=== PATIENT | female | born 1950 | race Caucasian/White ===

== ENCOUNTER 2016-05-29 17:37 | Inpatient (IN) | payer OTHER ==
[2016-05-29 19:02] LABS: EOSINOPHIL 0.1 % (0-4.5); MCH 24.7 pg (25.7-33.7); MCHC 31.5 g/dl (32.0-36.0); MEAN CELL VOLUME 78.6 fl (80-96); MEAN PLT VOLUME 7.2 fl (7.5-11.1); PLATELET COUNT 510 K/MM3 (134-434); RDW 16.7 % (11.6-15.6); WHITE BLOOD COUNT 14.5 K/mm3 (4.0-10.0)
[2016-05-29 19:22] LABS: INR 1.12 (0.82-1.09); PROTHROMBIN TIME (PATIENT) 12.4 SEC (9.98-11.88)
[2016-05-29 22:26] LABS: ALBUMIN 2.4 g/dl (3.4-5.0); ANION GAP 11 (8-16); CALCIUM 8.8 mg/dL (8.5-10.1); CO2 30 mmol/L (21-32); CREATININE 0.8 mg/dL (0.55-1.02); GLUCOSE,RANDOM 69 mg/dL (74-106); MAGNESIUM 2.9 mg/dL (1.8-2.4); PHOSPHOROUS 3.8 mg/dL (2.5-4.9); SGOT/AST 27 U/L (15-37); SGPT/ALT 30 U/L (12-78)
[2016-05-29 22:27] LABS: SALICYLATE 5.172 mg/dl (0.0-30.0)
[2016-05-29 22:31] LABS: ALK PHOS 102 U/L (45-117); BILIRUBIN,TOTAL 0.3 mg/dL (0.2-1.0); TOT PROT 7.4 g/dl (6.4-8.2); TROPONIN I < 0.02 ng/ml (0.00-0.05)
--- NOTE | 2016-05-29 22:43 | PDOC ---
History of Present Illness - General History Source: EMS, Old Records Exam Limitations: Clinical Condition - History of Present Illness Initial Comments: 05/29/16 23:04 The patient is a 65 year old female brought via EMS and presenting with her daughter, with a significant past medical history of Opiod dependence, HTN and breast CA, who presents to the emergency department with altered mental status for the past 3 days. The patient is currently on methadone. On presentation the patient is sleepy, responsive to name and tactile stimuli. Allergies: Codeine Past surgical history: Abdominal surgery Social history: Methadone use. Cigarette use PMD - Dr. Josue <Keny Hardy - Last Filed: 05/29/16 23:03> - General History Source: Patient Exam Limitations: No Limitations <Pierre Michaud - Last Filed: 05/30/16 00:51> - General Chief Complaint: Altered Mental Status Stated Complaint: AMS Time Seen by Provider: 05/29/16 18:42 Past History <Keny Hardy - Last Filed: 05/29/16 23:03> - Past Medical History Cancer: Yes (H/O BREAST CA) HTN: Yes - Surgical History Abdominal Surgery: Yes - Immunization History Immunization Up to Date: No (unknown) - Psycho/Social/Smoking Cessation Hx Anxiety: No Suicidal Ideation: No Smoking Status: Yes Smoking History: Never smoked Have you smoked in the past 12 months: No Number of Cigarettes Smoked Daily: 7 Information on smoking cessation initiated: No Hx Alcohol Use: No Drug/Substance Use Hx: No Substance Use Type: None <Pierre Michaud - Last Filed: 05/30/16 00:51> - Past Medical History Allergies/Adverse Reactions: Allergies Allergy/AdvReac Type Severity Reaction Status Date / Time codeine Allergy Mild Rash Verified 10/21/14 16:21 Home Medications: Ambulatory Orders Atenolol [Tenormin] 25 mg PO TID 05/14/12 Gabapentin [Neurontin] 600 mg PO TID 05/14/12 Methadone (Detox) [Dolophine -] 50 mg PO DAILY 05/14/12 Enalapril Maleate [Vasotec] 5 mg PO BID 08/23/12 Amlodipine Besylate 5 mg PO ASDIR 10/20/14 Review of Systems - Review of Systems Able to Perform ROS?: Yes Comments:: 05/29/16 23:04 Unable to obtain ROS due to patient altered mental status <Keny Hardy - Last Filed: 05/29/16 23:03> *Physical Exam - Vital Signs Last Vital Signs Temp Pulse Resp BP Pulse Ox 97.1 F L 62 16 113/76 96 05/29/16 17:57 05/29/16 17:57 05/29/16 17:57 05/29/16 17:57 05/29/16 17:57 - Physical Exam Comments: 05/29/16 23:04 GENERAL: Sleepy, response to tactile stimuli HEAD: No signs of trauma, normocephalic, atraumatic EYES: PERRLA, EOMI, sclera anicteric, conjunctiva clear ENT: Auricles normal inspection, hearing grossly normal, nares patent, oropharynx clear without exudates. Moist mucosa NECK: Normal ROM, supple, no lymphadenopathy, JVD, or masses LUNGS: No distress, speaks full sentences, clear to auscultation bilaterally HEART: Regular rate and rhythm, normal S1 and S2, no murmurs, rubs or gallops, peripheral pulses normal and equal bilaterally. ABDOMEN: Soft, nontender, normoactive bowel sounds. No guarding, no rebound. No masses EXTREMITIES: 2+ lower extremity pitting edema bilaterally. No clubbing or cyanosis. NEUROLOGICAL: Sleepy, Response to tactile stimuli. SKIN: Warm, Dry, normal turgor, no rashes or lesions noted. <AntonyKenymichelle Wolf - Last Filed: 05/29/16 23:03> - Vital Signs Last Vital Signs Temp Pulse Resp BP Pulse Ox 97.1 F L 62 16 113/76 96 05/29/16 17:57 05/29/16 17:57 05/29/16 17:57 05/29/16 17:57 05/29/16 17:57 <Pierre Michaud - Last Filed: 05/30/16 00:51> Heart Score/ECG Review #1 ECG reviewed & interpreted by me at: 19:20 05/29/16 23:31 NSR 53, low voltage QRS, QTC 403 msec. No STD?CARLOS <Pierre Michaud - Last Filed: 05/30/16 00:51> ED Treatment Course - LABORATORY CBC & Chemistry Diagram: 05/29/16 18:50 04/12/17 21:09 - ADDITIONAL ORDERS Additional order review: Laboratory Results 05/29/16 05/29/16 05/29/16 21:09 21:09 21:09 INR PTT (Actin FS) Sodium 136 Potassium 4.9 Chloride 95 L Carbon Dioxide 30 Anion Gap 11 BUN 44 H D Creatinine 0.8 D Creat Clearance w eGFR > 60 POC Glucometer Random Glucose 69 L Calcium 8.8 Phosphorus 3.8 Magnesium 2.9 H Total Bilirubin 0.3 AST 27 ALT 30 D Alkaline Phosphatase 102 Ammonia 26.80 Creatine Kinase 34 Troponin I < 0.02 B-Natriuretic Peptide 679.36 H Total Protein 7.4 Albumin 2.4 L D Salicylates 5.172 Acetaminophen < 2.000 L Alcohol, Quantitative 05/29/16 05/29/16 05/29/16 18:50 18:50 18:50 INR 1.12 PTT (Actin FS) 30.0 Sodium Cancelled Potassium Cancelled Chloride Cancelled Carbon Dioxide Cancelled Anion Gap Cancelled BUN Cancelled Creatinine Cancelled Creat Clearance w eGFR Cancelled POC Glucometer Random Glucose Cancelled Calcium Cancelled Phosphorus Cancelled Magnesium Cancelled Total Bilirubin Cancelled AST Cancelled ALT Cancelled Alkaline Phosphatase Cancelled Ammonia Creatine Kinase Cancelled Troponin I Cancelled B-Natriuretic Peptide Cancelled Total Protein Cancelled Albumin Cancelled Salicylates Cancelled Acetaminophen Cancelled Alcohol, Quantitative Cancelled 05/29/16 05/29/16 18:49 17:49 INR PTT (Actin FS) Sodium Potassium Chloride Carbon Dioxide Anion Gap BUN Creatinine Creat Clearance w eGFR POC Glucometer 111.14161 Random Glucose Calcium Phosphorus Magnesium Total Bilirubin AST ALT Alkaline Phosphatase Ammonia 19.09 Creatine Kinase Troponin I B-Natriuretic Peptide Total Protein Albumin Salicylates Acetaminophen Alcohol, Quantitative 05/29/16 05/29/16 18:50 17:49 RBC 3.83 MCV 78.6 L MCHC 31.5 L RDW 16.7 H D MPV 7.2 L Neutrophils % 89.0 H D Lymphocytes % 3.9 L D Monocytes % 6.0 Eosinophils % 0.1 D Basophils % 1.0 POC Glucometer 111.42825 - RADIOLOGY Radiograph Interpretation: 05/29/16 23:[address] Reviewed by: Dr. Ga eWlls Impression: No CT evidence of acute intracranial pathology. <Keny Hardy - Last Filed: 05/29/16 23:03> - LABORATORY CBC & Chemistry Diagram: 05/29/16 18:50 05/29/16 21:09 - ADDITIONAL ORDERS Additional order review: Laboratory Results 05/29/16 05/29/16 05/29/16 21:09 21:09 21:09 INR PTT (Actin FS) Sodium 136 Potassium 4.9 Chloride 95 L Carbon Dioxide 30 Anion Gap 11 BUN 44 H D Creatinine 0.8 D Creat Clearance w eGFR > 60 POC Glucometer Random Glucose 69 L Calcium 8.8 Phosphorus 3.8 Magnesium 2.9 H Total Bilirubin 0.3 AST 27 ALT 30 D Alkaline Phosphatase 102 Ammonia 26.80 Creatine Kinase 34 Troponin I < 0.02 B-Natriuretic Peptide 679.36 H Total Protein 7.4 Albumin 2.4 L D Salicylates 5.172 Acetaminophen < 2.000 L Alcohol, Quantitative 05/29/16 05/29/16 05/29/16 18:50 18:50 18:50 INR 1.12 PTT (Actin FS) 30.0 Sodium Cancelled Potassium Cancelled Chloride Cancelled Carbon Dioxide Cancelled Anion Gap Cancelled BUN Cancelled Creatinine Cancelled Creat Clearance w eGFR Cancelled POC Glucometer Random Glucose Cancelled Calcium Cancelled Phosphorus Cancelled Magnesium Cancelled Total Bilirubin Cancelled AST Cancelled ALT Cancelled Alkaline Phosphatase Cancelled Ammonia Creatine Kinase Cancelled Troponin I Cancelled B-Natriuretic Peptide Cancelled Total Protein Cancelled Albumin Cancelled Salicylates Cancelled Acetaminophen Cancelled Alcohol, Quantitative Cancelled 05/29/16 05/29/16 18:49 17:49 INR PTT (Actin FS) Sodium Potassium Chloride Carbon Dioxide Anion Gap BUN Creatinine Creat Clearance w eGFR POC Glucometer 111.02191 Random Glucose Calcium Phosphorus Magnesium Total Bilirubin AST ALT Alkaline Phosphatase Ammonia 19.09 Creatine Kinase Troponin I B-Natriuretic Peptide Total Protein Albumin Salicylates Acetaminophen Alcohol, Quantitative 05/29/16 05/29/16 18:50 17:49 RBC 3.83 MCV 78.6 L MCHC 31.5 L RDW 16.7 H D MPV 7.2 L Neutrophils % 89.0 H D Lymphocytes % 3.9 L D Monocytes % 6.0 Eosinophils % 0.1 D Basophils % 1.0 POC Glucometer 111.90523 - RADIOLOGY Radiology Studies Ordered: Category Date Time Status HEAD CT WITHOUT CONTRAST [CT] Stat CT Scan 05/29/16 18:47 Completed CHEST - PA [RAD] Stat Radiology 05/29/16 22:38 Ordered <Pierre Michaud - Last Filed: 05/30/16 00:51> Medical Decision Making - Medical Decision Making 05/29/16 22:39 A portion of this note was documented by scribe services under my direction. I have reviewed the details of the note, within reason, and agree with the documentation with the following case summary and management plan written by me. Patient treated in the ED. Nursing notes are reviewed and incorporated into the medical decision-making. Vital signs reviewed. Peripheral IV access obtained by the nurse, laboratory studies are drawn and sent, reviewed and interpreted by myself. Vital Signs Temp Pulse Resp BP Pulse Ox 97.1 F L 62 16 113/76 96 05/29/16 17:57 05/29/16 17:57 05/29/16 17:57 05/29/16 17:57 05/29/16 17:57 65-year-old female with past medical history of stage IV breast cancer currently in remission, hypertension presents with altered mental status. The patient is arousable by tactile stimuli and appears sleepy. Does not want answer questions. History obtained by the daughter why spoke to. She reports that the patient last month has been feeling generally "off". In last 4 days, family noticed that she was becoming increasingly more lethargic. She does take 30 mg methadone daily and that was secondary to chronic pain secondary to her cancer. She is currently not on chemotherapy at this time. They had visited Dr. Grant performed blood work and reported that her thyroid and liver enzymes are okay. However, because of the persistence of lethargy and altered mental status, patient brought to ED. The family also noted that she's been having 2 weeks of increasing lower extremity edema. According to the patient's family, there is no knowledge of cardiac disease. Differential is broad. Includes occult infection, anemia, metabolic disarray. CAT scan head was performed and showed no acute findings. Laboratory data suggests multiple findings. Patient's BUN/creatinine is 44:1 suggests dehydration. However, patient's chest x-ray demonstrates cardiomegaly with an elevated BNP of 600. With the lower extremity edema, this is also concerning for CHF. Urine studies pending. Given these findings, the patient to be admitted for further evaluation. 05/29/16 23:32 Pt has low voltages on ECG. With cardiomegaly and low voltages, (though vitals stable and no electrical alternans), should consider echo prior to diuresis. 05/30/16 00:36 Bedside ultrasound demonstrated no pericardial effusion. 05/30/16 00:49 CBC, BMP 05/29/16 18:50 05/29/16 21:09 CMP Sodium 136 mmol/L (136-145) 05/29/16 21:09 Potassium 4.9 mmol/L (3.5-5.1) 05/29/16 21:09 Chloride 95 mmol/L (98-107) L 05/29/16 21:09 Carbon Dioxide 30 mmol/L (21-32) 05/29/16 21:09 Anion Gap 11 (8-16) 05/29/16 21:09 BUN 44 mg/dL (7-18) H D 05/29/16 21:09 Creatinine 0.8 mg/dL (0.55-1.02) D 05/29/16 21:09 Creat Clearance w eGFR > 60 (>60) 05/29/16 21:09 POC Glucometer 111.50047 UNITS (()) 05/29/16 17:49 Random Glucose 69 mg/dL (74-106) L 05/29/16 21:09 Calcium 8.8 mg/dL (8.5-10.1) 05/29/16 21:09 Phosphorus 3.8 mg/dL (2.5-4.9) 05/29/16 21:09 Magnesium 2.9 mg/dL (1.8-2.4) H 05/29/16 21:09 Total Bilirubin 0.3 mg/dL (0.2-1.0) 05/29/16 21:09 AST 27 U/L (15-37) 05/29/16 21:09 ALT 30 U/L (12-78) D 05/29/16 21:09 Alkaline Phosphatase 102 U/L (45-117) 05/29/16 21:09 Ammonia 26.80 umol/L (11-32) 05/29/16 21:09 Creatine Kinase 34 IU/L (26-192) 05/29/16 21:09 Troponin I < 0.02 ng/ml (0.00-0.05) 05/29/16 21:09 B-Natriuretic Peptide 679.36 pg/ml (5-125) H 05/29/16 21:09 Total Protein 7.4 g/dl (6.4-8.2) 05/29/16 21:09 Albumin 2.4 g/dl (3.4-5.0) L D 05/29/16 21:09 Patient was given an amp of dextrose and his symptoms improved. The patient is now alert and improved. Decision was made to admit the patient to the hospital for further evaluation. Case discussed with Dr. Arechiga who accepts for telemetry admission. Case discussed in detail with admitting physician including history, physical exam and ancillary studies. Admitting physician has assumed care for the patient, will follow all pending diagnostics and will complete the evaluation and treatment. <Pierre Michaud - Last Filed: 05/30/16 00:51> *DC/Admit/Observation/Transfer <Keny Hardy - Last Filed: 05/29/16 23:03> - Discharge Dispostion Admit: Yes <Pierre Michaud - Last Filed: 05/30/16 00:51> Diagnosis at time of Disposition: Hypoglycemia Congestive heart failure Qualifiers: Congestive heart failure type: unspecified congestive heart failure type Congestive heart failure chronicity: unspecified congestive heart failure chronicity Qualified Code(s): I50.9 - Heart failure, unspecified - Discharge Dispostion Condition at time of disposition: Stable - Referrals Referrals: Colin Brar MD [Primary Care Provider] -
[2016-05-29] MEDS ORDERED: DEXTROSE 50%-WATER - 25 GM/50 ML VIAL IVPUSH ONE (23:47)
[2016-05-29] MEDS ORDERED: FUROSEMIDE 40 MG/4 ML INJECTABLE VIAL IVPUSH ONE (23:47)
[2016-05-30] MEDS ORDERED: FUROSEMIDE 40 MG/4 ML INJECTABLE VIAL ONE ×2 (00:10→11:08)
[2016-05-30] MEDS ORDERED: DEXTROSE 50%-WATER 50 ML DISP.SYRIN ONE (00:11)
--- NOTE | 2016-05-30 01:45 | HP ---
[id number] HISTORY OF PRESENT ILLNESS: 65 yo F presents with altered mental status for 3 days. Patient is a poor historian due to clinical condition. Family not at bedside. Hx taken from chart. PMHx: Opioid dependence, HTN and breast CA ER course was notable for: (1) Chest X-Ray with bilateral pleural effusions (2) Labs BMP elevated 679. Solicilate level of 5.1 (3) Head CT which had no acute intracranial pathology Recent Travel: N/A PAST MEDICAL HISTORY: Opioid dependence, HTN and breast CA PAST SURGICAL HISTORY: Mastectomy Social History: Smoking: N/A Alcohol: N/A Drugs: Opioid dependence Family History: Allergies codeine Allergy (Mild, Verified 10/21/14 16:21) Rash HOME MEDICATIONS: Home Medications Medication Instructions Recorded Atenolol [Tenormin] 25 mg PO TID 05/14/12 Gabapentin [Neurontin] 600 mg PO TID 05/14/12 Methadone (Detox) [Dolophine -] 50 mg PO DAILY 05/14/12 Enalapril Maleate [Vasotec] 5 mg PO BID 08/23/12 Amlodipine Besylate 5 mg PO ASDIR 10/20/14 REVIEW OF SYSTEMS Unable to obtain as patient is nonverbal secondary to clinical condition. PHYSICAL EXAMINATION GENERAL: Oriented to self, in mild distress. Moaning. Groaning. Nonverbal. HEAD: Normal with no signs of trauma. EYES: Pupils reactive to light, extraocular movements intact, sclera anicteric, conjunctiva clear. No lid lag. Bilateral Ptosis. EARS, NOSE, THROAT: Ears normal, nares patent, oropharynx clear without exudates. Oral mucosa dry. NECK: Normal range of motion, supple without lymphadenopathy. Positive JVD. No masses. LUNGS: Breath sounds equal, clear to auscultation bilaterally. No wheezes, and no crackles. No accessory muscle use. HEART: Regular rate and rhythm, normal S1 and S2 without murmur, rub or gallop. ABDOMEN: Soft, nontender, not distended, normoactive bowel sounds, no guarding, no rebound, no masses. No hepatomegaly or splenomegaly. Right sided mastectomy. MUSCULOSKELETAL: Normal range of motion at all joints. No bony deformities or tenderness. No CVA tenderness. UPPER EXTREMITIES: 2+ pulses, warm, well-perfused. No cyanosis. No clubbing. No peripheral edema. LOWER EXTREMITIES: 2+ pulses, warm, well-perfused. No calf tenderness. No peripheral edema. NEUROLOGICAL: patrizia score 12 PSYCHIATRIC: Cooperative. SKIN: Warm, dry, normal turgor, no rashes or lesions noted, normal capillary refill. Documentation prepared by Hattie Henley, acting as medical office clerk for Kristen Arechiga M.D. <Kristen Arechiga - Last Filed: 06/13/16 01:06> Problem List - Problem (1) Altered mental status, unspecified Assessment/Plan: Neurochecks Aspiration precautions elevate head of bed >30 degrees Dextrose stat UA and UC ABG Monitor FS ACHS Code(s): R41.82 - ALTERED MENTAL STATUS, UNSPECIFIED Qualifiers: Coma depth: Naila coma 9-12 (2) CHF (congestive heart failure) Assessment/Plan: Atenolol 12.5mg BID, as per renal dosing Enalapril 5 mg bid Lipid panel ECHO Cardiology consult Code(s): I50.9 - HEART FAILURE, UNSPECIFIED Qualifiers: Congestive heart failure type: unspecified congestive heart failure type Congestive heart failure chronicity: unspecified congestive heart failure chronicity Qualified Code(s): I50.9 - Heart failure, unspecified (3) Hypoglycemia Assessment/Plan: Monitor FS q4h Dextrose q6h prn Code(s): E16.2 - HYPOGLYCEMIA, UNSPECIFIED (4) H/O malignant neoplasm of breast Code(s): Z85.3 - PERSONAL HISTORY OF MALIGNANT NEOPLASM OF BREAST Visit type - Emergency Visit Emergency Visit: Yes ED Registration Date: 05/30/16 Care time: The patient presented to the Emergency Department on the above date and was hospitalized for further evaluation of their emergent condition. - New Patient This patient is new to me today: Yes Date on this admission: 06/13/16 - Critical Care Critical Care patient: No
[2016-05-30] MEDS ORDERED: amLODIPine BESYLATE 5 MG TABLET (FP) PO SCH (02:15)
[2016-05-30 07:39] LABS: BASOPHIL 0.3 % (0-2.0); EOSINOPHIL 0.2 % (0-4.5); MCH 25.3 pg (25.7-33.7); MCHC 32.2 g/dl (32.0-36.0); MEAN CELL VOLUME 78.8 fl (80-96); MEAN PLT VOLUME 6.8 fl (7.5-11.1); NEUTROPHILS 90.2 % (42.8-82.8); PLATELET COUNT 486 K/MM3 (134-434); RDW 16.2 % (11.6-15.6); WHITE BLOOD COUNT 18.7 K/mm3 (4.0-10.0)
[2016-05-30] MEDS: GABAPENTIN 300 MG CAPSULE (FP) PO SCH ×3 (07:55→21:27)
[2016-05-30] MEDS ORDERED: GABAPENTIN 100 MG CAPSULE (FP) ONE (07:58)
[2016-05-30 08:08] LABS: ALBUMIN 2.3 g/dl (3.4-5.0); ANION GAP 8 (8-16); BILIRUBIN,TOTAL 0.6 mg/dL (0.2-1.0); CALCIUM 8.8 mg/dL (8.5-10.1); CO2 32 mmol/L (21-32); CREATININE 0.9 mg/dL (0.55-1.02); GLUCOSE,RANDOM 82 mg/dL (74-106); SGOT/AST 25 U/L (15-37); SGPT/ALT 26 U/L (12-78)
[2016-05-30 08:09] LABS: ALK PHOS 89 U/L (45-117)
--- NOTE | 2016-05-30 08:18 | PN ---
Progress Note (short form) - Note Progress Note: Cardiology Consult Dictated Altered Mental Status Leukocytosis Possible RLL infiltrate Evidence of Volume Overload on exam vs 3rd spacing from low albumin REC: Echocardiogram today for EF assessment Blood and urine cultures ID and Pulmonary to evaluate For now, can start on PO Lasix and observe clinically.
--- NOTE | 2016-05-30 08:39 | PN ---
Teaching Attending Note Name of Resident: Filippo Hoyos ATTENDING PHYSICIAN STATEMENT I saw and evaluated the patient. I reviewed the resident's note and discussed the case with the resident. I agree with the resident's findings and plan as documented. Patient is lying in bed with no acute distress, looks lethargic, answers to questions and then falls back to sleep. Vital Signs Temperature 97.6 F 05/30/16 06:31 Pulse Rate 91 H 05/30/16 06:31 Respiratory Rate 18 05/30/16 06:31 Blood Pressure 98/61 05/30/16 06:31 O2 Sat by Pulse Oximetry (%) 98 05/30/16 06:31 CBCD WBC 18.7 K/mm3 (4.0-10.0) H 05/30/16 07:15 RBC 3.89 M/mm3 (3.60-5.2) 05/30/16 07:15 Hgb 9.8 GM/dL (10.7-15.3) L 05/30/16 07:15 Hct 30.6 % (32.4-45.2) L 05/30/16 07:15 MCV 78.8 fl (80-96) L 05/30/16 07:15 MCHC 32.2 g/dl (32.0-36.0) 05/30/16 07:15 RDW 16.2 % (11.6-15.6) H 05/30/16 07:15 Plt Count 486 K/MM3 (134-434) H 05/30/16 07:15 MPV 6.8 fl (7.5-11.1) L 05/30/16 07:15 CMP Sodium 136 mmol/L (136-145) 05/30/16 07:15 Potassium 5.3 mmol/L (3.5-5.1) H 05/30/16 07:15 Chloride 96 mmol/L (98-107) L 05/30/16 07:15 Carbon Dioxide 32 mmol/L (21-32) 05/30/16 07:15 Anion Gap 8 (8-16) 05/30/16 07:15 BUN 43 mg/dL (7-18) H 05/30/16 07:15 Creatinine 0.9 mg/dL (0.55-1.02) 05/30/16 07:15 Creat Clearance w eGFR > 60 (>60) 05/30/16 07:15 Random Glucose 82 mg/dL (74-106) 05/30/16 07:15 Calcium 8.8 mg/dL (8.5-10.1) 05/30/16 07:15 Total Bilirubin 0.6 mg/dL (0.2-1.0) D 05/30/16 07:15 AST 25 U/L (15-37) 05/30/16 07:15 ALT 26 U/L (12-78) 05/30/16 07:15 Alkaline Phosphatase 89 U/L (45-117) 05/30/16 07:15 Total Protein 7.0 g/dl (6.4-8.2) 05/30/16 07:15 Albumin 2.3 g/dl (3.4-5.0) L 05/30/16 07:15 CARDIAC ENZYMES Creatine Kinase 34 IU/L (26-192) 05/29/16 21:09 Troponin I < 0.02 ng/ml (0.00-0.05) 05/29/16 21:09 Current Medications Generic Name Dose Route Start Last Admin Trade Name Freq PRN Reason Stop Dose Admin Amlodipine Besylate 5 mg 05/30/16 10:00 Norvasc - PO DAILY [facility] Atenolol 12.5 mg 05/30/16 10:00 Tenormin - PO BID [facility] Furosemide 40 mg 05/30/16 10:00 Lasix Injection - IVPB DAILY [facility] Gabapentin 600 mg 05/30/16 06:00 05/30/16 07:55 Neurontin - PO 600 mg TID [facility] Administration Metronidazole 100 mls @ 100 mls/hr 05/30/16 10:00 Flagyl 500mg Premixed Ivpb - IVPB Q8H-IV [facility] Ceftriaxone Sodium 1 gm/ 100 mls @ 200 mls/hr 05/30/16 10:00 Dextrose IVPB DAILY [facility] Home Medications Medication Instructions Recorded Atenolol [Tenormin] 25 mg PO TID 05/14/12 Gabapentin [Neurontin] 600 mg PO TID 05/14/12 Methadone (Detox) [Dolophine -] 50 mg PO DAILY 05/14/12 Enalapril Maleate [Vasotec] 5 mg PO BID 08/23/12 Amlodipine Besylate 5 mg PO ASDIR 09/03/15 ASSESSMENT AND PLAN: Patient is a 65F with history of HTN, Breast CA in remission, and chronic pain syndrome leading to opioid dependence presents to the hospital with altered mental status found to be hypoglycemic given D50 and AMS resolved. # Acute change of mental status ; r/o sepsis ; UA,urine culture ordered, Hold Methadone for now. Blood culture x2 , # Acute Hypoglycemia , BGms q4hr, IV d50 prn # Acute leukocytosis r/o sepsis, blood culture, UA,urine culture ordered, ID consult, BL pleural effusion cannot r/o pneumonia # Acute CHF exacerbation , cardio consult . # Acute Hyperkalemia will hold Vasotec for now, will monitor Potassium level. will continue LAsix IV DVT Px: Lovenox 40mg sq
--- NOTE | 2016-05-30 08:50 | CONS ---
DATE OF CONSULTATION: 05/30/2016 A consultation is requested for evaluation of congestive heart failure by Dr. Arechiga. The patient is a 65-year-old female with past medical history of hypertension, breast cancer, and opioid dependence, brought to the emergency room by her daughter for altered mental status. The history was obtained by me in Croatian. The patient is a poor historian. She is really unable to tell me why she is in the emergency room other than she has leg swelling. She denied fevers or chills on my history, no chest pain, no shortness of breath. She denied cough. She has had swollen legs for the last 2 months. She denies prior cardiac issues. PAST MEDICAL HISTORY: Her past medical history is as alluded to above and includes hypertension, history of breast cancer, methadone dependence for unclear reasons at this time. ALLERGIES: She is allergic to CODEINE. MEDICATIONS: Her home medications include methadone 50 mg daily, Neurontin 600 t.i.d., enalapril 5 b.i.d., atenolol 25 t.i.d., amlodipine 5 mg daily. Here she has been started on those medications as well as IV Lasix 40 mg IV daily, ceftriaxone and Flagyl due to elevated white count and suspected pneumonia. FAMILY HISTORY: Noncontributory. SOCIAL HISTORY: She lives with her daughter. She is a smoker, 7 cigarettes per day. PHYSICAL EXAMINATION: Vital Signs: Afebrile, temperature 97.6. Pulse 91 and regular. Blood pressure 112/62, this morning 98/61. O2 saturation 91 on room air. HEENT: She is anicteric with no JVD and no carotid bruits. Heart: Regular without murmurs. Chest: Demonstrated right basilar rales. Abdomen: Soft, nontender. Extremities: With 2+ pitting edema bilaterally. LABORATORY: White count 18, hematocrit 30, platelets 486, INR 1.1. Sodium 136, creatinine 0.8. LFTs were normal. CK, troponin negative x1 set. BNP 679. Albumin low at 2.4. Chest x-ray showed increased peripheral congestion, mild, with a possible right lower lobe infiltrate. CT head was negative. EKG showed sinus bradycardia with borderline low voltage. IMPRESSION: 1. Altered mental status with leukocytosis. 2. Suspected right lower lobe infiltrate/pneumonia. 3. History of hypertension and breast cancer. 4. Evidence of volume overload on exam, mild, with concomitant hypoalbuminemia. PLAN: 1. Blood and urine cultures. 2. ID and pulmonary evaluation. 3. Echocardiogram today for assessment of LV function, valvular status, and to rule out pericardial disease. 4. For now, would switch to p.o. Lasix 40 mg daily and observe clinically. This can be changed to IV if she does not respond. Thanks for the consultation. MELISSA MUNOZ M.D. [id number]
[2016-05-30] MEDS ORDERED: DEXTROSE 50%-WATER - 25 GM/50 ML VIAL IVPUSH PRN (08:52)
[2016-05-30 09:07] LABS: CHOLESTEROL 145 mg/dL (50-200); LDL CHOLESTEROL (ONLY SJRH) 91 mg/dL (5-100); TROPONIN I < 0.02 ng/ml (0.00-0.05)
[2016-05-30] MEDS ORDERED: CEFTRIAXONE 100 ML IVPB SCH (10:00)
[2016-05-30] MEDS ORDERED: METRONIDAZOLE 500 MG PREMIXED 100 ML IVPB SCH (10:00)
[2016-05-30] MEDS ORDERED: FUROSEMIDE 40 MG/4 ML INJECTABLE VIAL IVPB SCH ×2 (10:00→22:00)
[2016-05-30] MEDS ORDERED: ENALAPRIL MALEATE 5 MG TABLET (FP) PO SCH ×2 (10:00→22:00)
[2016-05-30] MEDS ORDERED: ATENOLOL 25 MG TABLET (FP) PO SCH ×2 (10:00)
[2016-05-30] MEDS ORDERED: ATENOLOL 25 MG TABLET (FP) ONE (11:07)
[2016-05-30] MEDS ORDERED: METRONIDAZOLE 500 MG PREMIXED 100 ML IVPB ONE (11:08)
[2016-05-30] MEDS ORDERED: CEFTRIAXONE 50 ML ONE (11:08)
[2016-05-30] MEDS: amLODIPine BESYLATE 5 MG TABLET (FP) PO SCH (11:19)
--- NOTE | 2016-05-30 11:39 | EKG ---
Test Reason : Blood Pressure : / mmHG Vent. Rate : 053 BPM Atrial Rate : 053 BPM P-R Int : 166 ms QRS Dur : 084 ms QT Int : 430 ms P-R-T Axes : 056 025 018 degrees QTc Int : 403 ms SINUS BRADYCARDIA WITH SINUS ARRHYTHMIA POSSIBLE LEFT ATRIAL ENLARGEMENT LOW VOLTAGE QRS BORDERLINE ECG NO PREVIOUS ECGS AVAILABLE Confirmed by WILLIAM ROBERTSON, BRITTNEY ([id number]) on 05/30/2016 11:38:42 AM Referred By: Confirmed By:BRITTNEY THOMAS MD
[2016-05-30] MEDS: CEFTRIAXONE 50 ML IVPB SCH (12:01)
[2016-05-30 12:31] LABS: URINE APPEARANCE CLEAR; URINE BILIRUBIN NEGATIVE (NEGATIVE); URINE BLOOD NEGATIVE (NEGATIVE); URINE COLOR STRAW; URINE GLUCOSE (UA) NEGATIVE (NEGATIVE); URINE KETONE NEGATIVE (NEGATIVE); URINE LEUK ESTERASE NEGATIVE (NEGATIVE); URINE NITRITE NEGATIVE (NEGATIVE); URINE PROTEIN NEGATIVE (NEGATIVE); URINE UROBILINOGEN NEGATIVE E.U./dl (0.2-1.0)
[2016-05-30 13:25] LABS: URINE MARIJUANA THC NEGATIVE ng/ml (CUTOFF=50)
[2016-05-30] MEDS ORDERED: FUROSEMIDE 40 MG TABLET (FP) PO SCH (14:00)
--- NOTE | 2016-05-30 16:03 | PN ---
Physical Exam: SUBJECTIVE: Patient seen and examined at bedside in the emergency room does not answer questions in Vietnamese or in [place] OBJECTIVE: Vital Signs Period Temp Pulse Resp BP Sys/Fernando Pulse Ox Last 24 Hr 97.3 F-98.0 F 66-104 18-20 95-121/52-61 98-99 GENERAL: The patient is awake, alert. would not answer questions for orientation HEAD: Normal with no signs of trauma. EYES: PERRL, extraocular movements intact, sclera anicteric, conjunctiva clear ENT: moist mucous membranes. NECK: Trachea midline, supple. LUNGS: Breath sounds equal, clear to auscultation bilaterally, no wheezes, no crackles HEART: Regular rate and rhythm, S1, S2 +JVD ABDOMEN: Soft, nontender, nondistended, normoactive bowel sounds, no guarding, no rebound, no hepatosplenomegaly, no masses. EXTREMITIES: warm 2+ pitting edema of lower extremities bilaterally NEUROLOGICAL: Cranial nerves II through XII grossly intact. patient would not participate in order to do a full neuro exam PSYCH: withdrawn Laboratory Results - last 24 hr 05/30/16 05/30/16 05/30/16 07:15 07:15 07:15 WBC 18.7 H RBC 3.89 Hgb 9.8 L Hct 30.6 L MCV 78.8 L MCHC 32.2 RDW 16.2 H Plt Count 486 H MPV 6.8 L Neutrophils % 90.2 H Lymphocytes % 5.5 L D Monocytes % 3.8 Eosinophils % 0.2 D Basophils % 0.3 Sodium 136 Potassium 5.3 H Chloride 96 L Carbon Dioxide 32 Anion Gap 8 BUN 43 H Creatinine 0.9 Creat Clearance w eGFR > 60 Random Glucose 82 Calcium 8.8 Total Bilirubin 0.6 D AST 25 ALT 26 Alkaline Phosphatase 89 Creatine Kinase 45 Troponin I < 0.02 Total Protein 7.0 Albumin 2.3 L Triglycerides 107 Cancelled Cholesterol 145 Cancelled Total LDL Cholesterol 91 Cancelled HDL Cholesterol 40 Cancelled Urine Color Urine Appearance Urine pH Ur Specific [place] Urine Protein Urine Glucose (UA) Urine Ketones Urine Blood Urine Nitrite Urine Bilirubin Urine Urobilinogen Ur Leukocyte Esterase Opiates Screen Methadone Screen Barbiturate Screen Phencyclidine Screen Ur Amphetamines Screen MDMA (Ecstasy) Screen Benzodiazepines Screen Cocaine Screen U Marijuana (THC) Screen 05/30/16 05/30/16 12:15 12:15 WBC RBC Hgb Hct MCV MCHC RDW Plt Count MPV Neutrophils % Lymphocytes % Monocytes % Eosinophils % Basophils % Sodium Potassium Chloride Carbon Dioxide Anion Gap BUN Creatinine Creat Clearance w eGFR Random Glucose Calcium Total Bilirubin AST ALT Alkaline Phosphatase Creatine Kinase Troponin I Total Protein Albumin Triglycerides Cholesterol Total LDL Cholesterol HDL Cholesterol Urine Color Straw Urine Appearance Clear Urine pH 5.0 Ur Specific [place] 1.008 Urine Protein Negative Urine Glucose (UA) Negative Urine Ketones Negative Urine Blood Negative Urine Nitrite Negative Urine Bilirubin Negative Urine Urobilinogen Negative Ur Leukocyte Esterase Negative Opiates Screen Negative Methadone Screen Positive Barbiturate Screen Negative Phencyclidine Screen Negative Ur Amphetamines Screen Negative MDMA (Ecstasy) Screen Negative Benzodiazepines Screen Negative Cocaine Screen Negative U Marijuana (THC) Screen Negative Active Medications Generic Name Dose Route Start Last Admin Trade Name Ludivina PRN Reason Stop Dose Admin Amlodipine Besylate 5 mg 05/30/16 10:00 05/30/16 11:19 Norvasc - PO Not Given DAILY MONAE Atenolol 25 mg 05/31/16 10:00 Tenormin - PO DAILY MONAE Furosemide 40 mg 05/30/16 22:00 Lasix Injection - IVPUSH BID MONAE Gabapentin 600 mg 05/30/16 06:00 05/30/16 15:00 Neurontin - PO Not Given TID MONAE Ceftriaxone Sodium 50 mls @ 200 mls/hr 05/30/16 10:00 05/30/16 12:01 Rocephin 1gm Ivpb (Pre-Docked) IVPB 200 mls/hr DAILY MONAE Administration Active Medications Generic Name Dose Route Start Last Admin Trade Name Ludivina PRN Reason Stop Dose Admin Amlodipine Besylate 5 mg 05/30/16 10:00 05/30/16 11:19 Norvasc - PO Not Given DAILY MONAE Atenolol 25 mg 05/31/16 10:00 Tenormin - PO DAILY MONAE Furosemide 40 mg 05/30/16 22:00 Lasix Injection - IVPUSH BID MONAE Gabapentin 600 mg 05/30/16 06:00 05/30/16 15:00 Neurontin - PO Not Given TID MONAE Ceftriaxone Sodium 50 mls @ 200 mls/hr 05/30/16 10:00 05/30/16 12:01 Rocephin 1gm Ivpb (Pre-Docked) IVPB 200 mls/hr DAILY MONAE Administration ASSESSMENT/PLAN: 65F with history of HTN, Breast CA in remission, and chronic pain syndrome leading to opioid dependence presents to the hospital with altered mental status found to be hypoglycemic given D50 and AMS resolved. Altered mental status: could be from methadone overdose vs hypoglycemia. Unless patient took more methadone than she was supposed to it is unlikely her dose is too high for her as she has been on this dose chronically. could also be from infection as patient has leukocystosis and bilateral lower lob PNA on CXR altered mental status improving hold methadone for now if patient starts to go into withdrawals would restart home dose of methadone encourage PO intake trend fingersticks q6h give D50 PRN Head CT WNL Sepsis secondary to pneumonia: patient had leukocytosis and tachycardia on presentation with a source of infection found ox CXR Start Rocephin Trend CBC Stop Flagyl Hypoglycemia: improved after D50 could be due to poor oral intake trend fingersticks q6h give D50 PRN HTN: continue home dose of Atenelol hold enalapril for now as she is hyperkalemic CHF:patient does not have CHF on Echo but clinically she has leg edema and looks volume overloaded Cardiology consult appreciated ECHO results noted Lasix 40mg IV BID Breast Ca: In remission no issues outpatient follow up Opioid dependence: secondary to chronic pain hold methadone for today restart tomorrow if her mental status improves to avoid withdrawals continue gabapentin for neuropathy/chronic pain Hyperkalemia: could be from TORIE inhibitor Hold enalapril Trend BMP should improve as patient is now on lasix if worsens will treat FEN: no IVF hyperkalemia Sodium controlled diet PPx: SCDs/HSQ No GI PPx indicated at this time PT consult to avoid deconditioning Visit type - Emergency Visit Emergency Visit: Yes ED Registration Date: 05/30/16 Care time: The patient presented to the Emergency Department on the above date and was hospitalized for further evaluation of their emergent condition. - New Patient This patient is new to me today: Yes Date on this admission: 05/30/16 - Critical Care Critical Care patient: No
--- NOTE | 2016-05-30 16:28 | CONSULT ---
Consultation: REQUESTING PROVIDER: Dr. Corby Haji CONSULT REQUEST: We have been asked to medically evaluate this patient for Pneumonia. HISTORY OF PRESENT ILLNESS: Patient is a 65 year old female with a PMHx of Stage 4 breast cancer in remission, HTN, and methadone dependence who presented for lethargy/altered mental status and was found to be hypoglycemic with leukocytosis and bilateral pitting edema. Patient's daughter reports she has chronic pain secondary to her breast cancer and was placed on methadone for management. When speaking to the patient she reports her edema began one week ago and has been increasing. Chest X-ray was done and patient was found to have right pleural effusion and bilateral infiltrates. Patient otherwise denies chest pain, palpitations, fever , chills, nausea, vomiting, diarrhea. PMHx: HTN PSHx: Bilateral breast masectomy, Right knee replacement Allergies: Codeine REVIEW OF SYSTEMS: CONSTITUTIONAL: generalized weakness, malaise, loss of appetite Absent: fever, chills, diaphoresis, weight change HEENT: Absent: rhinorrhea, nasal congestion, throat pain, throat swelling, difficulty swallowing, mouth swelling, ear pain, eye pain, visual changes CARDIOVASCULAR: Absent: chest pain, syncope, palpitations, irregular heart rate, lightheadedness , peripheral edema RESPIRATORY: cough, shortness of breath Absent: dyspnea with exertion, orthopnea, wheezing, stridor, hemoptysis GASTROINTESTINAL: Absent: abdominal pain, abdominal distension, nausea, vomiting, diarrhea, constipation, melena, hematochezia GENITOURINARY: Absent: dysuria, frequency, urgency, hesitancy, hematuria, flank pain, genital pain MUSCULOSKELETAL: Absent: myalgia, arthralgia, joint swelling, back pain, neck pain SKIN: Absent: rash, itching, pallor HEMATOLOGIC/IMMUNOLOGIC: Absent: easy bleeding, easy bruising, lymphadenopathy, frequent infections ENDOCRINE: Absent: unexplained weight gain, unexplained weight loss, heat intolerance, cold intolerance NEUROLOGIC: Absent: headache, focal weakness or paresthesias, dizziness, unsteady gait, seizure, mental status changes, bladder or bowel incontinence PSYCHIATRIC: Absent: anxiety, depression, suicidal or homicidal ideation, hallucinations. PHYSICAL EXAMINATION Vital Signs - 24 hr 05/30/16 05/30/16 05/30/16 02:20 06:31 10:30 Temperature 97.9 F 97.6 F 98.0 F Pulse Rate [ 104 H 91 H 66 Apical] Respiratory 20 18 19 Rate Blood Pressure 95/52 98/61 121/60 [Left Arm] O2 Sat by Pulse 99 98 98 Oximetry (%) 05/30/16 13:56 Temperature 97.3 F L Pulse Rate [ 72 Apical] Respiratory 19 Rate Blood Pressure 109/53 [Left Arm] O2 Sat by Pulse Oximetry (%) GENERAL: Awake, lethargic, and in no acute distress THROAT:Oropharynx clear without exudates. Moist mucous membranes. LUNGS: Decreased breath sounds throughout lung bases. Bibasilar crackles throughout lung shepard HEART: Regular rate and rhythm, normal S1 and S2 without murmur, rub or gallop. ABDOMEN: Soft, nontender, not distended, normoactive bowel sounds, no guarding, no rebound, no masses. EXTREMITIES: 2+ Bilateral edema in lower extremities Laboratory Results - last 24 hr 05/30/16 05/30/16 05/30/16 07:15 07:15 07:15 WBC 18.7 H RBC 3.89 Hgb 9.8 L Hct 30.6 L MCV 78.8 L MCHC 32.2 RDW 16.2 H Plt Count 486 H MPV 6.8 L Neutrophils % 90.2 H Lymphocytes % 5.5 L D Monocytes % 3.8 Eosinophils % 0.2 D Basophils % 0.3 Sodium 136 Potassium 5.3 H Chloride 96 L Carbon Dioxide 32 Anion Gap 8 BUN 43 H Creatinine 0.9 Creat Clearance w eGFR > 60 Random Glucose 82 Calcium 8.8 Total Bilirubin 0.6 D AST 25 ALT 26 Alkaline Phosphatase 89 Creatine Kinase 45 Troponin I < 0.02 Total Protein 7.0 Albumin 2.3 L Triglycerides 107 Cancelled Cholesterol 145 Cancelled Total LDL Cholesterol 91 Cancelled HDL Cholesterol 40 Cancelled Urine Color Urine Appearance Urine pH Ur Specific [place] Urine Protein Urine Glucose (UA) Urine Ketones Urine Blood Urine Nitrite Urine Bilirubin Urine Urobilinogen Ur Leukocyte Esterase Opiates Screen Methadone Screen Barbiturate Screen Phencyclidine Screen Ur Amphetamines Screen MDMA (Ecstasy) Screen Benzodiazepines Screen Cocaine Screen U Marijuana (THC) Screen 05/30/16 05/30/16 12:15 12:15 WBC RBC Hgb Hct MCV MCHC RDW Plt Count MPV Neutrophils % Lymphocytes % Monocytes % Eosinophils % Basophils % Sodium Potassium Chloride Carbon Dioxide Anion Gap BUN Creatinine Creat Clearance w eGFR Random Glucose Calcium Total Bilirubin AST ALT Alkaline Phosphatase Creatine Kinase Troponin I Total Protein Albumin Triglycerides Cholesterol Total LDL Cholesterol HDL Cholesterol Urine Color Straw Urine Appearance Clear Urine pH 5.0 Ur Specific [place] 1.008 Urine Protein Negative Urine Glucose (UA) Negative Urine Ketones Negative Urine Blood Negative Urine Nitrite Negative Urine Bilirubin Negative Urine Urobilinogen Negative Ur Leukocyte Esterase Negative Opiates Screen Negative Methadone Screen Positive Barbiturate Screen Negative Phencyclidine Screen Negative Ur Amphetamines Screen Negative MDMA (Ecstasy) Screen Negative Benzodiazepines Screen Negative Cocaine Screen Negative U Marijuana (THC) Screen Negative Active Medications Generic Name Dose Route Start Last Admin Trade Name Phuq PRN Reason Stop Dose Admin Amlodipine Besylate 5 mg 05/30/16 10:00 05/30/16 11:19 Norvasc - PO Not Given DAILY MONAE Atenolol 25 mg 05/31/16 10:00 Tenormin - PO DAILY MONAE Furosemide 40 mg 05/30/16 16:30 Lasix Injection - IVPUSH BIDLASIX MONAE Gabapentin 600 mg 05/30/16 06:00 05/30/16 15:00 Neurontin - PO Not Given TID MONAE Heparin Sodium (Porcine) 5,000 unit 05/30/16 22:00 Heparin - SQ TID MONAE Ceftriaxone Sodium 50 mls @ 200 mls/hr 05/30/16 10:00 05/30/16 12:01 Rocephin 1gm Ivpb (Pre-Docked) IVPB 200 mls/hr DAILY MONAE Administration ASSESSMENT/PLAN: Patient is a 65 year old female with a PMHx of HTN, methadone dependence, breast cancer on remission who presented for altered mental status, hypoglycemia and leukocytosis. Patient was found to have bilateral infiltrates with right pleural effusion. Community Acquired Pneumonia with Possible CHF -Azithromycin 500mg daily ordered and will continue Ceftriaxone 1gm daily -Lasix 40mg PO for possible CHF -Blood cultures pending -Urine legionella antigen ordered -ABG ordered -Duplex of bilateral legs ordered -Patient currently taking Amlodipine and may be the reason for theb ilateral leg edema if DVT is ruled out. Dispo: We will continue to follow the patient. Thank you for this consultative opportunity. Visit type - Emergency Visit Emergency Visit: Yes ED Registration Date: 05/30/16 Care time: The patient presented to the Emergency Department on the above date and was hospitalized for further evaluation of their emergent condition. - New Patient This patient is new to me today: Yes Date on this admission: 05/30/16 - Critical Care Critical Care patient: No
--- NOTE | 2016-05-30 17:04 | PN ---
Teaching Attending Note Name of Resident: Leanna Tse ATTENDING PHYSICIAN STATEMENT I saw and evaluated the patient. I reviewed the resident's note and discussed the case with the resident. I agree with the resident's findings and plan as documented. SUBJECTIVE: History from patient history of breast cancer and HTN patient is out of bed in chair, came to ED last night she is still drowsy denies cough, denies fever mastectomy 1999 right TKR 6 months ago bilateral lower extremity edema for one week no chest pain or abdominal pain OBJECTIVE: Vital Signs Period Temp Pulse Resp BP Sys/Fernando Pulse Ox Last 24 Hr 97.1 F-98.2 F 62-104 16-20 95-121/52-76 95-99 no thrush neck supple cor rrr lungs decreased bs at bases, bibasilar crackles bilateral mastectomy abd soft,nt ext bilateral edema 2+ CBC, BMP 05/30/16 07:15 05/30/16 07:15 cxray-bilateral lower lobe infiltrates, atelectasis, right effusion ASSESSMENT AND PLAN: 65 year old admitted with lower extremity edema, bilateral infiltrates R>L, hypoglycemia, leukocytosis probable CHF/volume overload cannot r/o pneumonia- CAP she denies vomiting would get ABG legionella urinary antigens duplex both legs rocephin/zithromax blood cultures were sent already
[2016-05-30] MEDS ORDERED: AZITHROMYCIN IVPB 500 MG in DEXTROSE 5%-WATER - 250 ML IVPB SCH (17:15)
[2016-05-30] MEDS: FUROSEMIDE 40 MG/4 ML INJECTABLE VIAL IVPUSH SCH (18:11)
[2016-05-30] MEDS: AZITHROMYCIN IVPB 500 MG/250 ML D5W PRE-DOCKED IVPB SCH (18:11)
--- NOTE | 2016-05-30 18:29 | CON.PULM ---
Consult Consult Specialty:: PULM/CCM Referred by:: BIA Reason for Consultation:: SOB - History of Present Illness Chief Complaint: SOB History of Present Illness: 65 F, with listed medical history. Stage 4 breast cancer in remission, HTN, and methadone dependence. Admitted due to lethargy/altered mental status. she was found to be hypoglycemic and with a leukocytosis. Patient reports bilateral pitting edema for a few weeks duration. No travel history or sick contacts. No hemoptysis, fever, or chills. CXR : bilateral pleural effusions and CHF pattern. - History Source History Provided By: Patient, Medical Record Limitations to Obtaining History: Poor Historian - Alcohol/Substance Use Hx Alcohol Use: No - Smoking History Smoking history: Current every day smoker Have you smoked in the past 12 months: No Aproximately how many cigarettes per day: 7 Home Medications - Allergies Allergies/Adverse Reactions: Allergies Allergy/AdvReac Type Severity Reaction Status Date / Time codeine Allergy Mild Rash Verified 05/30/16 09:18 - Home Medications Home Medications: Ambulatory Orders Atenolol [Tenormin] 25 mg PO DAILY 05/14/12 Gabapentin [Neurontin] 600 mg PO TID PRN 05/14/12 Methadone (Detox) [Dolophine -] 30 mg PO DAILY 05/14/12 Enalapril Maleate [Vasotec] 5 mg PO BID 08/23/12 Amlodipine Besylate 10 mg PO DAILY 10/20/14 Review of Systems - Review of Systems Constitutional: reports: Lethargy, Malaise, Weakness. denies: Chills, Fever, Night Sweats Eyes: reports: No Symptoms HENT: reports: No Symptoms Neck: reports: No Symptoms Cardiovascular: reports: Edema, Shortness of Breath. denies: Chest Pain, Palpitations Respiratory: reports: Cough, Orthopnea, SOB, SOB on Exertion. denies: Hemoptysis, Snoring, Wheezing Gastrointestinal: reports: No Symptoms Genitourinary: reports: No Symptoms Breasts: reports: See HPI Musculoskeletal: reports: No Symptoms Integumentary: reports: No Symptoms Neurological: reports: Confusion Endocrine: reports: No Symptoms Hematology/Lymphatic: reports: No Symptoms Psychiatric: reports: No Symptoms Physical Exam Vital Sings: Vital Signs Temperature 97.3 F L 05/30/16 14:30 Pulse Rate 63 04/13/17 14:30 Respiratory Rate 19 05/30/16 14:30 Blood Pressure 97/50 05/30/16 14:30 O2 Sat by Pulse Oximetry (%) 98 05/30/16 14:30 Constitutional: Yes: No Distress, Thin Eyes: Yes: Conjunctiva Clear HENT: Yes: Atraumatic, Normocephalic Neck: Yes: Supple, Trachea Midline Cardiovascular: Yes: Regular Rate and Rhythm Respiratory: Yes: Cough, Diminished, On Nasal O2, Rales, Rhonchi, Tachypnea. No : Accessory Muscle Use, Stridor, Wheezes ...Clubbing: No Gastrointestinal: Yes: Normal Bowel Sounds, Soft Renal/: Yes: WNL Musculoskeletal: Yes: WNL Extremities: Yes: WNL Edema: Yes Peripheral Pulses WNL: Yes Integumentary: Yes: WNL Neurological: Yes: Confusion ...Motor Strength: WNL Labs: CBC, BMP 05/30/16 07:15 05/30/16 07:15 Imaging - Results Chest X-ray: Report Reviewed, Image Reviewed Problem List - Problems (1) Altered mental status, unspecified Code(s): R41.82 - ALTERED MENTAL STATUS, UNSPECIFIED Qualifiers: Coma depth: Naila coma 9-12 (2) CHF (congestive heart failure) Code(s): I50.9 - HEART FAILURE, UNSPECIFIED Qualifiers: Congestive heart failure type: unspecified congestive heart failure type Congestive heart failure chronicity: unspecified congestive heart failure chronicity Qualified Code(s): I50.9 - Heart failure, unspecified (3) H/O malignant neoplasm of breast Code(s): Z85.3 - PERSONAL HISTORY OF MALIGNANT NEOPLASM OF BREAST (4) Hypoglycemia Code(s): E16.2 - HYPOGLYCEMIA, UNSPECIFIED (5) Knee pain, chronic Code(s): M25.569 - PAIN IN UNSPECIFIED KNEE G89.29 - OTHER CHRONIC PAIN (6) Pneumonia Code(s): J18.9 - PNEUMONIA, UNSPECIFIED ORGANISM Assessment/Plan PLAN: Agree with empiric ABX per ID, although I think her SOB is related to volume overload O2 as needed Check ABG if lethargy continues/worsens Agree with diuresis May need additional chest imaging -> her current CXR is considerably worse than her film from 07/19/2015 (would trial diuresis first). Daily weight Check cultures Will follow Thank you. Dr Thompson
[2016-05-30 19:20] LABS: ARTERIAL BLD GAS O2 SATURATION 96.8 % (90-98.9); ARTERIAL BLOOD GAS BASE EXCESS 6.4 meq/l (-2-2); ARTERIAL BLOOD GAS HCO3 30.6 meq/L (22-26); ARTERIAL BLOOD GAS pH 7.45 (7.35-7.45)
[2016-05-30 19:21] LABS: ALLENS TEST POSITIVE; ART PUNCT SITE LEFT RADIAL
[2016-05-30 19:22] LABS: LPM/O2% 2 LPM; PT. ON O2? YES; TYPE OF O2 NASAL CANNULA
[2016-05-30] MEDS: HEPARIN NA (PORCINE) 5,000 UNITS/ML 1ML VIAL SQ SCH (21:28)
[2016-05-30] MEDS ORDERED: FUROSEMIDE 40 MG/4 ML INJECTABLE VIAL IVPUSH ONE (23:41)
[2016-05-31] MEDS: GABAPENTIN 300 MG CAPSULE (FP) PO SCH ×3 (05:54→22:00)
[2016-05-31] MEDS: FUROSEMIDE 40 MG/4 ML INJECTABLE VIAL IVPUSH SCH ×2 (05:54→13:37)
[2016-05-31] MEDS: HEPARIN NA (PORCINE) 5,000 UNITS/ML 1ML VIAL SQ SCH ×3 (05:54→22:00)
--- NOTE | 2016-05-31 08:38 | PN ---
Progress Note, Physician Chief Complaint: feels better appreciate ID and Pulmonary input - Current Medication List Current Medications: Active Medications Amlodipine Besylate (Norvasc -) 5 mg PO DAILY [facility] Last Admin: 05/30/16 11:19 Dose: Not Given Atenolol (Tenormin -) 25 mg PO DAILY [facility] Azithromycin (Zithromax 500mg Ivpb (Pre-Docked)) 500 mg IVPB DAILY [facility] Last Admin: 05/30/16 18:11 Dose: 500 mg Furosemide (Lasix Injection -) 40 mg IVPUSH BIDLASIX [facility] Last Admin: 05/31/16 05:54 Dose: 40 mg Gabapentin (Neurontin -) 600 mg PO TID [facility] Last Admin: 05/31/16 05:54 Dose: 600 mg Heparin Sodium (Porcine) (Heparin -) 5,000 unit SQ TID [facility] Last Admin: 05/31/16 05:54 Dose: 5,000 unit Ceftriaxone Sodium (Rocephin 1gm Ivpb (Pre-Docked)) 50 mls @ 200 mls/hr IVPB DAILY [facility] Last Admin: 05/30/16 12:01 Dose: 200 mls/hr - Objective Vital Signs: Vital Signs Temperature 98.7 F 05/31/16 05:30 Pulse Rate 64 05/31/16 05:30 Respiratory Rate 16 05/31/16 05:30 Blood Pressure 101/57 05/31/16 05:30 O2 Sat by Pulse Oximetry (%) 96 05/30/16 21:00 Constitutional: Yes: Calm Eyes: Yes: Conjunctiva Clear Cardiovascular: Yes: Regular Rate and Rhythm Respiratory: Yes: Other (rales at bases, improved from yesterday) Gastrointestinal: Yes: Soft Edema: No Neurological: Yes: Alert, Oriented Labs: CBC, BMP 05/30/16 07:15 05/30/16 07:15 INR, PTT INR 1.12 (0.82-1.09) 05/29/16 18:50 Assessment/Plan Leukocytosis Possible RLL infiltrate Acute on chronic diastolic CHF REC: Probably needs one more day of IV Lasix, can switch to PO tomorrow Abx per ID, pulmonary. Follow cultures. Consider Chest CT: ?infiltrates Outpatient stress test when acute issues resolve.
[2016-05-31] MEDS: ATENOLOL 25 MG TABLET (FP) PO SCH (09:13)
[2016-05-31] MEDS: amLODIPine BESYLATE 5 MG TABLET (FP) PO SCH (09:13)
[2016-05-31] MEDS: CEFTRIAXONE 50 ML IVPB SCH (09:13)
--- NOTE | 2016-05-31 09:16 | PN ---
Physical Exam: SUBJECTIVE: Patient seen and examined by me at bedside. Patient is much more awake and alert today. She reports she did not sleep well last night and that's why she feels tired. Otherwise, she denies fever, chills, nausea, vomiting, shortness of breath, cough, chest pain, palpitations. OBJECTIVE: Vital Signs Period Temp Pulse Resp BP Sys/Fernando Pulse Ox Last 24 Hr 97.3 F-99.2 F 63-92 16-21 95-121/50-68 96-98 GENERAL: Awake, lethargic, and in no acute distress THROAT:Oropharynx clear without exudates. Moist mucous membranes. LUNGS: Decreased breath sounds throughout lung bases. Bibasilar crackles throughout lung shepard HEART: Regular rate and rhythm, normal S1 and S2 without murmur, rub or gallop. ABDOMEN: Soft, nontender, not distended, normoactive bowel sounds, no guarding, no rebound, no masses. EXTREMITIES: 1+ Bilateral edema in lower extremities Laboratory Results - last 24 hr 05/30/16 05/30/16 05/30/16 12:15 12:15 17:13 Puncture Site ABG pH ABG pCO2 at Pt Temp ABG pO2 at Pt Temp ABG HCO3 ABG O2 Sat (Measured) ABG O2 Content ABG Base Excess Emile Test O2 Delivery Device Oxygen Flow Rate PEEP POC Glucometer 75 Urine Color Straw Urine Appearance Clear Urine pH 5.0 Ur Specific [place] 1.008 Urine Protein Negative Urine Glucose (UA) Negative Urine Ketones Negative Urine Blood Negative Urine Nitrite Negative Urine Bilirubin Negative Urine Urobilinogen Negative Ur Leukocyte Esterase Negative Opiates Screen Negative Methadone Screen Positive Barbiturate Screen Negative Phencyclidine Screen Negative Ur Amphetamines Screen Negative MDMA (Ecstasy) Screen Negative Benzodiazepines Screen Negative Cocaine Screen Negative U Marijuana (THC) Screen Negative 05/30/16 05/30/16 05/31/16 19:15 23:08 06:19 Puncture Site Left radial ABG pH 7.45 ABG pCO2 at Pt Temp 44.3 ABG pO2 at Pt Temp 84.0 ABG HCO3 30.6 H ABG O2 Sat (Measured) 96.8 ABG O2 Content 12.4 L ABG Base Excess 6.4 H Emile Test Positive O2 Delivery Device Nasal cannula Oxygen Flow Rate 2 lpm PEEP 0.0 POC Glucometer 109 81 Urine Color Urine Appearance Urine pH Ur Specific [place] Urine Protein Urine Glucose (UA) Urine Ketones Urine Blood Urine Nitrite Urine Bilirubin Urine Urobilinogen Ur Leukocyte Esterase Opiates Screen Methadone Screen Barbiturate Screen Phencyclidine Screen Ur Amphetamines Screen MDMA (Ecstasy) Screen Benzodiazepines Screen Cocaine Screen U Marijuana (THC) Screen Active Medications Generic Name Dose Route Start Last Admin Trade Name Phuq PRN Reason Stop Dose Admin Amlodipine Besylate 5 mg 05/30/16 10:00 05/31/16 09:13 Norvasc - PO 5 mg DAILY MONAE Administration Atenolol 25 mg 05/31/16 10:00 05/31/16 09:13 Tenormin - PO 25 mg DAILY MONAE Administration Azithromycin 500 mg 05/30/16 17:15 05/30/16 18:11 Zithromax 500mg Ivpb (Pre-Docked) IVPB 500 mg DAILY [facility]AE Administration Furosemide 40 mg 05/30/16 16:30 05/31/16 05:54 Lasix Injection - IVPUSH 40 mg BIDLASIX MONAE Administration Gabapentin 600 mg 05/30/16 06:00 05/31/16 05:54 Neurontin - PO 600 mg TID MONAE Administration Heparin Sodium (Porcine) 5,000 unit 05/30/16 22:00 05/31/16 05:54 Heparin - SQ 5,000 unit TID MONAE Administration Ceftriaxone Sodium 50 mls @ 200 mls/hr 05/30/16 10:00 05/31/16 09:13 Rocephin 1gm Ivpb (Pre-Docked) IVPB 200 mls/hr DAILY MONAE Administration ASSESSMENT/PLAN: Patient is a 65 year old female with a PMHx of HTN, methadone dependence, breast cancer on remission who presented for altered mental status, hypoglycemia and leukocytosis. Patient was found to have bilateral infiltrates with right pleural effusion. Community Acquired Pneumonia with Possible CHF -Increasing leukocytosis with WBC 23.9 -Continue Azithromycin 500mg day #2 and increase dose of Ceftriaxone to 2gm -Will repeat Chest X-ray and possible CT -Lasix 40mg PO for CHF, as per cardiology -Blood cultures pending -Urine legionella antigen pending -Duplex of bilateral legs negative -Patient currently taking Amlodipine and may be the reason for the bilateral leg edema. Visit type - Emergency Visit Emergency Visit: Yes ED Registration Date: 05/30/16 Care time: The patient presented to the Emergency Department on the above date and was hospitalized for further evaluation of their emergent condition. - New Patient This patient is new to me today: No - Critical Care Critical Care patient: No
[2016-05-31 09:21] LABS: MCH 24.7 pg (25.7-33.7); MCHC 31.9 g/dl (32.0-36.0); MEAN CELL VOLUME 77.4 fl (80-96); MEAN PLT VOLUME 6.7 fl (7.5-11.1); PLATELET COUNT 435 K/MM3 (134-434); RDW 16.4 % (11.6-15.6); WHITE BLOOD COUNT 23.9 K/mm3 (4.0-10.0)
--- NOTE | 2016-05-31 09:30 | EKG ---
Test Reason : Blood Pressure : / mmHG Vent. Rate : 080 BPM Atrial Rate : 073 BPM P-R Int : 154 ms QRS Dur : 082 ms QT Int : 368 ms P-R-T Axes : 043 -12 026 degrees QTc Int : 424 ms POOR DATA QUALITY, INTERPRETATION MAY BE ADVERSELY AFFECTED NORMAL SINUS RHYTHM POOR R WAVE PROGRESSION Confirmed by MELISSA MUNOZ MD ([id number]) on 05/31/2016 9:29:50 AM Referred By: Confirmed By:MELISSA MUNOZ MD
[2016-05-31 09:43] LABS: CALCIUM 8.4 mg/dL (8.5-10.1); COCKROFT - GAULT 56.015; CREATININE 0.9 mg/dL (0.55-1.02); MAGNESIUM 2.3 mg/dL (1.8-2.4); PHOSPHOROUS 3.4 mg/dL (2.5-4.9)
[2016-05-31] MEDS: AZITHROMYCIN IVPB 500 MG/250 ML D5W PRE-DOCKED IVPB SCH (09:54)
--- NOTE | 2016-05-31 10:19 | PN ---
Teaching Attending Note Name of Resident: Leanna Tse ATTENDING PHYSICIAN STATEMENT I saw and evaluated the patient. I reviewed the resident's note and discussed the case with the resident. I agree with the resident's findings and plan as documented. SUBJECTIVE: more alert no distress no diarrhea, no chest pain or abdominal pain ate well, no dysuria OBJECTIVE: Vital Signs Period Temp Pulse Resp BP Sys/Fernando Pulse Ox Last 24 Hr 97.3 F-99.2 F 63-92 16-21 95-121/50-68 96-98 cor-rrr lungs decreased bs at bases abd soft,nt ext less edema duplex no dvt CBC, BMP 05/31/16 07:45 05/31/16 07:45 ASSESSMENT AND PLAN: leukocytosis- pneumonia clinically improved day #2 rocephin/zithromax f/u cultures repeat cxray pa and lateral today - ?effusion Problem List - Problems (1) Pneumonia Code(s): J18.9 - PNEUMONIA, UNSPECIFIED ORGANISM (2) CHF (congestive heart failure) Code(s): I50.9 - HEART FAILURE, UNSPECIFIED Qualifiers: Congestive heart failure type: unspecified congestive heart failure type Congestive heart failure chronicity: unspecified congestive heart failure chronicity Qualified Code(s): I50.9 - Heart failure, unspecified
[2016-05-31 10:26] LABS: PLATELET ESTIMATE ADEQUATE (NORMAL)
[2016-05-31] MEDS ORDERED: cefTRIAXone 1 GM/50 ML BAG (PRE-DOCKED) IVPB STA (11:30)
--- NOTE | 2016-05-31 12:43 | PN ---
Progress Note (short form) - Note Progress Note: PULMONARY AWAKE/ALERT/NOT CONFUSED VSS ANICTERIC DIMINISHED BREATH SOUNDS RIGHT BASE S1S2 ABD BS+ DIMINISHED EDEMA LABS/MEDS/NOTES/IMAGING REVIEWED (1) Altered mental status, unspecified Code(s): R41.82 - ALTERED MENTAL STATUS, UNSPECIFIED Qualifiers: Coma depth: [place] coma 9-12 (2) CHF (congestive heart failure) Code(s): I50.9 - HEART FAILURE, UNSPECIFIED Qualifiers: Congestive heart failure type: unspecified congestive heart failure type Congestive heart failure chronicity: unspecified congestive heart failure chronicity Qualified Code(s): I50.9 - Heart failure, unspecified (3) H/O malignant neoplasm of breast Code(s): Z85.3 - PERSONAL HISTORY OF MALIGNANT NEOPLASM OF BREAST (4) Hypoglycemia Code(s): E16.2 - HYPOGLYCEMIA, UNSPECIFIED (5) Knee pain, chronic Code(s): M25.569 - PAIN IN UNSPECIFIED KNEE G89.29 - OTHER CHRONIC PAIN (6) Pneumonia Code(s): J18.9 - PNEUMONIA, UNSPECIFIED ORGANISM Agree with empiric ABX per ID, O2 as needed Agree with diuresis Daily weight Check cultures Consider thoracentesis given the h/o breast ca Darlene TAO MD
--- NOTE | 2016-05-31 13:01 | PN ---
Physical Exam: SUBJECTIVE: Patient seen and examined at bedside much more awake and alert no complaints OBJECTIVE: Vital Signs Period Temp Pulse Resp BP Sys/Fernando Pulse Ox Last 24 Hr 97.3 F-99.2 F 63-100 16-21 95-109/50-68 96-98 GENERAL: The patient is awake, alert HEAD: Normal with no signs of trauma. EYES: PERRL, extraocular movements intact, sclera anicteric, conjunctiva clear ENT: moist mucous membranes. NECK: Trachea midline, supple. LUNGS: bibasilar crackles R>L right side has diminshed breath sounds when compared to left HEART: Regular rate and rhythm, S1, S2 ABDOMEN: Soft, nontender, nondistended, normoactive bowel sounds, no guarding, no rebound, no hepatosplenomegaly, no masses. EXTREMITIES: warm 1+ pitting edema of lower extremities bilaterally- significantly improved NEUROLOGICAL: Cranial nerves II through XII grossly intact Laboratory Results - last 24 hr 05/30/16 05/30/16 05/30/16 12:15 17:13 19:15 WBC RBC Hgb Hct MCV MCHC RDW Plt Count MPV Neutrophils % Lymphocytes % Monocytes % Band Neutrophils Differential Comment Platelet Estimate Puncture Site Left radial ABG pH 7.45 ABG pCO2 at Pt Temp 44.3 ABG pO2 at Pt Temp 84.0 ABG HCO3 30.6 H ABG O2 Sat (Measured) 96.8 ABG O2 Content 12.4 L ABG Base Excess 6.4 H Emile Test Positive O2 Delivery Device Nasal cannula Oxygen Flow Rate 2 lpm PEEP 0.0 Sodium Potassium Chloride Carbon Dioxide Anion Gap BUN Creatinine POC Glucometer 75 Random Glucose Calcium Phosphorus Magnesium Opiates Screen Negative Methadone Screen Positive Barbiturate Screen Negative Phencyclidine Screen Negative Ur Amphetamines Screen Negative MDMA (Ecstasy) Screen Negative Benzodiazepines Screen Negative Cocaine Screen Negative U Marijuana (THC) Screen Negative 05/30/16 05/31/16 05/31/16 23:08 06:19 07:45 WBC RBC Hgb Hct MCV MCHC RDW Plt Count MPV Neutrophils % Lymphocytes % Monocytes % Band Neutrophils Differential Comment Platelet Estimate Puncture Site ABG pH ABG pCO2 at Pt Temp ABG pO2 at Pt Temp ABG HCO3 ABG O2 Sat (Measured) ABG O2 Content ABG Base Excess Emile Test O2 Delivery Device Oxygen Flow Rate PEEP Sodium 137 Potassium 3.7 D Chloride 95 L Carbon Dioxide 35 H Anion Gap 7 L BUN 39 H Creatinine 0.9 POC Glucometer 109 81 Random Glucose 118 H D Calcium 8.4 L Phosphorus 3.4 Magnesium 2.3 D Opiates Screen Methadone Screen Barbiturate Screen Phencyclidine Screen Ur Amphetamines Screen MDMA (Ecstasy) Screen Benzodiazepines Screen Cocaine Screen U Marijuana (THC) Screen 05/31/16 05/31/16 07:45 11:49 WBC 23.9 H RBC 3.77 Hgb 9.3 L Hct 29.2 L MCV 77.4 L MCHC 31.9 L RDW 16.4 H Plt Count 435 H MPV 6.7 L Neutrophils % 95.0 H Lymphocytes % Y Monocytes % 2.0 L Band Neutrophils 3.0 Differential Comment Manual diff done Platelet Estimate Adequate Puncture Site ABG pH ABG pCO2 at Pt Temp ABG pO2 at Pt Temp ABG HCO3 ABG O2 Sat (Measured) ABG O2 Content ABG Base Excess Emile Test O2 Delivery Device Oxygen Flow Rate PEEP Sodium Potassium Chloride Carbon Dioxide Anion Gap BUN Creatinine POC Glucometer 129 Random Glucose Calcium Phosphorus Magnesium Opiates Screen Methadone Screen Barbiturate Screen Phencyclidine Screen Ur Amphetamines Screen MDMA (Ecstasy) Screen Benzodiazepines Screen Cocaine Screen U Marijuana (THC) Screen Active Medications Generic Name Dose Route Start Last Admin Trade Name Ludivina PRN Reason Stop Dose Admin Amlodipine Besylate 5 mg 05/30/16 10:00 05/31/16 09:13 Norvasc - PO 5 mg DAILY MONAE Administration Atenolol 25 mg 05/31/16 10:00 05/31/16 09:13 Tenormin - PO 25 mg DAILY MONAE Administration Azithromycin 500 mg 05/30/16 17:15 05/31/16 09:54 Zithromax 500mg Ivpb (Pre-Docked) IVPB 500 mg DAILY MONAE Administration Ceftriaxone Sodium 2 gm 06/01/16 10:00 Rocephin 2gm Ivpb (Pre-Docked) IVPB DAILY MONAE Protocol Furosemide 40 mg 05/30/16 16:30 05/31/16 05:54 Lasix Injection - IVPUSH 40 mg BIDLASIX MONAE Administration Gabapentin 600 mg 05/30/16 06:00 05/31/16 05:54 Neurontin - PO 600 mg TID MONAE Administration Heparin Sodium (Porcine) 5,000 unit 05/30/16 22:00 05/31/16 05:54 Heparin - SQ 5,000 unit TID MONAE Administration ASSESSMENT/PLAN: 65F with history of HTN, Breast CA in remission, and chronic pain syndrome leading to opioid dependence presents to the hospital with altered mental status found to be hypoglycemic given D50 and AMS resolved. Altered mental status: could be from methadone overdose vs hypoglycemia. Unless patient took more methadone than she was supposed to it is unlikely her dose is too high for her as she has been on this dose chronically. could also be from infection as patient has leukocystosis and bilateral lower lob PNA on CXR altered mental status-resolved hold methadone for now Sepsis secondary to pneumonia: patient had leukocytosis and tachycardia on presentation with a source of infection found on CXR Leukocytosis worsening today increase rocephin to 2GM and continue azithromycin day 2 of ABx Trend CBC BCx no growth to date UA negative UCx pending Pleural effusion:from heart failure vs parapneumonic effusion will send for diagnostic thoracentesis today CT scan chest after thoracentesis evaluate pleural fluid studies Hypoglycemia: improved after D50 could be due to poor oral intake trend fingersticks q6h give D50 PRN HTN: continue home dose of Atenelol hold enalapril for now patient SBP in low 100's CHF:patient does not have CHF on Echo but clinically she has leg edema and looks volume overloaded Cardiology consult appreciated ECHO results noted Lasix 40mg IV BID then transition to PO tomorrow Trend weights daily lost 1Kg from yesterday to today Breast Ca: In remission no issues outpatient follow up Opioid dependence: secondary to chronic pain hold methadone for today restart methadone continue gabapentin for neuropathy/chronic pain Hyperkalemia: resolved FEN: no IVF on issues Sodium controlled diet PPx: SCDs/HSQ No GI PPx indicated at this time PT consult to avoid deconditioning Visit type - Emergency Visit Emergency Visit: Yes ED Registration Date: 05/30/16 Care time: The patient presented to the Emergency Department on the above date and was hospitalized for further evaluation of their emergent condition. - New Patient This patient is new to me today: No - Critical Care Critical Care patient: No
--- NOTE | 2016-05-31 15:38 | PN ---
Teaching Attending Note Name of Resident: Filippo Hoyos ATTENDING PHYSICIAN STATEMENT I saw and evaluated the patient. I reviewed the resident's note and discussed the case with the resident. I agree with the resident's findings and plan as documented. Patient started to withdraw off Methadone, will restart the methadone. Vital Signs Temperature 99.7 F H 05/31/16 14:00 Pulse Rate 82 05/31/16 14:00 Respiratory Rate 17 05/31/16 14:00 Blood Pressure 100/52 05/31/16 11:15 O2 Sat by Pulse Oximetry (%) 96 05/31/16 09:00 CBCD WBC 23.9 K/mm3 (4.0-10.0) H 05/31/16 07:45 RBC 3.77 M/mm3 (3.60-5.2) 05/31/16 07:45 Hgb 9.3 GM/dL (10.7-15.3) L 05/31/16 07:45 Hct 29.2 % (32.4-45.2) L 05/31/16 07:45 MCV 77.4 fl (80-96) L 05/31/16 07:45 MCHC 31.9 g/dl (32.0-36.0) L 05/31/16 07:45 RDW 16.4 % (11.6-15.6) H 05/31/16 07:45 Plt Count 435 K/MM3 (134-434) H 05/31/16 07:45 MPV 6.7 fl (7.5-11.1) L 05/31/16 07:45 CMP Sodium 137 mmol/L (136-145) 05/31/16 07:45 Potassium 3.7 mmol/L (3.5-5.1) D 05/31/16 07:45 Chloride 95 mmol/L (98-107) L 05/31/16 07:45 Carbon Dioxide 35 mmol/L (21-32) H 05/31/16 07:45 Anion Gap 7 (8-16) L 05/31/16 07:45 BUN 39 mg/dL (7-18) H 05/31/16 07:45 Creatinine 0.9 mg/dL (0.55-1.02) 05/31/16 07:45 Creat Clearance w eGFR > 60 (>60) 05/30/16 07:15 Random Glucose 118 mg/dL (74-106) H D 05/31/16 07:45 Calcium 8.4 mg/dL (8.5-10.1) L 05/31/16 07:45 Total Bilirubin 0.6 mg/dL (0.2-1.0) D 05/30/16 07:15 AST 25 U/L (15-37) 05/30/16 07:15 ALT 26 U/L (12-78) 05/30/16 07:15 Alkaline Phosphatase 89 U/L (45-117) 05/30/16 07:15 Total Protein 7.0 g/dl (6.4-8.2) 05/30/16 07:15 Albumin 2.3 g/dl (3.4-5.0) L 05/30/16 07:15 CARDIAC ENZYMES Creatine Kinase 45 IU/L (26-192) 05/30/16 07:15 Troponin I < 0.02 ng/ml (0.00-0.05) 05/30/16 07:15 Current Medications Generic Name Dose Route Start Last Admin Trade Name Freq PRN Reason Stop Dose Admin Amlodipine Besylate 5 mg 05/30/16 10:00 05/31/16 09:13 Norvasc - PO 5 mg DAILY MONAE Administration Atenolol 25 mg 05/31/16 10:00 05/31/16 09:13 Tenormin - PO 25 mg DAILY MONAE Administration Azithromycin 500 mg 05/30/16 17:15 05/31/16 09:54 Zithromax 500mg Ivpb (Pre-Docked) IVPB 500 mg DAILY [facility] Administration Ceftriaxone Sodium 2 gm 06/01/16 10:00 Rocephin 2gm Ivpb (Pre-Docked) IVPB DAILY [facility] Protocol Furosemide 40 mg 05/30/16 16:30 05/31/16 13:37 Lasix Injection - IVPUSH Not Given BIDLASIX MONAE Gabapentin 600 mg 05/30/16 06:00 05/31/16 15:30 Neurontin - PO 600 mg TID MONAE Administration Heparin Sodium (Porcine) 5,000 unit 05/30/16 22:00 05/31/16 13:36 Heparin - SQ Not Given TID [facility] Home Medications Medication Instructions Recorded Atenolol [Tenormin] 25 mg PO DAILY 05/14/12 Gabapentin [Neurontin] 600 mg PO TID PRN 05/14/12 Methadone (Detox) [Dolophine -] 30 mg PO DAILY 05/14/12 Enalapril Maleate [Vasotec] 5 mg PO BID 08/23/12 Amlodipine Besylate 10 mg PO DAILY 10/20/14 ASSESSMENT AND PLAN: Patient is a 65F with history of HTN, Breast CA in remission, and chronic pain syndrome leading to opioid dependence presents to the hospital with altered mental status found to be hypoglycemic given D50 and AMS resolved. # Acute leukocytosis continues Panculture is pending # Methadone withdrwel will place her back to Methadone for now. # Acute Hypoglycemia , BGms q4hr, IV d50 prn # sepsis ; panculture is pending , ID on the case # BL pleural effusion cannot r/o parapneumonic effusion, going for thoracocentesis by IR # Acute CHF exacerbation on lasix , cardio consult . # Acute Hyperkalemia improved will continue Vasotec for now, will monitor Potassium level. DVT Px: Lovenox 40mg sq
[2016-05-31 15:41] LABS: GLUCOSE,PLEURAL FLUID 134.745; TOTAL PROTEIN,PLEURAL FLUID 4.248
[2016-05-31 15:43] LABS: CHLORIDE PLEURAL FLUID 97
[2016-05-31 15:44] LABS: PLEURAL FLUID SOURCE PLEURAL
[2016-05-31 15:45] LABS: PLEURAL FLUID APPEARANCE HAZY; PLEURAL FLUID COLOR YELLOW
[2016-05-31 16:02] LABS: PLEURAL FLUID LYMPHOCYTES 29 %; PLEURAL FLUID MACROPHAGES 14 %; PLEURAL FLUID NEUTROPHIL 54 %
[2016-05-31] MEDS ORDERED: METHADONE HCL 10 MG TABLET PO ONE (17:30)
[2016-06-01] MEDS ORDERED: METHADONE HCL 10 MG TABLET PO SCH (06:00)
[2016-06-01] MEDS: HEPARIN NA (PORCINE) 5,000 UNITS/ML 1ML VIAL SQ SCH ×3 (06:29→21:34)
[2016-06-01] MEDS: GABAPENTIN 300 MG CAPSULE (FP) PO SCH ×2 (06:29→15:35)
[2016-06-01] MEDS: FUROSEMIDE 40 MG/4 ML INJECTABLE VIAL IVPUSH SCH (06:29)
[2016-06-01 08:17] LABS: BASOPHIL 0.3 % (0-2.0); MCHC 31.8 g/dl (32.0-36.0); MEAN CELL VOLUME 78.7 fl (80-96); NEUTROPHILS 91.1 % (42.8-82.8); PLATELET COUNT 396 K/MM3 (134-434); RDW 16.7 % (11.6-15.6)
[2016-06-01 08:39] LABS: CALCIUM 7.9 mg/dL (8.5-10.1)
[2016-06-01 08:40] LABS: COCKROFT - GAULT 69.5045; CREATININE 0.7 mg/dL (0.55-1.02)
--- NOTE | 2016-06-01 09:11 | PN ---
Physical Exam: SUBJECTIVE: Patient seen and examined Patient became lethargic today. ABG stat was ordered. was found to have elevated PCO2 of 80s. OBJECTIVE: Vital Signs Temperature 98.2 F 06/01/16 09:09 Pulse Rate 85 06/01/16 09:09 Respiratory Rate 16 06/01/16 09:09 Blood Pressure 117/60 06/01/16 09:09 O2 Sat by Pulse Oximetry (%) 96 05/31/16 21:00 GENERAL: The patient is barely arousable on pain stimulation only HEAD: Normal with no signs of trauma. EYES: PERRL, can't keep eyes open, sclera anicteric, conjunctiva clear. ENT: Ears normal, oropharynx clear without exudates, moist mucous membranes. NECK: Trachea midline, full range of motion, supple. LUNGS: Breath sounds equal, clear to auscultation bilaterally, no wheezes, no crackles, no accessory muscle use. HEART: Regular rate and rhythm, S1, S2 without murmur, rub or gallop. ABDOMEN: Soft, nontender, nondistended, normoactive bowel sounds, no guarding, no rebound, no hepatosplenomegaly, no masses. EXTREMITIES: 2+ pulses, warm, well-perfused, no edema. NEUROLOGICAL: Cranial nerves II through XII grossly intact. SKIN: Warm, dry, normal turgor, no rashes or lesions noted Current Medications Generic Name Dose Route Start Last Admin Trade Name Freq PRN Reason Stop Dose Admin Amlodipine Besylate 5 mg 05/30/16 10:00 05/31/16 09:13 Norvasc - PO 5 mg DAILY MONAE Administration Atenolol 25 mg 05/31/16 10:00 05/31/16 09:13 Tenormin - PO 25 mg DAILY [facility]AE Administration Azithromycin 500 mg 05/30/16 17:15 05/31/16 09:54 Zithromax 500mg Ivpb (Pre-Docked) IVPB 500 mg DAILY [facility]AE Administration Ceftriaxone Sodium 2 gm 06/01/16 10:00 Rocephin 2gm Ivpb (Pre-Docked) IVPB DAILY [facility]AE Protocol Furosemide 40 mg 05/30/16 16:30 06/01/16 06:29 Lasix Injection - IVPUSH 40 mg BIDLASIX MONAE Administration Gabapentin 600 mg 05/30/16 06:00 06/01/16 06:29 Neurontin - PO 600 mg TID MONAE Administration Heparin Sodium (Porcine) 5,000 unit 05/30/16 22:00 06/01/16 06:29 Heparin - SQ 5,000 unit TID MONAE Administration Methadone HCl 30 mg 06/01/16 06:00 06/01/16 06:29 Dolophine - PO 30 mg DAILY@0600 MONAE Administration Home Medications Medication Instructions Recorded Atenolol [Tenormin] 25 mg PO DAILY 05/14/12 Gabapentin [Neurontin] 600 mg PO TID PRN 05/14/12 Methadone (Detox) [Dolophine -] 30 mg PO DAILY 05/14/12 Enalapril Maleate [Vasotec] 5 mg PO BID 08/23/12 Amlodipine Besylate 10 mg PO DAILY 10/20/14 Microbiology 05/31/16 14:20 Pleural Fluid Gram Stain - Final 05/30/16 10:50 Blood - Peripheral Venous Blood Culture - Preliminary NO GROWTH OBTAINED AFTER 48 HOURS, INCUBATION TO CONTINUE FOR 3 DAYS. 05/30/16 10:50 Blood - Peripheral Venous Blood Culture - Preliminary NO GROWTH OBTAINED AFTER 48 HOURS, INCUBATION TO CONTINUE FOR 3 DAYS. 05/30/16 12:15 Urine - Urine Clean Catch Urine Culture - Final NO GROWTH OBTAINED 05/30/16 20:00 Urine For Antigen Detection Legionella Antigen - Final 05/30/16 20:00 Urine For Antigen Detection Streptococcus pneumoniae Antigen (M - Final ASSESSMENT/PLAN: Patient is a 65F with history of HTN, Breast CA in remission s/p bl mastectomy with RTx therapy, patient is a heavy smoker as well since age of 19 yo , and on methadone for pain control. as per daughter, patient has been on Methadone for apine control . Presented to Ed with altered mental status found to be hypoglycemic given D50 and AMS resolved. Also patient's chronic pain syndrome leading to opioid dependence # Acute hypercapneic state, Bipap stat , ABG in 2 hrs to be repeated, narcan 0.4mg x 2 doses given and ordered prn q2 hrs if needed, will tx the patient to ICU for close monitoring # Acute leukocytosis continues Panculture is pending # Chronic pain on Methadone will hold methadone since patient is barely arousable . # Acute Hypoglycemia , BGms q4hr, IV d50 prn # sepsis ; panculture is pending , ID on the case # BL pleural effusion cannot r/o parapneumonic effusion, going for thoracocentesis by IR, cytology is sent # Acute CHF exacerbation on lasix , cardio consult . # Acute Hyperkalemia improved will continue Vasotec for now, will monitor Potassium level. DVT Px: Lovenox 40mg sq critical care time of 40minutes Visit type - Emergency Visit Emergency Visit: Yes ED Registration Date: 05/30/16 Care time: The patient presented to the Emergency Department on the above date and was hospitalized for further evaluation of their emergent condition. - New Patient This patient is new to me today: No - Critical Care Critical Care patient: Yes Total Critical Care Time (in minutes): 40 Critical Care Statement: The care of this patient involved high complexity decision making to prevent further life threatening deterioration of the patient 's condition and/or to evalute & treat vital organ system(s) failure or risk of failure.
--- NOTE | 2016-06-01 09:51 | PN ---
Progress Note, Physician Chief Complaint: ID Lethargic ? Methadone related NAD Ceftriaxone and Azithromycin - Current Medication List Current Medications: Active Medications Amlodipine Besylate (Norvasc -) 5 mg PO DAILY [facility] Last Admin: 05/31/16 09:13 Dose: 5 mg Atenolol (Tenormin -) 25 mg PO DAILY [facility] Last Admin: 05/31/16 09:13 Dose: 25 mg Azithromycin (Zithromax 500mg Ivpb (Pre-Docked)) 500 mg IVPB DAILY [facility] Last Admin: 05/31/16 09:54 Dose: 500 mg Ceftriaxone Sodium (Rocephin 2gm Ivpb (Pre-Docked)) 2 gm IVPB DAILY [facility] PRN Reason: Protocol Furosemide (Lasix Injection -) 40 mg IVPUSH BIDLASIX [facility] Last Admin: 06/01/16 06:29 Dose: 40 mg Gabapentin (Neurontin -) 600 mg PO TID [facility] Last Admin: 06/01/16 06:29 Dose: 600 mg Heparin Sodium (Porcine) (Heparin -) 5,000 unit SQ TID [facility] Last Admin: 06/01/16 06:29 Dose: 5,000 unit Methadone HCl (Dolophine -) 30 mg PO DAILY@0600 [facility] Last Admin: 06/01/16 06:29 Dose: 30 mg - Objective Vital Signs: Vital Signs Temperature 98.2 F 06/01/16 09:09 Pulse Rate 85 06/01/16 09:09 Respiratory Rate 16 06/01/16 09:09 Blood Pressure 117/60 06/01/16 09:09 O2 Sat by Pulse Oximetry (%) 96 05/31/16 21:00 Constitutional: Yes: Well Nourished, No Distress, Other (Lethargic) Cardiovascular: Yes: Regular Rate and Rhythm, S1, S2 Respiratory: Yes: WNL, Regular, CTA Bilaterally. No: Rales, Rhonchi Gastrointestinal: Yes: WNL, Normal Bowel Sounds, Soft. No: Tenderness Edema: No Labs: CBC, BMP 06/01/16 05:38 06/01/16 05:38 INR, PTT INR 1.12 (0.82-1.09) 05/29/16 18:50 Assessment/Plan Laboratory Tests 05/29/16 05/30/16 05/30/16 18:50 07:15 07:15 WBC 14.5 H D 18.7 H Hgb Hct Plt Count BUN 43 H Creatinine 0.9 Creat Clearance w eGFR > 60 Total Bilirubin 0.6 D ALT 26 Total Protein 7.0 Albumin 2.3 L Pleural WBC Pleural RBC Pleural Neutrophils Pleural Lymphocytes Pleural Macrophages Pleural Chloride Pleural Total Protein Pleural LDH 05/31/16 05/31/16 06/01/16 07:45 14:20 05:38 WBC 23.9 H 18.0 H Hgb 8.5 L Hct 26.9 L Plt Count 396 BUN Creatinine Creat Clearance w eGFR Total Bilirubin ALT Total Protein Albumin Pleural WBC 2829 Pleural RBC 2406 Pleural Neutrophils 54 Pleural Lymphocytes 29 Pleural Macrophages 14 Pleural Chloride 97 Pleural Total Protein 4.248 Pleural LDH 159 Microbiology 05/30/16 20:00 Urine For Antigen Detection Legionella Antigen - Final 05/30/16 20:00 Urine For Antigen Detection Streptococcus pneumoniae Antigen (M - Final 05/30/16 12:15 Urine - Urine Clean Catch Urine Culture - Final NO GROWTH OBTAINED 05/30/16 10:50 Blood - Peripheral Venous Blood Culture - Preliminary NO GROWTH OBTAINED AFTER 24 HOURS, INCUBATION TO CONTINUE FOR 4 DAYS. 05/30/16 10:50 Blood - Peripheral Venous Blood Culture - Preliminary NO GROWTH OBTAINED AFTER 24 HOURS, INCUBATION TO CONTINUE FOR 4 DAYS. Assessment Left effusion/ infiltrate exudative cutures pending Could this be aspiration related On Methadone Admitted for lethargy aspiration parapneumonic effusion Plan Change to Unasyn ESR CRP QUANT gold HIV Jordan ROBERTSON
[2016-06-01] MEDS ORDERED: cefTRIAXone 2 GM/100 ML BAG (PRE-DOCKED) IVPB SCH (10:00)
[2016-06-01] MEDS: ATENOLOL 25 MG TABLET (FP) PO SCH (10:13)
[2016-06-01] MEDS: AZITHROMYCIN IVPB 500 MG/250 ML D5W PRE-DOCKED IVPB SCH (10:13)
[2016-06-01] MEDS: amLODIPine BESYLATE 5 MG TABLET (FP) PO SCH (10:13)
[2016-06-01 10:54] LABS: ARTERIAL BLD GAS O2 SATURATION 89.5 % (90-98.9); ARTERIAL BLOOD GAS BASE EXCESS 6.9 meq/l (-2-2); ARTERIAL BLOOD GAS HCO3 35.3 meq/L (22-26)
[2016-06-01 10:55] LABS: ALLENS TEST POSITIVE; ART PUNCT SITE RIGHT RADIAL; LPM/O2% 3L; PT. ON O2? YES; TYPE OF O2 NASAL CANNULA
[2016-06-01 10:56] LABS: ARTERIAL BLOOD GAS pH 7.26 (7.35-7.45)
[2016-06-01 10:57] LABS: ARTERIAL BLOOD GAS PO2 69.4 mmHg (80-100)
[2016-06-01] MEDS ORDERED: NALOXONE HCL 0.4 MG/ML VIAL IVPUSH ONE ×2 (11:53→12:23)
--- NOTE | 2016-06-01 11:59 | PN ---
Progress Note, Physician History of Present Illness: seen and examined today. sleeping comfortably, unable to be aroused. no reported overnight events or new complaints. - Current Medication List Current Medications: Active Medications Amlodipine Besylate (Norvasc -) 5 mg PO DAILY [facility] Last Admin: 06/01/16 10:13 Dose: Not Given Atenolol (Tenormin -) 25 mg PO DAILY [facility] Last Admin: 06/01/16 10:13 Dose: Not Given Azithromycin (Zithromax 500mg Ivpb (Pre-Docked)) 500 mg IVPB DAILY [facility] Last Admin: 06/01/16 10:13 Dose: 500 mg Furosemide (Lasix Injection -) 40 mg IVPUSH BIDLASIX [facility] Last Admin: 06/01/16 06:29 Dose: 40 mg Gabapentin (Neurontin -) 600 mg PO TID [facility] Last Admin: 06/01/16 06:29 Dose: 600 mg Heparin Sodium (Porcine) (Heparin -) 5,000 unit SQ TID [facility] Last Admin: 06/01/16 06:29 Dose: 5,000 unit Ampicillin Sodium/Sulbactam Sodium (Unasyn 1.5 Gm (Pre-Docked)) 100 mls @ 200 mls/hr IVPB Q6H-IV [facility] Methadone HCl (Dolophine -) 30 mg PO DAILY@0600 [facility] Last Admin: 06/01/16 06:29 Dose: 30 mg - Objective Vital Signs: Vital Signs Temperature 98.2 F 06/01/16 09:09 Pulse Rate 98 H 06/01/16 11:16 Respiratory Rate 16 06/01/16 09:09 Blood Pressure 117/60 06/01/16 09:09 O2 Sat by Pulse Oximetry (%) 92 L 06/01/16 11:16 Constitutional: Yes: Other (lethargic) Eyes: Yes: Other (eyes closed) HENT: Yes: Atraumatic, Normocephalic Cardiovascular: Yes: Regular Rate and Rhythm, S1, S2. No: Bradycardia, Tachycardia, Pulse Irregular, Bruit, JVD, Gallop, Murmur, Rub, S3, S4, Varicosities Respiratory: Yes: Regular, Diminished. No: Rales, Rhonchi, SOB, Wheezes Gastrointestinal: Yes: Normal Bowel Sounds, Soft. No: Distention, Tenderness Edema: No Peripheral Pulses WNL: Yes Peripheral Pulses: Left Doralis Pedis: 2+, Right Dorsalis Pedis: 2+ Neurological: Yes: Lethargy. No: Alert, Oriented Psychiatric: No: Alert, Oriented Labs: CBC, BMP 06/01/16 05:38 06/01/16 05:38 INR, PTT INR 1.12 (0.82-1.09) 05/29/16 18:50 - ....Imaging Chest X-ray: Report Reviewed, Image Reviewed EKG: Report Reviewed, Image Reviewed Other: Report Reviewed, Image Reviewed Assessment/Plan Leukocytosis Possible RLL infiltrate Acute on chronic diastolic CHF REC: Echo showed normal LV systolic function, no sig valvular abnormalities LE edema improved, thoracentesis done No sig pulm edema Can change Lasix to po and use IV Lasix as needed Pt lethargic this am, abg done, hypercapneic, seen by Hospitalist started on bipap, monitor for improvement Would plan for outpatient stress test once medically improves
--- NOTE | 2016-06-01 12:00 | PN ---
Progress Note (short form) - Note Progress Note: PULMONARY Lethargic on nasal cannula, hypercapneic on ABG, placed on BiPAP. Received her methadone late yesterday and received her dose today. Last Vital Signs Temp Pulse Resp BP Pulse Ox 98.2 F 98 H 16 117/60 92 L 06/01/16 09:09 06/01/16 11:16 06/01/16 09:09 06/01/16 09:09 06/01/16 11:16 Gen: lethargic on BiPAP Heart: RRR Lung: distant breath sounds Abd: soft, nontender Ext: + edema CBC, BMP 06/01/16 05:38 06/01/16 05:38 Active Medications Amlodipine Besylate (Norvasc -) 5 mg PO DAILY [facility] Last Admin: 06/01/16 10:13 Dose: Not Given Atenolol (Tenormin -) 25 mg PO DAILY [facility] Last Admin: 06/01/16 10:13 Dose: Not Given Azithromycin (Zithromax 500mg Ivpb (Pre-Docked)) 500 mg IVPB DAILY [facility] Last Admin: 06/01/16 10:13 Dose: 500 mg Furosemide (Lasix Injection -) 40 mg IVPUSH BIDLASIX [facility] Last Admin: 06/01/16 06:29 Dose: 40 mg Gabapentin (Neurontin -) 600 mg PO TID [facility] Last Admin: 06/01/16 06:29 Dose: 600 mg Heparin Sodium (Porcine) (Heparin -) 5,000 unit SQ TID [facility] Last Admin: 06/01/16 06:29 Dose: 5,000 unit Ampicillin Sodium/Sulbactam Sodium (Unasyn 1.5 Gm (Pre-Docked)) 100 mls @ 200 mls/hr IVPB Q6H-IV [facility] Methadone HCl (Dolophine -) 30 mg PO DAILY@0600 [facility] Last Admin: 06/01/16 06:29 Dose: 30 mg A/P Altered Mental Status Acute Hypercapneic Respiratory Failure Methadone Maintenance/Opiate Dependent Hypoglycemia resolved r/o Aspiration Pneumonia - agree with narcan - aspiration precautions - BiPAP - repeat ABG - if remains hypercapneic on ABG and poor mental status, may need intubation - continue antibiotics per ID - f/u cultures - DVT prophylaxis
[2016-06-01 12:49] LABS: HIV 1 & 2 AB NEGATIVE; HIV 1 AGp24 NEGATIVE
[2016-06-01] MEDS ORDERED: ACETAMINOPHEN 325 MG SUPP.RECT PR SCH (13:15)
[2016-06-01 14:07] LABS: ARTERIAL BLD GAS O2 SATURATION 97.2 % (90-98.9); ARTERIAL BLOOD GAS BASE EXCESS 10.3 meq/l (-2-2); ARTERIAL BLOOD GAS HCO3 36.1 meq/L (22-26); ARTERIAL BLOOD GAS PO2 88.1 mmHg (80-100); ARTERIAL BLOOD GAS pH 7.41 (7.35-7.45)
[2016-06-01 14:08] LABS: ALLENS TEST POSITIVE; ART PUNCT SITE RIGHT RADIAL; LPM/O2% 50%; MECH. VENT. BIPAP; PT. ON O2? YES; TYPE OF O2 BIPAP; VENT RATE 14
[2016-06-01] MEDS ORDERED: NALOXONE HCL 0.4 MG/ML VIAL IVPUSH PRN ×2 (14:12→18:46)
[2016-06-01] MEDS ORDERED: AMPICILLIN NA/SULBACTAM NA 100 ML IVPB SCH (15:00)
--- NOTE | 2016-06-01 16:11 | HOSP ---
Subjective - Review of Symptoms Events since last encounter: Patient is being transferred to the unit, On Bipap. Lethargic, repeat AbG pCO2 of 60's vs 80s(the 1st ABG) Patient is arousable on Bipap now , follows commands, "when asked to open her eyes, she opens her eyes". Patient has hx of breast cancer x2 ( 4years later) treated with mastectomy with RTx therapy. as per daughter, patient smokes 1 pack per day since age 19. as per daughter, patient has been loosing weight , on Methadone for chronic OA pain for 18yrs now. will Tx the patient to ICU for further care. will continue the Bipap on the same setting. Discussed with , accepted the patient in ICU. called the ICU requesting a bed for Tx. Physical Examination Vital Signs: Vital Signs Temperature 101.9 F H 06/01/16 13:00 Pulse Rate 123 H 06/01/16 13:00 Respiratory Rate 28 H 06/01/16 13:00 Blood Pressure 116/85 06/01/16 13:00 O2 Sat by Pulse Oximetry (%) 96 06/01/16 14:09 Labs: CBC, BMP 06/01/16 05:38 06/01/16 05:38
--- NOTE | 2016-06-01 16:24 | PN ---
Progress Note (short form) - Note Progress Note: Patient seen and examined 65 year old with history of breast ca dating back 18 years. Second contralateral breast ca several years later. Had RT and chemotherapy after each mastectomy. Daughter unclear if patient was on hormonal therapy. Heavy 1 ppd smoker x years. Patient presents now with weight loss, anorexia, and CT with extensive mediastinal and hilar lymphadenopathy. Has large left pleural effusion and smaller pleural effusion. Currently with hypercapnia on Bipap. Receiving narcan q 2 h. ( On chronic methadone since breast ca) Patient is lethargic and responsive to pain. She will be transferred to ICU for respiratory monitoring. When she is stable, completion of CT scans ( abdomen and pelvis) Has left supraclavicular lymphadenopathy on CT and sono can be performed. Based upon sono can decide if Biopsy of left SC node is feasible. If not , based upon CT can decide best option for tissue- ( I.R., pulmonary or need for chest surgeon for mediastinoscopy or VATS) If disease below diaphragm, other sites may be amenable to biopsy. May well be new lung primary . Lymphoproliferative disorder also possible as is recurrent breast ca although not typical of recurrence. Pleural fluid cytology may shed some light.
[2016-06-01 16:36] LABS: URINE APPEARANCE CLEAR; URINE BILIRUBIN NEGATIVE (NEGATIVE); URINE BLOOD NEGATIVE (NEGATIVE); URINE COLOR YELLOW; URINE GLUCOSE (UA) NEGATIVE (NEGATIVE); URINE KETONE NEGATIVE (NEGATIVE); URINE LEUK ESTERASE NEGATIVE (NEGATIVE); URINE NITRITE NEGATIVE (NEGATIVE); URINE PROTEIN NEGATIVE (NEGATIVE); URINE UROBILINOGEN NEGATIVE E.U./dl (0.2-1.0)
--- NOTE | 2016-06-01 17:20 | CONS ---
DATE OF CONSULTATION: 06/01/2016 INDICATION: This 65-year-old is being seen for evaluation of mediastinal and hilar adenopathy. HISTORY OF PRESENT ILLNESS: The patient is a 65-year-old female who 18 years ago had mastectomy treated with radiation followed by chemotherapy. Several years later, the contralateral breast apparently also had breast cancer treated with mastectomy followed by radiation and chemotherapy. The daughter provides the information, is unaware if the patient took any hormonal therapy post treatment. Additional history includes that of hypertension, on antihypertensives as well as a methadone maintenance since her breast cancer years ago. The current problem includes that of progressive anorexia, weight loss, lethargy with altered mental status. The patient is seen and noted to be hypercapnic. She has a temperature of 101.9. She is responsive to pain. She is on a BiPAP. The history is obtained from the daughter in attendance. Prior surgery includes that of bilateral mastectomy, approximately 18 years earlier as well as a right total knee replacement. PRIOR MEDICAL HISTORY: Prior medical history includes hypertension. There is no history of hypercholesterolemia, stroke, MS, thyroid disease, kidney disease, anemia or gout. MEDICINES ACCORDING TO THE CHART: Tylenol, Zithromax, UniSyn, heparin prophylaxis, gabapentin 600 three times daily, Tenormin, amlodipine, Lasix, Narcan 0.4 IV push every 2 hours. Patient apparently last received her methadone on 05/31. ALLERGIES: Allergies according to the chart suggest CODEINE, but the daughter suggests that the patient has been on morphine as well as methadone. REVIEW OF SYSTEMS: Review of systems provided by the daughter: No significant headaches, no diplopia, perhaps some dysphagia, no significant shortness of breath, no chest pain, no back pain, no GI complaints of nausea, vomiting, no complaints. No recent travel. CURRENT PHYSICAL EXAMINATION: General: The patient is lethargic, on BiPAP. HEENT: There is proptosis of both eyes, left greater than right. Vital signs: The patient is on a BiPAP. B/P 116/85, pulse 123, temperature 101.9, respiratory 28. Proptosis left eye. No cervical, supraclavicular or axillary adenopathy. Lungs: Has rhonchi at the bases bilaterally. Cardiac: Regular sinus rhythm. The chest wall is without evidence of chest wall recurrence in a patient with bilateral mastectomies. Abdomen: Soft without organomegaly or masses. There is no clubbing. There is no significant lower extremity edema. LABORATORY CURRENTLY: The white count is 18,000, hematocrit 26.9 with MCV of 78, platelets of 396,000 with 91 polys and 5 lymphs. INR 1.12. Last ABG 741. pCO2 had been 82, now 58 with a pO2 of 81 on BiPAP. Chemistries: Sodium 138, potassium 37, chloride 95, CO2 35, ammonia level 412 (is within normal limits). SGOT normal, 25, SGPT 30 and 26 (normal), alkaline phosphatase normal at 89 and 102. Creatinine 0.7. Chest x-ray from 06/01: Congestion and infiltrative changes with pleural fluid and large heart. Degenerative changes. Chest CT: Compared to that in 03/29. Pretracheal, paratracheal, subcarinal enlarged nodes. Right hilar and left supraclavicular nodes. Most prominent lymph node is 3.4 cm. Narrowing of the right lower lobe bronchus secondary to extrinsic compression. Right lower lobe 3-cm opacity, which may represent a peribronchial node. Right upper lobe peribronchial thickening. Left-sided effusions. Small right-sided effusion. Right upper lobe thickening. Subcutaneous edema along the length of the chest and on the upper abdomen. Subcutaneous edema in the upper extremities as well. No DVT. A Valladares cyst on the right. Vascular studies. Non-contrast head CT: No evidence of acute intracranial pressure. IMPRESSION: This is a 65-year-old lady with a history of distant breast cancer 18 years earlier in the left breast and right breast status post bilateral mastectomies, status post radiation and status post chemotherapy. The patient now presents with weight loss and significant lymphadenopathy in the mediastinum, hilar and peribronchial areas. There is a large left pleural effusion and a smaller right pleural effusion as well. The patient is a 1 [id number] smoker for years. Other than the methadone, there are no illicit drugs, and the patient is a non-drinker. The differential would include that of a new second primary such as a lung cancer. Alternatively, we may be dealing with an underlying lymphoproliferative disorder. Currently the patient is lethargic, on BiPAP. She is receiving Narcan. PLAN: 1. Once the patient's pulmonary status is resolved, completion of CT of the abdomen and pelvis can be performed. 2. A sonogram of the left supraclavicular region can be performed. If there is an accessible peripheral node to biopsy, this could be performed. 3. If not, based upon the lymphadenopathy, decision about lymph node biopsy, either by Interventional Radiology or by Pulmonary and/or a chest surgeon will need to be made. 4. First priority needs to be attention to patient's current lethargy as well as hypercapnia. 5. The patient will be transferred down to the ICU for monitoring as well as continuation of her Narcan. LUDIVINA MENARD M.D. ANTHONY/[id number]
[2016-06-01 18:17] LABS: URINE APPEARANCE CLEAR; URINE BILIRUBIN NEGATIVE (NEGATIVE); URINE BLOOD NEGATIVE (NEGATIVE); URINE COLOR YELLOW; URINE GLUCOSE (UA) NEGATIVE (NEGATIVE); URINE KETONE NEGATIVE (NEGATIVE); URINE LEUK ESTERASE NEGATIVE (NEGATIVE); URINE NITRITE NEGATIVE (NEGATIVE); URINE PROTEIN NEGATIVE (NEGATIVE); URINE UROBILINOGEN NEGATIVE E.U./dl (0.2-1.0)
[2016-06-01] MEDS ORDERED: HEPARIN NA (PORCINE) 5,000 UNITS/ML 1ML VIAL ONE (20:43)
[2016-06-01] MEDS: AMPICILLIN NA/SULBACTAM NA 100 ML IVPB SCH (20:49)
[2016-06-02] MEDS: ACETAMINOPHEN 325 MG SUPP.RECT PR SCH ×3 (01:43→08:54)
[2016-06-02] MEDS: AMPICILLIN NA/SULBACTAM NA 100 ML IVPB SCH ×4 (02:59→21:20)
[2016-06-02] MEDS: HEPARIN NA (PORCINE) 5,000 UNITS/ML 1ML VIAL SQ SCH ×3 (05:59→21:25)
[2016-06-02 06:25] LABS: BASOPHIL 0.1 % (0-2.0); MCH 25.2 pg (25.7-33.7); MCHC 31.9 g/dl (32.0-36.0); MEAN PLT VOLUME 6.9 fl (7.5-11.1); NEUTROPHILS 92.9 % (42.8-82.8); PLATELET COUNT 362 K/MM3 (134-434); RDW 16.7 % (11.6-15.6)
[2016-06-02 06:43] LABS: ALBUMIN 1.8 g/dl (3.4-5.0); ANION GAP 7 (8-16); BILIRUBIN,TOTAL 0.4 mg/dL (0.2-1.0); CALCIUM 7.9 mg/dL (8.5-10.1); CO2 35 mmol/L (21-32); COCKROFT - GAULT 101.4305; CREATININE 0.5 mg/dL (0.55-1.02); GLUCOSE,RANDOM 85 mg/dL (74-106); MAGNESIUM 2.5 mg/dL (1.8-2.4); PHOSPHOROUS 2.9 mg/dL (2.5-4.9); SGOT/AST 16 U/L (15-37); SGPT/ALT 20 U/L (12-78)
[2016-06-02 06:44] LABS: ALK PHOS 66 U/L (45-117); TOT PROT 5.8 g/dl (6.4-8.2)
[2016-06-02] MEDS ORDERED: PT OWN MED DRAWER 7, Y5N ONE (08:10)
--- NOTE | 2016-06-02 08:38 | PN ---
Progress Note, Physician Chief Complaint: ID Brought to ICU overnight respiratory distress Had fever 101.9 I had suspected aspiration in the setting of opiate overdose Started Unasyn empirically Arousable - Current Medication List Current Medications: Active Medications Acetaminophen (Tylenol Suppository -) 975 mg [place] Q6H [facility] Last Admin: 06/02/16 01:44 Dose: 975 mg Azithromycin (Zithromax 500mg Ivpb (Pre-Docked)) 500 mg IVPB DAILY [facility] Heparin Sodium (Porcine) (Heparin -) 5,000 unit SQ TID [facility] Last Admin: 06/02/16 05:59 Dose: 5,000 unit Ampicillin Sodium/Sulbactam Sodium (Unasyn 1.5 Gm (Pre-Docked)) 100 mls @ 200 mls/hr IVPB Q6H-IV [facility] Last Admin: 06/02/16 02:59 Dose: 200 mls/hr Naloxone HCl (Narcan -) 0.4 mg IVPUSH Q2H PRN PRN Reason: until patient is fully awake Last Admin: 06/02/16 03:35 Dose: 0.4 mg - Objective Vital Signs: Vital Signs Temperature 97.7 F 06/02/16 05:00 Pulse Rate 69 06/02/16 05:00 Respiratory Rate 14 06/02/16 05:00 Blood Pressure 97/63 06/02/16 05:00 O2 Sat by Pulse Oximetry (%) 100 06/01/16 23:44 Constitutional: Yes: Well Nourished, No Distress Neck: Yes: WNL, Supple Cardiovascular: Yes: Regular Rate and Rhythm, Tachycardia, S1, S2 Respiratory: Yes: WNL, Regular, CTA Bilaterally, Diminished. No: Rales, Rhonchi Gastrointestinal: Yes: WNL, Normal Bowel Sounds, Soft. No: Tenderness, Tenderness, Rebound Edema: No Labs: CBC, BMP 06/02/16 05:25 06/02/16 05:25 INR, PTT INR 1.12 (0.82-1.09) 05/29/16 18:50 Assessment/Plan Microbiology 05/31/16 14:20 Pleural Fluid Gram Stain - Final Laboratory Tests 05/30/16 06/01/16 06/01/16 12:15 11:25 13:57 WBC Hgb Hct Plt Count ABG pCO2 at Pt Temp 58.5 H D Oxygen Flow Rate 50% Methadone Screen Positive HIV 1&2 Antibody Screen Negative HIV P24 Antigen Negative 06/02/16 05:25 WBC 13.0 H Hgb 7.6 L D Hct 23.9 L Plt Count 362 ABG pCO2 at Pt Temp Oxygen Flow Rate Methadone Screen HIV 1&2 Antibody Screen HIV P24 Antigen Assessment Respiratory distress hypoxemia Fever suspect aspiration PNA Opiate dependency methadone History of breast CA Extensive adenopathy ? recurrent malignancy on chest CT Plan Continue Unasyn alone CT abd when stable Moniter respiratory status ICU critical care provided 38mins spent Jordan ROBERTSON
--- NOTE | 2016-06-02 09:31 | PN ---
Progress Note, Physician History of Present Illness: seen and examined today in [facility]. more alert today. responded to narcan given 2x yesterday. - Current Medication List Current Medications: Active Medications Acetaminophen (Tylenol Suppository -) 975 mg [place] Q6H [facility] Last Admin: 06/02/16 08:54 Dose: Not Given Azithromycin (Zithromax 500mg Ivpb (Pre-Docked)) 500 mg IVPB DAILY [facility] Heparin Sodium (Porcine) (Heparin -) 5,000 unit SQ TID [facility] Last Admin: 06/02/16 05:59 Dose: 5,000 unit Ampicillin Sodium/Sulbactam Sodium (Unasyn 1.5 Gm (Pre-Docked)) 100 mls @ 200 mls/hr IVPB Q6H-IV [facility] Last Admin: 06/02/16 02:59 Dose: 200 mls/hr Naloxone HCl (Narcan -) 0.4 mg IVPUSH Q2H PRN PRN Reason: until patient is fully awake Last Admin: 06/02/16 03:35 Dose: 0.4 mg - Objective Vital Signs: Vital Signs Temperature 97.7 F 06/02/16 05:00 Pulse Rate 70 06/02/16 08:00 Respiratory Rate 14 06/02/16 09:00 Blood Pressure 98/64 06/02/16 08:00 O2 Sat by Pulse Oximetry (%) 100 06/01/16 23:44 Constitutional: Yes: Well Nourished, No Distress, Calm Eyes: Yes: Conjunctiva Clear, EOM Intact, PERRL HENT: Yes: Other (eyelids and lips puffy, unchanged from yesterday, unknown if new finding) Neck: Yes: WNL, Supple, Trachea Midline Cardiovascular: Yes: Regular Rate and Rhythm, S1, S2. No: Bradycardia, Tachycardia, Pulse Irregular, Bruit, JVD, Gallop, Murmur, Rub, S3, S4, Varicosities Respiratory: Yes: Regular, Diminished, Rhonchi. No: Rales, SOB, Wheezes Gastrointestinal: Yes: Normal Bowel Sounds, Soft. No: Distention, Tenderness Edema: No Peripheral Pulses WNL: Yes Peripheral Pulses: Left Doralis Pedis: 2+, Right Dorsalis Pedis: 2+ Integumentary: Yes: WNL Neurological: Yes: Lethargy Psychiatric: No: Alert, Oriented Labs: CBC, BMP 06/02/16 05:25 06/02/16 05:25 INR, PTT INR 1.12 (0.82-1.09) 05/29/16 18:50 - ....Imaging Chest X-ray: Report Reviewed, Image Reviewed EKG: Report Reviewed, Image Reviewed Other: Report Reviewed, Image Reviewed (tele-nsr, no events recorded) Assessment/Plan Leukocytosis Possible RLL infiltrate Acute on chronic diastolic CHF AMS secondary to opiate overdose REC: Echo showed normal LV systolic function, no sig valvular abnormalities LE edema improved, thoracentesis done No sig pulm edema Holding lasix, pt not clinically volume overloaded Still not fully alert but much improved from yesterday after receiving narcan Plan for outpatient stress test once medically improves
[2016-06-02] MEDS ORDERED: FUROSEMIDE 40 MG TABLET (FP) PO SCH (10:00)
[2016-06-02] MEDS ORDERED: AZITHROMYCIN IVPB 500 MG/250 ML D5W PRE-DOCKED IVPB SCH (10:00)
--- NOTE | 2016-06-02 10:11 | PN ---
Progress Note (short form) - Note Progress Note: PULMONARY/CCM Pt seen and examined in the ICU. Mental status much improved today. Received multiple doses of narcan. Does not remember events yesterday. Denies shortness of breath or chest pain. Last Vital Signs Temp Pulse Resp BP Pulse Ox 97.7 F 70 14 98/64 98 06/02/16 05:00 06/02/16 08:00 06/02/16 09:00 06/02/16 08:00 06/02/16 09:55 Intake & Output 05/30/16 05/31/16 06/01/16 06/02/16 23:59 23:59 23:59 23:59 Intake Total 755 540 8034 100 Output Total 300 375 200 Balance 401 430 0101 -100 Weight 124 lb 122 lb 6.4 oz 118 lb 123 lb Gen: lethargic on BiPAP Heart: RRR Lung: distant breath sounds Abd: soft, nontender Ext: + edema CBC, BMP 06/02/16 05:25 06/02/16 05:25 ABG Results ABG pH 7.41 (7.35-7.45) D 06/01/16 13:57 ABG pCO2 at Pt Temp 58.5 mmHg (35-45) H D 06/01/16 13:57 ABG pO2 at Pt Temp 88.1 mmHg (80-100) D 06/01/16 13:57 ABG HCO3 36.1 meq/L (22-26) H 06/01/16 13:57 ABG O2 Sat (Measured) 97.2 % (90-98.9) 06/01/16 13:57 ABG O2 Content 12.3 % vol (15-22) L 06/01/16 13:57 ABG Base Excess 10.3 meq/l (-2-2) H 06/01/16 13:57 Active Medications Acetaminophen (Tylenol Suppository -) 975 mg [place] Q6H [facility] Last Admin: 06/02/16 08:54 Dose: Not Given Azithromycin (Zithromax 500mg Ivpb (Pre-Docked)) 500 mg IVPB DAILY [facility] Last Admin: 06/02/16 10:00 Dose: 500 mg Heparin Sodium (Porcine) (Heparin -) 5,000 unit SQ TID [facility] Last Admin: 06/02/16 05:59 Dose: 5,000 unit Ampicillin Sodium/Sulbactam Sodium (Unasyn 1.5 Gm (Pre-Docked)) 100 mls @ 200 mls/hr IVPB Q6H-IV [facility] Last Admin: 06/02/16 09:32 Dose: 200 mls/hr Naloxone HCl (Narcan -) 0.4 mg IVPUSH Q2H PRN PRN Reason: until patient is fully awake Last Admin: 06/02/16 03:35 Dose: 0.4 mg A/P Altered Mental Status improving Acute on Chronic Hypercapneic Respiratory Failure Methadone Maintenance/Opiate Dependent Hypoglycemia resolved Likely Aspiration Pneumonia Anemia - continue antibiotics - narcan as needed - aspiration precautions - BiPAP to assist in work of breathing - O2 to keep SpO2 >90% - aspiration precautions - DVT prophylaxis critical care time spent in reviewing chart, evaluating patient and formulating plan 35 min
[2016-06-02] MEDS ORDERED: ACETAMINOPHEN 325 MG TABLET (FP) PO PRN (10:17)
[2016-06-02] MEDS ORDERED: POTASSIUM CHLORIDE TABS 20 MEQ TABLET.ER (FP) PO ONE (12:58)
--- NOTE | 2016-06-02 13:10 | PN ---
Physical Exam: SUBJECTIVE: Patient seen and examined OBJECTIVE: Vital Signs Period Temp Pulse Resp BP Sys/Fernando Pulse Ox Last 24 Hr 97.5 F-99.0 F 67-98 14-30 75-115/47-80 96-100 GENERAL: The patient is awake, alert, appears tired but not quite lethargic HEAD: Normal with no signs of trauma. EYES: PERRL, extraocular movements intact, sclera anicteric, conjunctiva clear. proptosis ENT: moist mucous membranes. NECK: Trachea midline, supple. LUNGS: CTAB HEART: Regular rate and rhythm, S1, S2 ABDOMEN: Soft, nontender, nondistended, normoactive bowel sounds, no guarding, no rebound, no hepatosplenomegaly, no masses. EXTREMITIES: No edema NEUROLOGICAL: Cranial nerves II through XII grossly intact Laboratory Results - last 24 hr 06/01/16 06/01/16 06/01/16 13:57 14:00 18:10 WBC RBC Hgb Hct MCV MCHC RDW Plt Count MPV Neutrophils % Lymphocytes % Monocytes % Eosinophils % Basophils % ESR Puncture Site Right radial ABG pH 7.41 D ABG pCO2 at Pt Temp 58.5 H D ABG pO2 at Pt Temp 88.1 D ABG HCO3 36.1 H ABG O2 Sat (Measured) 97.2 ABG O2 Content 12.3 L ABG Base Excess 10.3 H Emile Test Positive O2 Delivery Device Bipap Oxygen Flow Rate 50% Vent Mode S/t Vent Rate 14 Mechanical Rate Bipap PEEP 0.0 Pressure Support Vent 12/6 Sodium Potassium Chloride Carbon Dioxide Anion Gap BUN Creatinine Creat Clearance w eGFR Random Glucose Calcium Phosphorus Magnesium Total Bilirubin AST ALT Alkaline Phosphatase Total Protein Albumin Urine Color Yellow Yellow Urine Appearance Clear Clear Urine pH 5.0 5.0 Ur Specific [place] 1.012 1.015 Urine Protein Negative Negative Urine Glucose (UA) Negative Negative Urine Ketones Negative Negative Urine Blood Negative Negative Urine Nitrite Negative Negative Urine Bilirubin Negative Negative Urine Urobilinogen Negative Negative Ur Leukocyte Esterase Negative Negative 06/02/16 06/02/16 06/02/16 05:25 05:25 05:25 WBC 13.0 H RBC 3.03 L Hgb 7.6 L D Hct 23.9 L MCV 79.0 L MCHC 31.9 L RDW 16.7 H Plt Count 362 MPV 6.9 L Neutrophils % 92.9 H Lymphocytes % 3.7 L D Monocytes % 3.3 L Eosinophils % 0.0 Basophils % 0.1 ESR 122 H Puncture Site ABG pH ABG pCO2 at Pt Temp ABG pO2 at Pt Temp ABG HCO3 ABG O2 Sat (Measured) ABG O2 Content ABG Base Excess Emile Test O2 Delivery Device Oxygen Flow Rate Vent Mode Vent Rate Mechanical Rate PEEP Pressure Support Vent Sodium 142 Potassium 3.5 Chloride 100 Carbon Dioxide 35 H Anion Gap 7 L BUN 29 H Creatinine 0.5 L D Creat Clearance w eGFR > 60 Random Glucose 85 D Calcium 7.9 L Phosphorus 2.9 Magnesium 2.5 H Total Bilirubin 0.4 D AST 16 D ALT 20 D Alkaline Phosphatase 66 D Total Protein 5.8 L Albumin 1.8 L D Urine Color Urine Appearance Urine pH Ur Specific [place] Urine Protein Urine Glucose (UA) Urine Ketones Urine Blood Urine Nitrite Urine Bilirubin Urine Urobilinogen Ur Leukocyte Esterase Active Medications Generic Name Dose Route Start Last Admin Trade Name Freq PRN Reason Stop Dose Admin Acetaminophen 650 mg 06/02/16 10:17 Tylenol - PO Q4H PRN FEVER OR PAIN Heparin Sodium (Porcine) 5,000 unit 06/01/16 22:00 06/02/16 05:59 Heparin - SQ 5,000 unit TID MONAE Administration Ampicillin Sodium/Sulbactam Sodium 100 mls @ 200 mls/hr 06/01/16 21:00 09:32 Unasyn 1.5 Gm (Pre-Docked) IVPB 200 mls/hr Q6H-IV MONAE Administration Naloxone HCl 0.4 mg 06/01/16 18:46 06/02/16 03:35 Narcan - IVPUSH 0.4 mg Q2H PRN Administration until patient is fully awake ASSESSMENT/PLAN: 65F with history of HTN, Breast CA in remission, and chronic pain syndrome leading to opioid dependence presents to the hospital with altered mental status found to be hypoglycemic given D50 and AMS resolved. Altered mental status: could be from methadone overdose vs hypoglycemia. Unless patient took more methadone than she was supposed to it is unlikely her dose is too high for her as she has been on this dose chronically. could also be from infection as patient has leukocystosis and bilateral lower lob PNA on CXR altered mental status-resolved continue to hold methadone Acute hypoxic hypercapneic respiratory failure: given methadone too soon 4pm then 6am hold methadone for now Dr. Miguel laura consulted awaiting recommendations restart at lower dose when necessary Sepsis secondary to pneumonia: patient had leukocytosis and tachycardia on presentation with a source of infection found on CXR Leukocytosis worsening today rocephin and azithromycin stopped today continue unasyn per ID for empiric coverage in case patient aspirated while lethargic BCx no growth to date UA negative UCx first one negative repeat cultures pending Pleural effusion:from heart failure vs parapneumonic effusion s/p thoracentesis CT scan noted-multiple enlarged hilar lymph nodes concernf ro metastatic cancer pleural fluid results noted Hilar lymphadenopathy-concern for metastatic disease Oncology consult appreciated-recommendations noted Breast Ca: in remission but now CT scan of chest concerning for metastatic disease vs primary lung Ca as patient was a long time smoker will do CT abdomen and pelvis to evaluate for possible disease metastasis Hypoglycemia: resolved HTN: continue home dose of Atenelol with hold parameters hold enalapril for now patient SBP in 90-100's CHF:patient does not have CHF on Echo but clinically she has leg edema and looks volume overloaded Cardiology consult appreciated ECHO results noted lasix stopped outpatient stress test Opioid dependence: secondary to chronic pain hold methadone for today restart methadone at lower dose when awake continue gabapentin for neuropathy/chronic pain Hyperkalemia: resolved FEN: no IVF replete potassium for hypokalemia Sodium controlled diet PPx: SCDs/HSQ No GI PPx indicated at this time PT consult to avoid deconditioning Visit type - Emergency Visit Emergency Visit: Yes ED Registration Date: 05/30/16 Care time: The patient presented to the Emergency Department on the above date and was hospitalized for further evaluation of their emergent condition. - New Patient This patient is new to me today: No - Critical Care Critical Care patient: Yes Total Critical Care Time (in minutes): 45 Critical Care Statement: The care of this patient involved high complexity decision making to prevent further life threatening deterioration of the patient 's condition and/or to evalute & treat vital organ system(s) failure or risk of failure.
[2016-06-02] MEDS ORDERED: NICOTINE 14 MG/24 HOURS TOPICAL PATCH TD SCH (19:00)
--- NOTE | 2016-06-02 20:13 | HOSP ---
Physical Examination Vital Signs: Vital Signs Temperature 97.7 F 06/02/16 12:00 Pulse Rate 97 H 06/02/16 16:00 Respiratory Rate 20 06/02/16 16:00 Blood Pressure 127/73 06/02/16 16:00 O2 Sat by Pulse Oximetry (%) 98 06/02/16 09:55 Labs: CBC, BMP 06/02/16 05:25 06/02/16 05:25
--- NOTE | 2016-06-02 21:05 | PN ---
Teaching Attending Note Name of Resident: Filippo Hoyos ATTENDING PHYSICIAN STATEMENT I saw and evaluated the patient. I reviewed the resident's note and discussed the case with the resident. I agree with the resident's findings and plan as documented. Patient is fully awake , in no acute distress. on NC at this time off the Bipap now, in ICU Vital Signs Period Temp Pulse Resp BP Sys/Fernando Pulse Ox Last 24 Hr 97.5 F-99.0 F 67-98 14-30 75-115/47-80 96-100 CBCD WBC 13.0 K/mm3 (4.0-10.0) H 06/02/16 05:25 RBC 3.03 M/mm3 (3.60-5.2) L 06/02/16 05:25 Hgb 7.6 GM/dL (10.7-15.3) L D 06/02/16 05:25 Hct 23.9 % (32.4-45.2) L 06/02/16 05:25 MCV 79.0 fl (80-96) L 06/02/16 05:25 MCHC 31.9 g/dl (32.0-36.0) L 06/02/16 05:25 RDW 16.7 % (11.6-15.6) H 06/02/16 05:25 Plt Count 362 K/MM3 (134-434) 06/02/16 05:25 MPV 6.9 fl (7.5-11.1) L 06/02/16 05:25 CMP Sodium 142 mmol/L (136-145) 06/02/16 05:25 Potassium 3.5 mmol/L (3.5-5.1) 06/02/16 05:25 Chloride 100 mmol/L (98-107) 06/02/16 05:25 Carbon Dioxide 35 mmol/L (21-32) H 06/02/16 05:25 Anion Gap 7 (8-16) L 06/02/16 05:25 BUN 29 mg/dL (7-18) H 06/02/16 05:25 Creatinine 0.5 mg/dL (0.55-1.02) L D 06/02/16 05:25 Creat Clearance w eGFR > 60 (>60) 06/02/16 05:25 Random Glucose 85 mg/dL (74-106) D 06/02/16 05:25 Calcium 7.9 mg/dL (8.5-10.1) L 06/02/16 05:25 Total Bilirubin 0.4 mg/dL (0.2-1.0) D 06/02/16 05:25 AST 16 U/L (15-37) D 06/02/16 05:25 ALT 20 U/L (12-78) D 06/02/16 05:25 Alkaline Phosphatase 66 U/L (45-117) D 06/02/16 05:25 Total Protein 5.8 g/dl (6.4-8.2) L 06/02/16 05:25 Albumin 1.8 g/dl (3.4-5.0) L D 06/02/16 05:25 CARDIAC ENZYMES Creatine Kinase 45 IU/L (26-192) 05/30/16 07:15 Troponin I < 0.02 ng/ml (0.00-0.05) 05/30/16 07:15 Current Medications Generic Name Dose Route Start Last Admin Trade Name Freq PRN Reason Stop Dose Admin Acetaminophen 650 mg 06/02/16 10:17 Tylenol - PO Q4H PRN FEVER OR PAIN Heparin Sodium (Porcine) 5,000 unit 06/01/16 22:00 06/02/16 14:49 Heparin - SQ 5,000 unit TID MONAE Administration Ampicillin Sodium/Sulbactam Sodium 100 mls @ 200 mls/hr 06/01/16 21:00 14:49 Unasyn 1.5 Gm (Pre-Docked) IVPB 200 mls/hr Q6H-IV MONAE Administration Naloxone HCl 0.4 mg 06/01/16 18:46 06/02/16 03:35 Narcan - IVPUSH 0.4 mg Q2H PRN Administration until patient is fully awake Nicotine 14 mg 06/02/16 19:00 06/02/16 20:44 Nicoderm Patch - TD 14 mg DAILY MONAE Administration Home Medications Medication Instructions Recorded Atenolol [Tenormin] 25 mg PO DAILY 05/14/12 Gabapentin [Neurontin] 600 mg PO TID PRN 05/14/12 Methadone (Detox) [Dolophine -] 30 mg PO DAILY 05/14/12 Enalapril Maleate [Vasotec] 5 mg PO BID 08/23/12 Amlodipine Besylate 10 mg PO DAILY 10/20/14 Microbiology 06/01/16 11:25 Blood - Peripheral Venous TB Test (QFT) (LELE) - Preliminary 06/01/16 15:00 Blood - Peripheral Venous Blood Culture - Preliminary NO GROWTH OBTAINED AFTER 24 HOURS, INCUBATION TO CONTINUE FOR 4 DAYS. 06/01/16 13:30 Blood - Peripheral Venous Blood Culture - Preliminary NO GROWTH OBTAINED AFTER 24 HOURS, INCUBATION TO CONTINUE FOR 4 DAYS. 05/31/16 14:20 Pleural Fluid Gram Stain - Final 05/31/16 14:20 Pleural Fluid Body Fluid Culture - Preliminary NO AEROBIC GROWTH, 24 HRS 05/30/16 10:50 Blood - Peripheral Venous Blood Culture - Preliminary NO GROWTH OBTAINED AFTER 72 HOURS, INCUBATION TO CONTINUE FOR 2 DAYS. 05/30/16 10:50 Blood - Peripheral Venous Blood Culture - Preliminary NO GROWTH OBTAINED AFTER 72 HOURS, INCUBATION TO CONTINUE FOR 2 DAYS. 05/30/16 12:15 Urine - Urine Clean Catch Urine Culture - Final NO GROWTH OBTAINED 05/30/16 20:00 Urine For Antigen Detection Legionella Antigen - Final 05/30/16 20:00 Urine For Antigen Detection Streptococcus pneumoniae Antigen (M - Final ASSESSMENT AND PLAN: Patient is a 65F with history of HTN, Breast CA in remission s/p bl mastectomy with RTx therapy, patient is a heavy smoker as well since age of 19 yo , and on methadone for pain control. as per daughter, patient has been on Methadone for apine control . Presented to Ed with altered mental status found to be hypoglycemic given D50 and AMS resolved. Also patient's chronic pain syndrome leading to opioid dependence # s/p respiratory failure off Bipap now , on NC, improved # Methadone dependency but will hold it today since the dose of methadone is strong for her , will lower the dose to 10mg po Methadone , waiting for Dr.Piierre Avila to adjiust the dose . # Acute Hypoglycemia , BGms q4hr, IV d50 prn # sepsis ; panculture so far no growth , ID on the case # BL pleural effusion cannot r/o parapneumonic effusion, s/p for thoracocentesis by IR # Acute CHF exacerbation on lasix , cardio consult . # Acute Hyperkalemia improved will continue Vasotec for now, will monitor Potassium level. DVT Px: Lovenox 40mg sq
[2016-06-03] MEDS: AMPICILLIN NA/SULBACTAM NA 100 ML IVPB SCH ×4 (02:44→21:01)
[2016-06-03] MEDS: METHADONE HCL 10 MG TABLET PO SCH (05:29)
[2016-06-03] MEDS: HEPARIN NA (PORCINE) 5,000 UNITS/ML 1ML VIAL SQ SCH (05:31)
[2016-06-03 07:44] LABS: BASOPHIL 0.2 % (0-2.0); MCH 24.6 pg (25.7-33.7); MCHC 31.2 g/dl (32.0-36.0); MEAN CELL VOLUME 78.8 fl (80-96); MEAN PLT VOLUME 6.8 fl (7.5-11.1); NEUTROPHILS 92.7 % (42.8-82.8); PLATELET COUNT 359 K/MM3 (134-434); RDW 16.8 % (11.6-15.6); WHITE BLOOD COUNT 14.5 K/mm3 (4.0-10.0)
[2016-06-03 08:14] LABS: ALBUMIN 1.9 g/dl (3.4-5.0); ALK PHOS 74 U/L (45-117); ANION GAP 7 (8-16); CALCIUM 8.3 mg/dL (8.5-10.1); CO2 34 mmol/L (21-32); CREATININE 0.5 mg/dL (0.55-1.02); GLUCOSE,RANDOM 90 mg/dL (74-106); MAGNESIUM 2.4 mg/dL (1.8-2.4); SGOT/AST 19 U/L (15-37); SGPT/ALT 20 U/L (12-78); TOT PROT 6.1 g/dl (6.4-8.2)
[2016-06-03 08:15] LABS: BILIRUBIN,TOTAL 0.6 mg/dL (0.2-1.0)
[2016-06-03 09:01] LABS: THYROID STIMULATING HORMONE 3.63 uIU/ml (0.358-3.74)
[2016-06-03] MEDS ORDERED: NAPH,MB-DB/K PH,MBDB POWDER PACKET PO ONE (09:15)
--- NOTE | 2016-06-03 10:26 | PN ---
Progress Note, Physician - Current Medication List Current Medications: Active Medications Acetaminophen (Tylenol -) 650 mg PO Q4H PRN PRN Reason: FEVER OR PAIN Heparin Sodium (Porcine) (Heparin -) 5,000 unit SQ TID [facility] Ampicillin Sodium/Sulbactam Sodium (Unasyn 1.5 Gm (Pre-Docked)) 100 mls @ 200 mls/hr IVPB Q6H-IV MONAE Methadone HCl (Dolophine -) 10 mg PO DAILY@0600 [facility] Last Admin: 06/03/16 05:29 Dose: 10 mg Nicotine (Nicoderm Patch -) 14 mg TD DAILY [facility] - Objective Vital Signs: Vital Signs Temperature 98.4 F 06/03/16 06:00 Pulse Rate 95 H 06/03/16 06:00 Respiratory Rate 20 06/03/16 06:00 Blood Pressure 127/76 06/03/16 06:00 O2 Sat by Pulse Oximetry (%) 97 06/02/16 21:00 Labs: CBC, BMP 06/03/16 06:25 06/03/16 06:25 INR, PTT INR 1.12 (0.82-1.09) 05/29/16 18:50 Assessment/Plan Leukocytosis Possible RLL infiltrate Acute on chronic diastolic CHF AMS secondary to opiate overdose REC: Echo showed normal LV systolic function, no sig valvular abnormalities LE edema improved, thoracentesis done No sig pulm edema Holding diuresis alert and communicative today Plan for outpatient stress test once medically improves
[2016-06-03] MEDS: NICOTINE 14 MG/24 HOURS TOPICAL PATCH TD SCH (10:29)
--- NOTE | 2016-06-03 11:47 | PN ---
Teaching Attending Note Name of Resident: Leanna Tse ATTENDING PHYSICIAN STATEMENT I saw and evaluated the patient. I reviewed the resident's note and discussed the case with the resident. I agree with the resident's findings and plan as documented. SUBJECTIVE: oob in wheelchair no sob but does not feel well alert, conversant OBJECTIVE: Vital Signs Period Temp Pulse Resp BP Sys/Fernando Pulse Ox Last 24 Hr 97.7 F-99.3 F 90-116 19-20 101-147/66-76 97 cor-rrr lungs decreased bs at bases abd soft,nt ext +edema arms and legs CBC, BMP 06/03/16 06:25 06/03/16 06:25 ASSESSMENT AND PLAN: ?pneumonia- continue unasyn probable malignancy- oncology f/u s/p thoracentesis- await cytology Problem List - Problems (1) Pneumonia Code(s): J18.9 - PNEUMONIA, UNSPECIFIED ORGANISM (2) CHF (congestive heart failure) Code(s): I50.9 - HEART FAILURE, UNSPECIFIED Qualifiers: Qualified Code(s): I50.9 - Heart failure, unspecified
--- NOTE | 2016-06-03 12:17 | PN ---
Progress Note (short form) - Note Progress Note: Mental status improved, but still with confusion. Generalized weakness and fatigue. Intake & Output 05/31/16 06/01/16 06/02/16 06/03/16 23:59 23:59 23:59 23:59 Intake Total 550 7844 726 4104 Output Total 375 800 400 Balance 550 1075 -300 700 Weight 122 lb 6.4 oz 118 lb 123 lb 126 lb 2 oz Last Vital Signs Temp Pulse Resp BP Pulse Ox 98.4 F 95 H 20 127/76 97 06/03/16 06:00 06/03/16 06:00 06/03/16 06:00 06/03/16 06:00 06/02/16 21:00 Active Medications Acetaminophen (Tylenol -) 650 mg PO Q4H PRN PRN Reason: FEVER OR PAIN Heparin Sodium (Porcine) (Heparin -) 5,000 unit SQ TID [facility] Ampicillin Sodium/Sulbactam Sodium (Unasyn 1.5 Gm (Pre-Docked)) 100 mls @ 200 mls/hr IVPB Q6H-IV [facility] Last Admin: 06/03/16 10:29 Dose: 200 mls/hr Methadone HCl (Dolophine -) 10 mg PO DAILY@0600 [facility] Last Admin: 06/03/16 05:29 Dose: 10 mg Nicotine (Nicoderm Patch -) 14 mg TD DAILY [facility] Last Admin: 06/03/16 10:29 Dose: 14 mg Gen: NAD Heart: RRR Lung:distant breath sounds at the bases, rhonchi Abd: soft, nontender Ext: + edema Laboratory Results - last 24 hr 06/03/16 06/03/16 06/03/16 06:24 06:25 06:25 WBC 14.5 H RBC 3.37 L Hgb 8.3 L Hct 26.5 L MCV 78.8 L MCHC 31.2 L RDW 16.8 H Plt Count 359 MPV 6.8 L Neutrophils % 92.7 H Lymphocytes % 4.4 L Monocytes % 2.7 L Eosinophils % 0.0 Basophils % 0.2 Sodium 138 Potassium 4.1 Chloride 97 L Carbon Dioxide 34 H Anion Gap 7 L BUN 22 H D Creatinine 0.5 L Creat Clearance w eGFR > 60 POC Glucometer 122 Random Glucose 90 Calcium 8.3 L Phosphorus 2.0 L D Magnesium 2.4 Total Bilirubin 0.6 D AST 19 ALT 20 Alkaline Phosphatase 74 Total Protein 6.1 L Albumin 1.9 L TSH 3.63 Free T4 06/03/16 06:25 WBC RBC Hgb Hct MCV MCHC RDW Plt Count MPV Neutrophils % Lymphocytes % Monocytes % Eosinophils % Basophils % Sodium Potassium Chloride Carbon Dioxide Anion Gap BUN Creatinine Creat Clearance w eGFR POC Glucometer Random Glucose Calcium Phosphorus Magnesium Total Bilirubin AST ALT Alkaline Phosphatase Total Protein Albumin TSH Free T4 0.96 A/P Altered Mental Status improving Acute on Chronic Hypercapneic Respiratory Failure Methadone Maintenance/Opiate Dependent Hypoglycemia resolved Likely Aspiration Pneumonia Hilar adenopathy -> Will need to rule out malignancy Anemia (?) SVC occlusion - ABX per ID - Aspiration precautions - BiPAP to assist in work of breathing - O2 to keep SpO2 >90% - aspiration precautions - DVT prophylaxis - Will need follow up chest imaging as an outpatient -> concern for malignancy - Trial of daily PO Lasix Dr Thompson Problem List - Problems (1) Altered mental status, unspecified Code(s): R41.82 - ALTERED MENTAL STATUS, UNSPECIFIED Qualifiers: Coma depth: Naila coma 9-12 (2) CHF (congestive heart failure) Code(s): I50.9 - HEART FAILURE, UNSPECIFIED Qualifiers: Congestive heart failure type: unspecified congestive heart failure type Congestive heart failure chronicity: unspecified congestive heart failure chronicity Qualified Code(s): I50.9 - Heart failure, unspecified (3) H/O malignant neoplasm of breast Code(s): Z85.3 - PERSONAL HISTORY OF MALIGNANT NEOPLASM OF BREAST (4) Hypoglycemia Code(s): E16.2 - HYPOGLYCEMIA, UNSPECIFIED (5) Knee pain, chronic Code(s): M25.569 - PAIN IN UNSPECIFIED KNEE G89.29 - OTHER CHRONIC PAIN (6) Pneumonia Code(s): J18.9 - PNEUMONIA, UNSPECIFIED ORGANISM
[2016-06-03] MEDS ORDERED: HEPARIN NA (PORCINE) 5,000 UNITS/ML 1ML VIAL IVPUSH PRN (12:40)
[2016-06-03] MEDS: FUROSEMIDE 40 MG TABLET (FP) PO SCH (12:53)
--- NOTE | 2016-06-03 12:54 | PN ---
Physical Exam: SUBJECTIVE: Patient seen and examined by me at bedside. Patient examined while doing physical therapy and she is currently walking on a walker. She is in no acute distress and smiling while responding. Weekend events noted. Otherwise, patient denies fever, chills, nausea, vomiting, chest pain, palpitations, shortness of breath. Afebrile the last 48 hours. OBJECTIVE: Vital Signs Period Temp Pulse Resp BP Sys/Fernando Pulse Ox Last 24 Hr 98.4 F-99.3 F 95-116 20-20 101-147/66-76 97 GENERAL: The patient is awake, alert, and fully oriented, in no acute distress. LUNGS: Decreased breath sounds throughout lung bases bilaterally HEART: Regular rate and rhythm, S1, S2 without murmur, rub or gallop. ABDOMEN: Soft, nontender, nondistended, normoactive bowel sounds, no guarding, no rebound, no hepatosplenomegaly, no masses. EXTREMITIES: Bilateral upper extremity lymphedema. Trace pedal edema in bilateral lower extremities. Laboratory Results - last 24 hr 06/03/16 06/03/16 06/03/16 06:24 06:25 06:25 WBC 14.5 H RBC 3.37 L Hgb 8.3 L Hct 26.5 L MCV 78.8 L MCHC 31.2 L RDW 16.8 H Plt Count 359 MPV 6.8 L Neutrophils % 92.7 H Lymphocytes % 4.4 L Monocytes % 2.7 L Eosinophils % 0.0 Basophils % 0.2 Sodium 138 Potassium 4.1 Chloride 97 L Carbon Dioxide 34 H Anion Gap 7 L BUN 22 H D Creatinine 0.5 L Creat Clearance w eGFR > 60 POC Glucometer 122 Random Glucose 90 Calcium 8.3 L Phosphorus 2.0 L D Magnesium 2.4 Total Bilirubin 0.6 D AST 19 ALT 20 Alkaline Phosphatase 74 Total Protein 6.1 L Albumin 1.9 L TSH 3.63 Free T4 06/03/16 06:25 WBC RBC Hgb Hct MCV MCHC RDW Plt Count MPV Neutrophils % Lymphocytes % Monocytes % Eosinophils % Basophils % Sodium Potassium Chloride Carbon Dioxide Anion Gap BUN Creatinine Creat Clearance w eGFR POC Glucometer Random Glucose Calcium Phosphorus Magnesium Total Bilirubin AST ALT Alkaline Phosphatase Total Protein Albumin TSH Free T4 0.96 Active Medications Generic Name Dose Route Start Last Admin Trade Name Freq PRN Reason Stop Dose Admin Acetaminophen 650 mg 06/03/16 07:19 Tylenol - PO Q4H PRN FEVER OR PAIN Furosemide 40 mg 06/03/16 12:30 06/03/16 12:53 Lasix - PO 40 mg DAILY MONAE Administration Heparin Sodium (Porcine) 1,000 unit 06/03/16 12:40 Heparin - IVPUSH PRN PRN Heparin Heparin Sodium (Porcine) 5,000 unit 06/03/16 12:40 Heparin - IVPUSH PRN PRN Heparin Ampicillin Sodium/Sulbactam Sodium 100 mls @ 200 mls/hr 06/03/16 09:00 10:29 Unasyn 1.5 Gm (Pre-Docked) IVPB 200 mls/hr Q6H-IV MONAE Administration Heparin Sodium (Porcine) 25, 500 mls @ 16 mls/hr 06/03/16 13:00 000 unit/ Sodium Chloride IV TITR MONAE Protocol 800 UNIT/HR Methadone HCl 10 mg 06/03/16 06:00 06/03/16 05:29 Dolophine - PO 10 mg DAILY@0600 [facility] Administration Nicotine 14 mg 06/03/16 10:00 06/03/16 10:29 Nicoderm Patch - TD 14 mg DAILY [facility] Administration ASSESSMENT/PLAN: Acute respiratory distress -Possibly Aspiration pneumonia vs. SVC syndrome due to malignancy. Currently on Heparin drip for SVC syndrome -Weekend events noted. Patient desaturated to the 60's with temperature of 101.9 -Antibiotics swtiched to Unasyn 1.5gm Q6H -CT Abdo/pelvic revealed revealed bilateral pleural effusions and mediastinal and right hilar adenopathy. R/o Malignancy -Awaiting cytology for thoracocentesis Visit type - Emergency Visit Emergency Visit: Yes ED Registration Date: 05/30/16 Care time: The patient presented to the Emergency Department on the above date and was hospitalized for further evaluation of their emergent condition. - New Patient This patient is new to me today: No - Critical Care Critical Care patient: No
[2016-06-03] MEDS ORDERED: HEPARIN NA (PORCINE) 5,000 UNITS/ML 1ML VIAL SQ SCH (14:00)
[2016-06-03] MEDS: HEPARIN - 25,000 UNIT in SODIUM CHLORIDE 495 ML IV SCH (14:23)
--- NOTE | 2016-06-03 16:23 | PN ---
Physical Exam: SUBJECTIVE: Patient seen and examined sitting in hallway eating food at nursing station OBJECTIVE: Vital Signs Period Temp Pulse Resp BP Sys/Fernando Pulse Ox Last 24 Hr 97.6 F-99.3 F 95-116 20-22 121-147/71-76 97 GENERAL: The patient is awake, alert HEAD: Normal with no signs of trauma. EYES: PERRL, extraocular movements intact, sclera anicteric, conjunctiva clear. proptosis ENT: moist mucous membranes. NECK: Trachea midline, supple. LUNGS: CTAB HEART: Regular rate and rhythm, S1, S2 ABDOMEN: Soft, nontender, nondistended, normoactive bowel sounds, no guarding, no rebound, no hepatosplenomegaly, no masses. EXTREMITIES: + upper extremity pitting edema + lower extremity edema NEUROLOGICAL: Cranial nerves II through XII grossly intact Laboratory Results - last 24 hr 06/03/16 06/03/16 06/03/16 06:24 06:25 06:25 WBC 14.5 H RBC 3.37 L Hgb 8.3 L Hct 26.5 L MCV 78.8 L MCHC 31.2 L RDW 16.8 H Plt Count 359 MPV 6.8 L Neutrophils % 92.7 H Lymphocytes % 4.4 L Monocytes % 2.7 L Eosinophils % 0.0 Basophils % 0.2 Sodium 138 Potassium 4.1 Chloride 97 L Carbon Dioxide 34 H Anion Gap 7 L BUN 22 H D Creatinine 0.5 L Creat Clearance w eGFR > 60 POC Glucometer 122 Random Glucose 90 Calcium 8.3 L Phosphorus 2.0 L D Magnesium 2.4 Total Bilirubin 0.6 D AST 19 ALT 20 Alkaline Phosphatase 74 Total Protein 6.1 L Albumin 1.9 L TSH 3.63 Free T4 06/03/16 06:25 WBC RBC Hgb Hct MCV MCHC RDW Plt Count MPV Neutrophils % Lymphocytes % Monocytes % Eosinophils % Basophils % Sodium Potassium Chloride Carbon Dioxide Anion Gap BUN Creatinine Creat Clearance w eGFR POC Glucometer Random Glucose Calcium Phosphorus Magnesium Total Bilirubin AST ALT Alkaline Phosphatase Total Protein Albumin TSH Free T4 0.96 Active Medications Generic Name Dose Route Start Last Admin Trade Name Freq PRN Reason Stop Dose Admin Acetaminophen 650 mg 06/03/16 07:19 Tylenol - PO Q4H PRN FEVER OR PAIN Furosemide 40 mg 06/03/16 12:30 06/03/16 12:53 Lasix - PO 40 mg DAILY MONAE Administration Heparin Sodium (Porcine) 1,000 unit 06/03/16 12:40 Heparin - IVPUSH PRN PRN Heparin Heparin Sodium (Porcine) 5,000 unit 06/03/16 12:40 Heparin - IVPUSH PRN PRN Heparin Ampicillin Sodium/Sulbactam Sodium 100 mls @ 200 mls/hr 06/03/16 09:00 15:47 Unasyn 1.5 Gm (Pre-Docked) IVPB 200 mls/hr Q6H-IV MONAE Administration Heparin Sodium (Porcine) 25, 500 mls @ 16 mls/hr 06/03/16 13:00 06/03/16 14:23 000 unit/ Sodium Chloride IV 16 mls/hr TITR MONAE Administration Protocol 800 UNIT/HR Methadone HCl 10 mg 06/03/16 06:00 06/03/16 05:29 Dolophine - PO 10 mg DAILY@0600 MONAE Administration Nicotine 14 mg 06/03/16 10:00 06/03/16 10:29 Nicoderm Patch - TD 14 mg DAILY MONAE Administration Microbiology 05/31/16 14:20 Pleural Fluid TRINI Preparation - Preliminary 05/31/16 14:20 Pleural Fluid Fungal Culture - Preliminary 06/01/16 15:00 Blood - Peripheral Venous Blood Culture - Preliminary NO GROWTH OBTAINED AFTER 48 HOURS, INCUBATION TO CONTINUE FOR 3 DAYS. 06/01/16 13:30 Blood - Peripheral Venous Blood Culture - Preliminary NO GROWTH OBTAINED AFTER 48 HOURS, INCUBATION TO CONTINUE FOR 3 DAYS. 05/31/16 14:20 Pleural Fluid Gram Stain - Final 05/31/16 14:20 Pleural Fluid Body Fluid Culture - Final NO GROWTH OF AEROBIC ORGANISMS AFTER 48 HOURS INCUBATION 05/31/16 14:20 Pleural Fluid Anaerobic Culture - Final NO ANAEROBES WERE ISOLATED 06/01/16 14:00 Urine - Urine Gilman Urine Culture - Final NO GROWTH OBTAINED 05/30/16 10:50 Blood - Peripheral Venous Blood Culture - Preliminary NO GROWTH OBTAINED AFTER 96 HOURS, INCUBATION TO CONTINUE FOR 1 DAYS. 05/30/16 10:50 Blood - Peripheral Venous Blood Culture - Preliminary NO GROWTH OBTAINED AFTER 96 HOURS, INCUBATION TO CONTINUE FOR 1 DAYS. 06/01/16 11:25 Blood - Peripheral Venous TB Test (QFT) (LEEL) - Preliminary 05/30/16 12:15 Urine - Urine Clean Catch Urine Culture - Final NO GROWTH OBTAINED 05/30/16 20:00 Urine For Antigen Detection Legionella Antigen - Final 05/30/16 20:00 Urine For Antigen Detection Streptococcus pneumoniae Antigen (M - Final ASSESSMENT/PLAN: 65F with history of HTN, Breast CA in remission, and chronic pain syndrome leading to opioid dependence presents to the hospital with altered mental status found to be hypoglycemic given D50 and AMS resolved. Altered mental status: could be from methadone overdose vs hypoglycemia. Unless patient took more methadone than she was supposed to it is unlikely her dose is too high for her as she has been on this dose chronically. could also be from infection as patient has leukocystosis and bilateral lower lob PNA on CXR altered mental status-resolved Acute hypoxic hypercapneic respiratory failure: resolved Dr. Miguel laura consulted Sepsis secondary to pneumonia: patient had leukocytosis and tachycardia on presentation with a source of infection found on CXR Leukocytosis worsening today 14.5 continue unasyn per ID for empiric coverage in case patient aspirated while lethargic BCx no growth to date UA negative UCx first one negative all micro negative so far Pleural effusion:from heart failure vs parapneumonic effusion vs malignant effusion s/p thoracentesis CT scan noted-multiple enlarged hilar lymph nodes concern for metastatic cancer pleural fluid results noted cytology pending Hilar lymphadenopathy-concern for metastatic disease Oncology consult appreciated-recommendations noted Breast Ca: in remission but now CT scan of chest concerning for metastatic disease vs primary lung Ca as patient was a long time smoker. CT chest concerning for stenotic SVC vs SVC thrombus vs compression from a mass as patient has enlarged mediastinal lymph nodes CT abdomen shows possible small liver mass-non specific SVC occlusion: start heparin gtt will likely need lovenox as outpatient Hypoglycemia: resolved HTN: continue home dose of Atenelol restart enalapril 5mg po BID Acute on chronic diastolic CHF: patient does not have CHF on Echo but clinically she has extremity edema and looks volume overloaded Cardiology consult appreciated ECHO results noted restart Lasix PO daily outpatient stress test Opioid dependence: secondary to chronic pain methadone restarted at 10mg po daily continue gabapentin for neuropathy/chronic pain Proptosis: TSH upper limit of normal Free T4 WNL Hyperkalemia: resolved FEN: no IVF replete phosphorus for hypophosphatemia Sodium controlled diet PPx: SCDs on hep gtt No GI PPx indicated at this time PT consult to avoid deconditioning Visit type - Emergency Visit Emergency Visit: Yes ED Registration Date: 05/30/16 Care time: The patient presented to the Emergency Department on the above date and was hospitalized for further evaluation of their emergent condition. - New Patient This patient is new to me today: No - Critical Care Critical Care patient: No - Discharge Referral Referred to [facility] Yes Physician Referral: Colin Davis MD ([facility])
--- NOTE | 2016-06-03 17:23 | PN ---
Teaching Attending Note Name of Resident: Filippo Hoyso ATTENDING PHYSICIAN STATEMENT I saw and evaluated the patient. I reviewed the resident's note and discussed the case with the resident. I agree with the resident's findings and plan as documented. Patient is comfortable today on NC, with no acute distress Vital Signs Temperature 97.6 F 06/03/16 15:42 Pulse Rate 106 H 06/03/16 15:42 Respiratory Rate 22 06/03/16 15:42 Blood Pressure 142/76 06/03/16 15:42 O2 Sat by Pulse Oximetry (%) 97 06/02/16 21:00 CBCD WBC 14.5 K/mm3 (4.0-10.0) H 06/03/16 06:25 RBC 3.37 M/mm3 (3.60-5.2) L 06/03/16 06:25 Hgb 8.3 GM/dL (10.7-15.3) L 06/03/16 06:25 Hct 26.5 % (32.4-45.2) L 06/03/16 06:25 MCV 78.8 fl (80-96) L 06/03/16 06:25 MCHC 31.2 g/dl (32.0-36.0) L 06/03/16 06:25 RDW 16.8 % (11.6-15.6) H 06/03/16 06:25 Plt Count 359 K/MM3 (134-434) 06/03/16 06:25 MPV 6.8 fl (7.5-11.1) L 06/03/16 06:25 CMP Sodium 138 mmol/L (136-145) 06/03/16 06:25 Potassium 4.1 mmol/L (3.5-5.1) 06/03/16 06:25 Chloride 97 mmol/L (98-107) L 06/03/16 06:25 Carbon Dioxide 34 mmol/L (21-32) H 06/03/16 06:25 Anion Gap 7 (8-16) L 06/03/16 06:25 BUN 22 mg/dL (7-18) H D 06/03/16 06:25 Creatinine 0.5 mg/dL (0.55-1.02) L 06/03/16 06:25 Creat Clearance w eGFR > 60 (>60) 06/03/16 06:25 Random Glucose 90 mg/dL (74-106) 06/03/16 06:25 Calcium 8.3 mg/dL (8.5-10.1) L 06/03/16 06:25 Total Bilirubin 0.6 mg/dL (0.2-1.0) D 06/03/16 06:25 AST 19 U/L (15-37) 06/03/16 06:25 ALT 20 U/L (12-78) 06/03/16 06:25 Alkaline Phosphatase 74 U/L (45-117) 06/03/16 06:25 Total Protein 6.1 g/dl (6.4-8.2) L 06/03/16 06:25 Albumin 1.9 g/dl (3.4-5.0) L 06/03/16 06:25 CARDIAC ENZYMES Creatine Kinase 45 IU/L (26-192) 05/30/16 07:15 Troponin I < 0.02 ng/ml (0.00-0.05) 05/30/16 07:15 Current Medications Generic Name Dose Route Start Last Admin Trade Name Freq PRN Reason Stop Dose Admin Acetaminophen 650 mg 06/03/16 07:19 Tylenol - PO Q4H PRN FEVER OR PAIN Enalapril Maleate 5 mg 06/03/16 22:00 Vasotec - PO BID MONAE Furosemide 40 mg 06/03/16 12:30 06/03/16 12:53 Lasix - PO 40 mg DAILY MONAE Administration Heparin Sodium (Porcine) 1,000 unit 06/03/16 12:40 Heparin - IVPUSH PRN PRN Heparin Heparin Sodium (Porcine) 5,000 unit 06/03/16 12:40 Heparin - IVPUSH PRN PRN Heparin Ampicillin Sodium/Sulbactam Sodium 100 mls @ 200 mls/hr 06/03/16 09:00 15:47 Unasyn 1.5 Gm (Pre-Docked) IVPB 200 mls/hr Q6H-IV MONAE Administration Heparin Sodium (Porcine) 25, 500 mls @ 16 mls/hr 06/03/16 13:00 06/03/16 14:23 000 unit/ Sodium Chloride IV 16 mls/hr TITR MONAE Administration Protocol 800 UNIT/HR Methadone HCl 10 mg 06/03/16 06:00 06/03/16 05:29 Dolophine - PO 10 mg DAILY@0600 MONAE Administration Nicotine 14 mg 06/03/16 10:00 06/03/16 10:29 Nicoderm Patch - TD 14 mg DAILY MONAE Administration Home Medications Medication Instructions Recorded Atenolol [Tenormin] 25 mg PO DAILY 05/14/12 Gabapentin [Neurontin] 600 mg PO TID PRN 05/14/12 Methadone (Detox) [Dolophine -] 30 mg PO DAILY 05/14/12 Enalapril Maleate [Vasotec] 5 mg PO BID 08/23/12 Amlodipine Besylate 10 mg PO DAILY 10/20/14 Microbiology 05/31/16 14:20 Pleural Fluid TRINI Preparation - Preliminary 05/31/16 14:20 Pleural Fluid Fungal Culture - Preliminary 06/01/16 15:00 Blood - Peripheral Venous Blood Culture - Preliminary NO GROWTH OBTAINED AFTER 48 HOURS, INCUBATION TO CONTINUE FOR 3 DAYS. 06/01/16 13:30 Blood - Peripheral Venous Blood Culture - Preliminary NO GROWTH OBTAINED AFTER 48 HOURS, INCUBATION TO CONTINUE FOR 3 DAYS. 05/31/16 14:20 Pleural Fluid Gram Stain - Final 05/31/16 14:20 Pleural Fluid Body Fluid Culture - Final NO GROWTH OF AEROBIC ORGANISMS AFTER 48 HOURS INCUBATION 05/31/16 14:20 Pleural Fluid Anaerobic Culture - Final NO ANAEROBES WERE ISOLATED 06/01/16 14:00 Urine - Urine Gilman Urine Culture - Final NO GROWTH OBTAINED 05/30/16 10:50 Blood - Peripheral Venous Blood Culture - Preliminary NO GROWTH OBTAINED AFTER 96 HOURS, INCUBATION TO CONTINUE FOR 1 DAYS. 05/30/16 10:50 Blood - Peripheral Venous Blood Culture - Preliminary NO GROWTH OBTAINED AFTER 96 HOURS, INCUBATION TO CONTINUE FOR 1 DAYS. 06/01/16 11:25 Blood - Peripheral Venous TB Test (QFT) (LELE) - Preliminary 05/30/16 12:15 Urine - Urine Clean Catch Urine Culture - Final NO GROWTH OBTAINED 05/30/16 20:00 Urine For Antigen Detection Legionella Antigen - Final 05/30/16 20:00 Urine For Antigen Detection Streptococcus pneumoniae Antigen (M - Final CT of abdomen and pelvis :Impression: Bilateral pleural effusions and mediastinal and right hilar adenopathy. Small hypodensity right lobe of the liver which can be evaluated with sonography. Rule out SVC occlusion. CT CHEST: In comparison to a previous CT exam of 08/04/2009 interval development of mediastinal, right hilar and left supraclavicular lymphadenopathy is identified. There is possible left hilar lymphadenopathy. Development of a small to moderate left pleural effusion is noted with associated basilar compressive atelectasis. A right pleural effusion has developed which is currently small in size The patient is status post recent right-sided thoracentesis. A 3 cm right lower lobe opacity is noted adjacent to the inferior hilum may represent a nodule, peribronchial lymph node or possibly focal atelectasis. Development of mild irregular pleural thickening is seen along the right pulmonary apex with associated mild subpleural nodularity. Head CT Impression: No CT evidence of acute intracranial pathology. ASSESSMENT AND PLAN: Patient is a 65F with history of HTN, Breast CA in remission s/p bl mastectomy with RTx therapy, patient is a heavy smoker as well since age of 19 yo , and on methadone for pain control. as per daughter, patient has been on Methadone for pain control . Presented to Ed with altered mental status found to be hypoglycemic given D50 and AMS resolved. 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 # Methadone dependency ( taking it for chronic pain) will reduce the dose of methadone since is strong for her , will lower the dose to 10mg po Methadone , consulted for Dr.Piierre Avila . # Acute Hypoglycemia , BGms q4hr, IV d50 prn # sepsis ; panculture so far no growth , ID on the case # Acute CHF exacerbation on lasix , cardio consult . # Acute Hyperkalemia improved will continue Vasotec for now, will monitor Potassium level. DVT Px: Lovenox 40mg sq
--- NOTE | 2016-06-03 17:30 | PN ---
S Progress Note (SOAP) Subjective: Pt. became very drowsy when given her maintenance dose of methadone,it has been reduced to 10mg and she appears well. Objective: 06/03/16 17:29 Vital Signs - 8 hr 06/03/16 15:42 Temperature 97.6 F Pulse Rate 106 H Respiratory 22 Rate Blood Pressure 142/76 Laboratory Results - last 24 hr 06/03/16 06/03/16 06/03/16 06:24 06:25 06:25 WBC 14.5 H RBC 3.37 L Hgb 8.3 L Hct 26.5 L MCV 78.8 L MCHC 31.2 L RDW 16.8 H Plt Count 359 MPV 6.8 L Neutrophils % 92.7 H Lymphocytes % 4.4 L Monocytes % 2.7 L Eosinophils % 0.0 Basophils % 0.2 Sodium 138 Potassium 4.1 Chloride 97 L Carbon Dioxide 34 H Anion Gap 7 L BUN 22 H D Creatinine 0.5 L Creat Clearance w eGFR > 60 POC Glucometer 122 Random Glucose 90 Calcium 8.3 L Phosphorus 2.0 L D Magnesium 2.4 Total Bilirubin 0.6 D AST 19 ALT 20 Alkaline Phosphatase 74 Total Protein 6.1 L Albumin 1.9 L TSH 3.63 Free T4 06/03/16 06:25 WBC RBC Hgb Hct MCV MCHC RDW Plt Count MPV Neutrophils % Lymphocytes % Monocytes % Eosinophils % Basophils % Sodium Potassium Chloride Carbon Dioxide Anion Gap BUN Creatinine Creat Clearance w eGFR POC Glucometer Random Glucose Calcium Phosphorus Magnesium Total Bilirubin AST ALT Alkaline Phosphatase Total Protein Albumin TSH Free T4 0.96 labs noted Assessment: 06/03/16 17:30 Opioid dependence on agonist therapy Plan: Continue methadone 10mg daily
--- NOTE | 2016-06-03 22:09 | PN ---
Progress Note (short form) - Note Progress Note: Patinet seen and examined denies any c/o Last Vital Signs Temp Pulse Resp BP Pulse Ox 97.6 F 106 H 22 142/76 100 06/03/16 15:42 06/03/16 15:42 06/03/16 15:42 06/03/16 15:42 06/03/16 09:00 Cor: RSR, No murmurs, No gallops Lungs: Clear to P&A Abd: Soft, Normal bowel sounds, No organomegaly Ext:No significant edema Abnormal Lab Results 06/03/16 06/03/16 06/03/16 06:25 06:25 20:30 WBC 14.5 H RBC 3.37 L Hgb 8.3 L Hct 26.5 L MCV 78.8 L MCHC 31.2 L RDW 16.8 H MPV 6.8 L Neutrophils % 92.7 H Lymphocytes % 4.4 L Monocytes % 2.7 L PTT (Actin FS) 35.5 H Chloride 97 L Carbon Dioxide 34 H Anion Gap 7 L BUN 22 H D Creatinine 0.5 L Calcium 8.3 L Phosphorus 2.0 L D Total Protein 6.1 L Albumin 1.9 L Active Medications Generic Name Dose Route Start Last Admin Trade Name Freq PRN Reason Stop Dose Admin Acetaminophen 650 mg 06/03/16 07:19 Tylenol - PO Q4H PRN FEVER OR PAIN Enalapril Maleate 5 mg 06/03/16 22:00 Vasotec - PO BID MONAE Furosemide 40 mg 06/03/16 12:30 06/03/16 12:53 Lasix - PO 40 mg DAILY MONAE Administration Heparin Sodium (Porcine) 1,000 unit 06/03/16 12:40 Heparin - IVPUSH PRN PRN Heparin Heparin Sodium (Porcine) 5,000 unit 06/03/16 12:40 06/03/16 21:59 Heparin - IVPUSH 5,000 unit PRN PRN Administration Heparin Ampicillin Sodium/Sulbactam Sodium 100 mls @ 200 mls/hr 06/03/16 09:00 21:01 Unasyn 1.5 Gm (Pre-Docked) IVPB 200 mls/hr Q6H-IV MONAE Administration Heparin Sodium (Porcine) 25, 500 mls @ 16 mls/hr 06/03/16 13:00 06/03/16 21:58 000 unit/ Sodium Chloride IV 950 unit/hr TITR MONAE Titration Protocol 800 UNIT/HR Methadone HCl 10 mg 06/03/16 06:00 06/03/16 05:29 Dolophine - PO 10 mg DAILY@0600 MONAE Administration Nicotine 14 mg 06/03/16 10:00 06/03/16 10:29 Nicoderm Patch - TD 14 mg DAILY MONAE Administration a/p 65 year old with history of breast ca dating back 18 years. Second contralateral breast ca several years later. Had RT and chemotherapy after each mastectomy. Heavy 1 ppd smoker x years. Patient presents now with weight loss, anorexia, and CT with extensive mediastinal and hilar lymphadenopathy. Has large left pleural effusion and smaller pleural effusion. cytology pending CT a/p --hypodensity in liver, ??SVC occlusion --collaterls++ will check u/s neck--?? lt. supraclavicular amenable to bx await pleural fluid cytology asymptomatic now. will consider repeat CT ches with contrast infuture to better evaluate SVC.holdingcurrently as patient just had ct a/p with contrast
[2016-06-03] MEDS: ENALAPRIL MALEATE 5 MG TABLET (FP) PO SCH (22:33)
[2016-06-04] MEDS: AMPICILLIN NA/SULBACTAM NA 100 ML IVPB SCH ×4 (02:10→21:22)
[2016-06-04] MEDS: METHADONE HCL 10 MG TABLET PO SCH ×2 (03:15→06:05)
[2016-06-04] MEDS: HEPARIN NA (PORCINE) 5,000 UNITS/ML 1ML VIAL IVPUSH PRN ×3 (05:18→21:21)
[2016-06-04 08:08] LABS: MCH 24.9 pg (25.7-33.7); MCHC 31.9 g/dl (32.0-36.0); MEAN CELL VOLUME 78.1 fl (80-96); MEAN PLT VOLUME 7.1 fl (7.5-11.1); PLATELET COUNT 389 K/MM3 (134-434); RDW 16.8 % (11.6-15.6); WHITE BLOOD COUNT 15.9 K/mm3 (4.0-10.0)
[2016-06-04 08:15] LABS: CALCIUM 8.4 mg/dL (8.5-10.1); COCKROFT - GAULT 104.006; CREATININE 0.5 mg/dL (0.55-1.02); PHOSPHOROUS 2.6 mg/dL (2.5-4.9)
--- NOTE | 2016-06-04 09:09 | PN ---
Progress Note (short form) - Note Progress Note: Awake and alert. NAD on NC O2. Reports that she used BiPAP -> however RN reports that she did not use BiPAP. Intake & Output 06/01/16 06/02/16 06/03/16 06/04/16 23:59 23:59 23:59 23:59 Intake Total 4741 530 9258 1804 Output Total 280 798 6704 400 Balance 1075 -484 168 8897 Weight 118 lb 123 lb 126 lb 2 oz Last Vital Signs Temp Pulse Resp BP Pulse Ox 98.5 F 111 H 20 139/88 100 06/04/16 07:17 06/04/16 07:17 06/04/16 07:17 06/04/16 07:17 06/03/16 09:00 Active Medications Acetaminophen (Tylenol -) 650 mg PO Q4H PRN PRN Reason: FEVER OR PAIN Enalapril Maleate (Vasotec -) 5 mg PO BID [facility] Last Admin: 06/03/16 22:33 Dose: 5 mg Furosemide (Lasix -) 40 mg PO DAILY MONAE Last Admin: 06/03/16 12:53 Dose: 40 mg Heparin Sodium (Porcine) (Heparin -) 1,000 unit IVPUSH PRN PRN PRN Reason: Heparin Last Admin: 06/04/16 05:18 Dose: 1,000 unit Heparin Sodium (Porcine) (Heparin -) 5,000 unit IVPUSH PRN PRN PRN Reason: Heparin Last Admin: 06/03/16 21:59 Dose: 5,000 unit Ampicillin Sodium/Sulbactam Sodium (Unasyn 1.5 Gm (Pre-Docked)) 100 mls @ 200 mls/hr IVPB Q6H-IV MONAE Last Admin: 06/04/16 08:40 Dose: 200 mls/hr Heparin Sodium (Porcine) 25, (000 unit/ Sodium Chloride) 500 mls @ 16 mls/hr IV TITR MONAE; 800 UNIT/HR PRN Reason: Protocol Last Titration: 06/04/16 05:18 Dose: 1,050 unit/hr Methadone HCl (Dolophine -) 10 mg PO DAILY@0600 MONAE Last Admin: 06/04/16 06:05 Dose: Not Given Nicotine (Nicoderm Patch -) 14 mg TD DAILY MONAE Last Admin: 06/03/16 10:29 Dose: 14 mg Gen: NAD Heart: RRR Lung:distant breath sounds at the bases, rhonchi Abd: soft, nontender Ext: + edema Laboratory Results - last 24 hr 06/03/16 06/03/16 06/04/16 16:58 20:30 03:49 WBC RBC Hgb Hct MCV MCHC RDW Plt Count MPV PTT (Actin FS) 35.5 H 48.8 H D Sodium Potassium Chloride Carbon Dioxide Anion Gap BUN Creatinine POC Glucometer 100 Random Glucose Calcium Phosphorus 06/04/16 06/04/16 06:30 06:30 WBC 15.9 H RBC 3.59 L Hgb 8.9 L Hct 28.1 L MCV 78.1 L MCHC 31.9 L RDW 16.8 H Plt Count 389 MPV 7.1 L PTT (Actin FS) Sodium 139 Potassium 3.6 Chloride 96 L Carbon Dioxide 35 H Anion Gap 8 BUN 17 D Creatinine 0.5 L POC Glucometer Random Glucose 106 Calcium 8.4 L Phosphorus 2.6 D A/P Altered Mental Status improving Acute on Chronic Hypercapneic Respiratory Failure Methadone Maintenance/Opiate Dependent Hypoglycemia resolved Likely Aspiration Pneumonia Hilar adenopathy -> Will need to rule out malignancy Anemia (?) SVC occlusion - IV Heparin - ABX per ID - Aspiration precautions - D/C BiPAP - O2 to keep SpO2 >90% - aspiration precautions - DVT prophylaxis - PO Lasix - US to assess for possibility of supraclavicular LN biopsy - Would defer any procedures under anesthesia at this time Dr Thompson Problem List - Problems (1) Altered mental status, unspecified Code(s): R41.82 - ALTERED MENTAL STATUS, UNSPECIFIED Qualifiers: Coma depth: [place] coma 9-12 (2) CHF (congestive heart failure) Code(s): I50.9 - HEART FAILURE, UNSPECIFIED Qualifiers: Congestive heart failure type: unspecified congestive heart failure type Congestive heart failure chronicity: unspecified congestive heart failure chronicity Qualified Code(s): I50.9 - Heart failure, unspecified (3) H/O malignant neoplasm of breast Code(s): Z85.3 - PERSONAL HISTORY OF MALIGNANT NEOPLASM OF BREAST (4) Hypoglycemia Code(s): E16.2 - HYPOGLYCEMIA, UNSPECIFIED (5) Knee pain, chronic Code(s): M25.569 - PAIN IN UNSPECIFIED KNEE G89.29 - OTHER CHRONIC PAIN (6) Pneumonia Code(s): J18.9 - PNEUMONIA, UNSPECIFIED ORGANISM
--- NOTE | 2016-06-04 09:57 | PN ---
Progress Note, Physician Chief Complaint: no acute distress - Current Medication List Current Medications: Active Medications Acetaminophen (Tylenol -) 650 mg PO Q4H PRN PRN Reason: FEVER OR PAIN Enalapril Maleate (Vasotec -) 5 mg PO BID [facility] Last Admin: 06/03/16 22:33 Dose: 5 mg Furosemide (Lasix -) 40 mg PO DAILY [facility] Last Admin: 06/03/16 12:53 Dose: 40 mg Heparin Sodium (Porcine) (Heparin -) 1,000 unit IVPUSH PRN PRN PRN Reason: Heparin Last Admin: 06/04/16 05:18 Dose: 1,000 unit Heparin Sodium (Porcine) (Heparin -) 5,000 unit IVPUSH PRN PRN PRN Reason: Heparin Last Admin: 06/03/16 21:59 Dose: 5,000 unit Ampicillin Sodium/Sulbactam Sodium (Unasyn 1.5 Gm (Pre-Docked)) 100 mls @ 200 mls/hr IVPB Q6H-IV [facility] Last Admin: 06/04/16 08:40 Dose: 200 mls/hr Heparin Sodium (Porcine) 25, (000 unit/ Sodium Chloride) 500 mls @ 16 mls/hr IV TITR MONAE; 800 UNIT/HR PRN Reason: Protocol Last Titration: 06/04/16 05:18 Dose: 1,050 unit/hr Methadone HCl (Dolophine -) 10 mg PO DAILY@0600 [facility] Last Admin: 06/04/16 06:05 Dose: Not Given Nicotine (Nicoderm Patch -) 14 mg TD DAILY [facility] Last Admin: 06/03/16 10:29 Dose: 14 mg - Objective Vital Signs: Vital Signs Temperature 98.5 F 06/04/16 07:17 Pulse Rate 111 H 06/04/16 07:17 Respiratory Rate 20 06/04/16 07:17 Blood Pressure 139/88 06/04/16 07:17 O2 Sat by Pulse Oximetry (%) 100 06/03/16 09:00 Constitutional: Yes: No Distress Cardiovascular: Yes: Regular Rate and Rhythm Respiratory: Yes: CTA Bilaterally Gastrointestinal: Yes: Soft Edema: No Neurological: Yes: Alert Labs: CBC, BMP 06/04/16 06:30 06/04/16 06:30 INR, PTT INR 1.12 (0.82-1.09) 05/29/16 18:50 Assessment/Plan Leukocytosis Possible RLL infiltrate Acute on chronic diastolic CHF AMS secondary to opiate overdose REC: Echo showed normal LV systolic function, no sig valvular abnormalities. LE edema improved, thoracentesis done. US neck to evaluate for ?SVC occlusion ordered. Plan for outpatient stress test once medically improves
[2016-06-04] MEDS ORDERED: PT OWN MED DRAWER 7, Y5N ONE ×2 (10:10→15:12)
[2016-06-04] MEDS: NICOTINE 14 MG/24 HOURS TOPICAL PATCH TD SCH (10:15)
[2016-06-04] MEDS: ENALAPRIL MALEATE 5 MG TABLET (FP) PO SCH ×2 (10:15→21:31)
[2016-06-04] MEDS: FUROSEMIDE 40 MG TABLET (FP) PO SCH (10:15)
--- NOTE | 2016-06-04 12:37 | PN ---
Progress Note (short form) - Note Progress Note: doing well, alert, no complaints, ambulated in the morgan with PT Vital Signs Period Temp Pulse Resp BP Sys/Fernando Pulse Ox Last 24 Hr 97.4 F-98.5 F 98-111 20-24 130-145/73-88 98-99 cor-rrr lungs decreased bs at bases abd soft,nt ext less edema of the hands, less lower extremity edema CBC, BMP 06/04/16 06:30 06/04/16 06:30 Current Medications Acetaminophen (Tylenol -) 650 mg PO Q4H PRN PRN Reason: FEVER OR PAIN Enalapril Maleate (Vasotec -) 5 mg PO BID [facility] Last Admin: 06/04/16 10:15 Dose: 5 mg Furosemide (Lasix -) 40 mg PO DAILY [facility] Last Admin: 06/04/16 10:15 Dose: 40 mg Heparin Sodium (Porcine) (Heparin -) 1,000 unit IVPUSH PRN PRN PRN Reason: Heparin Last Admin: 06/04/16 05:18 Dose: 1,000 unit Heparin Sodium (Porcine) (Heparin -) 5,000 unit IVPUSH PRN PRN PRN Reason: Heparin Last Admin: 06/03/16 21:59 Dose: 5,000 unit Ampicillin Sodium/Sulbactam Sodium (Unasyn 1.5 Gm (Pre-Docked)) 100 mls @ 200 mls/hr IVPB Q6H-IV [facility] Last Admin: 06/04/16 08:40 Dose: 200 mls/hr Heparin Sodium (Porcine) 25, (000 unit/ Sodium Chloride) 500 mls @ 16 mls/hr IV TITR [facility]; 800 UNIT/HR PRN Reason: Protocol Last Titration: 06/04/16 05:18 Dose: 1,050 unit/hr Methadone HCl (Dolophine -) 10 mg PO DAILY@0600 [facility] Last Admin: 06/04/16 06:05 Dose: Not Given Nicotine (Nicoderm Patch -) 14 mg TD DAILY [facility] Last Admin: 06/04/16 10:15 Dose: 14 mg a/p possible aspiration- continue unasyn f/u cytology of thoracentesis probable malignancy with possible SVC syndrome-on iv heparin Problem List - Problems (1) Pneumonia Code(s): J18.9 - PNEUMONIA, UNSPECIFIED ORGANISM (2) CHF (congestive heart failure) Code(s): I50.9 - HEART FAILURE, UNSPECIFIED Qualifiers: Congestive heart failure type: unspecified congestive heart failure type Congestive heart failure chronicity: unspecified congestive heart failure chronicity Qualified Code(s): I50.9 - Heart failure, unspecified
--- NOTE | 2016-06-04 13:05 | PN ---
Teaching Attending Note Name of Resident: Filippo Hoyos ATTENDING PHYSICIAN STATEMENT I saw and evaluated the patient. I reviewed the resident's note and discussed the case with the resident. I agree with the resident's findings and plan as documented. SUBJECTIVE: Patient has no complaints. OBJECTIVE: Vital Signs Period Temp Pulse Resp BP Sys/Fernando Pulse Ox Last 24 Hr 97.4 F-98.5 F 98-111 20-24 130-145/73-88 98-99 HEART: S1 S2, RRR LUNGS: Clear ABDOMEN: Soft, non-tender, non-distended, normal BS EXTREMITIES: trace edema ASSESSMENT AND PLAN: Patient is a 65F with history of HTN, Breast CA in remission s/p bl mastectomy with RTx therapy, patient is a heavy smoker as well since age of 19 yo , and on methadone for pain control. as per daughter, patient has been on Methadone for pain control . Presented to Ed with altered mental status found to be hypoglycemic given D50 and AMS resolved. 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 # Methadone dependency ( taking it for chronic pain) will reduce the dose of methadone since is strong for her , will lower the dose to 10mg po Methadone , consulted for Dr.Piierre Avila . # Acute Hypoglycemia , BGms q4hr, IV d50 prn # sepsis ; panculture so far no growth , ID on the case # Acute CHF exacerbation on lasix , cardio consult . # Acute Hyperkalemia improved will continue Vasotec for now, will monitor Potassium level. DVT Px: Lovenox 40mg sq
[2016-06-04] MEDS: HEPARIN - 25,000 UNIT in SODIUM CHLORIDE 495 ML IV SCH ×2 (14:03→18:11)
--- NOTE | 2016-06-04 16:47 | PN ---
Physical Exam: SUBJECTIVE: Patient seen and examined at bedside much more awake and alert today states she feels well OBJECTIVE: Vital Signs Period Temp Pulse Resp BP Sys/Fernando Pulse Ox Last 24 Hr 97.2 F-98.5 F 98-111 16-24 120-139/72-88 97-99 GENERAL: The patient is awake, alert HEAD: Normal with no signs of trauma. EYES: PERRL, extraocular movements intact, sclera anicteric, conjunctiva clear. proptosis ENT: moist mucous membranes. NECK: Trachea midline, supple. LUNGS: CTAB HEART: Regular rate and rhythm, S1, S2 ABDOMEN: Soft, nontender, nondistended, normoactive bowel sounds, no guarding, no rebound, no hepatosplenomegaly, no masses. EXTREMITIES: + upper extremity pitting edema + lower extremity edema NEUROLOGICAL: Cranial nerves II through XII grossly intact Laboratory Results - last 24 hr 06/03/16 06/03/16 06/04/16 16:58 20:30 03:49 WBC RBC Hgb Hct MCV MCHC RDW Plt Count MPV PTT (Actin FS) 35.5 H 48.8 H D Sodium Potassium Chloride Carbon Dioxide Anion Gap BUN Creatinine POC Glucometer 100 Random Glucose Calcium Phosphorus 06/04/16 06/04/16 06/04/16 06:30 06:30 11:30 WBC 15.9 H RBC 3.59 L Hgb 8.9 L Hct 28.1 L MCV 78.1 L MCHC 31.9 L RDW 16.8 H Plt Count 389 MPV 7.1 L PTT (Actin FS) 47.2 H Sodium 139 Potassium 3.6 Chloride 96 L Carbon Dioxide 35 H Anion Gap 8 BUN 17 D Creatinine 0.5 L POC Glucometer Random Glucose 106 Calcium 8.4 L Phosphorus 2.6 D Active Medications Generic Name Dose Route Start Last Admin Trade Name Freq PRN Reason Stop Dose Admin Acetaminophen 650 mg 06/03/16 07:19 Tylenol - PO Q4H PRN FEVER OR PAIN Enalapril Maleate 5 mg 06/03/16 22:00 06/04/16 10:15 Vasotec - PO 5 mg BID [facility] Administration Furosemide 40 mg 06/03/16 12:30 06/04/16 10:15 Lasix - PO 40 mg DAILY [facility] Administration Heparin Sodium (Porcine) 1,000 unit 06/03/16 12:40 06/04/16 14:02 Heparin - IVPUSH 1,000 unit PRN PRN Administration Heparin Heparin Sodium (Porcine) 5,000 unit 06/03/16 12:40 06/03/16 21:59 Heparin - IVPUSH 5,000 unit PRN PRN Administration Heparin Ampicillin Sodium/Sulbactam Sodium 100 mls @ 200 mls/hr 06/03/16 09:00 15:16 Unasyn 1.5 Gm (Pre-Docked) IVPB 200 mls/hr Q6H-IV [facility] Administration Heparin Sodium (Porcine) 25, 500 mls @ 16 mls/hr 06/03/16 13:00 06/04/16 14:03 000 unit/ Sodium Chloride IV 23 mls/hr TITR [facility] Administration Protocol 800 UNIT/HR Methadone HCl 10 mg 06/03/16 06:00 06/04/16 06:05 Dolophine - PO Not Given DAILY@0600 [facility] Nicotine 14 mg 06/03/16 10:00 06/04/16 10:15 Nicoderm Patch - TD 14 mg DAILY [facility] Administration ASSESSMENT/PLAN: 65F with history of HTN, Breast CA in remission, and chronic pain syndrome leading to opioid dependence presents to the hospital with altered mental status found to be hypoglycemic given D50 and AMS resolved. Altered mental status: could be from methadone overdose vs hypoglycemia. Unless patient took more methadone than she was supposed to it is unlikely her dose is too high for her as she has been on this dose chronically. could also be from infection as patient has leukocystosis and bilateral lower lob PNA on CXR altered mental status-resolved with decreased dose of methadone Acute hypoxic hypercapneic respiratory failure: resolved Sepsis secondary to pneumonia: patient had leukocytosis and tachycardia on presentation with a source of infection found on CXR Leukocytosis worsening today 15.9 continue unasyn per ID for empiric coverage in case patient aspirated while lethargic BCx no growth to date UA negative UCx negative all micro negative so far Pleural effusion:from heart failure vs parapneumonic effusion vs malignant effusion s/p thoracentesis CT scan noted-multiple enlarged hilar lymph nodes concern for metastatic cancer pleural fluid results noted cytology pending Hilar lymphadenopathy-concern for metastatic disease Oncology consult appreciated-recommendations noted US soft tissue of head and neck results noted multiple bilateral enlarged lymph nodes will ask IR to biopsy it tomorrow CT surgery as outpatient Breast Ca: in remission but now CT scan of chest concerning for metastatic disease vs primary lung Ca as patient was a long time smoker. CT chest concerning for stenotic SVC vs SVC thrombus vs compression from a mass as patient has enlarged mediastinal lymph nodes CT abdomen shows possible small liver mass-non specific US of liver showed mild fatty infiltration vs hepatocellular disease SVC occlusion: continue heparin gtt will likely need lovenox as outpatient Hypoglycemia: resolved HTN: continue home dose of Atenelol continue enalapril 5mg po BID Acute on chronic diastolic CHF: patient does not have CHF on Echo but clinically she has extremity edema and looks volume overloaded Cardiology consult appreciated ECHO results noted continue Lasix PO daily outpatient stress test Opioid dependence: secondary to chronic pain methadone restarted at 10mg po daily continue gabapentin for neuropathy/chronic pain Proptosis: TSH upper limit of normal Free T4 WNL Hyperkalemia: resolved FEN: no IVF replete phosphorus for hypophosphatemia Sodium controlled diet PPx: SCDs on hep gtt No GI PPx indicated at this time PT consult to avoid deconditioning Poor prognosis Palliative care consult placed yesterday i spoke to the daughter over the phone for about 45 minutes. updates were given and all questions answered. plan of care given to daughter she is aware of her mother's condition. Gave the daughter the opportunity to ask questions. Visit type - Emergency Visit Emergency Visit: Yes ED Registration Date: 05/30/16 Care time: The patient presented to the Emergency Department on the above date and was hospitalized for further evaluation of their emergent condition. - New Patient This patient is new to me today: No - Critical Care Critical Care patient: No - Discharge Referral Referred to [facility] Yes Physician Referral: Colin Davis MD ([facility])
--- NOTE | 2016-06-04 18:46 | PN ---
Progress Note (short form) - Note Progress Note: Patient seen and examined Awake and alert Last Vital Signs Temp Pulse Resp BP Pulse Ox 97.9 F 109 H 20 126/74 97 06/04/16 17:10 06/04/16 17:10 06/04/16 17:10 06/04/16 17:10 06/04/16 14:07 Nodes: multiple palpable left supraclavicular nodes Breasts: s/p bilateral mastectomy with no chest wall recurrence Cor: RSR, No murmurs, No gallops Lungs: diminished breath sounds bilaterally Abd: Soft, Normal bowel sounds, No organomegaly Ext:Proximal edema RUE Skin: No rashes, Integument intact CBC, BMP 06/04/16 06:30 06/04/16 06:30 Current Medications Generic Name Dose Route Start Last Admin Trade Name Freq PRN Reason Stop Dose Admin Acetaminophen 650 mg 06/03/16 07:19 Tylenol - PO Q4H PRN FEVER OR PAIN Enalapril Maleate 5 mg 06/03/16 22:00 06/04/16 10:15 Vasotec - PO 5 mg BID [facility] Administration Furosemide 40 mg 06/03/16 12:30 06/04/16 10:15 Lasix - PO 40 mg DAILY [facility] Administration Heparin Sodium (Porcine) 1,000 unit 06/03/16 12:40 06/04/16 14:02 Heparin - IVPUSH 1,000 unit PRN PRN Administration Heparin Heparin Sodium (Porcine) 5,000 unit 06/03/16 12:40 06/03/16 21:59 Heparin - IVPUSH 5,000 unit PRN PRN Administration Heparin Ampicillin Sodium/Sulbactam Sodium 100 mls @ 200 mls/hr 06/03/16 09:00 15:16 Unasyn 1.5 Gm (Pre-Docked) IVPB 200 mls/hr Q6H-IV [facility] Administration Heparin Sodium (Porcine) 25, 500 mls @ 16 mls/hr 06/03/16 13:00 06/04/16 18:11 000 unit/ Sodium Chloride IV 23 mls/hr TITR [facility] Administration Protocol 800 UNIT/HR Methadone HCl 10 mg 06/03/16 06:00 06/04/16 06:05 Dolophine - PO Not Given DAILY@0600 [facility] Nicotine 14 mg 06/03/16 10:00 06/04/16 10:15 Nicoderm Patch - TD 14 mg DAILY [facility] Administration Impression: S/P bilateral breast ca Altered mental status from methadone Mediastinal and hilar adenopathy Supraclavicular adenopathy Pneumonia Proximal RUE swelling S/P thoracentesis Cytology on pleural fluid pending Can do Fine needle aspiration of Left SC adenopathy for diagnosis- would need to coordinate with path. Core biopsy would be riskier. Can discuss with I.R whether any additional areas are amenable to biopsy.If FNA not feasible Will need to order duplex of RUE in view of swelling.
[2016-06-05] MEDS: AMPICILLIN NA/SULBACTAM NA 100 ML IVPB SCH ×3 (03:07→15:16)
[2016-06-05] MEDS: METHADONE HCL 10 MG TABLET PO SCH (06:06)
[2016-06-05 08:11] LABS: BASOPHIL 0.2 % (0-2.0); MCH 25.3 pg (25.7-33.7); MCHC 32.3 g/dl (32.0-36.0); MEAN CELL VOLUME 78.5 fl (80-96); MEAN PLT VOLUME 7.1 fl (7.5-11.1); PLATELET COUNT 387 K/MM3 (134-434); RDW 16.9 % (11.6-15.6); WHITE BLOOD COUNT 19.6 K/mm3 (4.0-10.0)
[2016-06-05 08:42] LABS: ALBUMIN 2.2 g/dl (3.4-5.0); ANION GAP 5 (8-16); CALCIUM 8.5 mg/dL (8.5-10.1); CO2 38 mmol/L (21-32); GLUCOSE,RANDOM 94 mg/dL (74-106); MAGNESIUM 2.2 mg/dL (1.8-2.4)
[2016-06-05 08:47] LABS: ALK PHOS 86 U/L (45-117); BILIRUBIN,TOTAL 0.4 mg/dL (0.2-1.0); COCKROFT - GAULT 88.6465; CREATININE 0.6 mg/dL (0.55-1.02); SGOT/AST 30 U/L (15-37); SGPT/ALT 27 U/L (12-78); TOT PROT 6.7 g/dl (6.4-8.2)
--- NOTE | 2016-06-05 09:10 | PN ---
Progress Note, Physician Chief Complaint: US noted- lymphadenopathy History of Present Illness: On heparin gtts for possible Upper extremity venous thrombus - Current Medication List Current Medications: Active Medications Acetaminophen (Tylenol -) 650 mg PO Q4H PRN PRN Reason: FEVER OR PAIN Enalapril Maleate (Vasotec -) 5 mg PO BID [facility] Last Admin: 06/04/16 21:31 Dose: 5 mg Furosemide (Lasix -) 40 mg PO DAILY [facility] Last Admin: 06/04/16 10:15 Dose: 40 mg Heparin Sodium (Porcine) (Heparin -) 1,000 unit IVPUSH PRN PRN PRN Reason: Heparin Last Admin: 06/04/16 21:21 Dose: 1,000 unit Heparin Sodium (Porcine) (Heparin -) 5,000 unit IVPUSH PRN PRN PRN Reason: Heparin Last Admin: 06/03/16 21:59 Dose: 5,000 unit Ampicillin Sodium/Sulbactam Sodium (Unasyn 1.5 Gm (Pre-Docked)) 100 mls @ 200 mls/hr IVPB Q6H-IV [facility] Last Admin: 06/05/16 08:35 Dose: 200 mls/hr Heparin Sodium (Porcine) 25, (000 unit/ Sodium Chloride) 500 mls @ 16 mls/hr IV TITR [facility]; 800 UNIT/HR PRN Reason: Protocol Last Titration: 06/04/16 21:21 Dose: 1,250 unit/hr Methadone HCl (Dolophine -) 10 mg PO DAILY@0600 [facility] Last Admin: 06/05/16 06:06 Dose: 10 mg Nicotine (Nicoderm Patch -) 14 mg TD DAILY [facility] Last Admin: 06/04/16 10:15 Dose: 14 mg - Objective Vital Signs: Vital Signs Temperature 97.9 F 06/05/16 06:04 Pulse Rate 116 H 06/05/16 06:04 Respiratory Rate 22 06/05/16 06:04 Blood Pressure 141/77 06/05/16 06:04 O2 Sat by Pulse Oximetry (%) 97 06/04/16 14:07 Constitutional: Yes: No Distress Eyes: Yes: Conjunctiva Clear Cardiovascular: Yes: Regular Rate and Rhythm Respiratory: Yes: Other (decreased breath sounds at bases) Gastrointestinal: Yes: Soft Edema: No Neurological: Yes: Alert Labs: CBC, BMP 06/05/16 06:20 INR, PTT INR 1.12 (0.82-1.09) 05/29/16 18:50 Laboratory Tests 06/04/16 06/04/16 06/05/16 06:30 06:30 06:20 WBC 15.9 H Hgb 8.9 L Hct 28.1 L Plt Count 389 Sodium 141 Potassium 3.6 3.9 Creatinine 0.5 L 0.6 06/05/16 06:30 WBC 19.6 H Hgb Hct 28.4 L Plt Count 387 Sodium Potassium Creatinine Assessment/Plan Assessment/Plan Leukocytosis RLL infiltrate Chronic diastolic CHF Lymphadenopathy Possible upper extremity venous thrombus REC: Abx as per primary medical team LE edema improved, thoracentesis done await final path. US neck to evaluate for ?SVC occlusion ordered; on IV heparin gtts. Continue PO Lasix.
[2016-06-05] MEDS: FUROSEMIDE 40 MG TABLET (FP) PO SCH (10:01)
[2016-06-05] MEDS: NICOTINE 14 MG/24 HOURS TOPICAL PATCH TD SCH (10:01)
[2016-06-05] MEDS: ENALAPRIL MALEATE 5 MG TABLET (FP) PO SCH ×2 (10:01→21:42)
--- NOTE | 2016-06-05 11:53 | PN ---
Physical Exam: SUBJECTIVE: Patient seen and examined by me. Patient' son at bedside. Patient reports she barely slept and has loss of appetite. However, she denies any pain. Otherwise, patient denies fever, chills, nausea, vomiting, diarrhea, headache. OBJECTIVE: Vital Signs Period Temp Pulse Resp BP Sys/Fernando Pulse Ox Last 24 Hr 97.2 F-97.9 F 103-116 16-22 120-141/72-77 97 GENERAL: The patient is awake, alert, and fully oriented, in no acute distress. LUNGS: Decreased breath sounds throughout lung bases bilaterally HEART: Regular rate and rhythm, S1, S2 without murmur, rub or gallop. ABDOMEN: Soft, nontender, nondistended, normoactive bowel sounds, no guarding, no rebound, no hepatosplenomegaly, no masses. EXTREMITIES: Bilateral upper extremity lymphedema. Trace pedal edema in bilateral lower extremities. Laboratory Results - last 24 hr 06/04/16 06/04/16 06/05/16 11:30 20:00 03:00 WBC Corrected WBC (auto) RBC Hgb Hct MCV MCHC RDW Plt Count MPV Neutrophils % Lymphocytes % Monocytes % Eosinophils % Basophils % Differential Comment Platelet Estimate Platelet Comment RBC Morphology PTT (Actin FS) 47.2 H 45.1 H Cancelled Sodium Potassium Chloride Carbon Dioxide Anion Gap BUN Creatinine Creat Clearance w eGFR Random Glucose Calcium Phosphorus Magnesium Total Bilirubin AST ALT Alkaline Phosphatase Total Protein Albumin 06/05/16 06/05/16 06/05/16 03:30 06:20 06:30 WBC Cancelled Corrected WBC (auto) Cancelled RBC Cancelled Hgb Cancelled Hct Cancelled MCV Cancelled MCHC Cancelled RDW Cancelled Plt Count Cancelled MPV Cancelled Neutrophils % Lymphocytes % Monocytes % Eosinophils % Basophils % Differential Comment Cancelled Platelet Estimate Cancelled Platelet Comment Cancelled RBC Morphology Cancelled PTT (Actin FS) 52.7 H Sodium 141 Potassium 3.9 Chloride 98 Carbon Dioxide 38 H Anion Gap 5 L BUN 15 Creatinine 0.6 Creat Clearance w eGFR > 60 Random Glucose 94 Calcium 8.5 Phosphorus 3.0 Magnesium 2.2 Total Bilirubin 0.4 D AST 30 D ALT 27 D Alkaline Phosphatase 86 Total Protein 6.7 Albumin 2.2 L 06/05/16 06/05/16 06:30 06:30 WBC 19.6 H Corrected WBC (auto) RBC 3.62 Hgb 9.2 L Hct 28.4 L MCV 78.5 L MCHC 32.3 RDW 16.9 H Plt Count 387 MPV 7.1 L Neutrophils % 95.0 H Lymphocytes % 3.4 L D Monocytes % 1.4 L Eosinophils % 0.0 Basophils % 0.2 Differential Comment Platelet Estimate Platelet Comment RBC Morphology PTT (Actin FS) 51.7 H Sodium Potassium Chloride Carbon Dioxide Anion Gap BUN Creatinine Creat Clearance w eGFR Random Glucose Calcium Phosphorus Magnesium Total Bilirubin AST ALT Alkaline Phosphatase Total Protein Albumin Active Medications Generic Name Dose Route Start Last Admin Trade Name Freq PRN Reason Stop Dose Admin Acetaminophen 650 mg 06/03/16 07:19 Tylenol - PO Q4H PRN FEVER OR PAIN Enalapril Maleate 5 mg 06/03/16 22:00 06/05/16 10:01 Vasotec - PO 5 mg BID [facility] Administration Furosemide 40 mg 06/03/16 12:30 06/05/16 10:01 Lasix - PO 40 mg DAILY [facility] Administration Heparin Sodium (Porcine) 1,000 unit 06/03/16 12:40 06/04/16 21:21 Heparin - IVPUSH 1,000 unit PRN PRN Administration Heparin Heparin Sodium (Porcine) 5,000 unit 06/03/16 12:40 06/03/16 21:59 Heparin - IVPUSH 5,000 unit PRN PRN Administration Heparin Ampicillin Sodium/Sulbactam Sodium 100 mls @ 200 mls/hr 06/03/16 09:00 08:35 Unasyn 1.5 Gm (Pre-Docked) IVPB 200 mls/hr Q6H-IV [facility] Administration Heparin Sodium (Porcine) 25, 500 mls @ 16 mls/hr 06/03/16 13:00 06/04/16 21:21 000 unit/ Sodium Chloride IV 1,250 unit/hr TITR [facility] Titration Protocol 800 UNIT/HR Methadone HCl 10 mg 06/03/16 06:00 06/05/16 06:06 Dolophine - PO 10 mg DAILY@0600 [facility] Administration Nicotine 14 mg 06/03/16 10:00 06/05/16 10:01 Nicoderm Patch - TD 14 mg DAILY [facility] Administration ASSESSMENT/PLAN: Acute respiratory distress (improved) -Possibly Aspiration pneumonia vs. SVC syndrome due to malignancy. -Continue Unasyn 1.5gm Q6H day #3 -Increasing leukocytosis, will repeat CXR Upper extremity venous thrombosis -Possibly due to malignancy -Currently on Heparin drip -CT Abdo/pelvic revealed revealed bilateral pleural effusions and mediastinal and right hilar adenopathy. R/o Malignancy -Awaiting cytology for thoracocentesis Visit type - Emergency Visit Emergency Visit: Yes ED Registration Date: 05/30/16 Care time: The patient presented to the Emergency Department on the above date and was hospitalized for further evaluation of their emergent condition. - New Patient This patient is new to me today: No - Critical Care Critical Care patient: No
--- NOTE | 2016-06-05 13:25 | PN ---
Teaching Attending Note Name of Resident: Leanna Tse ATTENDING PHYSICIAN STATEMENT I saw and evaluated the patient. I reviewed the resident's note and discussed the case with the resident. I agree with the resident's findings and plan as documented. SUBJECTIVE: son at bedside, mom has had weight loss, has a very poor appetitie denies diarrhea denies fever denies dysuria OBJECTIVE: alert Vital Signs Period Temp Pulse Resp BP Sys/Fernando Pulse Ox Last 24 Hr 97.2 F-98.0 F 103-116 16-22 120-141/72-77 97 cor-rrr lungs decreased bs at bases abd soft,nt ext less edema CBC, BMP 06/05/16 06:30 06/05/16 06:20 Microbiology 06/01/16 11:25 Blood - Peripheral Venous TB Test (QFT) (LELE) - Preliminary 05/31/16 14:20 Pleural Fluid AFB Smear Concentration - Final 05/31/16 14:20 Pleural Fluid Mycobacterial Culture - Preliminary 06/01/16 15:00 Blood - Peripheral Venous Blood Culture - Preliminary NO GROWTH OBTAINED AFTER 72 HOURS, INCUBATION TO CONTINUE FOR 2 DAYS. 06/01/16 13:30 Blood - Peripheral Venous Blood Culture - Preliminary NO GROWTH OBTAINED AFTER 72 HOURS, INCUBATION TO CONTINUE FOR 2 DAYS. 05/30/16 10:50 Blood - Peripheral Venous Blood Culture - Final NO GROWTH AFTER 5 DAYS INCUBATION 05/30/16 10:50 Blood - Peripheral Venous Blood Culture - Final NO GROWTH AFTER 5 DAYS INCUBATION 05/31/16 14:20 Pleural Fluid TRINI Preparation - Preliminary 05/31/16 14:20 Pleural Fluid Fungal Culture - Preliminary 05/31/16 14:20 Pleural Fluid Gram Stain - Final 05/31/16 14:20 Pleural Fluid Body Fluid Culture - Final NO GROWTH OF AEROBIC ORGANISMS AFTER 48 HOURS INCUBATION 05/31/16 14:20 Pleural Fluid Anaerobic Culture - Final NO ANAEROBES WERE ISOLATED 06/01/16 14:00 Urine - Urine Gilman Urine Culture - Final NO GROWTH OBTAINED 05/30/16 12:15 Urine - Urine Clean Catch Urine Culture - Final NO GROWTH OBTAINED 05/30/16 20:00 Urine For Antigen Detection Legionella Antigen - Final 05/30/16 20:00 Urine For Antigen Detection Streptococcus pneumoniae Antigen (M - Final Current Medications Acetaminophen (Tylenol -) 650 mg PO Q4H PRN PRN Reason: FEVER OR PAIN Enalapril Maleate (Vasotec -) 5 mg PO BID [facility] Last Admin: 06/05/16 10:01 Dose: 5 mg Furosemide (Lasix -) 40 mg PO DAILY [facility] Last Admin: 06/05/16 10:01 Dose: 40 mg Heparin Sodium (Porcine) (Heparin -) 1,000 unit IVPUSH PRN PRN PRN Reason: Heparin Last Admin: 06/04/16 21:21 Dose: 1,000 unit Heparin Sodium (Porcine) (Heparin -) 5,000 unit IVPUSH PRN PRN PRN Reason: Heparin Last Admin: 06/03/16 21:59 Dose: 5,000 unit Ampicillin Sodium/Sulbactam Sodium (Unasyn 1.5 Gm (Pre-Docked)) 100 mls @ 200 mls/hr IVPB Q6H-IV [facility] Last Admin: 06/05/16 08:35 Dose: 200 mls/hr Heparin Sodium (Porcine) 25, (000 unit/ Sodium Chloride) 500 mls @ 16 mls/hr IV TITR [facility]; 800 UNIT/HR PRN Reason: Protocol Last Titration: 06/04/16 21:21 Dose: 1,250 unit/hr Methadone HCl (Dolophine -) 10 mg PO DAILY@0600 [facility] Last Admin: 06/05/16 06:06 Dose: 10 mg Nicotine (Nicoderm Patch -) 14 mg TD DAILY [facility] Last Admin: 06/05/16 10:01 Dose: 14 mg ASSESSMENT AND PLAN: leukocytosis- day #3 unasyn, increasing repeat cxray, consider d/c antibiotics and observe after reviiew of cxray probable malignancy- awaiting biopsy ?cytology from thoracentesis- will call pathology Problem List - Problems (1) Pneumonia Code(s): J18.9 - PNEUMONIA, UNSPECIFIED ORGANISM (2) CHF (congestive heart failure) Code(s): I50.9 - HEART FAILURE, UNSPECIFIED Qualifiers: Congestive heart failure type: unspecified congestive heart failure type Congestive heart failure chronicity: unspecified congestive heart failure chronicity Qualified Code(s): I50.9 - Heart failure, unspecified
--- NOTE | 2016-06-05 13:55 | PATH ---
Cytology Non-Gynecological Report Patient Name: DOM BETTENCOURT Med. Rec. #: [id number] /Age/Gender: 1950 (Age: 65) / F Account: [id number] Location: [facility] MED/SURG Taken: 05/31/2016 Received: 06/03/2016 Reported: 06/05/2016 Physicians: Mary Grace Cormier M.D. Kesha Crichlow, M.D. Garine Kalaydjian, M.D. Radhika Hariharan, M.D. Specimen(s) Received A: RIGHT PLEURAL FLUID IN 50% ALCOHOL B: RIGHT PLEURAL FLUID FRESH Clinical History Pleural effusion Final Diagnosis A,B. PLEURAL FLUID, RIGHT THORACENTESIS: SATISFACTORY FOR EVALUATION. RARE ATYPICAL CELLS PRESENT (SEE COMMENT). REACTIVE MESOTHELIAL CELLS, HISTIOCYTES AND MIXED INFLAMMATORY CELLS INCLUDING NEUTROPHILS. Comment: Very rare atypical cells are identified. Immunohistochemical stains performed and interpreted at [facility] on cell block B show the following: atypical cell are positive for CK7 immunostain, show weak reactivity with BerEp4/HALINA immunostain and are negative for TTF1 and ER immunostain. Additional immunohistochemical stains performed at [place], [place] ([id number]) on cell block B and interpreted at [facility] show the following: atypical cells are weakly reactive with MOC31 immunostain and are negative for MARSHA-3 and mammaglobin immunostains; calretinin and WT1 highlight mesothelial cells. Due to paucity of the atypical cells no further workup can be performed on this specimen. Clinical and imaging correlations are suggested. If the fluid re-accumulates, additional sampling may be beneficial. Electronically Signed De Zarate M.D. Gross Description A. Received is a 50 cc of yellow fluid in 50% alcohol. One cytofunnel slide and one cell block are made. B. Received is 1000 cc of yellow fluid fresh. One cytofunnel slide and one cell block are made.
[2016-06-05] MEDS ORDERED: PT OWN MED DRAWER 7, Y5N ONE (14:49)
[2016-06-05] MEDS: HEPARIN - 25,000 UNIT in SODIUM CHLORIDE 495 ML IV SCH (14:54)
--- NOTE | 2016-06-05 15:18 | PN ---
Progress Note (short form) - Note Progress Note: PULMONARY AWAKE/ALERT/FAMILY PRESENT VSS ANICTERIC DIMINISHED BREATH SOUNDS BIBASILAR S1S2 ABD BS+ DIMINISHED EDEMA LABS/MEDS/NOTES/IMAGING REVIEWED PLEURAL FLUID CYTOLOGY IS NEGATIVE NO DVT IN RIGHT UPPER EXT SUPERFICIAL THROMBOSIS RIGHT UPPER EXT (1) Altered mental status, unspecified Code(s): R41.82 - ALTERED MENTAL STATUS, UNSPECIFIED Qualifiers: Coma depth: [place] coma 9-12 (2) CHF (congestive heart failure) Code(s): I50.9 - HEART FAILURE, UNSPECIFIED Qualifiers: Congestive heart failure type: unspecified congestive heart failure type Congestive heart failure chronicity: unspecified congestive heart failure chronicity Qualified Code(s): I50.9 - Heart failure, unspecified (3) H/O malignant neoplasm of breast Code(s): Z85.3 - PERSONAL HISTORY OF MALIGNANT NEOPLASM OF BREAST (4) Hypoglycemia Code(s): E16.2 - HYPOGLYCEMIA, UNSPECIFIED (5) Knee pain, chronic Code(s): M25.569 - PAIN IN UNSPECIFIED KNEE G89.29 - OTHER CHRONIC PAIN (6) Pneumonia Code(s): J18.9 - PNEUMONIA, UNSPECIFIED ORGANISM Antibiotics as per ID, O2 as needed/pap as needed Agree with diuresis Daily weight Next diagnostic study should be left supra-clavicular lymph node sampling Darlene TAO MD
--- NOTE | 2016-06-05 16:24 | PN ---
Teaching Attending Note Name of Resident: Filippo Hoyos ATTENDING PHYSICIAN STATEMENT I saw and evaluated the patient. I reviewed the resident's note and discussed the case with the resident. I agree with the resident's findings and plan as documented. SUBJECTIVE: no apin, no fever or chills, denies SOB. feels better. per son , mom is at baseline mental status OBJECTIVE: NAd Cv : RRR, b/l JVD up to mandible even in sitting position. Lungs : minimal R basilar crackles , decreased breath sounds at bases Ext ; RUE pitting edema. LE with no edema LAP in L supraclavicular area . ASSESSMENT AND PLAN: 65 y/o lay withh/o breast cancer s/p R mastectomy, HTN and chronic pain who presented with AMS and was found ot have pleural effusions . 1- AMS , likely due to methadone. now back to base line after decreasing dose 2- B/l Pleural effusion. exudative per protein. path with no malignant cells . possibly due to PNA - cont Abx for now , monitor BC. follow fluid cx - appreciate Id recs. - although has b/l JVd ( due to VC occlusion) , she does not look fluid overloaded. received diuresis. will monitor off lasix and if needed will give PRN doses . echo reviewed. 3- possible SVC thrombus. superficial thrombosis in RUe cont heparin gtt - after performing lymph node bx , can switch to lovenox. will need A for life - heme on board 4- LAP in supraclavicular area and R mediastimum vs R Lung nodule . DDX include lung cncer , vs mets from breast vs GI origin - d/w Ir aspiration of L supraclavicular aspiration 5- microcytic anemia: check iron studies . 6- VT px on heparin d/w son
--- NOTE | 2016-06-05 17:15 | PN ---
Physical Exam: SUBJECTIVE: Patient seen and examined OBJECTIVE: Vital Signs Period Temp Pulse Resp BP Sys/Fernando Pulse Ox Last 24 Hr 97.9 F-98.2 F 103-116 18-22 131-142/62-77 99 GENERAL: The patient is awake, alert HEAD: Normal with no signs of trauma. palpable left supraclavicular lymph nodes EYES: PERRL, extraocular movements intact, sclera anicteric, conjunctiva clear. proptosis ENT: moist mucous membranes. NECK: Trachea midline, supple. LUNGS: CTAB HEART: Regular rate and rhythm, S1, S2 +JVD ABDOMEN: Soft, nontender, nondistended, normoactive bowel sounds, no guarding, no rebound, no hepatosplenomegaly, no masses. EXTREMITIES: + upper extremity pitting edema no lower extremity edema NEUROLOGICAL: Cranial nerves II through XII grossly intact Laboratory Results - last 24 hr 06/04/16 06/05/16 06/05/16 20:00 03:00 03:30 WBC Corrected WBC (auto) RBC Hgb Hct MCV MCHC RDW Plt Count MPV Neutrophils % Lymphocytes % Monocytes % Eosinophils % Basophils % Differential Comment Platelet Estimate Platelet Comment RBC Morphology PTT (Actin FS) 45.1 H Cancelled 52.7 H Sodium Potassium Chloride Carbon Dioxide Anion Gap BUN Creatinine Creat Clearance w eGFR Random Glucose Calcium Phosphorus Magnesium Total Bilirubin AST ALT Alkaline Phosphatase Total Protein Albumin 06/05/16 06/05/16 06/05/16 06:20 06:30 06:30 WBC Cancelled Corrected WBC (auto) Cancelled RBC Cancelled Hgb Cancelled Hct Cancelled MCV Cancelled MCHC Cancelled RDW Cancelled Plt Count Cancelled MPV Cancelled Neutrophils % Lymphocytes % Monocytes % Eosinophils % Basophils % Differential Comment Cancelled Platelet Estimate Cancelled Platelet Comment Cancelled RBC Morphology Cancelled PTT (Actin FS) 51.7 H Sodium 141 Potassium 3.9 Chloride 98 Carbon Dioxide 38 H Anion Gap 5 L BUN 15 Creatinine 0.6 Creat Clearance w eGFR > 60 Random Glucose 94 Calcium 8.5 Phosphorus 3.0 Magnesium 2.2 Total Bilirubin 0.4 D AST 30 D ALT 27 D Alkaline Phosphatase 86 Total Protein 6.7 Albumin 2.2 L 06/05/16 06:30 WBC 19.6 H Corrected WBC (auto) RBC 3.62 Hgb 9.2 L Hct 28.4 L MCV 78.5 L MCHC 32.3 RDW 16.9 H Plt Count 387 MPV 7.1 L Neutrophils % 95.0 H Lymphocytes % 3.4 L D Monocytes % 1.4 L Eosinophils % 0.0 Basophils % 0.2 Differential Comment Platelet Estimate Platelet Comment RBC Morphology PTT (Actin FS) Sodium Potassium Chloride Carbon Dioxide Anion Gap BUN Creatinine Creat Clearance w eGFR Random Glucose Calcium Phosphorus Magnesium Total Bilirubin AST ALT Alkaline Phosphatase Total Protein Albumin Active Medications Generic Name Dose Route Start Last Admin Trade Name Freq PRN Reason Stop Dose Admin Acetaminophen 650 mg 06/03/16 07:19 Tylenol - PO Q4H PRN FEVER OR PAIN Enalapril Maleate 5 mg 06/03/16 22:00 06/05/16 10:01 Vasotec - PO 5 mg BID MONAE Administration Heparin Sodium (Porcine) 1,000 unit 06/03/16 12:40 06/04/16 21:21 Heparin - IVPUSH 1,000 unit PRN PRN Administration Heparin Heparin Sodium (Porcine) 5,000 unit 06/03/16 12:40 06/03/16 21:59 Heparin - IVPUSH 5,000 unit PRN PRN Administration Heparin Ampicillin Sodium/Sulbactam Sodium 100 mls @ 200 mls/hr 06/03/16 09:00 15:16 Unasyn 1.5 Gm (Pre-Docked) IVPB 200 mls/hr Q6H-IV MONAE Administration Heparin Sodium (Porcine) 25, 500 mls @ 16 mls/hr 06/03/16 13:00 06/05/16 14:54 000 unit/ Sodium Chloride IV 25 mls/hr TITR MONAE Administration Protocol 800 UNIT/HR Methadone HCl 10 mg 06/03/16 06:00 06/05/16 06:06 Dolophine - PO 10 mg DAILY@0600 MONAE Administration Nicotine 14 mg 06/03/16 10:00 06/05/16 10:01 Nicoderm Patch - TD 14 mg DAILY MONAE Administration ASSESSMENT/PLAN: 65F with history of HTN, Breast CA in remission, and chronic pain syndrome leading to opioid dependence presents to the hospital with altered mental status found to be hypoglycemic given D50 and AMS resolved. Altered mental status: was likely from too high of a dose from methadone methadone decreased AMS resolved Acute hypoxic hypercapneic respiratory failure: resolved Sepsis secondary to pneumonia: patient had leukocytosis and tachycardia on presentation with a source of infection found on CXR Leukocytosis worsening today 19 continue unasyn per ID for empiric coverage in case patient aspirated while lethargic BCx no growth to date UA negative UCx negative all micro negative so far Pleural effusion:from heart failure vs parapneumonic effusion vs malignant effusion s/p thoracentesis cytology negative for malignancy Exudative transfusion-possible parapneumonic effusion CT scan noted-multiple enlarged hilar lymph nodes concern for metastatic cancer cytology pending Hilar lymphadenopathy-concern for metastatic disease Oncology consult appreciated-recommendations noted US soft tissue of head and neck results noted multiple bilateral enlarged lymph nodes will ask IR to do FNA of left supraclavicular LN CT surgery as outpatient Breast Ca: in remission but now CT scan of chest concerning for metastatic disease vs primary lung Ca as patient was a long time smoker. CT chest concerning for stenotic SVC vs SVC thrombus vs compression from a mass as patient has enlarged mediastinal lymph nodes CT abdomen shows possible small liver mass-non specific US of liver showed mild fatty infiltration vs hepatocellular disease SVC occlusion: continue heparin gtt will need lovenox as outpatient upper extremity USA showed superficial thrombosis no DVT Hypoglycemia: resolved HTN: continue home dose of Atenelol continue enalapril 5mg po BID Acute on chronic diastolic CHF: patient does not have CHF on Echo but clinically she had extremity edema and looked volume overloaded. this has now resolved Cardiology consult appreciated ECHO results noted hols lasix and give PRN diuresis outpatient stress test Opioid dependence: secondary to chronic pain methadone restarted at 10mg po daily-no withdrawals noted will continue with this dose continue gabapentin for neuropathy/chronic pain Proptosis: TSH upper limit of normal Free T4 WNL Microcytic anemia: check iron studies Hyperkalemia: resolved FEN: no IVF no electrolyte issues Sodium controlled diet PPx: SCDs on hep gtt No GI PPx indicated at this time PT consult to avoid deconditioning Prognosis guarded Visit type - Emergency Visit Emergency Visit: Yes ED Registration Date: 05/30/16 Care time: The patient presented to the Emergency Department on the above date and was hospitalized for further evaluation of their emergent condition. - New Patient This patient is new to me today: No - Critical Care Critical Care patient: No - Discharge Referral Referred to [facility] Yes Physician Referral: Colin Davis MD ([facility])
--- NOTE | 2016-06-05 21:37 | PN ---
Progress Note (short form) - Note Progress Note: Patinet seen and examined denies any c/o Last Vital Signs Temp Pulse Resp BP Pulse Ox 98.2 F 89 18 142/62 98 06/05/16 14:03 06/05/16 19:04 06/05/16 14:03 06/05/16 14:03 06/05/16 19:04 Cor: RSR, No murmurs, No gallops Lungs: decreased at bases Abd: Soft, Normal bowel sounds, No organomegaly Ext:No significant edema Abnormal Lab Results 06/05/16 06/05/16 06/05/16 03:30 06:20 06:30 WBC Hgb Hct MCV RDW MPV Neutrophils % Lymphocytes % Monocytes % PTT (Actin FS) 52.7 H 51.7 H Carbon Dioxide 38 H Anion Gap 5 L Albumin 2.2 L 06/05/16 06:30 WBC 19.6 H Hgb 9.2 L Hct 28.4 L MCV 78.5 L RDW 16.9 H MPV 7.1 L Neutrophils % 95.0 H Lymphocytes % 3.4 L D Monocytes % 1.4 L PTT (Actin FS) Carbon Dioxide Anion Gap Albumin Active Medications Generic Name Dose Route Start Last Admin Trade Name Freq PRN Reason Stop Dose Admin Acetaminophen 650 mg 06/03/16 07:19 Tylenol - PO Q4H PRN FEVER OR PAIN Enalapril Maleate 5 mg 06/03/16 22:00 06/05/16 21:42 Vasotec - PO 5 mg BID MONAE Administration Heparin Sodium (Porcine) 1,000 unit 06/03/16 12:40 06/04/16 21:21 Heparin - IVPUSH 1,000 unit PRN PRN Administration Heparin Heparin Sodium (Porcine) 5,000 unit 06/03/16 12:40 06/03/16 21:59 Heparin - IVPUSH 5,000 unit PRN PRN Administration Heparin Heparin Sodium (Porcine) 25, 500 mls @ 16 mls/hr 06/03/16 13:00 06/05/16 14:54 000 unit/ Sodium Chloride IV 25 mls/hr TITR MONAE Administration Protocol 800 UNIT/HR Methadone HCl 10 mg 06/03/16 06:00 06/05/16 06:06 Dolophine - PO 10 mg DAILY@0600 MONAE Administration Nicotine 14 mg 06/03/16 10:00 06/05/16 10:01 Nicoderm Patch - TD 14 mg DAILY MONAE Administration a/p 65 year old with history of breast ca dating back 18 years. Second contralateral breast ca several years later. Had RT and chemotherapy after each mastectomy. Heavy 1 ppd smoker x years. Patient presents now with weight loss, anorexia, and CT with extensive mediastinal and hilar lymphadenopathy. Has large left pleural effusion and smaller pleural effusion. cytology shows reactive mesothelial cells CT a/p --hypodensity in liver, ??SVC occlusion --collaterls++ will check u/s neck--?? lt. supraclavicular amenable to bx pleural fluid cytology is reactive upper ext. superficial venous thrombosis ?svc thrombosis vs occlusion --on heparin. to check CT chest with contrstA Will discuss with Dr. Dennis regarding supraclavicular node biopsy
[2016-06-06] MEDS: METHADONE HCL 10 MG TABLET PO SCH (05:58)
[2016-06-06 08:37] LABS: BASOPHIL 0.1 % (0-2.0); MCH 24.9 pg (25.7-33.7); MCHC 31.7 g/dl (32.0-36.0); MEAN CELL VOLUME 78.6 fl (80-96); MEAN PLT VOLUME 7.2 fl (7.5-11.1); NEUTROPHILS 95.3 % (42.8-82.8); PLATELET COUNT 368 K/MM3 (134-434); RDW 17.2 % (11.6-15.6); WHITE BLOOD COUNT 20.2 K/mm3 (4.0-10.0)
[2016-06-06 08:42] LABS: FERRITIN 402.735 ng/ml (6.9-282.5)
--- NOTE | 2016-06-06 08:51 | PN ---
Progress Note (short form) - Note Progress Note: Awake and alert. OOB to wheelchair in the hallway. Mildly confused. No CP or SOB. Intake & Output 06/03/16 06/04/16 06/05/16 06/06/16 23:59 23:59 23:59 23:59 Intake Total 1465 3228 2575 200 Output Total 1100 1000 1100 Balance 365 2228 1475 200 Weight 126 lb 2 oz 129 lb Last Vital Signs Temp Pulse Resp BP Pulse Ox 97.8 F 111 H 20 150/68 98 06/06/16 07:29 06/06/16 07:29 06/06/16 07:29 06/06/16 07:29 06/05/16 21:00 Active Medications Acetaminophen (Tylenol -) 650 mg PO Q4H PRN PRN Reason: FEVER OR PAIN Enalapril Maleate (Vasotec -) 5 mg PO BID [facility] Last Admin: 06/05/16 21:42 Dose: 5 mg Heparin Sodium (Porcine) (Heparin -) 1,000 unit IVPUSH PRN PRN PRN Reason: Heparin Last Admin: 06/04/16 21:21 Dose: 1,000 unit Heparin Sodium (Porcine) (Heparin -) 5,000 unit IVPUSH PRN PRN PRN Reason: Heparin Last Admin: 06/03/16 21:59 Dose: 5,000 unit Heparin Sodium (Porcine) 25, (000 unit/ Sodium Chloride) 500 mls @ 16 mls/hr IV TITR MONAE; 800 UNIT/HR PRN Reason: Protocol Last Admin: 06/05/16 14:54 Dose: 25 mls/hr Methadone HCl (Dolophine -) 10 mg PO DAILY@0600 [facility] Last Admin: 06/06/16 05:58 Dose: 10 mg Nicotine (Nicoderm Patch -) 14 mg TD DAILY [facility] Last Admin: 06/05/16 10:01 Dose: 14 mg Gen: NAD Heart: RRR Lung:distant breath sounds at the bases, rhonchi Abd: soft, nontender Ext: + edema Laboratory Results - last 24 hr 06/05/16 06/05/16 06/05/16 06:20 06:30 06:30 WBC Cancelled Corrected WBC (auto) Cancelled RBC Cancelled Hgb Cancelled Hct Cancelled MCV Cancelled MCHC Cancelled RDW Cancelled Plt Count Cancelled MPV Cancelled Differential Comment Cancelled Platelet Estimate Cancelled Platelet Comment Cancelled RBC Morphology Cancelled PTT (Actin FS) 51.7 H Sodium 141 Potassium 3.9 Chloride 98 Carbon Dioxide 38 H Anion Gap 5 L BUN 15 Creatinine 0.6 Creat Clearance w eGFR > 60 Random Glucose 94 Calcium 8.5 Phosphorus 3.0 Magnesium 2.2 Ferritin Total Bilirubin 0.4 D AST 30 D ALT 27 D Alkaline Phosphatase 86 Total Protein 6.7 Albumin 2.2 L 06/06/16 07:00 WBC Corrected WBC (auto) RBC Hgb Hct MCV MCHC RDW Plt Count MPV Differential Comment Platelet Estimate Platelet Comment RBC Morphology PTT (Actin FS) Sodium Potassium Chloride Carbon Dioxide Anion Gap BUN Creatinine Creat Clearance w eGFR Random Glucose Calcium Phosphorus Magnesium Ferritin 402.735 H Total Bilirubin AST ALT Alkaline Phosphatase Total Protein Albumin A/P Altered Mental Status improving Acute on Chronic Hypercapneic Respiratory Failure Methadone Maintenance/Opiate Dependent Hypoglycemia resolved Likely Aspiration Pneumonia Hilar adenopathy -> Will need to rule out malignancy Anemia (?) SVC occlusion - IR for LN biopsy - IV Heparin - ABX per ID - Aspiration precautions - O2 to keep SpO2 >90% - aspiration precautions - DVT prophylaxis - PO Lasix - Would defer any procedures under general anesthesia at this time Dr Thompson Problem List - Problems (1) Altered mental status, unspecified Code(s): R41.82 - ALTERED MENTAL STATUS, UNSPECIFIED Qualifiers: Coma depth: [place] coma 9-12 (2) CHF (congestive heart failure) Code(s): I50.9 - HEART FAILURE, UNSPECIFIED Qualifiers: Congestive heart failure type: unspecified congestive heart failure type Congestive heart failure chronicity: unspecified congestive heart failure chronicity Qualified Code(s): I50.9 - Heart failure, unspecified (3) H/O malignant neoplasm of breast Code(s): Z85.3 - PERSONAL HISTORY OF MALIGNANT NEOPLASM OF BREAST (4) Hypoglycemia Code(s): E16.2 - HYPOGLYCEMIA, UNSPECIFIED (5) Knee pain, chronic Code(s): M25.569 - PAIN IN UNSPECIFIED KNEE G89.29 - OTHER CHRONIC PAIN (6) Pneumonia Code(s): J18.9 - PNEUMONIA, UNSPECIFIED ORGANISM
[2016-06-06] MEDS: NICOTINE 14 MG/24 HOURS TOPICAL PATCH TD SCH (09:57)
[2016-06-06] MEDS: ENALAPRIL MALEATE 5 MG TABLET (FP) PO SCH ×2 (09:57→21:24)
--- NOTE | 2016-06-06 10:03 | PN ---
Physical Exam: SUBJECTIVE: Patient seen and examined by me at bedside. Patient is in a wheelchair in the hallway where she is closely observed because she keeps getting out of bed. Patient complains that she wants to get up and walk around. When asked if she is experiencing any pain she denies. Otherwise, no overnight events noted. She denies fever, chills, nausea, vomiting, diarrhea, chest pain, palpitations, shortness of breath OBJECTIVE: Vital Signs Period Temp Pulse Resp BP Sys/Fernando Pulse Ox Last 24 Hr 97.7 F-98.2 F 80-111 18-20 114-150/62-82 98-98 GENERAL: The patient is awake, alert, and fully oriented, in no acute distress. LUNGS: Decreased breath sounds throughout lung bases bilaterally HEART: Regular rate and rhythm, S1, S2 without murmur, rub or gallop. ABDOMEN: Soft, nontender, nondistended, normoactive bowel sounds, no guarding, no rebound EXTREMITIES: Bilateral upper extremity lymphedema. Trace pedal edema in bilateral lower extremities. Laboratory Results - last 24 hr 06/06/16 06/06/16 06/06/16 07:00 07:00 07:00 WBC 20.2 H RBC 3.65 Hgb 9.1 L Hct 28.7 L MCV 78.6 L MCHC 31.7 L RDW 17.2 H Plt Count 368 MPV 7.2 L Neutrophils % 95.3 H Lymphocytes % 2.9 L Monocytes % 1.7 L Eosinophils % 0.0 Basophils % 0.1 PTT (Actin FS) 52.7 H Ferritin 402.735 H Vitamin B12 564 Serum Folate 10 Active Medications Generic Name Dose Route Start Last Admin Trade Name Freq PRN Reason Stop Dose Admin Acetaminophen 650 mg 06/03/16 07:19 Tylenol - PO Q4H PRN FEVER OR PAIN Enalapril Maleate 5 mg 06/03/16 22:00 06/06/16 09:57 Vasotec - PO 5 mg BID MONAE Administration Heparin Sodium (Porcine) 1,000 unit 06/03/16 12:40 06/04/16 21:21 Heparin - IVPUSH 1,000 unit PRN PRN Administration Heparin Heparin Sodium (Porcine) 5,000 unit 06/03/16 12:40 06/03/16 21:59 Heparin - IVPUSH 5,000 unit PRN PRN Administration Heparin Heparin Sodium (Porcine) 25, 500 mls @ 16 mls/hr 06/03/16 13:00 06/06/16 09:48 000 unit/ Sodium Chloride IV 1,250 unit/hr TITR MONAE Titration Protocol 800 UNIT/HR Methadone HCl 10 mg 06/03/16 06:00 06/06/16 05:58 Dolophine - PO 10 mg DAILY@0600 MONAE Administration Nicotine 14 mg 06/03/16 10:00 06/06/16 09:57 Nicoderm Patch - TD 14 mg DAILY MONAE Administration ASSESSMENT/PLAN: Acute respiratory distress (improved) -Possibly Aspiration pneumonia vs. SVC syndrome due to malignancy. -Continue Unasyn 1.5gm Q6H day #5. Will discontinue tomorrow -Increasing leukocytosis possibly due to leukomoid reaction secondary to malignancy -Repeat chest x-ray shows no changes from previous Upper extremity venous thrombosis -Currently on Heparin drip -Duplex of upper extremity revealed thrombosis in superficial venous system of right upper extremity -Awaiting cytology for thoracocentesis Visit type - Emergency Visit Emergency Visit: Yes ED Registration Date: 05/30/16 Care time: The patient presented to the Emergency Department on the above date and was hospitalized for further evaluation of their emergent condition. - New Patient This patient is new to me today: No - Critical Care Critical Care patient: No
--- NOTE | 2016-06-06 13:09 | PN ---
Teaching Attending Note Name of Resident: Leanna Tse ATTENDING PHYSICIAN STATEMENT I saw and evaluated the patient. I reviewed the resident's note and discussed the case with the resident. I agree with the resident's findings and plan as documented. 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
--- NOTE | 2016-06-06 16:10 | PN ---
Teaching Attending Note Name of Resident: Filippo Hoyos ATTENDING PHYSICIAN STATEMENT I saw and evaluated the patient. I reviewed the resident's note and discussed the case with the resident. I agree with the resident's findings and plan as documented. SUBJECTIVE: no fever or chills. no CP or Abd pain . she feels well. OBJECTIVE: NAd CV: RRR, b/l JVD up to mandible even in sitting position. Lungs: minimal R basilar crackles , decreased breath sounds at bases Ext; RUE pitting edema. LE with no edema LAP in L supraclavicular area . ASSESSMENT AND PLAN: 65 y/o lay with h/o breast cancer s/p R mastectomy, HTN and chronic pain who presented with AMS and was found ot have pleural effusions . 1- AMS, likely due to methadone. now back to base line after decreasing dose. 2- B/L Pleural effusion. exudative per protein. path with no malignant cells , but that does not r/o malignant effusion . - case was d/w Dr. Gramajo yesterday. Abx stopped 06/05 - appreciate Id recs. - No signs of volume overload now, hold off diuresis and watch 3- possible SVC thrombus vs occlusion . -CAse was d/w Dr. Cueva , will obtain CTA of chest with SVC occlusion protocol---> might be able to differentiate between occlusion from LAP or radiation VS thrombus . ALso might benefit from stenting is applicable - cont heparin gtt for now 4- LAP in supraclavicular area and R mediastimum vs R Lung nodule . DDX include lung cncer , vs mets from breast vs GI origin - Spoke to Dr. Cueva, fro Bx 8 am tomorrow 5-R superficial thrombosis . on Heparin gtt 6- Microcytic anemia: iron studeis pending 7- VT px on heparin HLOC
--- NOTE | 2016-06-06 16:12 | PN ---
Physical Exam: SUBJECTIVE: Patient seen and examined at bedside in good spirits son at beside update given to him OBJECTIVE: Vital Signs Period Temp Pulse Resp BP Sys/Fernando Pulse Ox Last 24 Hr 97.7 F-98.2 F 79-111 16-20 114-150/64-85 91-98 GENERAL: The patient is awake, alert HEAD: Normal with no signs of trauma. palpable left supraclavicular lymph nodes EYES: PERRL, extraocular movements intact, sclera anicteric, conjunctiva clear. proptosis ENT: moist mucous membranes. NECK: Trachea midline, supple. LUNGS: CTAB HEART: Regular rate and rhythm, S1, S2 +JVD ABDOMEN: Soft, nontender, nondistended, normoactive bowel sounds, no guarding, no rebound, no hepatosplenomegaly, no masses. EXTREMITIES: + upper extremity non pitting edema no lower extremity edema NEUROLOGICAL: Cranial nerves II through XII grossly intact Laboratory Results - last 24 hr 06/06/16 06/06/16 06/06/16 07:00 07:00 07:00 WBC Cancelled Corrected WBC (auto) Cancelled RBC Cancelled Hgb Cancelled Hct Cancelled MCV Cancelled MCHC Cancelled RDW Cancelled Plt Count Cancelled MPV Cancelled Neutrophils % Lymphocytes % Monocytes % Eosinophils % Basophils % Differential Comment Cancelled Platelet Estimate Cancelled Platelet Comment Cancelled RBC Morphology Cancelled PTT (Actin FS) 52.7 H Ferritin 402.735 H Vitamin B12 564 Serum Folate 10 06/06/16 07:00 WBC 20.2 H Corrected WBC (auto) RBC 3.65 Hgb 9.1 L Hct 28.7 L MCV 78.6 L MCHC 31.7 L RDW 17.2 H Plt Count 368 MPV 7.2 L Neutrophils % 95.3 H Lymphocytes % 2.9 L Monocytes % 1.7 L Eosinophils % 0.0 Basophils % 0.1 Differential Comment Platelet Estimate Platelet Comment RBC Morphology PTT (Actin FS) Ferritin Vitamin B12 Serum Folate Active Medications Generic Name Dose Route Start Last Admin Trade Name Freq PRN Reason Stop Dose Admin Acetaminophen 650 mg 06/03/16 07:19 Tylenol - PO Q4H PRN FEVER OR PAIN Enalapril Maleate 5 mg 06/03/16 22:00 06/06/16 09:57 Vasotec - PO 5 mg BID MONAE Administration Heparin Sodium (Porcine) 1,000 unit 06/03/16 12:40 06/04/16 21:21 Heparin - IVPUSH 06/07/16 06:00 1,000 unit PRN PRN Administration Heparin Heparin Sodium (Porcine) 5,000 unit 06/03/16 12:40 06/03/16 21:59 Heparin - IVPUSH 06/07/16 06:00 5,000 unit PRN PRN Administration Heparin Heparin Sodium (Porcine) 25, 500 mls @ 16 mls/hr 06/03/16 13:00 06/06/16 09:48 000 unit/ Sodium Chloride IV 06/07/16 06:00 1,250 unit/hr TITR MONAE Titration Protocol 800 UNIT/HR Methadone HCl 10 mg 06/03/16 06:00 06/06/16 05:58 Dolophine - PO 10 mg DAILY@0600 MONAE Administration Nicotine 14 mg 06/03/16 10:00 06/06/16 09:57 Nicoderm Patch - TD 14 mg DAILY MONAE Administration ASSESSMENT/PLAN: 65F with history of HTN, Breast CA in remission, and chronic pain syndrome leading to opioid dependence presents to the hospital with altered mental status found to be hypoglycemic given D50 and AMS resolved. Altered mental status: was likely from too high of a dose from methadone methadone decreased AMS resolved Acute hypoxic hypercapneic respiratory failure: resolved Sepsis secondary to pneumonia: patient had leukocytosis and tachycardia on presentation with a source of infection found on CXR Leukocytosis worsening today 20.2 unasyn course completed per ID BCx no growth to date UA negative UCx negative all micro negative so far Pleural effusion:from heart failure vs parapneumonic effusion vs malignant effusion s/p thoracentesis cytology negative for malignancy Exudative transfusion-possible parapneumonic effusion CT scan noted-multiple enlarged hilar lymph nodes concern for metastatic cancer cytology pending Hilar lymphadenopathy-concern for metastatic disease Oncology consult appreciated-recommendations noted US soft tissue of head and neck results noted multiple bilateral enlarged lymph nodes will ask IR to do FNA of left supraclavicular LN-tomorrow hold hep gtt at 6am CT surgery as outpatient Breast Ca: in remission but now CT scan of chest concerning for metastatic disease vs primary lung Ca as patient was a long time smoker. CT chest concerning for stenotic SVC vs SVC thrombus vs compression from a mass as patient has enlarged mediastinal lymph nodes- will repeat CT chest with SVC protocol may need stenting per IR CT abdomen shows possible small liver mass-non specific US of liver showed mild fatty infiltration vs hepatocellular disease SVC occlusion: repeat CT scan chest with SVC protocol-may need stenting per IR continue heparin gtt will need lovenox as outpatient upper extremity USA showed superficial thrombosis no DVT Hypoglycemia: resolved HTN: continue home dose of Atenelol continue enalapril 5mg po BID Acute on chronic diastolic CHF: patient does not have CHF on Echo but clinically she had extremity edema and looked volume overloaded. this has now resolved Cardiology consult appreciated ECHO results noted hols lasix and give PRN diuresis outpatient stress test Opioid dependence: secondary to chronic pain methadone restarted at 10mg po daily-no withdrawals noted will continue with this dose continue gabapentin for neuropathy/chronic pain Proptosis: TSH upper limit of normal Free T4 WNL Microcytic anemia: check iron studies-pending Hyperkalemia: resolved FEN: no IVF no electrolyte issues Sodium controlled diet PPx: SCDs on hep gtt No GI PPx indicated at this time PT consult to avoid deconditioning Prognosis guarded Visit type - Emergency Visit Emergency Visit: Yes ED Registration Date: 05/30/16 Care time: The patient presented to the Emergency Department on the above date and was hospitalized for further evaluation of their emergent condition. - New Patient This patient is new to me today: No - Critical Care Critical Care patient: No - Discharge Referral Referred to [facility] Med P.C.: Yes Physician Referral: Colin Davis MD ([facility])
[2016-06-07] MEDS: METHADONE HCL 10 MG TABLET PO SCH (05:17)
[2016-06-07] MEDS: ACETAMINOPHEN 325 MG TABLET (FP) PO PRN (05:18)
[2016-06-07 07:35] LABS: MEAN CELL VOLUME 78.1 fl (80-96); MEAN PLT VOLUME 7.2 fl (7.5-11.1); PLATELET COUNT 406 K/MM3 (134-434); RDW 17.1 % (11.6-15.6); WHITE BLOOD COUNT 23.2 K/mm3 (4.0-10.0)
[2016-06-07 08:07] LABS: SERUM IRON 47 ug/dL (27-139); TOTAL IRON BINDING CAPACITY 190 ug/dL (250-450); UIBC 143 ug/dL (118-369)
[2016-06-07 08:55] LABS: PLATELET ESTIMATE ADEQUATE (NORMAL)
--- NOTE | 2016-06-07 09:18 | PN ---
Progress Note, Physician Chief Complaint: no distress - Current Medication List Current Medications: Active Medications Acetaminophen (Tylenol -) 650 mg PO Q4H PRN PRN Reason: FEVER OR PAIN Last Admin: 06/07/16 05:18 Dose: 650 mg Atenolol (Tenormin -) 25 mg PO DAILY [facility] Enalapril Maleate (Vasotec -) 5 mg PO BID [facility] Last Admin: 06/06/16 21:24 Dose: 5 mg Methadone HCl (Dolophine -) 10 mg PO DAILY@0600 [facility] Last Admin: 06/07/16 05:17 Dose: 10 mg Nicotine (Nicoderm Patch -) 14 mg TD DAILY [facility] Last Admin: 06/06/16 09:57 Dose: 14 mg - Objective Vital Signs: Vital Signs Temperature 97.8 F 06/07/16 06:13 Pulse Rate 96 H 06/07/16 06:13 Respiratory Rate 20 06/07/16 06:13 Blood Pressure 132/89 06/07/16 06:13 O2 Sat by Pulse Oximetry (%) 96 06/06/16 22:00 Constitutional: Yes: No Distress Cardiovascular: Yes: Regular Rate and Rhythm Respiratory: Yes: CTA Bilaterally Gastrointestinal: Yes: Soft Edema: No Neurological: Yes: Alert Labs: CBC, BMP 06/07/16 06:15 06/05/16 06:20 INR, PTT INR 1.12 (0.82-1.09) 05/29/16 18:50 Assessment/Plan RLL infiltrate, treated Chronic diastolic CHF, improved. Lymphadenopathy Superficial upper extremity venous thrombus REC: LE edema improved, thoracentesis done and showed reactive mesothelial cells, see path report US neck showed superficial thrombus, would treat with ASA therapy. Plan as outlined by Heme/Onc and primary medical team,
[2016-06-07] MEDS: ATENOLOL 25 MG TABLET (FP) PO SCH (09:26)
[2016-06-07] MEDS: NICOTINE 14 MG/24 HOURS TOPICAL PATCH TD SCH (09:26)
[2016-06-07] MEDS: ENALAPRIL MALEATE 5 MG TABLET (FP) PO SCH ×2 (09:26→21:42)
--- NOTE | 2016-06-07 13:41 | PN ---
Physical Exam: SUBJECTIVE: Patient seen and examined OBJECTIVE: Vital Signs Period Temp Pulse Resp BP Sys/Fernando Pulse Ox Last 24 Hr 97.8 F-99.2 F 79-97 16-22 123-141/62-89 91-96 GENERAL: The patient is awake, alert HEAD: Normal with no signs of trauma. palpable left supraclavicular lymph nodes EYES: PERRL, extraocular movements intact, sclera anicteric, conjunctiva clear. proptosis ENT: moist mucous membranes. NECK: Trachea midline, supple. LUNGS: CTAB HEART: Regular rate and rhythm, S1, S2 +JVD ABDOMEN: Soft, nontender, nondistended, normoactive bowel sounds, no guarding, no rebound, no hepatosplenomegaly, no masses. EXTREMITIES: + right upper extremity non pitting edema. trace to 1+ pitting edema of bilateral lower extremities NEUROLOGICAL: Cranial nerves II through XII grossly intact Laboratory Results - last 24 hr 06/06/16 06/07/16 06/07/16 07:00 06:15 06:15 WBC 23.2 H RBC 3.79 Hgb 9.5 L Hct 29.6 L MCV 78.1 L MCHC 32.0 RDW 17.1 H Plt Count 406 MPV 7.2 L Neutrophils % 94.0 H Lymphocytes % 3.0 L Band Neutrophils 3.0 Differential Comment Manual diff done Platelet Estimate Adequate PTT (Actin FS) 35.9 H D Iron 47 TIBC 190 L Iron Saturation 25 Active Medications Generic Name Dose Route Start Last Admin Trade Name Freq PRN Reason Stop Dose Admin Acetaminophen 650 mg 06/03/16 07:19 06/07/16 05:18 Tylenol - PO 650 mg Q4H PRN Administration FEVER OR PAIN Atenolol 25 mg 06/07/16 10:00 06/07/16 09:26 Tenormin - PO 25 mg DAILY MONAE Administration Enalapril Maleate 5 mg 06/03/16 22:00 06/07/16 09:26 Vasotec - PO 5 mg BID MONAE Administration Methadone HCl 10 mg 06/03/16 06:00 06/07/16 05:17 Dolophine - PO 10 mg DAILY@0600 MONAE Administration Nicotine 14 mg 06/03/16 10:00 06/07/16 09:26 Nicoderm Patch - TD 14 mg DAILY MONAE Administration ASSESSMENT/PLAN: 65F with history of HTN, Breast CA in remission, and chronic pain syndrome leading to opioid dependence presents to the hospital with altered mental status found to be hypoglycemic given D50 and AMS resolved. Altered mental status: was likely from too high of a dose from methadone methadone decreased AMS resolved Acute hypoxic hypercapneic respiratory failure: resolved Sepsis secondary to pneumonia: patient had leukocytosis and tachycardia on presentation with a source of infection found on CXR however i suspect that PNA has resolved and now her leukocytosis is reactive to likely malignancy although we are waiting for a tissue diagnosis Leukocytosis worsening today 23.2 unasyn course completed per ID BCx no growth to date UA negative UCx negative all micro negative so far Pleural effusion:from heart failure vs parapneumonic effusion vs malignant effusion s/p thoracentesis cytology negative for malignancy Exudative transfusion-possible parapneumonic effusion CT scan noted-multiple enlarged hilar lymph nodes concern for metastatic cancer Hilar lymphadenopathy-concern for metastatic disease Oncology consult appreciated-recommendations noted US soft tissue of head and neck results noted multiple bilateral enlarged lymph nodes for FNA of left supraclavicular LN today- hep gtt held at 6am CT surgery as outpatient Breast Ca: in remission but now CT scan of chest concerning for metastatic disease vs primary lung Ca as patient was a long time smoker. CT chest concerning for stenotic SVC vs SVC thrombus vs compression from a lung mass or compression from lymphadenopathy as patient has enlarged mediastinal lymph nodes- will repeat CT chest with SVC protocol may need stenting per IR CT abdomen shows possible small liver mass-non specific US of liver showed mild fatty infiltration vs hepatocellular disease SVC occlusion: repeat CT scan chest with SVC protocol-may need stenting per IR will need lovenox for life upper extremity US showed superficial thrombosis no DVT-will need anticoagulation with lovenox once LN biopsy done Hypoglycemia: resolved HTN: restart home dose of Atenelol 25mg po daily continue enalapril 5mg po BID Acute on chronic diastolic CHF: patient does not have CHF on Echo but clinically she had extremity edema and looked volume overloaded. this has now resolved Cardiology consult appreciated ECHO results noted hols lasix and give PRN diuresis outpatient stress test Opioid dependence: secondary to chronic pain methadone restarted at 10mg po daily-no withdrawals noted will continue with this dose continue gabapentin for neuropathy/chronic pain Proptosis: TSH upper limit of normal Free T4 WNL Microcytic anemia:from anemia of chronic disease Iron studies did not show Iron deficiency anemia but was more cocnsistent with anemia of chronic disease Hyperkalemia: resolved FEN: no IVF no electrolyte issues Sodium controlled diet PPx: SCDs - hep gtt held for procedure will start on lovneox after lymph node biopsy No GI PPx indicated at this time PT consult to avoid deconditioning Prognosis guarded Visit type - Emergency Visit Emergency Visit: Yes ED Registration Date: 05/30/16 Care time: The patient presented to the Emergency Department on the above date and was hospitalized for further evaluation of their emergent condition. - New Patient This patient is new to me today: No - Critical Care Critical Care patient: No - Discharge Referral Referred to [facility] Med P.C.: Yes Physician Referral: Colin Davis MD ([facility])
[2016-06-07] MEDS ORDERED: ENOXAPARIN NA (PORCINE) 80 MG/0.8 ML DISP.SYRIN SQ SCH (17:15)
--- NOTE | 2016-06-07 18:26 | PN ---
Teaching Attending Note Name of Resident: Filippo Hoyos ATTENDING PHYSICIAN STATEMENT I saw and evaluated the patient. I reviewed the resident's note and discussed the case with the resident. I agree with the resident's findings and plan as documented. SUBJECTIVE: no fever or chills , no abd pain , no SOB OBJECTIVE: NAd CV: RRR, b/l JVD up to mandible even in sitting position. Lungs: CTAB , decreased breath sounds at bases Ext; RUE pitting edema. LE with no edema LAP in L supraclavicular area . ASSESSMENT AND PLAN: 65 y/o lay with h/o breast cancer s/p R mastectomy, HTN and chronic pain who presented with AMS and was found ot have pleural effusions . 1- AMS, likely due to methadone. now back to base line after decreasing dose. 2- B/L Pleural effusion. exudative per protein. path with no malignant cells , but that does not r/o malignant effusion . - off abx since 06/05 . doing well - No signs of volume overload now, hold off diuresis and watch 3- Possible SVC thrombus vs occlusion . - CTA today with compression of SVC from external lymph nodes. but there is thrombus in L IJ. - start lovenox 1.5 mg /daily - will need AC for life 4- LAP in supraclavicular : although has h/o breast cancer, this LAP might be from another primary ( lymphoma , VS lung vS GI ) - Aspiration of L supraclavicular Lymph node today . - await pathology 5-R superficial thrombosis . lovenox 6- Microcytic anemia: iron studies indicated no iron def , probably ACD . monitor 7- VT px on lovenox HLOC
[2016-06-07] MEDS: ENOXAPARIN NA (PORCINE) 80 MG/0.8 ML DISP.SYRIN SQ SCH (18:45)
--- NOTE | 2016-06-07 23:41 | PN ---
Progress Note (short form) - Note Progress Note: Patinet seen and examined denies any c/o afvss Cor: RSR, No murmurs, No gallops Lungs: decreased at bases Abd: Soft, Normal bowel sounds, No organomegaly Ext:No significant edema Abnormal Lab Results 06/06/16 06/07/16 06/07/16 07:00 06:15 06:15 WBC Hgb Hct MCV RDW MPV Neutrophils % 94.0 H Lymphocytes % 3.0 L PTT (Actin FS) 35.9 H D TIBC 190 L 06/08/16 06:00 WBC 21.4 H Hgb 9.4 L Hct 29.2 L MCV 77.6 L RDW 16.7 H MPV 7.2 L Neutrophils % Lymphocytes % PTT (Actin FS) TIBC Active Medications Generic Name Dose Route Start Last Admin Trade Name Freq PRN Reason Stop Dose Admin Acetaminophen 650 mg 06/03/16 07:19 06/07/16 05:18 Tylenol - PO 650 mg Q4H PRN Administration FEVER OR PAIN Atenolol 25 mg 06/07/16 10:00 06/07/16 09:26 Tenormin - PO 25 mg DAILY MONAE Administration Enalapril Maleate 5 mg 06/03/16 22:00 06/07/16 21:42 Vasotec - PO 5 mg BID MONAE Administration Enoxaparin Sodium 80 mg 06/07/16 18:30 06/07/16 18:45 Lovenox - SQ 80 mg DAILY MONAE Administration Methadone HCl 10 mg 06/03/16 06:00 06/08/16 05:27 Dolophine - PO 10 mg DAILY@0600 MONAE Administration Nicotine 14 mg 06/03/16 10:00 06/07/16 09:26 Nicoderm Patch - TD 14 mg DAILY MONAE Administration a/p 65 year old with history of breast ca dating back 18 years. Second contralateral breast ca several years later. Had RT and chemotherapy after each mastectomy. Heavy 1 ppd smoker x years. Patient presents now with weight loss, anorexia, and CT with extensive mediastinal and hilar lymphadenopathy. Has large left pleural effusion and smaller pleural effusion. cytology shows reactive mesothelial cells CT a/p --hypodensity in liver, ??SVC occlusion --collaterls++ checkinf ct chest per svc protocol today s/p biopsy of supraclavicular node pleural fluid cytology is reactive upper ext. superficial venous thrombosis ?svc thrombosis vs occlusion --on heparin. to check CT chest with contrstA discussed with son and primary team
[2016-06-08] MEDS: METHADONE HCL 10 MG TABLET PO SCH (05:27)
[2016-06-08 07:20] LABS: MCHC 32.2 g/dl (32.0-36.0); MEAN CELL VOLUME 77.6 fl (80-96); MEAN PLT VOLUME 7.2 fl (7.5-11.1); PLATELET COUNT 433 K/MM3 (134-434); RDW 16.7 % (11.6-15.6); WHITE BLOOD COUNT 21.4 K/mm3 (4.0-10.0)
[2016-06-08] MEDS ORDERED: PT OWN MED DRAWER 7, Y5N ONE (09:04)
[2016-06-08] MEDS: NICOTINE 14 MG/24 HOURS TOPICAL PATCH TD SCH (09:05)
[2016-06-08] MEDS: ENOXAPARIN NA (PORCINE) 80 MG/0.8 ML DISP.SYRIN SQ SCH (09:05)
[2016-06-08] MEDS: ENALAPRIL MALEATE 5 MG TABLET (FP) PO SCH ×2 (09:05→22:01)
[2016-06-08] MEDS: ATENOLOL 25 MG TABLET (FP) PO SCH (09:05)
--- NOTE | 2016-06-08 12:45 | PN ---
Progress Note, Physician History of Present Illness: pulmonary alert,oob-chair,-sob,-cp.pt s/p supraclavicular node bx - Current Medication List Current Medications: Active Medications Acetaminophen (Tylenol -) 650 mg PO Q4H PRN PRN Reason: FEVER OR PAIN Last Admin: 06/07/16 05:18 Dose: 650 mg Atenolol (Tenormin -) 25 mg PO DAILY [facility] Last Admin: 06/08/16 09:05 Dose: 25 mg Enalapril Maleate (Vasotec -) 5 mg PO BID [facility] Last Admin: 06/08/16 09:05 Dose: 5 mg Enoxaparin Sodium (Lovenox -) 80 mg SQ DAILY [facility] Last Admin: 06/08/16 09:05 Dose: 80 mg Methadone HCl (Dolophine -) 10 mg PO DAILY@0600 [facility] Last Admin: 06/08/16 05:27 Dose: 10 mg Nicotine (Nicoderm Patch -) 14 mg TD DAILY [facility] Last Admin: 06/08/16 09:05 Dose: 14 mg - Objective Vital Signs: Vital Signs Temperature 97.2 F L 06/08/16 08:05 Pulse Rate 83 06/08/16 09:34 Respiratory Rate 24 06/08/16 08:05 Blood Pressure 139/76 06/08/16 08:05 O2 Sat by Pulse Oximetry (%) 91 L 06/08/16 09:34 Constitutional: Yes: Well Nourished, Calm Eyes: Yes: WNL HENT: Yes: WNL Neck: Yes: WNL Cardiovascular: Yes: Regular Rate and Rhythm, S1, S2 Respiratory: Yes: Diminished Gastrointestinal: Yes: WNL Extremities: Yes: WNL Edema: Yes Labs: CBC, BMP 06/08/16 06:00 06/05/16 06:20 Assessment/Plan A/P Altered Mental Status improving Acute on Chronic Hypercapneic Respiratory Failure improved Methadone Maintenance/Opiate Dependent Hypoglycemia resolved Likely Aspiration Pneumonia Hilar adenopathy -> Will need to rule out malignancy Anemia (?) SVC occlusion Pleural effusion exudate - Check path - IV Heparin - ABX per ID - Aspiration precautions - O2 to keep SpO2 >90% - aspiration precautions - DVT prophylaxis - PO Andie PAULINO Problem List - Problems (1) Altered mental status, unspecified Code(s): R41.82 - ALTERED MENTAL STATUS, UNSPECIFIED Qualifiers: Coma depth: Naila coma 9-12 (2) CHF (congestive heart failure) Code(s): I50.9 - HEART FAILURE, UNSPECIFIED Qualifiers: Congestive heart failure type: unspecified congestive heart failure type Congestive heart failure chronicity: unspecified congestive heart failure chronicity Qualified Code(s): I50.9 - Heart failure, unspecified (3) H/O malignant neoplasm of breast Code(s): Z85.3 - PERSONAL HISTORY OF MALIGNANT NEOPLASM OF BREAST (4) Hypoglycemia Code(s): E16.2 - HYPOGLYCEMIA, UNSPECIFIED (5) Knee pain, chronic Code(s): M25.569 - PAIN IN UNSPECIFIED KNEE G89.29 - OTHER CHRONIC PAIN (6) Pneumonia Code(s): J18.9 - PNEUMONIA, UNSPECIFIED ORGANISM
--- NOTE | 2016-06-08 15:03 | PN ---
Progress Note (short form) - Note Progress Note: Subjective: no fever or chills, no abd pain. Objective: Vital Signs: Last Vital Signs Temp Pulse Resp BP Pulse Ox 97.2 F L 83 24 139/76 91 L 06/08/16 08:05 06/08/16 09:34 06/08/16 08:05 06/08/16 08:05 06/08/16 09:34 Laboratory Results - last 24 hr 06/08/16 06/08/16 06:00 06:00 WBC 21.4 H RBC 3.77 Hgb 9.4 L Hct 29.2 L MCV 77.6 L MCHC 32.2 RDW 16.7 H Plt Count 433 MPV 7.2 L PTT (Actin FS) 31.7 Physical Exam: NAd CV: RRR, b/l JVD up to mandible even in sitting position. Lungs: CTAB , decreased breath sounds at bases Ext; RUE pitting edema. LE with no edema LAP in L supraclavicular area . ASSESSMENT AND PLAN: 65 y/o lay with h/o breast cancer s/p R mastectomy, HTN and chronic pain who presented with AMS and was found ot have pleural effusions . 1- AMS, likely due to methadone. now back to base line after decreasing dose. 2- Exudative B/L Pleural effusion. - off abx since 06/05 . doing well - No signs of volume overload now, cont to hold diuresis and watch 3- SVC external compression. -will need stenting if cancer treatment is not expected to decrease compression . -on initial d/w Rad , IJ thrombus was detected, but final report does not indicate this . any way on AC 4- LAP in supraclavicular : although has h/o breast cancer, this LAP might be from another primary ( lymphoma , VS lung vS GI ) - s/p Aspiration of L supraclavicular Lymph node - await pathology results 5-R superficial thrombosis . lovenox 6- Microcytic anemia: iron studies indicated no iron def , probably ACD . monitor 7- VT px on lovenox Visit type - Emergency Visit Emergency Visit: Yes ED Registration Date: 05/30/16 Care time: The patient presented to the Emergency Department on the above date and was hospitalized for further evaluation of their emergent condition. - New Patient This patient is new to me today: No - Critical Care Critical Care patient: No
[2016-06-08] MEDS: ACETAMINOPHEN 325 MG TABLET (FP) PO PRN (22:01)
[2016-06-09] MEDS: METHADONE HCL 10 MG TABLET PO SCH (06:48)
[2016-06-09 08:38] LABS: MCH 25.2 pg (25.7-33.7); MCHC 32.2 g/dl (32.0-36.0); MEAN CELL VOLUME 78.3 fl (80-96); MEAN PLT VOLUME 7.3 fl (7.5-11.1); PLATELET COUNT 410 K/MM3 (134-434); RDW 17.1 % (11.6-15.6); WHITE BLOOD COUNT 18.9 K/mm3 (4.0-10.0)
[2016-06-09] MEDS: ENOXAPARIN NA (PORCINE) 80 MG/0.8 ML DISP.SYRIN SQ SCH (09:53)
[2016-06-09] MEDS: ATENOLOL 25 MG TABLET (FP) PO SCH (09:54)
[2016-06-09] MEDS: NICOTINE 14 MG/24 HOURS TOPICAL PATCH TD SCH (09:54)
[2016-06-09] MEDS: ENALAPRIL MALEATE 5 MG TABLET (FP) PO SCH ×2 (09:54→21:44)
--- NOTE | 2016-06-09 14:37 | PN ---
Progress Note, Physician History of Present Illness: pulmonary alert,nad,-sob,-cp, - Current Medication List Current Medications: Active Medications Acetaminophen (Tylenol -) 650 mg PO Q4H PRN PRN Reason: FEVER OR PAIN Last Admin: 06/08/16 22:01 Dose: 650 mg Atenolol (Tenormin -) 25 mg PO DAILY [facility] Last Admin: 06/09/16 09:54 Dose: 25 mg Enalapril Maleate (Vasotec -) 5 mg PO BID [facility] Last Admin: 06/09/16 09:54 Dose: 5 mg Enoxaparin Sodium (Lovenox -) 80 mg SQ DAILY [facility] Last Admin: 06/09/16 09:53 Dose: 80 mg Methadone HCl (Dolophine -) 10 mg PO DAILY@0600 [facility] Last Admin: 06/09/16 06:48 Dose: Not Given Nicotine (Nicoderm Patch -) 14 mg TD DAILY [facility] Last Admin: 06/09/16 09:54 Dose: 14 mg - Objective Vital Signs: Vital Signs Temperature 98.4 F 06/09/16 09:00 Pulse Rate 59 L 06/09/16 11:10 Respiratory Rate 16 06/09/16 09:00 Blood Pressure 133/82 06/09/16 09:00 O2 Sat by Pulse Oximetry (%) 90 L 06/09/16 11:10 Constitutional: Yes: Well Nourished, Calm Eyes: Yes: WNL HENT: Yes: WNL Neck: Yes: WNL Cardiovascular: Yes: Regular Rate and Rhythm, S1, S2 Respiratory: Yes: CTA Bilaterally Gastrointestinal: Yes: Normal Bowel Sounds, Soft Extremities: Yes: WNL Edema: Yes Labs: CBC, BMP 06/09/16 06:30 06/05/16 06:20 INR, PTT INR 1.12 (0.82-1.09) 05/29/16 18:50 Assessment/Plan A/P Altered Mental Status improving Acute on Chronic Hypercapneic Respiratory Failure improved Methadone Maintenance/Opiate Dependent Hypoglycemia resolved Likely Aspiration Pneumonia Hilar adenopathy -> Will need to rule out malignancy Anemia (?) SVC occlusion Pleural effusion exudate - path pending - Lovenox - Aspiration precautions - O2 to keep SpO2 >90% - aspiration precautions - DVT prophylaxis DR PAULINO Problem List - Problems (1) Altered mental status, unspecified Code(s): R41.82 - ALTERED MENTAL STATUS, UNSPECIFIED Qualifiers: Coma depth: Naila coma 9-12 (2) CHF (congestive heart failure) Code(s): I50.9 - HEART FAILURE, UNSPECIFIED Qualifiers: Congestive heart failure type: unspecified congestive heart failure type Congestive heart failure chronicity: unspecified congestive heart failure chronicity Qualified Code(s): I50.9 - Heart failure, unspecified (3) H/O malignant neoplasm of breast Code(s): Z85.3 - PERSONAL HISTORY OF MALIGNANT NEOPLASM OF BREAST (4) Hypoglycemia Code(s): E16.2 - HYPOGLYCEMIA, UNSPECIFIED (5) Knee pain, chronic Code(s): M25.569 - PAIN IN UNSPECIFIED KNEE G89.29 - OTHER CHRONIC PAIN (6) Pneumonia Code(s): J18.9 - PNEUMONIA, UNSPECIFIED ORGANISM
--- NOTE | 2016-06-09 16:42 | PN ---
Progress Note (short form) - Note Progress Note: Subjective: no fever or chills, no abd pain. Objective: Vital Signs: Last Vital Signs Temp Pulse Resp BP Pulse Ox 98.6 F 68 18 156/82 90 L 06/09/16 15:14 06/09/16 15:14 06/09/16 15:14 06/09/16 15:14 06/09/16 11:10 Laboratory Results - last 24 hr 06/09/16 06/09/16 06:30 06:30 WBC 18.9 H RBC 3.70 Hgb 9.3 L Hct 29.0 L MCV 78.3 L MCHC 32.2 RDW 17.1 H Plt Count 410 MPV 7.3 L PTT (Actin FS) 29.2 Physical Exam: NAD CV: RRR, b/l JVD up to mandible Lungs: CTAB , decreased breath sounds at bases Ext; RUE pitting edema. LE with no edema LAP in L supraclavicular area . ASSESSMENT AND PLAN: 65 y/o lay with h/o breast cancer s/p R mastectomy, HTN and chronic pain who presented with AMS and was found ot have pleural effusions . 1-AMS, likely due to methadone. now back to base line after decreasing dose. 2- Exudative B/L Pleural effusion. - off abx since 06/05 . doing well - No signs of volume overload now, cont to hold diuresis and watch 3- SVC external compression. -will need stenting if cancer treatment is not expected to decrease compression . -on initial d/w Rad , IJ thrombus was detected, but final report does not indicate this . any way on AC 4- LAP in supraclavicular : although has h/o breast cancer, this LAP might be from another primary ( lymphoma , VS lung vS GI ) - s/p Aspiration of L supraclavicular Lymph node - await pathology results 5-R superficial thrombosis . lovenox 6- Microcytic anemia: iron studies indicated no iron def , probably ACD. monitor 7- VTE px on lovenox Visit type - Emergency Visit Emergency Visit: Yes ED Registration Date: 05/30/16 Care time: The patient presented to the Emergency Department on the above date and was hospitalized for further evaluation of their emergent condition. - New Patient This patient is new to me today: No - Critical Care Critical Care patient: No
[2016-06-10] MEDS: METHADONE HCL 10 MG TABLET PO SCH (06:13)
[2016-06-10 08:29] LABS: MCH 25.1 pg (25.7-33.7); MCHC 32.1 g/dl (32.0-36.0); MEAN CELL VOLUME 78.2 fl (80-96); MEAN PLT VOLUME 7.3 fl (7.5-11.1); PLATELET COUNT 458 K/MM3 (134-434); RDW 17.3 % (11.6-15.6); WHITE BLOOD COUNT 20.6 K/mm3 (4.0-10.0)
[2016-06-10] MEDS: ATENOLOL 25 MG TABLET (FP) PO SCH (09:09)
[2016-06-10] MEDS: NICOTINE 14 MG/24 HOURS TOPICAL PATCH TD SCH (09:09)
[2016-06-10] MEDS: ENOXAPARIN NA (PORCINE) 80 MG/0.8 ML DISP.SYRIN SQ SCH (09:09)
[2016-06-10] MEDS: ENALAPRIL MALEATE 5 MG TABLET (FP) PO SCH ×2 (09:09→21:25)
--- NOTE | 2016-06-10 10:24 | PN ---
Progress Note (short form) - Note Progress Note: PULMONARY Denies shortness of breath or chest pain. No cough or wheezing. Last Vital Signs Temp Pulse Resp BP Pulse Ox 97.6 F 81 18 144/78 90 L 06/10/16 09:00 06/10/16 09:00 06/10/16 09:00 06/10/16 09:00 06/09/16 21:00 Gen: NAD in chair Heart: RRR Lung: distant breath sounds Abd: soft, nontender Ext: + edema CBC, BMP 06/10/16 06:15 06/05/16 06:20 Active Medications Acetaminophen (Tylenol -) 650 mg PO Q4H PRN PRN Reason: FEVER OR PAIN Last Admin: 06/08/16 22:01 Dose: 650 mg Atenolol (Tenormin -) 25 mg PO DAILY [facility] Last Admin: 06/10/16 09:09 Dose: 25 mg Enalapril Maleate (Vasotec -) 5 mg PO BID [facility] Last Admin: 06/10/16 09:09 Dose: 5 mg Enoxaparin Sodium (Lovenox -) 80 mg SQ DAILY [facility] Last Admin: 06/10/16 09:09 Dose: 80 mg Methadone HCl (Dolophine -) 10 mg PO DAILY@0600 [facility] Last Admin: 06/10/16 06:13 Dose: 10 mg Nicotine (Nicoderm Patch -) 14 mg TD DAILY [facility] Last Admin: 06/10/16 09:09 Dose: 14 mg A/P Chronic Hypercapneic Respiratory Methadone Maintenance/Opiate Dependent Likely Aspiration Pneumonia Pleural Effusions Lymphadenopathy likely malignant Anemia - awaiting LN biopsy pathology - s/p antibiotics - aspiration precautions - BiPAP as needed - O2 to keep SpO2 >90% - aspiration precautions - DVT prophylaxis
[2016-06-10 12:30] LABS: PLATELET ESTIMATE INCREASED (NORMAL)
--- NOTE | 2016-06-10 14:16 | PN ---
Physical Exam: SUBJECTIVE: Patient seen and examined at bedside no complaints denies pain OBJECTIVE: Vital Signs Period Temp Pulse Resp BP Sys/Fernando Pulse Ox Last 24 Hr 95.9 F-98.6 F 68-145 18-18 139-156/78-89 90-96 GENERAL: The patient is awake, alert HEAD: Normal with no signs of trauma. palpable left supraclavicular lymph node EYES: PERRL, extraocular movements intact, sclera anicteric, conjunctiva clear. proptosis ENT: moist mucous membranes. NECK: Trachea midline, supple. LUNGS: CTAB HEART: Regular rate and rhythm, S1, S2 +JVD ABDOMEN: Soft, nontender, nondistended, normoactive bowel sounds, no guarding, no rebound, no hepatosplenomegaly, no masses. EXTREMITIES: + right upper extremity 1+ pitting edema. trace non pitting edema of bilateral lower extremities NEUROLOGICAL: Cranial nerves II through XII grossly intact Laboratory Results - last 24 hr 06/10/16 06:15 WBC 20.6 H RBC 3.94 Hgb 9.9 L Hct 30.8 L MCV 78.2 L MCHC 32.1 RDW 17.3 H Plt Count 458 H MPV 7.3 L Neutrophils % 88.0 H Lymphocytes % 9.0 D Monocytes % 3.0 L Differential Comment Manual diff done Platelet Estimate Increased Active Medications Generic Name Dose Route Start Last Admin Trade Name Freq PRN Reason Stop Dose Admin Acetaminophen 650 mg 06/03/16 07:19 06/08/16 22:01 Tylenol - PO 650 mg Q4H PRN Administration FEVER OR PAIN Atenolol 25 mg 06/07/16 10:00 06/10/16 09:09 Tenormin - PO 25 mg DAILY MONAE Administration Enalapril Maleate 5 mg 06/03/16 22:00 06/10/16 09:09 Vasotec - PO 5 mg BID MONAE Administration Enoxaparin Sodium 80 mg 06/07/16 18:30 06/10/16 09:09 Lovenox - SQ 80 mg DAILY MONAE Administration Methadone HCl 10 mg 06/03/16 06:00 06/10/16 06:13 Dolophine - PO 10 mg DAILY@0600 MONAE Administration Nicotine 14 mg 06/03/16 10:00 06/10/16 09:09 Nicoderm Patch - TD 14 mg DAILY MONAE Administration ASSESSMENT/PLAN: 65F with history of HTN, Breast CA in remission, and chronic pain syndrome leading to opioid dependence presents to the hospital with altered mental status found to be hypoglycemic given D50 and AMS resolved. Altered mental status: was likely from too high of a dose from methadone methadone decreased AMS resolved Acute hypoxic hypercapneic respiratory failure: resolved Sepsis secondary to pneumonia: patient had leukocytosis and tachycardia on presentation with a source of infection found on CXR however i suspect that PNA has resolved and now her leukocytosis is reactive to likely malignancy although we are waiting for a tissue diagnosis Leukocytosis-20.6 likely reactive from possible malignancy unasyn course completed per ID BCx no growth to date UA negative UCx negative all micro negative so far Pleural effusion:from heart failure vs parapneumonic effusion vs malignant effusion s/p thoracentesis cytology negative for malignancy Exudative transfusion-possible parapneumonic effusion CT scan noted-multiple enlarged hilar lymph nodes concern for metastatic cancer Hilar lymphadenopathy-concern for metastatic disease Oncology consult appreciated-recommendations noted US soft tissue of head and neck results noted multiple bilateral enlarged lymph nodes s/p FNA of left supraclavicular LN today- awaiting pathology report CT surgery as outpatient Breast Ca: in remission but now CT scan of chest concerning for metastatic disease vs primary lung Ca as patient was a long time smoker. CT chest concerning for stenotic SVC vs SVC thrombus vs compression from a lung mass or compression from lymphadenopathy as patient has enlarged mediastinal lymph nodes- will repeat CT chest with SVC protocol may need stenting per IR CT abdomen shows possible small liver mass-non specific US of liver showed mild fatty infiltration vs hepatocellular disease SVC occlusion: repeat CT scan chest with SVC protocol results noted may need stenting per IR if there isnt going to be any plan for treatment with chemotherapy or radiation to decrease the obstruction continue lovenox 80mg daily will need lovenox for life upper extremity US showed superficial thrombosis no DVT-will need anticoagulation with lovenox once LN biopsy done patient also has IJ thrombus not reported but when speaking to Dr. De Santiago he noted IJ clot-is on lovenox Hypoglycemia: resolved HTN: restart home dose of Atenelol 25mg po daily continue enalapril 5mg po BID Acute on chronic diastolic CHF: patient does not have CHF on Echo but clinically she had extremity edema and looked volume overloaded. this has now resolved Cardiology consult appreciated ECHO results noted hols lasix and give PRN diuresis outpatient stress test Opioid dependence: secondary to chronic pain methadone restarted at 10mg po daily-no withdrawals noted will continue with this dose continue gabapentin for neuropathy/chronic pain Proptosis: TSH upper limit of normal Free T4 WNL Microcytic anemia:from anemia of chronic disease Iron studies did not show Iron deficiency anemia but was more cocnsistent with anemia of chronic disease Hyperkalemia: resolved FEN: no IVF no electrolyte issues Sodium controlled diet PPx: SCDs/lovenox No GI PPx indicated at this time PT consult to avoid deconditioning Prognosis guarded Visit type - Emergency Visit Emergency Visit: Yes ED Registration Date: 05/30/16 Care time: The patient presented to the Emergency Department on the above date and was hospitalized for further evaluation of their emergent condition. - New Patient This patient is new to me today: No - Critical Care Critical Care patient: No - Discharge Referral Referred to [facility] Yes Physician Referral: Colin Davis MD ([facility])
--- NOTE | 2016-06-10 15:58 | PN ---
Teaching Attending Note Name of Resident: Filippo Hoyos ATTENDING PHYSICIAN STATEMENT I saw and evaluated the patient. I reviewed the resident's note and discussed the case with the resident. I agree with the resident's findings and plan as documented. SUBJECTIVE: no fever or chills, no CP or SOB OBJECTIVE: NAD CV: RRR, b/l JVD up to mandible Lungs: CTAB , decreased breath sounds at bases Ext; RUE pitting edema. LE with no edema LAP in L supraclavicular area . ASSESSMENT AND PLAN: 65 y/o lay with h/o breast cancer s/p R mastectomy, HTN and chronic pain who presented with AMS and was found ot have pleural effusions . 1-AMS, likely due to methadone. now back to base line after decreasing dose. 2- Exudative B/L Pleural effusion. - off abx . still has leukocytosis , but no signs of infection - No signs of volume overload 3- SVC external compression. -will need stenting if cancer treatment is not expected to decrease compression . -on initial d/w Rad , IJ thrombus was detected. She is on life long AC . 4- LAP in supraclavicular : although has h/o breast cancer, this LAP might be from another primary ( lymphoma , VS lung vS GI ) - S/p Aspiration of L supraclavicular Lymph node - Await pathology results 5-R superficial thrombosis . lovenox 6- Microcytic anemia: iron studies indicated no iron def , probably ACD. monitor 7- VTE px :on lovenox
--- NOTE | 2016-06-10 16:43 | PN ---
Progress Note (short form) - Note Progress Note: Patinet seen and examined denies any c/o Last Vital Signs Temp Pulse Resp BP Pulse Ox 97.3 F L 64 18 140/70 96 06/10/16 15:59 06/10/16 15:59 06/10/16 15:59 06/10/16 15:59 06/10/16 09:00 Cor: RSR, No murmurs, No gallops Lungs: decreased at bases Abd: Soft, Normal bowel sounds, No organomegaly Ext:No significant edema Abnormal Lab Results 06/10/16 06:15 WBC 20.6 H Hgb 9.9 L Hct 30.8 L MCV 78.2 L RDW 17.3 H Plt Count 458 H MPV 7.3 L Neutrophils % 88.0 H Monocytes % 3.0 L Active Medications Generic Name Dose Route Start Last Admin Trade Name Freq PRN Reason Stop Dose Admin Acetaminophen 650 mg 06/03/16 07:19 06/08/16 22:01 Tylenol - PO 650 mg Q4H PRN Administration FEVER OR PAIN Atenolol 25 mg 06/07/16 10:00 06/10/16 09:09 Tenormin - PO 25 mg DAILY MONAE Administration Enalapril Maleate 5 mg 06/03/16 22:00 06/10/16 09:09 Vasotec - PO 5 mg BID MONAE Administration Enoxaparin Sodium 80 mg 06/07/16 18:30 06/10/16 09:09 Lovenox - SQ 80 mg DAILY MONAE Administration Methadone HCl 10 mg 06/03/16 06:00 06/10/16 06:13 Dolophine - PO 10 mg DAILY@0600 MONAE Administration Nicotine 14 mg 06/03/16 10:00 06/10/16 09:09 Nicoderm Patch - TD 14 mg DAILY MONAE Administration a/p 65 year old with history of breast ca dating back 18 years. Second contralateral breast ca several years later. Had RT and chemotherapy after each mastectomy. Heavy 1 ppd smoker x years. Patient presents now with weight loss, anorexia, and CT with extensive mediastinal and hilar lymphadenopathy. Has large left pleural effusion and smaller pleural effusion. cytology shows reactive mesothelial cells CT a/p --hypodensity in liver, ??SVC occlusion --collaterls++ CT chest --early signs of SVC, mediastinal adenopathy Preliminary bx s/o carcinoma, stains are pending consult rad-onc upper ext. superficial venous thrombosis ?svc thrombosis vs occlusion --on heparin. to check CT chest with contrstA
[2016-06-11] MEDS: METHADONE HCL 10 MG TABLET PO SCH (05:08)
--- NOTE | 2016-06-11 09:29 | PN ---
Progress Note (short form) - Note Progress Note: PULMONARY Denies shortness of breath or chest pain. No cough or wheezing. Awaiting LN pathology. Last Vital Signs Temp Pulse Resp BP Pulse Ox 97.9 F 69 20 155/86 98 06/11/16 06:00 06/11/16 06:00 06/11/16 06:00 06/11/16 06:00 06/10/16 21:00 Gen: NAD in chair Heart: RRR Lung: distant breath sounds Abd: soft, nontender Ext: + edema CBC, BMP 06/10/16 06:15 06/05/16 06:20 Active Medications Acetaminophen (Tylenol -) 650 mg PO Q4H PRN PRN Reason: FEVER OR PAIN Last Admin: 06/08/16 22:01 Dose: 650 mg Atenolol (Tenormin -) 25 mg PO DAILY [facility] Last Admin: 06/10/16 09:09 Dose: 25 mg Enalapril Maleate (Vasotec -) 5 mg PO BID [facility] Last Admin: 06/10/16 21:25 Dose: 5 mg Enoxaparin Sodium (Lovenox -) 80 mg SQ DAILY [facility] Last Admin: 06/10/16 09:09 Dose: 80 mg Methadone HCl (Dolophine -) 10 mg PO DAILY@0600 [facility] Last Admin: 06/11/16 05:08 Dose: 10 mg Nicotine (Nicoderm Patch -) 14 mg TD DAILY [facility] Last Admin: 06/10/16 09:09 Dose: 14 mg A/P Chronic Hypercapneic Respiratory Methadone Maintenance/Opiate Dependent Likely Aspiration Pneumonia Pleural Effusions Lymphadenopathy likely malignant Anemia - awaiting LN biopsy pathology - s/p antibiotics - aspiration precautions - BiPAP as needed - O2 to keep SpO2 >90% - aspiration precautions - DVT prophylaxis
[2016-06-11] MEDS: NICOTINE 14 MG/24 HOURS TOPICAL PATCH TD SCH (10:59)
[2016-06-11] MEDS: ENALAPRIL MALEATE 5 MG TABLET (FP) PO SCH ×2 (11:00→23:42)
[2016-06-11] MEDS: ENOXAPARIN NA (PORCINE) 80 MG/0.8 ML DISP.SYRIN SQ SCH (11:00)
[2016-06-11] MEDS: ATENOLOL 25 MG TABLET (FP) PO SCH (11:01)
--- NOTE | 2016-06-11 12:27 | PN ---
Physical Exam: SUBJECTIVE: Patient seen and examined at bedside OBJECTIVE: Vital Signs Period Temp Pulse Resp BP Sys/Fernando Pulse Ox Last 24 Hr 97.3 F-98 F 62-69 18-22 130-155/65-86 98 GENERAL: The patient is awake, alert HEAD: Normal with no signs of trauma. palpable left supraclavicular lymph node EYES: PERRL, extraocular movements intact, sclera anicteric, conjunctiva clear. proptosis ENT: moist mucous membranes. NECK: Trachea midline, supple. LUNGS: CTAB HEART: Regular rate and rhythm, S1, S2 +JVD ABDOMEN: Soft, nontender, nondistended, normoactive bowel sounds, no guarding, no rebound, no hepatosplenomegaly, no masses. EXTREMITIES: Trace RUE edema-significantly improved trace pitting edema of bilateral lower extremities NEUROLOGICAL: Cranial nerves II through XII grossly intact Laboratory Results - last 24 hr 06/10/16 06:15 Neutrophils % 88.0 H Lymphocytes % 9.0 D Monocytes % 3.0 L Differential Comment Manual diff done Platelet Estimate Increased Active Medications Generic Name Dose Route Start Last Admin Trade Name Freq PRN Reason Stop Dose Admin Acetaminophen 650 mg 06/03/16 07:19 06/08/16 22:01 Tylenol - PO 650 mg Q4H PRN Administration FEVER OR PAIN Atenolol 25 mg 06/07/16 10:00 06/11/16 11:01 Tenormin - PO 25 mg DAILY MONAE Administration Enalapril Maleate 5 mg 06/03/16 22:00 06/11/16 11:00 Vasotec - PO 5 mg BID MONAE Administration Enoxaparin Sodium 80 mg 06/07/16 18:30 06/11/16 11:00 Lovenox - SQ 80 mg DAILY MONAE Administration Methadone HCl 10 mg 06/03/16 06:00 06/11/16 05:08 Dolophine - PO 10 mg DAILY@0600 MONAE Administration Nicotine 14 mg 06/03/16 10:00 06/11/16 10:59 Nicoderm Patch - TD 14 mg DAILY MONAE Administration ASSESSMENT/PLAN: 65F with history of HTN, Breast CA in remission, and chronic pain syndrome leading to opioid dependence presents to the hospital with altered mental status found to be hypoglycemic given D50 and AMS resolved. Altered mental status: was likely from too high of a dose from methadone methadone decreased AMS resolved Acute hypoxic hypercapneic respiratory failure: resolved Sepsis secondary to pneumonia: patient had leukocytosis and tachycardia on presentation with a source of infection found on CXR however i suspect that PNA has resolved and now her leukocytosis is reactive to likely malignancy although we are waiting for a tissue diagnosis Leukocytosis- likely reactive from possible malignancy unasyn course completed per ID BCx no growth to date UA negative UCx negative all micro negative so far Pleural effusion:from heart failure vs parapneumonic effusion vs malignant effusion s/p thoracentesis cytology negative for malignancy Exudative transfusion-possible parapneumonic effusion CT scan noted-multiple enlarged hilar lymph nodes concern for metastatic cancer Hilar lymphadenopathy-concern for metastatic disease Oncology consult appreciated-recommendations noted US soft tissue of head and neck results noted multiple bilateral enlarged lymph nodes s/p FNA of left supraclavicular LN today- awaiting final pathology report but it is carcinoma-whether it is lung or breast has yet to be determined -LN Bx sent out to other lab for special stains to determine primary- spoke to pathology dept. possible preliminary report tomorrow CT surgery f/u as outpatient Hematology consulted radiation oncology will follow up recommendations Breast Ca: in remission but now CT scan of chest concerning for metastatic disease vs primary lung Ca as patient was a long time smoker. CT chest concerning for stenotic SVC vs SVC thrombus vs compression from a lung mass or compression from lymphadenopathy as patient has enlarged mediastinal lymph nodes- will repeat CT chest with SVC protocol may need stenting per IR CT abdomen shows possible small liver mass-non specific US of liver showed mild fatty infiltration vs hepatocellular disease SVC occlusion: repeat CT scan chest with SVC protocol results noted may need stenting per IR if there isnt going to be any plan for treatment with chemotherapy or radiation to decrease the obstruction continue lovenox 80mg daily will need lovenox for life upper extremity US showed superficial thrombosis no DVT-will need anticoagulation with lovenox once LN biopsy done patient also has IJ thrombus not reported but when speaking to Dr. De Santiago he noted IJ clot-is on lovenox Hypoglycemia: resolved HTN: restart home dose of Atenelol 25mg po daily continue enalapril 5mg po BID Acute on chronic diastolic CHF: patient does not have CHF on Echo but clinically she had extremity edema and looked volume overloaded. this has now resolved Cardiology consult appreciated ECHO results noted hols lasix and give PRN diuresis outpatient stress test Opioid dependence: secondary to chronic pain methadone restarted at 10mg po daily-no withdrawals noted will continue with this dose continue gabapentin for neuropathy/chronic pain Proptosis: TSH upper limit of normal Free T4 WNL Microcytic anemia:from anemia of chronic disease Iron studies did not show Iron deficiency anemia but was more consistent with anemia of chronic disease Hyperkalemia: resolved FEN: no IVF no electrolyte issues Sodium controlled diet PPx: SCDs/lovenox No GI PPx indicated at this time PT consult to avoid deconditioning had long phone discussion with daughter angus today. Updates given. She told em that her mother stated in the past that if she ever had cancer again she did not want to be treated. Family wants to withhold cancer diagnosis from the patient. Explained to them ethically patient has a right to know. She told me they want to decide as a family how they should tell her. Will get psych eval to see if patient is competent enough to maker her own decisions for care. Visit type - Emergency Visit Emergency Visit: Yes ED Registration Date: 05/30/16 Care time: The patient presented to the Emergency Department on the above date and was hospitalized for further evaluation of their emergent condition. - New Patient This patient is new to me today: No - Critical Care Critical Care patient: No - Discharge Referral Referred to [facility] Yes Physician Referral: Colin Davis MD ([facility])
--- NOTE | 2016-06-11 13:49 | PATH ---
Surgical Pathology Report Patient Name: DOM BETTENCOURT Med. Rec. #: [id number] /Age/Gender: 1950 (Age: 65) / F Account: [id number] Location: [facility] MED/SURG Taken: 06/07/2016 Received: 06/07/2016 Reported: 06/11/2016 Physicians: Beny Cueva M.D. Arun Betancourt M.D., PhD Mary Aviles M.D. Specimen(s) Received BX LEFT LYMPH NODE Clinical History 65 year old female with history of breast cancer now with extensive supraclavicular adenopathy. 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 Comment: Sections reveal a neoplasm composed of large cells with large irregular hyperchromatic nuclei and variably densely eosinophilic cytoplasm. Immunohistochemical stains performed and interpreted at [facility] show the following results: The tumor cells are positive with CK7 and p63, and negative with CK20 and TTF-1. Immunohistochemical stains performed at [place], [place] ([id number]) and interpreted at [facility] show the following results: The tumor cells are positive with MARSHA-3, and focally positive with mammaglobin and GCDFP. The tumor cells do not stain with PAX-8 or Napsin A. The histologic and immunophenotypic findings are consistent with poorly differentiated carcinoma with squamoid features, and are compatible with breast origin. This case was discussed with Dr. Betancourt on 06/11/2016. Results of Estrogen Receptor (ER) and Progesterone Receptor (CO) studies performed at [facility] are as follows: ER (clone [id number] mouse monoclonal antibody by [employer]): 0% nuclear staining (Negative). CO (clone16 mouse monoclonal antibody by [employer]) : 0% nuclear staining (Negative). Results of Her2 (IHC) studies performed at [place], [place] ([id number]) are as follows: Her2 IHC (EP3 from [employer], formerly known as [id number], using [employer] Polymer Refine detection kit): 2+ Equivocal Results of Her2 FISH studies will be reported separately in an addendum. Positive and negative controls (internal if applicable) show appropriate results. Formalin fixation time and cold ischemia times were not recorded, and may not be in compliance with current ASCO/CAP recommendations for ER, CO & Her2 testing. Negative results must be interpreted with caution as false negatives may occur. Electronically Signed Juan Carlos Obrien M.D. Addendum Reported: 06/17/2016 Addendum Diagnosis Results of Her2 FISH studies performed at [place], [place] ([id number]) are as follows: Her2: 4.4 CEP17: 3.4 Ratio: 1.3 Interpretation: EQUIVOCAL Comment: Although the Her2/CEP17 ratio is less than 2.0, the average Her2 copy number is between 4 and 6. Per current ASCO/CAP guidelines this is regarded as an equivocal result. Juan Carlos Obrien M.D. Gross Description Received in formalin, labeled "left lymph node," are 4 rojo, cylindrical portions of soft tissue ranging from 0.5-1.2 cm in length and averaging 0.1 cm in diameter. The specimens are submitted in toto in one cassette. 06/07/201606/07/2016
--- NOTE | 2016-06-11 16:31 | PN ---
Teaching Attending Note Name of Resident: Filippo Hoyos ATTENDING PHYSICIAN STATEMENT I saw and evaluated the patient. I reviewed the resident's note and discussed the case with the resident. I agree with the resident's findings and plan as documented. SUBJECTIVE: no complaints OBJECTIVE: NAD CV: RRR, b/l JVD up to mandible Lungs: CTAB , decreased breath sounds at bases Ext; RUE pitting edema. LE with no edema LAP in L supraclavicular area. ASSESSMENT AND PLAN: 65 y/o lay with h/o breast cancer s/p R mastectomy, HTN and chronic pain who presented with AMS and was found ot have pleural effusions . 1-AMS, likely due to methadone. now back to base line after decreasing dose. 2- Exudative B/L Pleural effusion. - off abx . still has leukocytosis , but no signs of infection - No signs of volume overload 3- SVC external compression. - Rad onc consult to evaluate if Radaition can help - if not, will d/w IR and ONC the need for stenting -on initial d/w Rad , IJ thrombus was detected. She will be on life long AC . 4- LAP in supraclavicular : prelim path is carcinoma , further staining is pending - treatment plan depends on final path. - family expressed ,mom had mentioned in past she did not want to be treated if her cancer ever recurs. - psych eval to evaluate competency 5-R superficial thrombosis. IJ thrombus . lovenox 6- Microcytic anemia: iron studies indicated no iron def , probably ACD. monitor 7- VTE px :on lovenox Dipo : pending psych eval, and decision on treatment. if Not to treat cancer , then can discuss hospice at home or facility. palliative care consult
--- NOTE | 2016-06-11 16:46 | PN ---
Progress Note (short form) - Note Progress Note: Radiation Oncology (full consult to follow) Pt seen/examined, chart/films reviewed. 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 Thoracentesis +atypical cells. 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 I spoke to IR and in light of the histology ( not exquisitely radiosensitive) and impending SVC syndrome Dr Cueva would consider endovascular stenting. We would need to clarify her prior chest RT history before final RT recs but in setting of metastatic recurrence, would likely be a candidate for palliative RT (after stenting if this is pursued). Will need pt/family input on goals of care and how aggressive they want to be. Discussed with Dr. Aviles.
--- NOTE | 2016-06-11 19:03 | PN ---
Progress Note (short form) - Note Progress Note: Patient seen with Dr. Garcia Currently quite confused and unable to render an opinion about her medical care or treatment. Initial pathology suggests possible squamous pathology- this would be unusual for breast ca. Need to await final path and immuno-stains. In view of carcinoma, confusion, ,needs imaging of [employer].
--- NOTE | 2016-06-11 19:07 | CON.PSY ---
Psychiatry Consult Chief Complaint: Patient is confused, thinks she is 32 yrs old. unable to engage in any meaningful conversation at this time. Symptoms: reports: Memory Impairment - Previous Psychiatric Treatment Outpatient: None Inpatient: None - Previous Substance Abuse Treatment Outpatient: None Inpatient: None - Reason for Previous Treatment Reason for Previous Treatment: Prescription Drug - Current Medications Current Medications: Active Medications Acetaminophen (Tylenol -) 650 mg PO Q4H PRN PRN Reason: FEVER OR PAIN Last Admin: 06/08/16 22:01 Dose: 650 mg Atenolol (Tenormin -) 25 mg PO DAILY [facility] Last Admin: 06/11/16 11:01 Dose: 25 mg Enalapril Maleate (Vasotec -) 5 mg PO BID [facility] Last Admin: 06/11/16 11:00 Dose: 5 mg Enoxaparin Sodium (Lovenox -) 80 mg SQ DAILY [facility] Last Admin: 06/11/16 11:00 Dose: 80 mg Methadone HCl (Dolophine -) 10 mg PO DAILY@0600 [facility] Last Admin: 06/11/16 05:08 Dose: 10 mg Nicotine (Nicoderm Patch -) 14 mg TD DAILY [facility] Last Admin: 06/11/16 10:59 Dose: 14 mg - Allergies Allergies: Allergies Allergy/AdvReac Type Severity Reaction Status Date / Time codeine Allergy Mild Rash Verified 05/30/16 09:18 - Current Living Status Usual Living Arrangement: Alone - Current Mental Status Evaluation Appearance: Disheveled Attitude: Guarded - Affect Affect: Constrictive Appropriateness: Not Appropriate - Mood Mood: Irritable - Speech/Language Expressive: Delayed - Psychomotor Activity Psychomotor Activity: Slowed - Thought Process Thought Process: Transgential - Thought Content Hallucinations: Absent Delusions: Absent - Self Perception Self Perception: Depersonalization - Cognition Attention: Diminished Memory, Short Term: 1/3 Memory, Remote with Promptin/3 - Concentration Serial Sevens Intact: No Simple Calculations Intact: No - Abstraction Proverb Interpretation: Impaired Judgement: Minimally Impaired - Insight Insight: Impaired - Impulse Control Impulse Control: Minimally Impaired - Suicidal Ideation Suicidal Ideation: No - Homicidal Ideation Homicidal Ideation: No Assessment/Plan 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 Etiology ??/ Plan : patient lacks functional capacity to make any decisions at this time.
[2016-06-12] MEDS: METHADONE HCL 10 MG TABLET PO SCH (06:00)
[2016-06-12 07:56] LABS: BASOPHIL 0.1 % (0-2.0); MCH 24.5 pg (25.7-33.7); MCHC 30.9 g/dl (32.0-36.0); MEAN CELL VOLUME 79.3 fl (80-96); MEAN PLT VOLUME 7.5 fl (7.5-11.1); NEUTROPHILS 94.9 % (42.8-82.8); PLATELET COUNT 437 K/MM3 (134-434); RDW 18.9 % (11.6-15.6); WHITE BLOOD COUNT 23.9 K/mm3 (4.0-10.0)
[2016-06-12 08:36] LABS: ALBUMIN 2.4 g/dl (3.4-5.0); ALK PHOS 94 U/L (45-117); ANION GAP 11 (8-16); BILIRUBIN,TOTAL 0.4 mg/dL (0.2-1.0); CALCIUM 8.9 mg/dL (8.5-10.1); CO2 33 mmol/L (21-32); COCKROFT - GAULT 82.1185; CREATININE 0.6 mg/dL (0.55-1.02); GLUCOSE,RANDOM 93 mg/dL (74-106); SGOT/AST 26 U/L (15-37); SGPT/ALT 27 U/L (12-78)
[2016-06-12] MEDS: ENOXAPARIN NA (PORCINE) 80 MG/0.8 ML DISP.SYRIN SQ SCH (09:53)
[2016-06-12] MEDS: NICOTINE 14 MG/24 HOURS TOPICAL PATCH TD SCH (09:54)
[2016-06-12] MEDS: ENALAPRIL MALEATE 5 MG TABLET (FP) PO SCH ×2 (09:54→21:29)
[2016-06-12] MEDS: ATENOLOL 25 MG TABLET (FP) PO SCH (09:54)
--- NOTE | 2016-06-12 11:18 | CONS ---
DATE OF CONSULTATION: 06/11/2016 REFERRING PHYSICIAN: Mary Aviles MD REASON FOR CONSULTATION: Superior vena cava obstruction from extensive lymphadenopathy. HISTORY OF PRESENT ILLNESS: The patient is a 65-year-old Cuban-speaking woman who was originally admitted for lethargy and altered mental status. CT of the head without contrast showed no acute abnormalities. Chest radiograph revealed right pleural effusion. Thoracentesis yielded rare atypical cells. CT of the chest demonstrated extensive lymphadenopathy involving the mediastinum, hipolito, and supraclavicular neck, right lower lobe opacity and bilateral pleural effusions. CT of the abdomen and pelvis showed a liver density and question of superior vena cava occlusion with resulting collaterals. Duplex ultrasound showed right upper extremity superficial venous thrombosis. The ultrasound of the neck demonstrated bilateral lower neck/supraclavicular lymph nodes measuring up to 2 cm. Biopsy of the left supraclavicular node as discussed with the Pathology Department demonstrates metastatic carcinoma with squamoid features most likely compatible with breast origin, ER/ME-negative, HER2 equivocal FISH pending. CT angiography of the chest again showed mediastinal, hilar and supraclavicular neck lymphadenopathy with narrowing of the right lower lobe and right upper lobe bronchi, large bilateral effusions, as well as compression and narrowing of the pulmonary arteries and superior vena cava resulting in diffuse subcutaneous edema and secondary enlargement of superficial veins of the anterior chest suggestive of early SVC syndrome. Patient is unable to provide history, even in her cachil dehe tongue. History is obtained from the chart. She had breast cancer about 18 years ago followed by mastectomy, radiation therapy, and chemotherapy. She had a contralateral breast cancer a few years later, also managed with mastectomy, radiation therapy, and chemotherapy. She is a 5-myax-ozf-day smoker. She had weight loss and anorexia on presentation. She is opioid dependent and was on methadone, which was felt to be partly responsible for her change in mental status. PAST MEDICAL HISTORY: Opioid dependence, hypertension, bilateral breast cancer status post mastectomy, radiation therapy, and chemotherapy as noted, right knee replacement. PAST SURGICAL HISTORY: As noted. ALLERGIES: CODEINE. CURRENT MEDICATIONS: Vasotec, Lovenox, NicoDerm patch, Tenormin, methadone. SOCIAL HISTORY: She has been a 6-jplg-kri-day smoker for many years REVIEW OF SYSTEMS: She denies chest pain, cough, shortness of breath, hemoptysis, facial swelling, headache, dizziness, or nausea. She does have right upper extremity swelling. She denies pain or paresthesia. PHYSICAL EXAMINATION General: This is a Cuban-speaking female, appearing older than her chronological age, sitting in the wheelchair in [facility]. Vital signs: Temperature 98.6, blood pressure 118/67, pulse 79, respiratory rate 18, FAO2 96% on 2 L nasal cannula. HEENT: Normocephalic, atraumatic. Moist mucous membranes. Anicteric sclerae. Clear oral cavity. Neck: Supraclavicular adenopathy, jugular venous distention. Chest: Bibasilar rales, decreased breath sounds bilaterally right greater than left. No wheezes or stridor. Status post bilateral mastectomy. No chest wall mass. No axillary adenopathy. Abdomen: Benign. Extremities: 2+ edema in the right upper extremity. Musculoskeletal: Range of motion within normal limits. Neurologic: Alert, oriented x1. No gross motor deficits. RADIOLOGIC DATA: As noted. PATHOLOGIC DATA: As noted. LABORATORY DATA: WBC 20.6, hemoglobin 9.9, platelets 458,000. Electrolytes with CO2 38, BUN 15, creatinine 0.6, potassium 3.9, sodium 141, calcium 8.5, phosphorus 3.0, magnesium 2.2, bilirubin 0.4. Liver function tests within normal limits. Albumin 2.2. IMPRESSION: A 65-year-old smoker with history of bilateral breast cancer status post mastectomy, radiation therapy, and chemotherapy with extensive bilateral supraclavicular mediastinal and hilar lymphadenopathy, pleural effusions, airway and vascular compression by lymphadenopathy, and early superior vena cava syndrome secondary to extrinsic compression by adenopathy. I spoke with the pathologists, and the supraclavicular node biopsy demonstrates a squamoid type carcinoma likely of breast origin, ER/ME-negative. HER2 FISH is pending. The patient is unable to provide additional history about prior therapy including radiation therapy to the chest following her mastectomies. She seems stable from a cardiovascular standpoint in terms of the SVC compression. I had a chance to speak to Dr. Cueva regarding endovascular stenting in light of a histology that is not extremely radiosensitive and impending SVC syndrome. Stenting could be considered sooner rather than later. We would need to clarify her radiotherapy history before final recommendations, but in the setting of a metastatic recurrence, we would be considering radiation therapy primarily for palliation, and therefore she would probably be a candidate for some RT (following stenting if this is pursued). We will need the patient/family input on goals of care and how aggressive they want to be. Thank you for asking me to see her. SORAYA WILEY M.D. [id number] MTDD
--- NOTE | 2016-06-12 15:17 | PN ---
Teaching Attending Note Name of Resident: Filippo Hoyos ATTENDING PHYSICIAN STATEMENT I saw and evaluated the patient. I reviewed the resident's note and discussed the case with the resident. I agree with the resident's findings and plan as documented. SUBJECTIVE:no complaints. denies CP, SOB,fever, chills, N/V/C/D OBJECTIVE: Last Vital Signs Temp Pulse Resp BP Pulse Ox 98.1 F 83 16 131/93 90 L 06/12/16 10:00 06/12/16 10:57 06/12/16 10:00 06/12/16 10:00 06/12/16 10:57 pt refused physical exam ASSESSMENT AND PLAN: 65yo F with PMH breast ca s/p R masectomy, HTN and chronic pain presented to the ER and was admitted for further evaluation of their emergent condition 1. AMS- likely due to methadone. pt lost significant amount of weight. since methadone reduced mental status has continued to improve 2. SVC compression- will need to discuss with family goals of care. spoke with oncology who will d/w family in detail about overall prognosis. can have stenting and palliative radiation if family agreeable 3. 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 family does not want pt knowing that malignancy has recurred. psych evaluated pt and pt is not competent to make her own decisions 4. R IJ thrombus- full dose lovenox. will need lifelong anticoagulation 5. Anemia of chronic disease 6. chronic pain- methadone 10mg. controlled 7. Plan for oncology to speak to family about goals of care. palliative care consult
--- NOTE | 2016-06-12 15:56 | PN ---
Physical Exam: SUBJECTIVE: Patient seen and examined no events overnight OBJECTIVE: Vital Signs Period Temp Pulse Resp BP Sys/Fernando Pulse Ox Last 24 Hr 97 F-98.1 F 82-95 16-20 131-160/78-93 90-96 GENERAL: The patient is awake, alert HEAD: Normal with no signs of trauma. palpable left supraclavicular lymph node EYES: PERRL, extraocular movements intact, sclera anicteric, conjunctiva clear. proptosis ENT: moist mucous membranes. NECK: Trachea midline, supple. LUNGS: CTAB HEART: Regular rate and rhythm, S1, S2 +JVD ABDOMEN: Soft, nontender, nondistended, normoactive bowel sounds, no guarding, no rebound, no hepatosplenomegaly, no masses. EXTREMITIES: Trace RUE edema-significantly improved trace pitting edema of bilateral lower extremities NEUROLOGICAL: Cranial nerves II through XII grossly intact Laboratory Results - last 24 hr 06/12/16 06/12/16 06/12/16 06:15 06:15 06:15 WBC 23.9 H RBC 4.03 Hgb 9.9 L Hct 32.0 L MCV 79.3 L MCHC 30.9 L RDW 18.9 H Plt Count 437 H MPV 7.5 Neutrophils % 94.9 H Lymphocytes % 2.8 L D Monocytes % 2.2 L Eosinophils % 0.0 Basophils % 0.1 Sodium 141 Potassium 3.1 L D Chloride 97 L Carbon Dioxide 33 H Anion Gap 11 BUN 26 H D Creatinine 0.6 Creat Clearance w eGFR > 60 Random Glucose 93 Calcium 8.9 Total Bilirubin 0.4 AST 26 ALT 27 Alkaline Phosphatase 94 Total Protein 7.0 Albumin 2.4 L RPR Titer Nonreactive Active Medications Generic Name Dose Route Start Last Admin Trade Name Freq PRN Reason Stop Dose Admin Acetaminophen 650 mg 06/03/16 07:19 06/08/16 22:01 Tylenol - PO 650 mg Q4H PRN Administration FEVER OR PAIN Atenolol 25 mg 06/07/16 10:00 06/12/16 09:54 Tenormin - PO 25 mg DAILY [facility] Administration Enalapril Maleate 5 mg 06/03/16 22:00 06/12/16 09:54 Vasotec - PO 5 mg BID [facility] Administration Enoxaparin Sodium 80 mg 06/07/16 18:30 06/12/16 09:53 Lovenox - SQ 80 mg DAILY [facility] Administration Methadone HCl 10 mg 06/03/16 06:00 06/12/16 06:00 Dolophine - PO 10 mg DAILY@0600 [facility] Administration Nicotine 14 mg 06/03/16 10:00 06/12/16 09:54 Nicoderm Patch - TD 14 mg DAILY [facility] Administration ASSESSMENT/PLAN: 65F with history of HTN, Breast CA in remission, and chronic pain syndrome leading to opioid dependence presents to the hospital with altered mental status found to be hypoglycemic given D50 and AMS resolved. Altered mental status: was likely from too high of a dose from methadone methadone decreased AMS resolved Acute hypoxic hypercapneic respiratory failure: resolved Sepsis secondary to pneumonia: patient had leukocytosis and tachycardia on presentation with a source of infection found on CXR however i suspect that PNA has resolved and now her leukocytosis is reactive to likely malignancy although we are waiting for a tissue diagnosis Leukocytosis- likely reactive from possible malignancy Resolved ABx course completed Pleural effusion:from heart failure vs parapneumonic effusion vs malignant effusion s/p thoracentesis cytology negative for malignancy Exudative transfusion-possible parapneumonic effusion CT scan noted-multiple enlarged hilar lymph nodes concern for metastatic cancer Hilar lymphadenopathy-concern for metastatic disease Oncology consult appreciated-recommendations noted US soft tissue of head and neck results noted multiple bilateral enlarged lymph nodes s/p FNA of left supraclavicular LN pathology results consistent with squamous carcinoma likely of breast origin CT surgery f/u as outpatient Hematology consulted radiation oncology - may be a candidate for palliative chemotherapy based on final staining of pathology and will need SVC stent Breast Ca: in remission but now CT scan of chest concerning for metastatic disease vs primary lung Ca as patient was a long time smoker. CT chest concerning for stenotic SVC vs SVC thrombus vs compression from a lung mass or compression from lymphadenopathy as patient has enlarged mediastinal lymph nodes- may need stenting per radiation oncology CT abdomen shows possible small liver mass-non specific US of liver showed mild fatty infiltration vs hepatocellular disease Now recurrent with mets to lymph node f/u final pathology likely breast origin Will do Bone scan and brain MRI to evaluate for mets and based on results will see if patient will need stenting and palliative radiation SVC occlusion: repeat CT scan chest with SVC protocol results noted may need stenting per IR if there isnt going to be any plan for treatment with chemotherapy or radiation to decrease the obstruction continue lovenox 80mg daily will need lovenox for life upper extremity US showed superficial thrombosis no DVT-will need anticoagulation with lovenox once LN biopsy done patient also has IJ thrombus not reported but when speaking to Dr. De Santiago he noted IJ clot-is on lovenox Hypoglycemia: resolved HTN: restart home dose of Atenelol 25mg po daily continue enalapril 5mg po BID Acute on chronic diastolic CHF: patient does not have CHF on Echo but clinically she had extremity edema and looked volume overloaded. this has now resolved Cardiology consult appreciated ECHO results noted hols lasix and give PRN diuresis outpatient stress test Opioid dependence: secondary to chronic pain methadone restarted at 10mg po daily-no withdrawals noted will continue with this dose continue gabapentin for neuropathy/chronic pain Proptosis: TSH upper limit of normal Free T4 WNL Microcytic anemia:from anemia of chronic disease Iron studies did not show Iron deficiency anemia but was more consistent with anemia of chronic disease Hyperkalemia: resolved FEN: no IVF hypokalemia replete Sodium controlled diet PPx: SCDs/lovenox No GI PPx indicated at this time PT consult to avoid deconditioning spoke to daughter angus [phone] again today to update her on results and on evaluation of psychiatrist who stated she is not able to make her own decisions regarding her care Also spoke to son ne [phone] Hernandez to speak to family Visit type - Emergency Visit Emergency Visit: Yes ED Registration Date: 05/30/16 Care time: The patient presented to the Emergency Department on the above date and was hospitalized for further evaluation of their emergent condition. - New Patient This patient is new to me today: No - Critical Care Critical Care patient: No - Discharge Referral Referred to [facility] Yes Physician Referral: Colin Davis MD ([facility])
[2016-06-12] MEDS: POTASSIUM CHLORIDE TABS 20 MEQ TABLET.ER (FP) PO SCH ×2 (17:33→21:28)
--- NOTE | 2016-06-12 17:38 | PN ---
Progress Note, Physician History of Present Illness: pulmonary alert,oob-chair,-sob. bx + metastatic poorly differentiated ca likely breast. - Current Medication List Current Medications: Active Medications Acetaminophen (Tylenol -) 650 mg PO Q4H PRN PRN Reason: FEVER OR PAIN Last Admin: 06/08/16 22:01 Dose: 650 mg Atenolol (Tenormin -) 25 mg PO DAILY [facility] Last Admin: 06/12/16 09:54 Dose: 25 mg Enalapril Maleate (Vasotec -) 5 mg PO BID [facility] Last Admin: 06/12/16 09:54 Dose: 5 mg Enoxaparin Sodium (Lovenox -) 80 mg SQ DAILY [facility] Last Admin: 06/12/16 09:53 Dose: 80 mg Methadone HCl (Dolophine -) 10 mg PO DAILY@0600 [facility] Last Admin: 06/12/16 06:00 Dose: 10 mg Nicotine (Nicoderm Patch -) 14 mg TD DAILY [facility] Last Admin: 06/12/16 09:54 Dose: 14 mg Potassium Chloride (K-Dur -) 40 meq PO BID [facility] Stop: 06/12/16 22:01 Last Admin: 06/12/16 17:33 Dose: 40 meq - Objective Vital Signs: Vital Signs Temperature 98.8 F 06/12/16 17:17 Pulse Rate 85 06/12/16 17:17 Respiratory Rate 20 06/12/16 17:17 Blood Pressure 121/76 06/12/16 17:17 O2 Sat by Pulse Oximetry (%) 90 L 06/12/16 10:57 Constitutional: Yes: Well Nourished, Calm Eyes: Yes: WNL HENT: Yes: WNL Neck: Yes: WNL Cardiovascular: Yes: Regular Rate and Rhythm, S1, S2 Respiratory: Yes: Diminished Gastrointestinal: Yes: WNL Extremities: Yes: WNL Edema: Yes Labs: CBC, BMP 06/12/16 06:15 06/12/16 06:15 INR, PTT INR 1.12 (0.82-1.09) 05/29/16 18:50 Assessment/Plan A/P Altered Mental Status improving Acute on Chronic Hypercapneic Respiratory Failure improved Methadone Maintenance/Opiate Dependent Hypoglycemia resolved Likely Aspiration Pneumonia Anemia SVC occlusion Pleural effusion exudate Poorly differentiated ca - Lovenox - Aspiration precautions - O2 to keep SpO2 >90% - aspiration precautions - DVT prophylaxis - RT - Endovascular stenting by TAB PAULINO Problem List - Problems (1) Altered mental status, unspecified Code(s): R41.82 - ALTERED MENTAL STATUS, UNSPECIFIED Qualifiers: Coma depth: [place]gman coma 9-12 (2) CHF (congestive heart failure) Code(s): I50.9 - HEART FAILURE, UNSPECIFIED Qualifiers: Congestive heart failure type: unspecified congestive heart failure type Congestive heart failure chronicity: unspecified congestive heart failure chronicity Qualified Code(s): I50.9 - Heart failure, unspecified (3) H/O malignant neoplasm of breast Code(s): Z85.3 - PERSONAL HISTORY OF MALIGNANT NEOPLASM OF BREAST (4) Hypoglycemia Code(s): E16.2 - HYPOGLYCEMIA, UNSPECIFIED (5) Knee pain, chronic Code(s): M25.569 - PAIN IN UNSPECIFIED KNEE G89.29 - OTHER CHRONIC PAIN (6) Pneumonia Code(s): J18.9 - PNEUMONIA, UNSPECIFIED ORGANISM
[2016-06-12] MEDS: ACETAMINOPHEN 325 MG TABLET (FP) PO PRN (21:28)
--- NOTE | 2016-06-12 22:38 | PN ---
Progress Note (short form) - Note Progress Note: Patinet seen and examined denies any c/o confused Last Vital Signs Temp Pulse Resp BP Pulse Ox 98.8 F 85 20 121/76 90 L 06/12/16 17:17 06/12/16 17:17 06/12/16 17:17 06/12/16 17:17 06/12/16 10:57 Cor: RSR, No murmurs, No gallops Lungs: decreased at bases Abd: Soft, Normal bowel sounds, No organomegaly Ext:No significant edema Abnormal Lab Results 06/12/16 06/12/16 06:15 06:15 WBC 23.9 H Hgb 9.9 L Hct 32.0 L MCV 79.3 L MCHC 30.9 L RDW 18.9 H Plt Count 437 H Neutrophils % 94.9 H Lymphocytes % 2.8 L D Monocytes % 2.2 L Potassium 3.1 L D Chloride 97 L Carbon Dioxide 33 H BUN 26 H D Albumin 2.4 L Active Medications Generic Name Dose Route Start Last Admin Trade Name Freq PRN Reason Stop Dose Admin Acetaminophen 650 mg 06/03/16 07:19 06/12/16 21:28 Tylenol - PO 650 mg Q4H PRN Administration FEVER OR PAIN Atenolol 25 mg 06/07/16 10:00 06/12/16 09:54 Tenormin - PO 25 mg DAILY MONAE Administration Enalapril Maleate 5 mg 06/03/16 22:00 06/12/16 21:29 Vasotec - PO 5 mg BID MONAE Administration Enoxaparin Sodium 80 mg 06/07/16 18:30 06/12/16 09:53 Lovenox - SQ 80 mg DAILY MONAE Administration Methadone HCl 10 mg 06/03/16 06:00 06/12/16 06:00 Dolophine - PO 10 mg DAILY@0600 MONAE Administration Nicotine 14 mg 06/03/16 10:00 06/12/16 09:54 Nicoderm Patch - TD 14 mg DAILY MONAE Administration a/p 65 year old with history of breast ca dating back 18 years. Second contralateral breast ca several years later. Had RT and chemotherapy after each mastectomy. Heavy 1 ppd smoker x years. Patient presents now with weight loss, anorexia, and CT with extensive mediastinal and hilar lymphadenopathy. Has large left pleural effusion and smaller pleural effusion. cytology shows reactive mesothelial cells CT a/p --hypodensity in liver, ??SVC occlusion --collaterls++ CT chest --early signs of SVC, mediastinal adenopathy bx of supraclavicular nodes c/w poorly diff. carcinoma, with squamous features. er-/pr-/her2 pending upper ext. superficial venous thrombosis--on lovenox impending svc obstruction---discussed with radiology ---svc patent discussed with daughter--patint with wt. loss and altered mental status for few months---unsure about ?? baseline dementia will check mri brain with and without contrast will check bone scan neurology/palliative care consults will decide on palliative chemotherapy vs best supportive care based on above w/ u
[2016-06-13] MEDS: METHADONE HCL 10 MG TABLET PO SCH (05:55)
[2016-06-13 07:51] LABS: MCH 24.6 pg (25.7-33.7); MCHC 30.7 g/dl (32.0-36.0); MEAN CELL VOLUME 80.3 fl (80-96); MEAN PLT VOLUME 7.2 fl (7.5-11.1); PLATELET COUNT 415 K/MM3 (134-434); RDW 19.3 % (11.6-15.6); WHITE BLOOD COUNT 20.5 K/mm3 (4.0-10.0)
[2016-06-13 08:32] LABS: COCKROFT - GAULT 82.739; CREATININE 0.6 mg/dL (0.55-1.02)
--- NOTE | 2016-06-13 09:45 | PN ---
Progress Note (short form) - Note Progress Note: PULMONARY Denies shortness of breath or chest pain. 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 Last Vital Signs Temp Pulse Resp BP Pulse Ox 97.4 F L 92 H 20 139/87 90 L 06/13/16 06:00 06/13/16 06:00 06/13/16 06:00 06/13/16 06:00 06/12/16 21:00 Gen: NAD in chair Heart: RRR Lung: distant breath sounds Abd: soft, nontender Ext: + edema CBC, BMP 06/13/16 06:30 06/13/16 06:30 Active Medications Acetaminophen (Tylenol -) 650 mg PO Q4H PRN PRN Reason: FEVER OR PAIN Last Admin: 06/12/16 21:28 Dose: 650 mg Atenolol (Tenormin -) 25 mg PO DAILY [facility] Last Admin: 06/12/16 09:54 Dose: 25 mg Enalapril Maleate (Vasotec -) 5 mg PO BID [facility] Last Admin: 06/12/16 21:29 Dose: 5 mg Enoxaparin Sodium (Lovenox -) 80 mg SQ DAILY [facility] Last Admin: 06/12/16 09:53 Dose: 80 mg Methadone HCl (Dolophine -) 10 mg PO DAILY@0600 [facility] Last Admin: 06/13/16 05:55 Dose: 10 mg Nicotine (Nicoderm Patch -) 14 mg TD DAILY [facility] Last Admin: 06/12/16 09:54 Dose: 14 mg A/P Chronic Hypercapneic Respiratory Methadone Maintenance/Opiate Dependent Likely Aspiration Pneumonia Pleural Effusions Metastatic Breast Ca Anemia - for MRI brain - s/p antibiotics - aspiration precautions - BiPAP as needed - O2 to keep SpO2 >90% - aspiration precautions - DVT prophylaxis
[2016-06-13] MEDS: ENOXAPARIN NA (PORCINE) 80 MG/0.8 ML DISP.SYRIN SQ SCH (10:05)
[2016-06-13] MEDS: NICOTINE 14 MG/24 HOURS TOPICAL PATCH TD SCH (13:25)
[2016-06-13] MEDS: ATENOLOL 25 MG TABLET (FP) PO SCH (13:28)
[2016-06-13] MEDS: ENALAPRIL MALEATE 5 MG TABLET (FP) PO SCH ×2 (13:29→21:43)
[2016-06-13 13:55] LABS: ALLENS TEST POSITIVE; ART PUNCT SITE LEFT RADIAL; ARTERIAL BLD GAS O2 SATURATION 92.6 % (90-98.9); ARTERIAL BLOOD GAS HCO3 32.8 meq/L (22-26); ARTERIAL BLOOD GAS PO2 69.5 mmHg (80-100); ARTERIAL BLOOD GAS pH 7.38 (7.35-7.45)
[2016-06-13 13:56] LABS: LPM/O2% 1L; PT. ON O2? YES; TYPE OF O2 NASAL CANNULA
[2016-06-13] MEDS ORDERED: FUROSEMIDE 40 MG/4 ML INJECTABLE VIAL IVPUSH ONE (15:19)
--- NOTE | 2016-06-13 16:04 | PN ---
Physical Exam: SUBJECTIVE: Patient seen and examined at [facility] is more altered today tired appearing. per nurse did not sleep all night OBJECTIVE: Vital Signs Period Temp Pulse Resp BP Sys/Fernando Pulse Ox Last 24 Hr 96.4 F-98.8 F 84-98 18-20 121-143/72-87 90 GENERAL: The patient is lethargic/tired appearing today HEAD: Normal with no signs of trauma. palpable left supraclavicular lymph node EYES: PERRL, extraocular movements intact, sclera anicteric, conjunctiva clear. proptosis ENT: moist mucous membranes. NECK: Trachea midline, supple. LUNGS: CTAB HEART: Regular rate and rhythm, S1, S2 +JVD ABDOMEN: Soft, nontender, nondistended, normoactive bowel sounds, no guarding, no rebound, no hepatosplenomegaly, no masses. EXTREMITIES: Trace RUE edema-significantly improved trace pitting edema of bilateral lower extremities NEUROLOGICAL: Cranial nerves II through XII grossly intact Laboratory Results - last 24 hr 06/13/16 06/13/16 06/13/16 06:30 06:30 13:50 WBC 20.5 H RBC 3.72 Hgb 9.2 L Hct 29.8 L MCV 80.3 MCHC 30.7 L RDW 19.3 H Plt Count 415 MPV 7.2 L Puncture Site Left radial ABG pH 7.38 ABG pCO2 at Pt Temp 56.9 H ABG pO2 at Pt Temp 69.5 L D ABG HCO3 32.8 H ABG O2 Sat (Measured) 92.6 ABG O2 Content 12.0 L ABG Base Excess 7.0 H Emile Test Positive O2 Delivery Device Nasal cannula Oxygen Flow Rate 1l Sodium 143 Potassium 4.1 D Chloride 101 Carbon Dioxide 32 Anion Gap 10 BUN 28 H Creatinine 0.6 Random Glucose 94 Calcium 9.0 Active Medications Generic Name Dose Route Start Last Admin Trade Name Freq PRN Reason Stop Dose Admin Acetaminophen 650 mg 06/03/16 07:19 06/12/16 21:28 Tylenol - PO 650 mg Q4H PRN Administration FEVER OR PAIN Atenolol 25 mg 06/07/16 10:00 06/13/16 13:28 Tenormin - PO 25 mg DAILY MONAE Administration Enalapril Maleate 5 mg 06/03/16 22:00 06/13/16 13:29 Vasotec - PO 5 mg BID MONAE Administration Enoxaparin Sodium 40 mg 06/13/16 22:00 Lovenox - SQ 06/13/16 22:01 ONCE ONE Enoxaparin Sodium 60 mg 06/14/16 10:00 Lovenox - SQ BID MONAE Methadone HCl 10 mg 06/03/16 06:00 06/13/16 05:55 Dolophine - PO 10 mg DAILY@0600 MONAE Administration Nicotine 14 mg 06/03/16 10:00 06/13/16 13:25 Nicoderm Patch - TD 14 mg DAILY MONAE Administration ASSESSMENT/PLAN: 65F with history of HTN, Breast CA in remission, and chronic pain syndrome leading to opioid dependence presents to the hospital with altered mental status. Altered mental status: was likely from too high of a dose from methadone methadone decreased AMS resolved Acute hypoxic hypercapneic respiratory failure: patient hypercapneic today on ABG-lethargic and refusing BiPAP Hypercapnea actually improved overall it is possible CO2 of around 55 is her baseline Saturating well BiPAP PRN Give one dose of lasix 40mg IV as her XCR shows bilateral pleural effusions Sepsis secondary to pneumonia: patient had leukocytosis and tachycardia on presentation with a source of infection found on CXR however i suspect that PNA has resolved and now her leukocytosis is reactive to malignancy ABx course completed Pleural effusion:from heart failure vs parapneumonic effusion vs malignant effusion s/p thoracentesis cytology negative for malignancy Exudative transfusion-possible parapneumonic effusion CT scan noted-multiple enlarged hilar lymph nodes Give one dose of lasix 40mg IV Hilar lymphadenopathy-from metastatic breast CA Oncology consult appreciated-recommendations noted US soft tissue of head and neck results noted multiple bilateral enlarged lymph nodes s/p FNA of left supraclavicular LN pathology results consistent with squamous carcinoma likely of breast origin ER/MO negative NEU2 is 2+ and equivocal CT surgery f/u as outpatient Hematology consulted radiation oncology - may be a candidate for palliative chemotherapy based on final staining of pathology and will possibly need SVC stent Breast Ca: was in remission but now CT scan of chest concerning for metastatic disease. 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 Will do Bone scan and brain MRI to evaluate for mets and based on results will see if patient will need stenting and palliative radiation Bone scan ordered Patient could not get MRI and bone scan done as she is altered, anxious, and could not stay still SVC occlusion: repeat CT scan chest with SVC protocol results noted may need stenting per IR if there isnt going to be any plan for treatment with chemotherapy or radiation to decrease the obstruction change to lovenox 60mg BID will need lovenox for life 80mg daily as outpatient upper extremity US showed superficial thrombosis no DVT-patient is being anticoagulated anyway patient also has IJ thrombus not reported but when speaking to Dr. De Santiago he noted IJ clot-is on lovenox Hypoglycemia: resolved HTN: continue home dose of Atenelol 25mg po daily continue enalapril 5mg po BID Acute on chronic diastolic CHF: patient does not have CHF on Echo but clinically she had extremity edema and looked volume overloaded. this has now resolved Cardiology consult appreciated ECHO results noted give one dose of 40mg IV lasix today outpatient stress test Opioid dependence: secondary to chronic pain methadone restarted at 10mg po daily-no withdrawals noted will continue with this dose continue gabapentin for neuropathy/chronic pain Proptosis: TSH upper limit of normal Free T4 WNL Microcytic anemia:from anemia of chronic disease Iron studies did not show Iron deficiency anemia but was more consistent with anemia of chronic disease Hyperkalemia: resolved FEN: no IVF hypokalemia replete Sodium controlled diet PPx: SCDs/lovenox No GI PPx indicated at this time PT consult to avoid deconditioning Dr. Hernandez spoke to daughter angus last night and all questions answered. I also spoke to the daughter late last night jim vu over the phone all questions answered opportunity given to ask questions. Moral and emotional support offered daughter angus [phone] son ne [phone]. Visit type - Emergency Visit Emergency Visit: Yes ED Registration Date: 05/30/16 Care time: The patient presented to the Emergency Department on the above date and was hospitalized for further evaluation of their emergent condition. - New Patient This patient is new to me today: No - Critical Care Critical Care patient: No - Discharge Referral Referred to [facility] Yes Physician Referral: Colin Davis MD ([facility])
--- NOTE | 2016-06-13 17:47 | CON.NEURO ---
Consult Consult Specialty:: Neurology - History of Present Illness History of Present Illness: 65 y/o lay with h/o , hypercapnic resp failure, breast cancer with mediatsinal nodes mets , s/p R mastectomy, SVC SX, HTN, methadone maintenance ( ? who is administering) and chronic pain who presented with AMS and was found to have pleural effusions --called for change in MS. As per team /family she has been confused for couple months,-she denies THOMAS, neck stiffness, focal motor sensory, diplopia-though she is a poor HX/unreliable . Methadone dose was readjusted and as per team, her MS has improved. On AC. was unable to tolerate MRI BRAIN . CT HD - 05/29/16 no acute pathology. - History Source History Provided By: Family Member, Medical Record - Past Medical History Pulmonary: Yes: Other (pleural effusions ) Heme/Onc: Yes: Other (Breast CA with mets ) - Alcohol/Substance Use Hx Alcohol Use: No - Smoking History Smoking history: Current every day smoker Have you smoked in the past 12 months: No Aproximately how many cigarettes per day: 7 - Social History Usual Living Arrangement: Alone Home Medications - Allergies Allergies/Adverse Reactions: Allergies Allergy/AdvReac Type Severity Reaction Status Date / Time codeine Allergy Mild Rash Verified 05/30/16 09:18 - Home Medications Home Medications: Ambulatory Orders Atenolol [Tenormin] 25 mg PO DAILY 05/14/12 Gabapentin [Neurontin] 600 mg PO TID PRN 05/14/12 Methadone (Detox) [Dolophine -] 30 mg PO DAILY 05/14/12 Enalapril Maleate [Vasotec] 5 mg PO BID 08/23/12 Amlodipine Besylate 10 mg PO DAILY 10/20/14 Physical Exam-Neuro Vital Signs: Vital Signs Temperature 96.4 F L 06/13/16 13:54 Pulse Rate 98 H 06/13/16 13:54 Respiratory Rate 20 06/13/16 13:54 Blood Pressure 132/72 06/13/16 13:54 O2 Sat by Pulse Oximetry (%) 90 L 06/12/16 21:00 Constitutional: Yes: Other (awake but disoriented to place, persons in room, preseverates, dysconjugate gaze, BL exophoria, proptosis L eye, ? field cut left , motor: no drift, no clear weakness, though deconditioned, severe edema RUE, reflexes trace, in wheelchair ) Labs: CBC, BMP 06/13/16 06:30 06/13/16 06:30 INR, PTT INR 1.12 (0.82-1.09) 05/29/16 18:50 NIH Stroke Scale - Total Score NIH Stroke Scale Score: 0 Imaging - Results Cat Scan: Report Reviewed Problem List - Problems (1) Altered mental status, unspecified Code(s): R41.82 - ALTERED MENTAL STATUS, UNSPECIFIED Qualifiers: Coma depth: [place] coma 9-12 (2) CHF (congestive heart failure) Code(s): I50.9 - HEART FAILURE, UNSPECIFIED Qualifiers: Congestive heart failure type: unspecified congestive heart failure type Congestive heart failure chronicity: unspecified congestive heart failure chronicity Qualified Code(s): I50.9 - Heart failure, unspecified (3) H/O malignant neoplasm of breast Code(s): Z85.3 - PERSONAL HISTORY OF MALIGNANT NEOPLASM OF BREAST (4) Pneumonia Code(s): J18.9 - PNEUMONIA, UNSPECIFIED ORGANISM Assessment/Plan 65 y/o lay with h/o , hypercapnic resp failure, breast cancer with mediatsinal nodes mets , s/p R mastectomy, SVC SX, HTN, methadone maintenance ( ? who is administering) and chronic pain who presented with AMS and was found to have pleural effusions --called for change in MS. As per team /family she has been confused for couple months,-she denies THOMAS, neck stiffness, focal motor sensory, diplopia-though she is a poor HX/unreliable . Methadone dose was readjusted and as per team, her MS has improved. On AC. was unable to tolerate MRI BRAIN . CT HD - 05/29/16 no acute pathology. Pt continues to be encephalopathic, ? Rx induced vs metabolic /infectious vs intracranial/leptomingeal mets vs sinus thrombosis-- ideally needs MRI BRAIN KELLY. if unable get HD CT with contrast. LP may be needed , will have to decipher if leptomeningeal disease would change her current management. agree with lower dose of methadone in meantime. Dr Campbell [phone]
--- NOTE | 2016-06-13 19:03 | PN ---
Teaching Attending Note Name of Resident: Filippo Hooys ATTENDING PHYSICIAN STATEMENT I saw and evaluated the patient. I reviewed the resident's note and discussed the case with the resident. I agree with the resident's findings and plan as documented. Patient is looking confused , disoriented x3, friends at bed side. No fever or chills, no shortness of breath. Vital Signs Temperature 98.5 F 06/13/16 16:55 Pulse Rate 94 H 06/13/16 16:55 Respiratory Rate 20 06/13/16 16:55 Blood Pressure 126/76 06/13/16 16:55 O2 Sat by Pulse Oximetry (%) 96 06/13/16 09:00 CBCD WBC 20.5 K/mm3 (4.0-10.0) H 06/13/16 06:30 RBC 3.72 M/mm3 (3.60-5.2) 06/13/16 06:30 Hgb 9.2 GM/dL (10.7-15.3) L 06/13/16 06:30 Hct 29.8 % (32.4-45.2) L 06/13/16 06:30 MCV 80.3 fl (80-96) 06/13/16 06:30 MCHC 30.7 g/dl (32.0-36.0) L 06/13/16 06:30 RDW 19.3 % (11.6-15.6) H 06/13/16 06:30 Plt Count 415 K/MM3 (134-434) 06/13/16 06:30 MPV 7.2 fl (7.5-11.1) L 06/13/16 06:30 CMP Sodium 143 mmol/L (136-145) 06/13/16 06:30 Potassium 4.1 mmol/L (3.5-5.1) D 06/13/16 06:30 Chloride 101 mmol/L (98-107) 06/13/16 06:30 Carbon Dioxide 32 mmol/L (21-32) 06/13/16 06:30 Anion Gap 10 (8-16) 06/13/16 06:30 BUN 28 mg/dL (7-18) H 06/13/16 06:30 Creatinine 0.6 mg/dL (0.55-1.02) 06/13/16 06:30 Creat Clearance w eGFR > 60 (>60) 06/12/16 06:15 Random Glucose 94 mg/dL (74-106) 06/13/16 06:30 Calcium 9.0 mg/dL (8.5-10.1) 06/13/16 06:30 Total Bilirubin 0.4 mg/dL (0.2-1.0) 06/12/16 06:15 AST 26 U/L (15-37) 06/12/16 06:15 ALT 27 U/L (12-78) 06/12/16 06:15 Alkaline Phosphatase 94 U/L (45-117) 06/12/16 06:15 Total Protein 7.0 g/dl (6.4-8.2) 06/12/16 06:15 Albumin 2.4 g/dl (3.4-5.0) L 06/12/16 06:15 CARDIAC ENZYMES Creatine Kinase 45 IU/L (26-192) 05/30/16 07:15 Troponin I < 0.02 ng/ml (0.00-0.05) 05/30/16 07:15 Current Medications Generic Name Dose Route Start Last Admin Trade Name Freq PRN Reason Stop Dose Admin Acetaminophen 650 mg 06/03/16 07:19 06/12/16 21:28 Tylenol - PO 650 mg Q4H PRN Administration FEVER OR PAIN Atenolol 25 mg 06/07/16 10:00 06/13/16 13:28 Tenormin - PO 25 mg DAILY MONAE Administration Enalapril Maleate 5 mg 06/03/16 22:00 06/13/16 13:29 Vasotec - PO 5 mg BID MONAE Administration Enoxaparin Sodium 40 mg 06/13/16 22:00 Lovenox - SQ 06/13/16 22:01 ONCE ONE Enoxaparin Sodium 60 mg 06/14/16 10:00 Lovenox - SQ BID MONAE Methadone HCl 10 mg 06/03/16 06:00 06/13/16 05:55 Dolophine - PO 10 mg DAILY@0600 [facility] Administration Nicotine 14 mg 06/03/16 10:00 06/13/16 13:25 Nicoderm Patch - TD 14 mg DAILY MONAE Administration Home Medications Medication Instructions Recorded Atenolol [Tenormin] 25 mg PO DAILY 05/14/12 Gabapentin [Neurontin] 600 mg PO TID PRN 05/14/12 Methadone (Detox) [Dolophine -] 30 mg PO DAILY 05/14/12 Enalapril Maleate [Vasotec] 5 mg PO BID 08/23/12 Amlodipine Besylate 10 mg PO DAILY 10/20/14 ASSESSMENT AND PLAN: 65yo F with PMH breast ca s/p R masectomy, HTN and chronic pain presented to the ER and was admitted for further evaluation of their emergent condition # AMS due to methadone ,the dose was lowered to 10mg from 30mg originally , was found to be in hypercapneic state , s/p Bipap. 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 last resort will be stenting and palliative care ,will discuss with the family further # BL Breast Ca most likely 2 primaries vs metastatic. 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 family does not want pt knowing that malignancy has recurred. 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 will need lifelong anticoagulation # Anemia of chronic disease WILL Monitor # chronic pain- methadone 10mg. controlled # Hx of smoking on Nicotine patch Palliative care consult and further discussion with Hem/onc for further plan. DvT Px: Lovenox
[2016-06-13] MEDS ORDERED: SODIUM CHLORIDE 1,000 ML IV SCH (19:15)
[2016-06-13] MEDS ORDERED: ENOXAPARIN NA (PORCINE) 40 MG/0.4 ML DISP.SYRIN SQ ONE (22:00)
--- NOTE | 2016-06-13 23:01 | PN ---
Progress Note (short form) - Note Progress Note: Patinet seen and examined denies any c/o confused Last Vital Signs Temp Pulse Resp BP Pulse Ox 98.5 F 83 18 128/89 96 06/13/16 16:55 06/13/16 22:00 06/13/16 22:00 06/13/16 22:00 06/13/16 21:00 Cor: RSR, No murmurs, No gallops Lungs: decreased at bases Abd: Soft, Normal bowel sounds, No organomegaly Ext:No significant edema Labs reviewed a/p 65 year old with history of breast ca dating back 18 years. Second contralateral breast ca several years later. Had RT and chemotherapy after each mastectomy. Heavy 1 ppd smoker x years. Patient presents now with weight loss, anorexia, and CT with extensive mediastinal and hilar lymphadenopathy. Has large left pleural effusion and smaller pleural effusion. cytology shows reactive mesothelial cells CT a/p --hypodensity in liver, ??SVC occlusion --collaterls++ CT chest --early signs of SVC, mediastinal adenopathy bx of supraclavicular nodes c/w poorly diff. carcinoma, with squamous features. er-/pr-/her2 pending upper ext. superficial venous thrombosis--on lovenox impending svc obstruction---discussed with radiology ---svc patent discussed with neurology---will check CT head with contrast gentle hydration discussed with son and daughter on separate occasions. Son is interested in looking into medical marijuana. they understand the gravity of their mothers condition await head CT
[2016-06-14] MEDS: METHADONE HCL 10 MG TABLET PO SCH (06:45)
[2016-06-14 07:59] LABS: MCH 25.1 pg (25.7-33.7); MCHC 31.3 g/dl (32.0-36.0); MEAN CELL VOLUME 80.2 fl (80-96); MEAN PLT VOLUME 7.7 fl (7.5-11.1); PLATELET COUNT 439 K/MM3 (134-434); RDW 19.2 % (11.6-15.6); WHITE BLOOD COUNT 23.3 K/mm3 (4.0-10.0)
--- NOTE | 2016-06-14 08:20 | PN ---
Progress Note (short form) - Note Progress Note: HPI 06/13/16 65 y/o lay with h/o , hypercapnic resp failure, breast cancer with mediatsinal nodes mets , s/p R mastectomy, SVC SX, HTN, methadone maintenance ( ? who is administering) and chronic pain who presented with AMS and was found to have pleural effusions --called for change in MS. As per team /family she has been confused for couple months,-she denies THOMAS, neck stiffness, focal motor sensory, diplopia-though she is a poor HX/unreliable . Methadone dose was readjusted and as per team, her MS has improved. On AC. was unable to tolerate MRI BRAIN . CT HD - 05/29/16 no acute pathology. FU : awake, sitting in hallway follows basic requests, though preseverates , no focal weakness denies THOMAS , neck or low back pain CT HD with contrast reviewed-- no evidence of sinus thrombosis or obvious mets ( she did not tolerate MRI brain in past) Home Medications - Allergies Allergies/Adverse Reactions: Allergies Allergy/AdvReac Type Severity Reaction Status Date / Time codeine Allergy Mild Rash Verified 05/30/16 09:18 - Home Medications Home Medications: Ambulatory Orders Atenolol [Tenormin] 25 mg PO DAILY 05/14/12 Gabapentin [Neurontin] 600 mg PO TID PRN 05/14/12 Methadone (Detox) [Dolophine -] 30 mg PO DAILY 05/14/12 Enalapril Maleate [Vasotec] 5 mg PO BID 08/23/12 Amlodipine Besylate 10 mg PO DAILY 10/20/14 Physical Exam-Neuro Vital Signs: Vital Signs - 24 hr 06/13/16 06/13/16 06/13/16 09:00 10:00 13:54 Temperature 96.4 F L Pulse Rate 84 98 H Respiratory 18 20 Rate Blood Pressure 143/76 132/72 O2 Sat by Pulse 96 Oximetry (%) 06/13/16 06/13/16 06/13/16 16:55 21:00 22:00 Temperature 98.5 F Pulse Rate 94 H 83 Respiratory 20 18 18 Rate Blood Pressure 126/76 128/89 O2 Sat by Pulse 96 Oximetry (%) 06/14/16 07:49 Temperature 97.9 F Pulse Rate 66 Respiratory 20 Rate Blood Pressure 131/73 O2 Sat by Pulse Oximetry (%) Vital Signs Constitutional: Yes: Other (awake but disoriented to place, persons in room, preseverates, dysconjugate gaze, BL exophoria, proptosis L eye, ? field cut left , motor: no drift, no clear weakness, though deconditioned, severe edema RUE, reflexes trace, in wheelchair ) Labs: CBC, BMP 06/13/16 06:30 06/13/16 06:30 INR, PTT INR 1.12 (0.82-1.09) 05/29/16 18:50 NIH Stroke Scale - Total Score NIH Stroke Scale Score: 0 Imaging - Results Cat Scan: Report Reviewed Problem List - Problems (1) Altered mental status, unspecified Code(s): R41.82 - ALTERED MENTAL STATUS, UNSPECIFIED Qualifiers: Coma depth: Naila coma 9-12 (2) CHF (congestive heart failure) Code(s): I50.9 - HEART FAILURE, UNSPECIFIED Qualifiers: Congestive heart failure type: unspecified congestive heart failure type Congestive heart failure chronicity: unspecified congestive heart failure chronicity Qualified Code(s): I50.9 - Heart failure, unspecified (3) H/O malignant neoplasm of breast Code(s): Z85.3 - PERSONAL HISTORY OF MALIGNANT NEOPLASM OF BREAST (4) Pneumonia Code(s): J18.9 - PNEUMONIA, UNSPECIFIED ORGANISM Assessment/Plan 65 y/o lay with h/o , hypercapnic resp failure, breast cancer with mediatsinal nodes mets , s/p R mastectomy, SVC SX, HTN, methadone maintenance ( ? who is administering) and chronic pain who presented with AMS and was found to have pleural effusions --called for change in MS. As per team /family she has been confused for couple months,-she denies THOMAS, neck stiffness, focal motor sensory, diplopia-though she is a poor HX/unreliable . Methadone dose was readjusted and as per team, her MS has improved. On AC. was unable to tolerate MRI BRAIN . CT HD - 05/29/16 no acute pathology. Pt continues to be encephalopathic, ? Rx induced vs metabolic /infectious -- though improved after methadone adjusted. HD CT with contrast 06/13/16 -no sinus thrombosis, or obvious intracranial mets ( MRI would likely be needed to definitively rule this out- would still pursue if possible) LP may be needed, will have to decipher if leptomeningeal disease would change her current management. WBC climbing --?etiology , not on steroids , ID FU . FU pallatiave care to better understands prognosis and goals of care. please call any questions Dr Campbell [phone] Problem List - Problems (1) Altered mental status, unspecified Code(s): R41.82 - ALTERED MENTAL STATUS, UNSPECIFIED Qualifiers: Coma depth: Naila coma 9-12 (2) CHF (congestive heart failure) Code(s): I50.9 - HEART FAILURE, UNSPECIFIED Qualifiers: Congestive heart failure type: unspecified congestive heart failure type Congestive heart failure chronicity: unspecified congestive heart failure chronicity Qualified Code(s): I50.9 - Heart failure, unspecified (3) H/O malignant neoplasm of breast Code(s): Z85.3 - PERSONAL HISTORY OF MALIGNANT NEOPLASM OF BREAST (4) Pneumonia Code(s): J18.9 - PNEUMONIA, UNSPECIFIED ORGANISM
[2016-06-14 08:29] LABS: ALBUMIN 2.5 g/dl (3.4-5.0); ANION GAP 10 (8-16); CALCIUM 9.2 mg/dL (8.5-10.1); CO2 34 mmol/L (21-32); GLUCOSE,RANDOM 78 mg/dL (74-106)
[2016-06-14 08:36] LABS: ALK PHOS 98 U/L (45-117); BILIRUBIN,TOTAL 0.7 mg/dL (0.2-1.0); CREATININE 0.6 mg/dL (0.55-1.02); SGOT/AST 26 U/L (15-37); SGPT/ALT 27 U/L (12-78); TOT PROT 7.1 g/dl (6.4-8.2)
[2016-06-14] MEDS ORDERED: PT OWN MED DRAWER 7, Y5N ONE (09:08)
[2016-06-14] MEDS: ENALAPRIL MALEATE 5 MG TABLET (FP) PO SCH ×2 (09:14→21:27)
[2016-06-14] MEDS: ATENOLOL 25 MG TABLET (FP) PO SCH (09:14)
[2016-06-14] MEDS: ENOXAPARIN NA (PORCINE) 60 MG/0.6 ML DISP.SYRIN SQ SCH ×2 (09:14→21:27)
[2016-06-14] MEDS: NICOTINE 14 MG/24 HOURS TOPICAL PATCH TD SCH (09:14)
--- NOTE | 2016-06-14 11:16 | PN ---
Physical Exam: SUBJECTIVE: Patient seen and examined at bedside little more alert and awake today OBJECTIVE: Vital Signs Period Temp Pulse Resp BP Sys/Fernando Pulse Ox Last 24 Hr 96.4 F-98.5 F 66-98 16-20 126-132/68-89 96-97 GENERAL: The patient is more alert and awake today still altered HEAD: Normal with no signs of trauma. palpable left supraclavicular lymph node EYES: PERRL, extraocular movements intact, sclera anicteric, conjunctiva clear. proptosis ENT: moist mucous membranes. NECK: Trachea midline, supple. LUNGS: bibasilar crackles HEART: Regular rate and rhythm, S1, S2 +JVD ABDOMEN: Soft, nontender, nondistended, normoactive bowel sounds, no guarding, no rebound, no hepatosplenomegaly, no masses. EXTREMITIES: RUE edema-unchanged from yesterday 1+ pitting edema of bilateral lower extremities NEUROLOGICAL: Cranial nerves II through XII grossly intact Laboratory Results - last 24 hr 06/13/16 06/14/16 06/14/16 13:50 06:15 06:15 WBC 23.3 H RBC 3.79 Hgb 9.5 L Hct 30.4 L MCV 80.2 MCHC 31.3 L RDW 19.2 H Plt Count 439 H MPV 7.7 Puncture Site Left radial ABG pH 7.38 ABG pCO2 at Pt Temp 56.9 H ABG pO2 at Pt Temp 69.5 L D ABG HCO3 32.8 H ABG O2 Sat (Measured) 92.6 ABG O2 Content 12.0 L ABG Base Excess 7.0 H Emile Test Positive O2 Delivery Device Nasal cannula Oxygen Flow Rate 1l Sodium 142 Potassium 3.8 Chloride 98 Carbon Dioxide 34 H Anion Gap 10 BUN 25 H Creatinine 0.6 Creat Clearance w eGFR > 60 Random Glucose 78 Calcium 9.2 Total Bilirubin 0.7 D AST 26 ALT 27 Alkaline Phosphatase 98 Total Protein 7.1 Albumin 2.5 L Active Medications Generic Name Dose Route Start Last Admin Trade Name Freq PRN Reason Stop Dose Admin Acetaminophen 650 mg 06/03/16 07:19 06/12/16 21:28 Tylenol - PO 650 mg Q4H PRN Administration FEVER OR PAIN Atenolol 25 mg 06/07/16 10:00 06/14/16 09:14 Tenormin - PO 25 mg DAILY MONAE Administration Enalapril Maleate 5 mg 06/03/16 22:00 06/14/16 09:14 Vasotec - PO 5 mg BID MONAE Administration Enoxaparin Sodium 60 mg 06/14/16 10:00 06/14/16 09:14 Lovenox - SQ 60 mg BID MONAE Administration Methadone HCl 10 mg 06/03/16 06:00 06/14/16 06:45 Dolophine - PO 10 mg DAILY@0600 MONAE Administration Nicotine 14 mg 06/03/16 10:00 06/14/16 09:14 Nicoderm Patch - TD 14 mg DAILY MONAE Administration ASSESSMENT/PLAN: 65F with history of HTN, Breast CA in remission, and chronic pain syndrome leading to opioid dependence presents to the hospital with altered mental status. Altered mental status: was likely from too high of a dose from methadone methadone decreased mental status imporved today but still altered CT head no thrombosis no mets Acute hypoxic hypercapneic respiratory failure: Resolved Saturating well on 2L NC BiPAP PRN Sepsis secondary to pneumonia: patient had leukocytosis and tachycardia on presentation with a source of infection found on CXR however i suspect that PNA has resolved and now her leukocytosis is reactive to malignancy ABx course completed Pleural effusion:from heart failure vs parapneumonic effusion vs malignant effusion s/p thoracentesis cytology negative for malignancy Exudative transfusion-possible parapneumonic effusion CT scan noted-multiple enlarged hilar lymph nodes repeat CXR tomorrow AM Hilar lymphadenopathy-from metastatic breast CA Oncology consult appreciated-recommendations noted US soft tissue of head and neck results noted multiple bilateral enlarged lymph nodes s/p FNA of left supraclavicular LN pathology results consistent 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 Will do Bone scan and brain MRI to evaluate for mets and based on results will see if patient will need stenting and palliative radiation Bone scan ordered will hopefully get done today SVC occlusion: repeat CT scan chest with SVC protocol results noted may need stenting per IR if there isnt going to be any plan for treatment with chemotherapy or radiation to decrease the obstruction continue lovenox 60mg BID will need lovenox for life 80mg daily as outpatient upper extremity US showed superficial thrombosis no DVT-patient is being anticoagulated anyway patient also has IJ thrombus not reported but when speaking to Dr. De Santiago he noted IJ clot-is on lovenox Hypoglycemia: resolved HTN: continue home dose of Atenelol 25mg po daily continue enalapril 5mg po BID Acute on chronic diastolic CHF: patient does not have CHF on Echo but clinically she had extremity edema and looked volume overloaded. this has now resolved Cardiology consult appreciated ECHO results noted outpatient stress test Opioid dependence: secondary to chronic pain methadone 10mg po daily-no withdrawals noted will continue with this dose continue gabapentin for neuropathy/chronic pain Proptosis: TSH upper limit of normal Free T4 WNL Microcytic anemia:from anemia of chronic disease Iron studies did not show Iron deficiency anemia but was more consistent with anemia of chronic disease Hyperkalemia: resolved FEN: no IVF hypokalemia replete Sodium controlled diet PPx: SCDs/lovenox No GI PPx indicated at this time PT consult to avoid deconditioning will need to speak to family to see how aggressive they want to be with treatment daughter angus [phone] son ne [phone]. Visit type - Emergency Visit Emergency Visit: Yes ED Registration Date: 05/30/16 Care time: The patient presented to the Emergency Department on the above date and was hospitalized for further evaluation of their emergent condition. - New Patient This patient is new to me today: No - Critical Care Critical Care patient: No - Discharge Referral Referred to [facility] Yes Physician Referral: Colin Davis MD ([facility])
--- NOTE | 2016-06-14 11:27 | PN ---
Progress Note (short form) - Note Progress Note: Patient seen and examined More alert. Family at bedside. Communicative in Maldivian --appropriately. Case discussed at Tumor board Last Vital Signs Temp Pulse Resp BP Pulse Ox 98.1 F 74 16 126/68 97 06/14/16 09:11 06/14/16 10:05 06/14/16 09:11 06/14/16 09:11 06/14/16 10:05 HEENT: RUTH, EOM Intact Oropharynx: No thrush, No mucositis,edentulous Neck: Supple Nodes: left supraclavicular adenopathy Breasts: no chest wall masses Cor: RSR, systolic murmur Lungs: Clear to P&A Abd: Soft, Normal bowel sounds, No organomegaly Ext:No significant edema Skin: No rashes, Integument intact CBC, BMP 06/14/16 06:15 06/14/16 06:15 Current Medications Generic Name Dose Route Start Last Admin Trade Name Freq PRN Reason Stop Dose Admin Acetaminophen 650 mg 06/03/16 07:19 06/12/16 21:28 Tylenol - PO 650 mg Q4H PRN Administration FEVER OR PAIN Atenolol 25 mg 06/07/16 10:00 06/14/16 09:14 Tenormin - PO 25 mg DAILY MONAE Administration Enalapril Maleate 5 mg 06/03/16 22:00 06/14/16 09:14 Vasotec - PO 5 mg BID MONAE Administration Enoxaparin Sodium 60 mg 06/14/16 10:00 06/14/16 09:14 Lovenox - SQ 60 mg BID MONAE Administration Methadone HCl 10 mg 06/03/16 06:00 06/14/16 06:45 Dolophine - PO 10 mg DAILY@0600 MONAE Administration Nicotine 14 mg 06/03/16 10:00 06/14/16 09:14 Nicoderm Patch - TD 14 mg DAILY MONAE Administration Impression: SC node biopsy compatible with recurrent breast ca --->Her-2-anjel --2+, FISH pending and ER-, Bilateral pleural effusions L>R 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 If FISH is positive for Her-2 -anjel would be a candidate for Herceptin therapy. Will have to discuss further with family. Pleural and lung disease will need to be addressed moving forward.SVC syndrome will need be monitored for possible stent placement if systemic or local treatment cannot be administered.
--- NOTE | 2016-06-14 12:18 | PN ---
Progress Note (short form) - Note Progress Note: PULMONARY MORE LETHARGIC TODAY/FAMILY PRESENT VSS ANICTERIC DIMINISHED BREATH SOUNDS BIBASILAR S1S2 ABD BS+ DIMINISHED EDEMA LABS/MEDS/NOTES/IMAGING REVIEWED CT BRAIN W/WO CONTRAST NO METS ADVISED MRI (1) Altered mental status, unspecified Code(s): R41.82 - ALTERED MENTAL STATUS, UNSPECIFIED Qualifiers: Coma depth: Antlers coma 9-12 (2) CHF (congestive heart failure) Code(s): I50.9 - HEART FAILURE, UNSPECIFIED Qualifiers: Congestive heart failure type: unspecified congestive heart failure type Congestive heart failure chronicity: unspecified congestive heart failure chronicity Qualified Code(s): I50.9 - Heart failure, unspecified (3) H/O malignant neoplasm of breast Code(s): Z85.3 - PERSONAL HISTORY OF MALIGNANT NEOPLASM OF BREAST (4) Hypoglycemia Code(s): E16.2 - HYPOGLYCEMIA, UNSPECIFIED (5) Knee pain, chronic Code(s): M25.569 - PAIN IN UNSPECIFIED KNEE G89.29 - OTHER CHRONIC PAIN (6) Pneumonia Code(s): J18.9 - PNEUMONIA, UNSPECIFIED ORGANISM A/P Chronic Hypercapneic Respiratory Methadone Maintenance/Opiate Dependent Likely Aspiration Pneumonia Pleural Effusions Metastatic Breast Ca Anemia - for MRI brain - s/p antibiotics - aspiration precautions - BiPAP as needed/ - O2 to keep SpO2 >90% - aspiration precautions - DVT prophylaxis Darlene TAO MD
--- NOTE | 2016-06-14 14:04 | PN ---
Teaching Attending Note Name of Resident: Filippo Hoyos ATTENDING PHYSICIAN STATEMENT I saw and evaluated the patient. I reviewed the resident's note and discussed the case with the resident. I agree with the resident's findings and plan as documented. Patient is more awake and with it today.Looks happy. No signs of infection, no fever or chills. Vital Signs Temperature 98.1 F 06/14/16 09:11 Pulse Rate 74 06/14/16 10:05 Respiratory Rate 16 06/14/16 09:11 Blood Pressure 126/68 06/14/16 09:11 O2 Sat by Pulse Oximetry (%) 97 06/14/16 10:05 CBCD WBC 23.3 K/mm3 (4.0-10.0) H 06/14/16 06:15 RBC 3.79 M/mm3 (3.60-5.2) 06/14/16 06:15 Hgb 9.5 GM/dL (10.7-15.3) L 06/14/16 06:15 Hct 30.4 % (32.4-45.2) L 06/14/16 06:15 MCV 80.2 fl (80-96) 06/14/16 06:15 MCHC 31.3 g/dl (32.0-36.0) L 06/14/16 06:15 RDW 19.2 % (11.6-15.6) H 06/14/16 06:15 Plt Count 439 K/MM3 (134-434) H 06/14/16 06:15 MPV 7.7 fl (7.5-11.1) 06/14/16 06:15 CMP Sodium 142 mmol/L (136-145) 06/14/16 06:15 Potassium 3.8 mmol/L (3.5-5.1) 06/14/16 06:15 Chloride 98 mmol/L (98-107) 06/14/16 06:15 Carbon Dioxide 34 mmol/L (21-32) H 06/14/16 06:15 Anion Gap 10 (8-16) 06/14/16 06:15 BUN 25 mg/dL (7-18) H 06/14/16 06:15 Creatinine 0.6 mg/dL (0.55-1.02) 06/14/16 06:15 Creat Clearance w eGFR > 60 (>60) 06/14/16 06:15 Random Glucose 78 mg/dL (74-106) 06/14/16 06:15 Calcium 9.2 mg/dL (8.5-10.1) 06/14/16 06:15 Total Bilirubin 0.7 mg/dL (0.2-1.0) D 06/14/16 06:15 AST 26 U/L (15-37) 06/14/16 06:15 ALT 27 U/L (12-78) 06/14/16 06:15 Alkaline Phosphatase 98 U/L (45-117) 06/14/16 06:15 Total Protein 7.1 g/dl (6.4-8.2) 06/14/16 06:15 Albumin 2.5 g/dl (3.4-5.0) L 06/14/16 06:15 CARDIAC ENZYMES Creatine Kinase 45 IU/L (26-192) 05/30/16 07:15 Troponin I < 0.02 ng/ml (0.00-0.05) 05/30/16 07:15 Current Medications Generic Name Dose Route Start Last Admin Trade Name Freq PRN Reason Stop Dose Admin Acetaminophen 650 mg 06/03/16 07:19 06/12/16 21:28 Tylenol - PO 650 mg Q4H PRN Administration FEVER OR PAIN Atenolol 25 mg 06/07/16 10:00 06/14/16 09:14 Tenormin - PO 25 mg DAILY MONAE Administration Enalapril Maleate 5 mg 06/03/16 22:00 06/14/16 09:14 Vasotec - PO 5 mg BID MONAE Administration Enoxaparin Sodium 60 mg 06/14/16 10:00 06/14/16 09:14 Lovenox - SQ 60 mg BID MONAE Administration Methadone HCl 10 mg 06/03/16 06:00 06/14/16 06:45 Dolophine - PO 10 mg DAILY@0600 [facility] Administration Nicotine 14 mg 06/03/16 10:00 06/14/16 09:14 Nicoderm Patch - TD 14 mg DAILY MONAE Administration Home Medications Medication Instructions Recorded Atenolol [Tenormin] 25 mg PO DAILY 05/14/12 Gabapentin [Neurontin] 600 mg PO TID PRN 05/14/12 Methadone (Detox) [Dolophine -] 30 mg PO DAILY 05/14/12 Enalapril Maleate [Vasotec] 5 mg PO BID 08/23/12 Amlodipine Besylate 10 mg PO DAILY 10/20/14 ASSESSMENT AND PLAN: 65yo F with PMH breast ca s/p R masectomy, HTN and chronic pain presented to the ER and was admitted for further evaluation of their emergent condition # AMS due to methadone ,the dose was lowered to 10mg from 30mg originally , was found to be in hypercapneic state , s/p Bipap. # SVC Syndrome on Lovenox 60mg sq Bid will continue. # Acute Leukocytosis : no signs of infection, no fever or chills, no tachycardia ; UA so far negative. #s/p Sepsis secondary to pneumonia: suspect that PNA has resolved and now her leukocytosis is reactive to malignancy; ABx course completed #Pleural effusion:from heart failure vs parapneumonic effusion vs malignant effusion ;s/p thoracentesis cytology negative for malignancy ;Exudative transfusion- possible parapneumonic effusion # BL Breast Ca most likely 2 primaries vs metastatic. 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 family does not want pt knowing that malignancy has recurred. psych evaluated pt and pt is not competent to make her own decisions # S/p Acute hypoxic hypercapneic respiratory failure: BiPAP prn # R IJ thrombus- on full dose lovenox. will need lifelong anticoagulation # Anemia of chronic disease WILL Monitor # chronic pain- methadone 10mg. controlled # Hx of smoking on Nicotine patch Palliative care consult and further discussion with Hem/onc for further plan. DvT Px: Lovenox
--- NOTE | 2016-06-14 21:21 | PN ---
Progress Note (short form) - Note Progress Note: Radiation Oncology Pt remains lethargic. Refused MRI brain. CT head neg. Family ([id number]) at bedside and are considering hospice care. Discussed palliative role of RT to try to minimize progression of SVC compression/syndrome. Had PMRT to 18 years ago at [facility] but could receive 20-30 Gy given interval and likely dose received. If MS improves and able to cooperate, may become a candidate for RT. Family will consider options.
[2016-06-15] MEDS: ACETAMINOPHEN 325 MG TABLET (FP) PO PRN (03:34)
[2016-06-15] MEDS: METHADONE HCL 10 MG TABLET PO SCH (06:12)
[2016-06-15 07:35] LABS: MCH 24.7 pg (25.7-33.7); MCHC 30.5 g/dl (32.0-36.0); MEAN CELL VOLUME 81.1 fl (80-96); MEAN PLT VOLUME 7.4 fl (7.5-11.1); PLATELET COUNT 419 K/MM3 (134-434); RDW 19.3 % (11.6-15.6); WHITE BLOOD COUNT 23.4 K/mm3 (4.0-10.0)
[2016-06-15 08:05] LABS: ALBUMIN 2.4 g/dl (3.4-5.0); ANION GAP 10 (8-16); CALCIUM 9.2 mg/dL (8.5-10.1); CO2 35 mmol/L (21-32); GLUCOSE,RANDOM 95 mg/dL (74-106)
[2016-06-15 08:10] LABS: ALK PHOS 104 U/L (45-117); BILIRUBIN,TOTAL 0.5 mg/dL (0.2-1.0); COCKROFT - GAULT 97.9625; CREATININE 0.5 mg/dL (0.55-1.02); SGOT/AST 21 U/L (15-37); SGPT/ALT 26 U/L (12-78); TOT PROT 7.2 g/dl (6.4-8.2)
--- NOTE | 2016-06-15 08:43 | PN ---
Physical Exam: SUBJECTIVE: Patient seen and examined Patient is slightly drowsy but opens her eyes. OBJECTIVE: Vital Signs Temperature 98.1 F 06/15/16 06:00 Pulse Rate 54 L 06/15/16 06:00 Respiratory Rate 18 06/15/16 06:00 Blood Pressure 153/81 06/15/16 06:00 O2 Sat by Pulse Oximetry (%) 97 06/14/16 21:00 GENERAL: The patient is awake, alert, and fully oriented, in no acute distress. HEAD: Normal with no signs of trauma. EYES: PERRL, extraocular movements intact, sclera anicteric, conjunctiva clear. No ptosis. ENT: Ears normal, nares patent, oropharynx clear without exudates, moist mucous membranes. NECK: Trachea midline, full range of motion, supple. LUNGS: decreased BS BL, no wheezes, no crackles, no accessory muscle use. HEART: Regular rate and rhythm, S1, S2 positive , SEM2/6, no rub or gallop. ABDOMEN: Soft, nontender, nondistended, normoactive bowel sounds, no guarding, no rebound, no hepatosplenomegaly, no masses. EXTREMITIES: 2+ pulses, warm, well-perfused, no edema. NEUROLOGICAL: Cranial nerves II through XII grossly intact. Normal speech, gait not observed. PSYCH: Normal mood, normal affect. SKIN: Warm, dry, normal turgor, no rashes or lesions noted Laboratory Results - last 24 hr 06/14/16 06/15/16 06/15/16 06:15 07:20 07:20 WBC 23.4 H RBC 3.99 Hgb 9.9 L Hct 32.4 MCV 81.1 MCHC 30.5 L RDW 19.3 H Plt Count 419 MPV 7.4 L Neutrophils % Y Lymphocytes % Y Sodium 142 143 Potassium 3.8 4.0 Chloride 98 98 Carbon Dioxide 34 H 35 H Anion Gap 10 10 BUN 25 H 24 H Creatinine 0.6 0.5 L Creat Clearance w eGFR > 60 > 60 Random Glucose 78 95 D Calcium 9.2 9.2 Total Bilirubin 0.7 D 0.5 D AST 26 21 ALT 27 26 Alkaline Phosphatase 98 104 Total Protein 7.1 7.2 Albumin 2.5 L 2.4 L Active Medications Generic Name Dose Route Start Last Admin Trade Name Freq PRN Reason Stop Dose Admin Acetaminophen 650 mg 06/03/16 07:19 06/15/16 03:34 Tylenol - PO 650 mg Q4H PRN Administration FEVER OR PAIN Atenolol 25 mg 06/07/16 10:00 06/14/16 09:14 Tenormin - PO 25 mg DAILY MONAE Administration Enalapril Maleate 5 mg 06/03/16 22:00 06/14/16 21:27 Vasotec - PO 5 mg BID MONAE Administration Enoxaparin Sodium 60 mg 06/14/16 10:00 06/14/16 21:27 Lovenox - SQ 60 mg BID MONAE Administration Methadone HCl 10 mg 06/03/16 06:00 06/15/16 06:12 Dolophine - PO 10 mg DAILY@0600 MONAE Administration Nicotine 14 mg 06/03/16 10:00 06/14/16 09:14 Nicoderm Patch - TD 14 mg DAILY [facility]AE Administration ASSESSMENT/PLAN: 65yo F with PMH breast ca s/p R masectomy, HTN and chronic pain presented to the ER and was admitted for further evaluation of their emergent condition # AMS due to methadone ,the dose was lowered to 10mg from 30mg originally , was found to be in hypercapneic state , s/p Bipap. Patient was made DNR/DNI as per her family, reduced her metahdone dose as well, since going into hypercapneic state. # Acute hypoxic hypercapneic respiratory failure on and off, will reducse the dose of methadone further to 5mg daily from 10mg ;on BiPAP now, given a dose of Narcan 0.4mg x1 # SVC Syndrome on Lovenox 60mg sq Bid will continue. #s/p Sepsis secondary to pneumonia: suspect that PNA has resolved and now her leukocytosis is reactive to malignancy; ABx course completed #Pleural effusion:from heart failure vs parapneumonic effusion vs malignant effusion ;s/p thoracentesis cytology negative for malignancy ;Exudative transfusion- possible parapneumonic effusion # BL Breast Ca most likely 2 primaries vs metastatic. 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 family does not want pt knowing that malignancy has recurred. psych evaluated pt and pt is not competent to make her own decisions # Acute Leukocytosis continues no signs of infection, no fever or chills, no tachycardia; UA so far negative. 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 will need lifelong anticoagulation # Anemia of chronic disease WILL Monitor # chronic pain- methadone 10mg. controlled # Hx of smoking on Nicotine patch Palliative care consult and further discussion with Hem/onc for further plan. DvT Px: Lovenox Visit type - Emergency Visit Emergency Visit: Yes ED Registration Date: 05/30/16 Care time: The patient presented to the Emergency Department on the above date and was hospitalized for further evaluation of their emergent condition. - New Patient This patient is new to me today: No - Critical Care Critical Care patient: No
[2016-06-15 09:17] LABS: PLATELET ESTIMATE ADEQUATE (NORMAL)
[2016-06-15 09:18] LABS: ANISOCYTOSIS 1+; HYPOCHROMIA 1+; MICROCYTOSIS 1+
--- NOTE | 2016-06-15 09:25 | PN ---
Progress Note (short form) - Note Progress Note: Patient seen and examined Patient in wheelchair being fed by nurses. Lethargic but arousable. Confused . Responds to some questions when asked in [place]. Last night took off oxygen with fall in O-2 sat. On 3 liters- 97%. Last Vital Signs Temp Pulse Resp BP Pulse Ox 98.1 F 54 L 18 153/81 97 06/15/16 06:00 06/15/16 06:00 06/15/16 06:00 06/15/16 06:00 06/14/16 21:00 RUTH Nodes: adenopathy left supraclavicular area Cor: RSR, No murmurs, No gallops Lungs:diminished breath sounds Abd: Soft, Normal bowel sounds, No organomegaly Ext:No significant edema Skin: No rashes, Integument intact CBC, BMP 06/15/16 07:20 06/15/16 07:20 Current Medications Generic Name Dose Route Start Last Admin Trade Name Freq PRN Reason Stop Dose Admin Acetaminophen 650 mg 06/03/16 07:19 06/15/16 03:34 Tylenol - PO 650 mg Q4H PRN Administration FEVER OR PAIN Atenolol 25 mg 06/07/16 10:00 06/14/16 09:14 Tenormin - PO 25 mg DAILY MONAE Administration Enalapril Maleate 5 mg 06/03/16 22:00 06/14/16 21:27 Vasotec - PO 5 mg BID MONAE Administration Enoxaparin Sodium 60 mg 06/14/16 10:00 06/14/16 21:27 Lovenox - SQ 60 mg BID MONAE Administration Methadone HCl 10 mg 06/03/16 06:00 06/15/16 06:12 Dolophine - PO 10 mg DAILY@0600 MONAE Administration Nicotine 14 mg 06/03/16 10:00 06/14/16 09:14 Nicoderm Patch - TD 14 mg DAILY MONAE Administration Impression: Patient does not seem to be a suitable candidate for chemotherapy. Similarly, she does not appear to be able to be a radiation candidate as she would need to remain still for an extended period of time. In addition it would require treatment for 5 days for weeks. Would therefore consider 1) ??attempt to wean off Methadone 2) if rapid reaccumulation of pleural fluid could consider pleurex 30 Consider [facility]
--- NOTE | 2016-06-15 09:41 | PN ---
Progress Note, Physician - Current Medication List Current Medications: Active Medications Acetaminophen (Tylenol -) 650 mg PO Q4H PRN PRN Reason: FEVER OR PAIN Last Admin: 06/15/16 03:34 Dose: 650 mg Atenolol (Tenormin -) 25 mg PO DAILY [facility] Last Admin: 06/14/16 09:14 Dose: 25 mg Enalapril Maleate (Vasotec -) 5 mg PO BID [facility] Last Admin: 06/14/16 21:27 Dose: 5 mg Enoxaparin Sodium (Lovenox -) 60 mg SQ BID [facility] Last Admin: 06/14/16 21:27 Dose: 60 mg Methadone HCl (Dolophine -) 10 mg PO DAILY@0600 [facility] Last Admin: 06/15/16 06:12 Dose: 10 mg Nicotine (Nicoderm Patch -) 14 mg TD DAILY [facility] Last Admin: 06/14/16 09:14 Dose: 14 mg - Objective Vital Signs: Vital Signs Temperature 98.1 F 06/15/16 06:00 Pulse Rate 54 L 06/15/16 06:00 Respiratory Rate 18 06/15/16 06:00 Blood Pressure 153/81 06/15/16 06:00 O2 Sat by Pulse Oximetry (%) 97 06/14/16 21:00 Eyes: Yes: WNL, Conjunctiva Clear, EOM Intact HENT: Yes: WNL, Atraumatic, Normocephalic Neck: Yes: WNL, Supple, Trachea Midline Cardiovascular: Yes: WNL, Regular Rate and Rhythm Respiratory: Yes: WNL, Regular, CTA Bilaterally Gastrointestinal: Yes: WNL, Normal Bowel Sounds Genitourinary: Yes: WNL Musculoskeletal: Yes: WNL Extremities: Yes: WNL Edema: No Edema: RUE: 3+, LLE: 1+, RLE: 1+ Integumentary: Yes: WNL Neurological: Yes: WNL, Alert, Oriented ...Motor Strength: WNL Psychiatric: Yes: WNL Labs: CBC, BMP 06/15/16 07:20 06/15/16 07:20 INR, PTT INR 1.12 (0.82-1.09) 05/29/16 18:50 Assessment/Plan breast ca svc sx chf methadon rx htn cardiac solomon stable cont supportive rx
--- NOTE | 2016-06-15 09:53 | PN ---
Progress Note (short form) - Note Progress Note: OOB to wheelchair in the hallway. Lethargic. Confused. CXR : No gross change in bilateral effusion / congestion Intake & Output 06/12/16 06/13/16 06/14/16 06/15/16 23:59 23:59 23:59 23:59 Intake Total 670 700 764 0 Balance 670 700 764 0 Weight 119 lb 8 oz 120 lb 6.4 oz 118 lb 12.8 oz Last Vital Signs Temp Pulse Resp BP Pulse Ox 98.1 F 54 L 18 153/81 97 06/15/16 06:00 06/15/16 06:00 06/15/16 06:00 06/15/16 06:00 06/14/16 21:00 Active Medications Acetaminophen (Tylenol -) 650 mg PO Q4H PRN PRN Reason: FEVER OR PAIN Last Admin: 06/15/16 03:34 Dose: 650 mg Atenolol (Tenormin -) 25 mg PO DAILY [facility] Last Admin: 06/14/16 09:14 Dose: 25 mg Enalapril Maleate (Vasotec -) 5 mg PO BID [facility] Last Admin: 06/14/16 21:27 Dose: 5 mg Enoxaparin Sodium (Lovenox -) 60 mg SQ BID [facility] Last Admin: 06/14/16 21:27 Dose: 60 mg Methadone HCl (Dolophine -) 10 mg PO DAILY@0600 [facility] Last Admin: 06/15/16 06:12 Dose: 10 mg Nicotine (Nicoderm Patch -) 14 mg TD DAILY [facility] Last Admin: 06/14/16 09:14 Dose: 14 mg Gen: NAD Heart: RRR Lung:distant breath sounds at the bases, rhonchi Abd: soft, nontender Ext: + edema Laboratory Results - last 24 hr 06/15/16 06/15/16 07:20 07:20 WBC 23.4 H RBC 3.99 Hgb 9.9 L Hct 32.4 MCV 81.1 MCHC 30.5 L RDW 19.3 H Plt Count 419 MPV 7.4 L Neutrophils % 91.0 H Lymphocytes % 4.0 L D Monocytes % 1.0 L Band Neutrophils 4.0 D Platelet Estimate Adequate Platelet Comment No clumping noted Hypochromic-Microcytic 1+ Anisocytosis 1+ Microcytosis 1+ Sodium 143 Potassium 4.0 Chloride 98 Carbon Dioxide 35 H Anion Gap 10 BUN 24 H Creatinine 0.5 L Creat Clearance w eGFR > 60 Random Glucose 95 D Calcium 9.2 Total Bilirubin 0.5 D AST 21 ALT 26 Alkaline Phosphatase 104 Total Protein 7.2 Albumin 2.4 L A/P Altered Mental Status improving Acute on Chronic Hypercapneic Respiratory Failure Methadone Maintenance/Opiate Dependent Hypoglycemia resolved Likely Aspiration Pneumonia Hilar adenopathy -> Will need to rule out malignancy Anemia SVC occlusion - Agree with oncology that [place] / hospice care would be appropriate in this situation - AC - Aspiration precautions - O2 to keep SpO2 >90% - Further discussions for C Dr [facility] Problem List - Problems (1) Altered mental status, unspecified Code(s): R41.82 - ALTERED MENTAL STATUS, UNSPECIFIED Qualifiers: Coma depth: Naila coma 9-12 (2) CHF (congestive heart failure) Code(s): I50.9 - HEART FAILURE, UNSPECIFIED Qualifiers: Congestive heart failure type: unspecified congestive heart failure type Congestive heart failure chronicity: unspecified congestive heart failure chronicity Qualified Code(s): I50.9 - Heart failure, unspecified (3) H/O malignant neoplasm of breast Code(s): Z85.3 - PERSONAL HISTORY OF MALIGNANT NEOPLASM OF BREAST (4) Hypoglycemia Code(s): E16.2 - HYPOGLYCEMIA, UNSPECIFIED (5) Knee pain, chronic Code(s): M25.569 - PAIN IN UNSPECIFIED KNEE G89.29 - OTHER CHRONIC PAIN (6) Pneumonia Code(s): J18.9 - PNEUMONIA, UNSPECIFIED ORGANISM
[2016-06-15] MEDS: ENOXAPARIN NA (PORCINE) 60 MG/0.6 ML DISP.SYRIN SQ SCH ×2 (10:23→22:36)
[2016-06-15] MEDS: NICOTINE 14 MG/24 HOURS TOPICAL PATCH TD SCH (10:24)
[2016-06-15] MEDS: ENALAPRIL MALEATE 5 MG TABLET (FP) PO SCH ×2 (10:29→22:35)
[2016-06-15] MEDS: ATENOLOL 25 MG TABLET (FP) PO SCH (10:29)
[2016-06-15 13:22] LABS: ALLENS TEST POSITIVE; ART PUNCT SITE LEFT RADIAL; ARTERIAL BLD GAS O2 SATURATION 96.3 % (90-98.9); ARTERIAL BLOOD GAS BASE EXCESS 6.1 meq/l (-2-2); ARTERIAL BLOOD GAS HCO3 34.8 meq/L (22-26); ARTERIAL BLOOD GAS PO2 92.2 mmHg (80-100); LPM/O2% 50%; MECH. VENT. BIPAP; PT. ON O2? YES; TYPE OF O2 BIPAP
[2016-06-15 13:23] LABS: ARTERIAL BLOOD GAS pH 7.25 (7.35-7.45); VENT RATE 14
[2016-06-15] MEDS ORDERED: NALOXONE HCL 0.4 MG/ML VIAL IVPUSH ONE (13:30)
--- NOTE | 2016-06-15 15:54 | PN ---
Progress Note (short form) - Note Progress Note: 65 y/o lay with h/o , hypercapnic resp failure, breast cancer with mediatsinal nodes mets , s/p R mastectomy, SVC SX, HTN, methadone maintenance ( ? who is administering) and chronic pain who presented with AMS and was found to have pleural effusions --called for change in MS. As per team /family she has been confused for couple months,-she denies THOMAS, neck stiffness, focal motor sensory, diplopia-though she is a poor HX/unreliable . Methadone dose was readjusted and as per team, her MS has improved. On AC. was unable to tolerate MRI BRAIN . CT HD - 05/29/16 no acute pathology. She denies back pain. FU : awake, sitting in bed with breathing mask, appears uncomfortable follows basic requests, no perseveration noted today, speech is fluent, no focal weakness denies HTOMAS , neck or low back pain CT HD with contrast reviewed-- no evidence of sinus thrombosis or obvious mets ( she did not tolerate MRI brain in past) Pt continues to be encephalopathic but appears improved most likely metabolic / infectious --though improved after methadone adjusted. HD CT with contrast 06/13/16 -no sinus thrombosis, or obvious intracranial mets ( MRI would likely be needed to definitively rule this out- would still pursue if possible) LP may be needed, will have to decide if leptomeningeal disease would change her current management-i doubt leptomeningeal disease. WBC climbing --?etiology , not on steroids , ID FU . FU pallatiave care to better understands prognosis and goals of care. please call for any questions Madina Ramirez MD [phone]
[2016-06-16] MEDS ORDERED: METHADONE HCL 5 MG TABLET PO PRN (06:00)
[2016-06-16] MEDS: ENOXAPARIN NA (PORCINE) 60 MG/0.6 ML DISP.SYRIN SQ SCH ×2 (09:33→21:43)
[2016-06-16] MEDS: NICOTINE 14 MG/24 HOURS TOPICAL PATCH TD SCH (09:34)
[2016-06-16] MEDS: ENALAPRIL MALEATE 5 MG TABLET (FP) PO SCH ×2 (09:36→21:43)
[2016-06-16] MEDS: ATENOLOL 25 MG TABLET (FP) PO SCH (09:36)
--- NOTE | 2016-06-16 10:26 | PN ---
Progress Note (short form) - Note Progress Note: More awake and responsive today. No acute events noted overnight. ABG noted yesterday. Acute on chronic hypercapnia. Intake & Output 06/13/16 06/14/16 06/15/16 06/16/16 23:59 23:59 23:59 23:59 Intake Total 700 764 320 Output Total 3 Balance 700 764 317 Weight 120 lb 6.4 oz 118 lb 12.8 oz 119 lb 11.2 oz Last Vital Signs Temp Pulse Resp BP Pulse Ox 98.2 F 97 H 18 136/86 94 L 06/16/16 06:00 06/16/16 06:00 06/16/16 06:00 06/16/16 06:00 06/15/16 21:00 Active Medications Acetaminophen (Tylenol -) 650 mg PO Q4H PRN PRN Reason: FEVER OR PAIN Last Admin: 06/15/16 03:34 Dose: 650 mg Atenolol (Tenormin -) 25 mg PO DAILY [facility] Last Admin: 06/16/16 09:36 Dose: 25 mg Enalapril Maleate (Vasotec -) 5 mg PO BID [facility] Last Admin: 06/16/16 09:36 Dose: 5 mg Enoxaparin Sodium (Lovenox -) 60 mg SQ BID [facility] Last Admin: 06/16/16 09:33 Dose: 60 mg Methadone HCl (Dolophine -) 5 mg PO DAILY@0600 PRN Nicotine (Nicoderm Patch -) 14 mg TD DAILY [facility] Last Admin: 06/16/16 09:34 Dose: 14 mg Gen: NAD Heart: RRR Lung:distant breath sounds at the bases, rhonchi Abd: soft, nontender Ext: + edema Laboratory Results - last 24 hr 06/15/16 13:11 Puncture Site Left radial ABG pH 7.25 L ABG pCO2 at Pt Temp 82.6 H* D ABG pO2 at Pt Temp 92.2 D ABG HCO3 34.8 H ABG O2 Sat (Measured) 96.3 ABG O2 Content 12.8 L ABG Base Excess 6.1 H Emile Test Positive O2 Delivery Device Bipap Oxygen Flow Rate 50% Vent Mode S/t Vent Rate 14 Mechanical Rate Bipap PEEP 0.0 Pressure Support Vent 12/6 A/P Altered Mental Status improving Acute on Chronic Hypercapneic Respiratory Failure Methadone Maintenance/Opiate Dependent Hypoglycemia resolved Likely Aspiration Pneumonia Hilar adenopathy -> Will need to rule out malignancy Anemia SVC occlusion - Agree with oncology that [place] / hospice care would be appropriate in this situation - AC - Aspiration precautions - O2 to keep SpO2 >90% - Ongoing discussions for C Dr [facility] Problem List - Problems (1) Altered mental status, unspecified Code(s): R41.82 - ALTERED MENTAL STATUS, UNSPECIFIED Qualifiers: Coma depth: Naila coma 9-12 (2) CHF (congestive heart failure) Code(s): I50.9 - HEART FAILURE, UNSPECIFIED Qualifiers: Congestive heart failure type: unspecified congestive heart failure type Congestive heart failure chronicity: unspecified congestive heart failure chronicity Qualified Code(s): I50.9 - Heart failure, unspecified (3) H/O malignant neoplasm of breast Code(s): Z85.3 - PERSONAL HISTORY OF MALIGNANT NEOPLASM OF BREAST (4) Hypoglycemia Code(s): E16.2 - HYPOGLYCEMIA, UNSPECIFIED (5) Knee pain, chronic Code(s): M25.569 - PAIN IN UNSPECIFIED KNEE G89.29 - OTHER CHRONIC PAIN (6) Pneumonia Code(s): J18.9 - PNEUMONIA, UNSPECIFIED ORGANISM
--- NOTE | 2016-06-16 10:35 | PN ---
Progress Note, Physician - Current Medication List Current Medications: Active Medications Acetaminophen (Tylenol -) 650 mg PO Q4H PRN PRN Reason: FEVER OR PAIN Last Admin: 06/15/16 03:34 Dose: 650 mg Atenolol (Tenormin -) 25 mg PO DAILY [facility] Last Admin: 06/16/16 09:36 Dose: 25 mg Enalapril Maleate (Vasotec -) 5 mg PO BID [facility] Last Admin: 06/16/16 09:36 Dose: 5 mg Enoxaparin Sodium (Lovenox -) 60 mg SQ BID [facility] Last Admin: 06/16/16 09:33 Dose: 60 mg Methadone HCl (Dolophine -) 5 mg PO DAILY@0600 PRN Nicotine (Nicoderm Patch -) 14 mg TD DAILY [facility] Last Admin: 06/16/16 09:34 Dose: 14 mg - Objective Vital Signs: Vital Signs Temperature 98.2 F 06/16/16 06:00 Pulse Rate 97 H 06/16/16 06:00 Respiratory Rate 18 06/16/16 06:00 Blood Pressure 136/86 06/16/16 06:00 O2 Sat by Pulse Oximetry (%) 94 L 06/15/16 21:00 Eyes: Yes: WNL, Conjunctiva Clear, EOM Intact HENT: Yes: WNL, Atraumatic, Normocephalic Neck: Yes: WNL, Supple, Trachea Midline Cardiovascular: Yes: WNL, Regular Rate and Rhythm Respiratory: Yes: WNL, Regular, CTA Bilaterally Gastrointestinal: Yes: WNL, Normal Bowel Sounds Genitourinary: Yes: WNL Musculoskeletal: Yes: WNL Extremities: Yes: WNL Edema: No Edema: RUE: 3+, LLE: 1+, RLE: 1+ Integumentary: Yes: WNL Neurological: Yes: WNL, Alert, Oriented ...Motor Strength: WNL Psychiatric: Yes: WNL Labs: CBC, BMP 06/15/16 07:20 06/15/16 07:20 INR, PTT INR 1.12 (0.82-1.09) 05/29/16 18:50 Assessment/Plan breast ca svc sx chf methadon rx htn cardiac solomon stable cont supportive rx
--- NOTE | 2016-06-16 11:28 | PN ---
Progress Note (short form) - Note Progress Note: Patient is looking better today , dependent on 1Liter oxygen. No shortness of breath, no fever or chills, ate her breakfast without any issues. Vital Signs Temperature 98.2 F 06/16/16 06:00 Pulse Rate 97 H 06/16/16 06:00 Respiratory Rate 18 06/16/16 06:00 Blood Pressure 136/86 06/16/16 06:00 O2 Sat by Pulse Oximetry (%) 94 L 06/15/16 21:00 GENERAL: The patient is awake, alert, and fully oriented, in no acute distress today. HEAD: Normal with no signs of trauma. EYES: PERRL, extraocular movements intact, sclera anicteric, conjunctiva clear. ENT: Ears normal, oropharynx clear without exudates, moist mucous membranes. NECK: Trachea midline, full range of motion, supple. LUNGS: decreased BS BL, no wheezes, no crackles, no accessory muscle use. HEART: Regular rate and rhythm, S1, S2 positive , SEM2/6, no rub or gallop. ABDOMEN: Soft, nontender, nondistended, normoactive bowel sounds, no guarding, no rebound, no hepatosplenomegaly, no masses. EXTREMITIES: 2+ pulses, warm, well-perfused, no edema. NEUROLOGICAL: Cranial nerves II through XII grossly intact. Normal speech, gait not observed. PSYCH: Normal mood, normal affect. SKIN: Warm, dry, normal turgor, no rashes or lesions noted CBCD WBC 23.4 K/mm3 (4.0-10.0) H 06/15/16 07:20 RBC 3.99 M/mm3 (3.60-5.2) 06/15/16 07:20 Hgb 9.9 GM/dL (10.7-15.3) L 06/15/16 07:20 Hct 32.4 % (32.4-45.2) 06/15/16 07:20 MCV 81.1 fl (80-96) 06/15/16 07:20 MCHC 30.5 g/dl (32.0-36.0) L 06/15/16 07:20 RDW 19.3 % (11.6-15.6) H 06/15/16 07:20 Plt Count 419 K/MM3 (134-434) 06/15/16 07:20 MPV 7.4 fl (7.5-11.1) L 06/15/16 07:20 CMP Sodium 143 mmol/L (136-145) 06/15/16 07:20 Potassium 4.0 mmol/L (3.5-5.1) 06/15/16 07:20 Chloride 98 mmol/L (98-107) 06/15/16 07:20 Carbon Dioxide 35 mmol/L (21-32) H 06/15/16 07:20 Anion Gap 10 (8-16) 06/15/16 07:20 BUN 24 mg/dL (7-18) H 06/15/16 07:20 Creatinine 0.5 mg/dL (0.55-1.02) L 06/15/16 07:20 Creat Clearance w eGFR > 60 (>60) 06/15/16 07:20 Random Glucose 95 mg/dL (74-106) D 06/15/16 07:20 Calcium 9.2 mg/dL (8.5-10.1) 06/15/16 07:20 Total Bilirubin 0.5 mg/dL (0.2-1.0) D 06/15/16 07:20 AST 21 U/L (15-37) 06/15/16 07:20 ALT 26 U/L (12-78) 06/15/16 07:20 Alkaline Phosphatase 104 U/L (45-117) 06/15/16 07:20 Total Protein 7.2 g/dl (6.4-8.2) 06/15/16 07:20 Albumin 2.4 g/dl (3.4-5.0) L 06/15/16 07:20 CARDIAC ENZYMES Creatine Kinase 45 IU/L (26-192) 05/30/16 07:15 Troponin I < 0.02 ng/ml (0.00-0.05) 05/30/16 07:15 A/P: 65yo F with PMH breast ca s/p R masectomy, HTN and chronic pain presented to the ER and was admitted for further evaluation of their emergent condition # AMS due to methadone ,the dose was lowered to 10mg from 30mg originally , was found to be in hypercapneic state , s/p Bipap. 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 will need lifelong anticoagulation #s/p Sepsis secondary to pneumonia: PNA has resolved and now her leukocytosis is reactive to malignancy; ABx course completed #Pleural effusion:from heart failure vs parapneumonic effusion vs malignant effusion ;s/p thoracentesis cytology negative for malignancy # BL Breast Ca most likely 2 primaries vs metastatic. on the case # Lymphadenopathy- bx result : metastatic poorly differentiated carcinoma likely breast origin. family does not want pt knowing that malignancy has recurred. psych evaluated pt and pt is not competent to make her own decisions # Acute Leukocytosis continues no signs of infection, no fever or chills, no tachycardia; UA so far negative. # Anemia of chronic disease WILL Monitor # chronic pain- methadone 5mg now controlled # Hx of smoking on Nicotine patch Palliative care consult will see the patient , As per Hem/onc , patient is not a candidate for any chemo. due to his confusion state on and off , will recheck with dr. Ordaz again once the patient's mentation improves and becomes more stable. Patient was made DNR/DNI as per her family, reduced her metahdone dose to 5mg , since patient is going into hypercapneic state. Keep the oxygen to 1Liter ,and keep the o2 sat.b/t 89-91% since the patient is a PCO2 retainer. DvT Px: Lovenox Visit type - Emergency Visit Emergency Visit: Yes ED Registration Date: 05/30/16 Care time: The patient presented to the Emergency Department on the above date and was hospitalized for further evaluation of their emergent condition. - New Patient This patient is new to me today: No - Critical Care Critical Care patient: No
--- NOTE | 2016-06-16 14:01 | PN ---
Progress Note (short form) - Note Progress Note: Patient seen and examined Methadone being tapered More alert and responsive Last Vital Signs Temp Pulse Resp BP Pulse Ox 98.2 F 97 H 18 136/86 93 L 06/16/16 06:00 06/16/16 06:00 06/16/16 06:00 06/16/16 06:00 06/16/16 11:48 HEENT: RUTH, EOM Intact Oropharynx: thrush, No mucositis,coated tongue Left sc adenopathy Cor: RSR, No murmurs, No gallops Lungs: decreased breath sounds bilateral bases Abd: Soft, Normal bowel sounds, No organomegaly Ext:No significant edema Skin: No rashes, Integument intact CBC, BMP 06/15/16 07:20 06/15/16 07:20 Current Medications Generic Name Dose Route Start Last Admin Trade Name Freq PRN Reason Stop Dose Admin Acetaminophen 650 mg 06/03/16 07:19 06/15/16 03:34 Tylenol - PO 650 mg Q4H PRN Administration FEVER OR PAIN Atenolol 25 mg 06/07/16 10:00 06/16/16 09:36 Tenormin - PO 25 mg DAILY [facility] Administration Enalapril Maleate 5 mg 06/03/16 22:00 06/16/16 09:36 Vasotec - PO 5 mg BID [facility] Administration Enoxaparin Sodium 60 mg 06/14/16 10:00 06/16/16 09:33 Lovenox - SQ 60 mg BID [facility] Administration Methadone HCl 5 mg 06/16/16 06:00 Dolophine - PO DAILY@0600 PRN Nicotine 14 mg 06/03/16 10:00 06/16/16 09:34 Nicoderm Patch - TD 14 mg DAILY [facility] Administration Impression: metastatic Breast ca Altered mental status drug dependence Patient more alert today as methadone is being tapered. If she becomes functional with diminution of analgesics, she may in fact be a candidate for therapy.
[2016-06-17 10:09] LABS: BASOPHIL 0.3 % (0-2.0); MCH 25.4 pg (25.7-33.7); MCHC 30.7 g/dl (32.0-36.0); MEAN CELL VOLUME 82.6 fl (80-96); PLATELET COUNT 407 K/MM3 (134-434); RDW 18.7 % (11.6-15.6); WHITE BLOOD COUNT 17.7 K/mm3 (4.0-10.0)
[2016-06-17 10:38] LABS: ALBUMIN 2.6 g/dl (3.4-5.0); ALK PHOS 103 U/L (45-117); ANION GAP 5 (8-16); BILIRUBIN,TOTAL 0.1 mg/dL (0.2-1.0); CALCIUM 9.2 mg/dL (8.5-10.1); CO2 40 mmol/L (21-32); COCKROFT - GAULT 86.6575; CREATININE 0.6 mg/dL (0.55-1.02); GLUCOSE,RANDOM 135 mg/dL (74-106); MAGNESIUM 2.9 mg/dL (1.8-2.4); PHOSPHOROUS 2.9 mg/dL (2.5-4.9); SGOT/AST 19 U/L (15-37); SGPT/ALT 26 U/L (12-78); TOT PROT 7.4 g/dl (6.4-8.2)
[2016-06-17] MEDS: ENALAPRIL MALEATE 5 MG TABLET (FP) PO SCH ×3 (10:53→21:04)
[2016-06-17] MEDS: NICOTINE 14 MG/24 HOURS TOPICAL PATCH TD SCH (10:53)
[2016-06-17] MEDS: ATENOLOL 25 MG TABLET (FP) PO SCH ×2 (10:53→10:56)
[2016-06-17] MEDS: ENOXAPARIN NA (PORCINE) 60 MG/0.6 ML DISP.SYRIN SQ SCH ×2 (10:53→23:37)
--- NOTE | 2016-06-17 11:51 | PN ---
Progress Note (short form) - Note Progress Note: No acute events noted overnight. No significant overall change in condition. Intake & Output 06/14/16 06/15/16 06/16/16 06/17/16 23:59 23:59 23:59 23:59 Intake Total 764 320 Output Total 3 600 Balance 764 317 -600 Weight 118 lb 12.8 oz 119 lb 11.2 oz 126 lb 1.6 oz Last Vital Signs Temp Pulse Resp BP Pulse Ox 97.8 F 101 H 22 136/92 92 L 06/17/16 06:00 06/17/16 06:00 06/17/16 06:00 06/17/16 06:00 06/16/16 21:00 Active Medications Acetaminophen (Tylenol -) 650 mg PO Q4H PRN PRN Reason: FEVER OR PAIN Last Admin: 06/15/16 03:34 Dose: 650 mg Atenolol (Tenormin -) 25 mg PO DAILY [facility] Last Admin: 06/17/16 10:56 Dose: Not Given Enalapril Maleate (Vasotec -) 5 mg PO BID [facility] Last Admin: 06/17/16 10:57 Dose: Not Given Enoxaparin Sodium (Lovenox -) 60 mg SQ BID [facility] Last Admin: 06/17/16 10:53 Dose: 60 mg Methadone HCl (Dolophine -) 5 mg PO DAILY@0600 PRN Last Admin: 06/17/16 01:05 Dose: 5 mg Nicotine (Nicoderm Patch -) 14 mg TD DAILY [facility] Last Admin: 06/17/16 10:53 Dose: 14 mg Gen: NAD Heart: RRR Lung:distant breath sounds at the bases, rhonchi Abd: soft, nontender Ext: + edema Laboratory Results - last 24 hr 06/17/16 06/17/16 09:50 09:50 WBC 17.7 H RBC 4.04 Hgb 10.2 L Hct 33.3 MCV 82.6 MCHC 30.7 L RDW 18.7 H Plt Count 407 MPV 7.0 L Neutrophils % 97.0 H Lymphocytes % 1.8 L D Monocytes % 0.9 L Eosinophils % 0.0 Basophils % 0.3 Sodium 142 Potassium 4.6 Chloride 97 L Carbon Dioxide 40 H Anion Gap 5 L BUN 35 H D Creatinine 0.6 Creat Clearance w eGFR > 60 Random Glucose 135 H D Calcium 9.2 Phosphorus 2.9 Magnesium 2.9 H D Total Bilirubin 0.1 L D AST 19 ALT 26 Alkaline Phosphatase 103 Total Protein 7.4 Albumin 2.6 L A/P Altered Mental Status improving Acute on Chronic Hypercapneic Respiratory Failure Methadone Maintenance/Opiate Dependent Hypoglycemia resolved Likely Aspiration Pneumonia Hilar adenopathy -> Will need to rule out malignancy Anemia SVC occlusion - Agree with oncology that [place] / hospice care would be appropriate in this situation - AC - Aspiration precautions - O2 to keep SpO2 >90% - Ongoing discussions for GOC Dr Thompson Problem List - Problems (1) Altered mental status, unspecified Code(s): R41.82 - ALTERED MENTAL STATUS, UNSPECIFIED Qualifiers: Coma depth: Naila coma 9-12 (2) CHF (congestive heart failure) Code(s): I50.9 - HEART FAILURE, UNSPECIFIED Qualifiers: Congestive heart failure type: unspecified congestive heart failure type Congestive heart failure chronicity: unspecified congestive heart failure chronicity Qualified Code(s): I50.9 - Heart failure, unspecified (3) H/O malignant neoplasm of breast Code(s): Z85.3 - PERSONAL HISTORY OF MALIGNANT NEOPLASM OF BREAST (4) Hypoglycemia Code(s): E16.2 - HYPOGLYCEMIA, UNSPECIFIED (5) Knee pain, chronic Code(s): M25.569 - PAIN IN UNSPECIFIED KNEE G89.29 - OTHER CHRONIC PAIN (6) Pneumonia Code(s): J18.9 - PNEUMONIA, UNSPECIFIED ORGANISM
--- NOTE | 2016-06-17 13:32 | PN ---
Teaching Attending Note Name of Resident: Atul Carpenter ATTENDING PHYSICIAN STATEMENT I saw and evaluated the patient. I reviewed the resident's note and discussed the case with the resident. I agree with the resident's findings and plan as documented. SUBJECTIVE: The patient is anxious and slightly agitated. I had an extensive discussion with her family, with her son being the primary communicator. With Dr. Carpenter, I explained the suspicion that the SVC syndrome had worsened and that metastatic breast cancer was the primary cause. I explained this using lay terminology. I answered all of their questions. They understood. The family clearly articulated that they wanted the primary goal of care to be comfort. We explained DNR/DNI comfort measures only status to them. They agree. They would like us to discontinue all labs, studies and treatments that are not geared to comfort. They agree to CT scans of brain, neck and chest to confirm our suspicion of worsening SVC syndrome. They would support the use of palliative radiation therapy if deemed appropriate by oncology. They have requested a morphone drip and palliative care evaluation for hospice placement. OBJECTIVE: Vitals noted Facial plethora noted ASSESSMENT AND PLAN: Comfort measures only as above Will begin morphine drip Palliative care consult STAT CT of head, neck and chest Pending the results, palliative treatment of SVC syndrome could be considered Dr. Carpenter to discuss potential palliative treatment of SCVC syndrome with Dr. Ordaz See resident note for full details
[2016-06-17] MEDS ORDERED: MORPHINE 100 MG in SODIUM CHLORIDE 98 ML IVPB SCH ×2 (13:45→18:00)
[2016-06-17] MEDS ORDERED: morphine CARPU-JECT 4 MG/1 ML DISP.SYRIN IVPUSH ONE (14:01)
--- NOTE | 2016-06-17 15:08 | PN ---
Physical Exam: SUBJECTIVE: Patient seen and examined at bedside. Overnight agitation treated with methadone. She is slightly agitated this morning. Confused and disoriented. OBJECTIVE: Vital Signs Period Temp Pulse Resp BP Sys/Fernando Pulse Ox Last 24 Hr 97.8 F-98.4 F 79-102 18-24 128-157/75-93 90-94 GENERAL: lethargic and agitated. HEAD: significant facial and neck edema. EYES: significant orbital edema ENT: moist mucous membranes. NECK: supple. LUNGS:decreased breath sounds bilat. , scattered rhonchi HEART: Regular rate and rhythm, S1, S2 without murmur, rub or gallop. ABDOMEN: Soft, nontender, nondistended, EXTREMITIES: 2+ edema of right arm NEUROLOGICAL: lethargic and disoriented. PSYCH: agitated. Laboratory Results - last 24 hr 06/17/16 06/17/16 09:50 09:50 WBC 17.7 H RBC 4.04 Hgb 10.2 L Hct 33.3 MCV 82.6 MCHC 30.7 L RDW 18.7 H Plt Count 407 MPV 7.0 L Neutrophils % 97.0 H Lymphocytes % 1.8 L D Monocytes % 0.9 L Eosinophils % 0.0 Basophils % 0.3 Sodium 142 Potassium 4.6 Chloride 97 L Carbon Dioxide 40 H Anion Gap 5 L BUN 35 H D Creatinine 0.6 Creat Clearance w eGFR > 60 Random Glucose 135 H D Calcium 9.2 Phosphorus 2.9 Magnesium 2.9 H D Total Bilirubin 0.1 L D AST 19 ALT 26 Alkaline Phosphatase 103 Total Protein 7.4 Albumin 2.6 L Active Medications Generic Name Dose Route Start Last Admin Trade Name Freq PRN Reason Stop Dose Admin Acetaminophen 650 mg 06/03/16 07:19 06/15/16 03:34 Tylenol - PO 650 mg Q4H PRN Administration FEVER OR PAIN Atenolol 25 mg 06/07/16 10:00 06/17/16 10:56 Tenormin - PO Not Given DAILY [facility] Enalapril Maleate 5 mg 06/03/16 22:00 06/17/16 10:57 Vasotec - PO Not Given BID [facility] Enoxaparin Sodium 60 mg 06/14/16 10:00 06/17/16 10:53 Lovenox - SQ 60 mg BID [facility] Administration Morphine Sulfate 100 mg/ 100 mls @ 1 mls/hr 06/17/16 13:45 Sodium Chloride IVPB TITR [facility] Protocol 1 MG/HR Methadone HCl 5 mg 06/16/16 06:00 06/17/16 01:05 Dolophine - PO 5 mg DAILY@0600 PRN Administration Nicotine 14 mg 06/03/16 10:00 06/17/16 10:53 Nicoderm Patch - TD 14 mg DAILY [facility] Administration ASSESSMENT/PLAN: 65yo F with PMH breast ca s/p R masectomy, HTN and chronic pain presented to the ER and was admitted for acute respiratory failure and AMS. Problem List - Problems (1) SVC (superior vena cava obstruction) Assessment/Plan: * lengthy discussion with family * SVC syndrome had worsened and that metastatic breast cancer was the primary cause. * Family has made it clear that goals of care have now switched to comfort care. * will discontinue all labs, studies and treatments that are not geared to comfort. * Will obtain CT scans of brain, neck and chest to confirm our suspicion of worsening SVC syndrome. * Discussed with Dr. Hernandez about radiation, however it is felt that she will not lay still for treatment and also possibility of stent was discussed but family proxy states they do not want any further intervention except for comfort measures. * [facility] * As per family request placed on morphine drip and palliative care evaluation for hospice placement. (2) Local recurrence of carcinoma of breast Visit type - Emergency Visit Emergency Visit: Yes ED Registration Date: 05/30/16 Care time: The patient presented to the Emergency Department on the above date and was hospitalized for further evaluation of their emergent condition. - New Patient This patient is new to me today: Yes Date on this admission: 06/17/16 - Critical Care Critical Care patient: No
--- NOTE | 2016-06-17 17:36 | PN ---
Progress Note (short form) - Note Progress Note: Patinet seen and examined Patiewnt with swollen face Last Vital Signs Temp Pulse Resp BP Pulse Ox 97.9 F 98 H 22 154/85 94 L 06/17/16 14:35 06/17/16 14:35 06/17/16 14:35 06/17/16 14:35 06/17/16 09:00 Cor: RSR, No murmurs, No gallops Lungs: decreased at bases Abd: Soft, Normal bowel sounds, No organomegaly Ext:No significant edema Labs reviewed a/p 65 y/o patient with metastatic breast cancer, poor performance status, SVC syndrome, altered mental status discussed with family--son and daughter over the phone to pursue comfort care/morphine drip
[2016-06-17 17:50] VITALS: BP 148/75; PULSE 103; TEMP 96.8
--- NOTE | 2016-06-17 18:39 | PN ---
Progress Note, Physician Chief Complaint: Pt. condition unchanged. CT head without evidence of solid or leptomeningeal mets. - Current Medication List Current Medications: Active Medications Acetaminophen (Tylenol -) 650 mg PO Q4H PRN PRN Reason: FEVER OR PAIN Last Admin: 06/15/16 03:34 Dose: 650 mg Atenolol (Tenormin -) 25 mg PO DAILY [facility] Last Admin: 06/17/16 10:56 Dose: Not Given Enalapril Maleate (Vasotec -) 5 mg PO BID [facility] Last Admin: 06/17/16 10:57 Dose: Not Given Enoxaparin Sodium (Lovenox -) 60 mg SQ BID [facility] Last Admin: 06/17/16 10:53 Dose: 60 mg Morphine Sulfate 100 mg/ (Sodium Chloride) 100 mls @ 1 mls/hr IVPB TITR [facility]; 1 MG/HR PRN Reason: Protocol Methadone HCl (Dolophine -) 5 mg PO DAILY@0600 PRN Last Admin: 06/17/16 01:05 Dose: 5 mg Nicotine (Nicoderm Patch -) 14 mg TD DAILY [facility] Last Admin: 06/17/16 10:53 Dose: 14 mg - Objective Vital Signs: Vital Signs Temperature 96.8 F L 06/17/16 17:49 Pulse Rate 103 H 06/17/16 17:49 Respiratory Rate 22 06/17/16 17:49 Blood Pressure 148/75 06/17/16 17:49 O2 Sat by Pulse Oximetry (%) 94 L 06/17/16 09:00 Labs: CBC, BMP 06/17/16 09:50 06/17/16 09:50 INR, PTT INR 1.12 (0.82-1.09) 05/29/16 18:50 Assessment/Plan No firther neurologic intervention required, she does not require a tap.
--- NOTE | 2016-06-18 06:11 | HOSP ---
Physical Examination Labs: CBC, BMP 06/17/16 09:50 06/17/16 09:50 Hospitalist Encounter Assessment: Called for patient's expiration. family(son) at bedside. Patient non-reponsive to verbal or noxious stimuli. No breath sounds b/l, no heart sounds, no carotid/radial/femoral/DP pulses. pupils fixed nonreactive to light, no corneal reflex. Time of 6:15AM. Patient . Visit type - Emergency Visit Emergency Visit: No - New Patient This patient is new to me today: Yes Date on this admission: 06/18/16 - Critical Care Critical Care patient: No
--- NOTE | 2016-06-18 10:06 | DS ---
Physical Exam: SUBJECTIVE: Discharge summary Patient OBJECTIVE: Vital Signs Period Temp Pulse Resp BP Sys/Fernando Pulse Ox Last 24 Hr 96.8 F-97.9 F 98-103 22-22 148-154/75-85 94 LABS Laboratory Results - last 24 hr 06/17/16 06/17/16 09:50 09:50 WBC 17.7 H RBC 4.04 Hgb 10.2 L Hct 33.3 MCV 82.6 MCHC 30.7 L RDW 18.7 H Plt Count 407 MPV 7.0 L Neutrophils % 97.0 H Lymphocytes % 1.8 L D Monocytes % 0.9 L Eosinophils % 0.0 Basophils % 0.3 Sodium 142 Potassium 4.6 Chloride 97 L Carbon Dioxide 40 H Anion Gap 5 L BUN 35 H D Creatinine 0.6 Creat Clearance w eGFR > 60 Random Glucose 135 H D Calcium 9.2 Phosphorus 2.9 Magnesium 2.9 H D Total Bilirubin 0.1 L D AST 19 ALT 26 Alkaline Phosphatase 103 Total Protein 7.4 Albumin 2.6 L HOSPITAL COURSE: Date of Admission:05/30/16 Date of Discharge: 06/18/16 65F with history of HTN Breast CA and 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 Mental status improved when methadone dose lowered. also treated with IV Abx for possible aspiration pneumonia. Had Chest CT done and noted to have diffuse mediastinal lymphadenopathy. Had lymph node biopsy which showed recurrent metastatic breast cancer. Patient noted to have SVC compression on chest CT. Started on anticoagulation. Seen by multiple consultants including heme/onc neurology ID pulmonology and radiation oncology. Diagnosis of metastatic breast Ca was terminal. Patient started to have worsening mental status and also had worsening symptomatic compression of SVC. Family made patient comfort care she was started on a morphine gtt and early this morning with son at bedside. Minutes to complete discharge: 45 Discharge Summary Reason For Visit: CHF HYPOGLYCEMIA - Instructions Referrals: Colin Brar MD [Primary Care Provider] - Disposition: - Home Medications Comprehensive Discharge Medication List: Ambulatory Orders Atenolol [Tenormin] 25 mg PO DAILY 05/14/12 Gabapentin [Neurontin] 600 mg PO TID PRN 05/14/12 Methadone (Detox) [Dolophine -] 30 mg PO DAILY 05/14/12 Enalapril Maleate [Vasotec] 5 mg PO BID 08/23/12 Amlodipine Besylate 10 mg PO DAILY 10/20/14 This patient is new to me today: No Emergency Visit: Yes ED Registration Date: 05/30/16 Care time: The patient presented to the Emergency Department on the above date and was hospitalized for further evaluation of their emergent condition. Critical Care patient: No - Discharge Referral Referred to [facility] Med P.C.: No Physician Referral: Colin Davis MD ([facility])
--- NOTE | 2016-06-18 12:14 | PN ---
Teaching Attending Note Name of Resident: Filippo Hoyos ATTENDING PHYSICIAN STATEMENT I saw and evaluated the patient. I reviewed the resident's note and discussed the case with the resident. I agree with the resident's findings and plan as documented. Patient at 6:12am this morning on 06/18/2016, Patient was pronounced by . Patient was made comfort care on 06/17/2016. Please see the resident note on 06/17/2016. certificate was prepared by me.
== END 2016-06-18 06:15 | disposition expired | DRG 364 ==
LOC: JER 17:37 → JERBED 05-30 00:51 → UNDOADMIN 05-30 00:59 → JERBED 05-30 00:59 → J6S 05-30 14:18 → JICU 06-01 16:56 → J8W 06-02 19:30
PROVIDERS: ADMIT Internal Medicine; ATTEND Internal Medicine
PROC: 3E033GC Introduction of Other Therapeutic Substance into Peripheral Vein, Percutaneous Approach (ICD-10-PCS; 2016-05-30)
PROC: 0W993ZX Drainage of Right Pleural Cavity, Percutaneous Approach, Diagnostic (ICD-10-PCS; 2016-05-31)
PROC: 07B23ZX Excision of Left Neck Lymphatic, Percutaneous Approach, Diagnostic (ICD-10-PCS; principal; 2016-06-07)
DX: C50.912 Malignant neoplasm of unspecified site of left female breast (principal); C50.911 Malignant neoplasm of unspecified site of right female breast; C77.0 Secondary and unspecified malignant neoplasm of lymph nodes of head, face and neck; Z85.3 Personal history of malignant neoplasm of breast; D72.829 Elevated white blood cell count, unspecified; E16.2 Hypoglycemia, unspecified; E87.5 Hyperkalemia; F11.20 Opioid dependence, uncomplicated; R60.9 Edema, unspecified; J18.9 Pneumonia, unspecified organism; J98.11 Atelectasis; I11.0 Hypertensive heart disease with heart failure; I50.33 Acute on chronic diastolic (congestive) heart failure; J96.02 Acute respiratory failure with hypercapnia; F17.210 Nicotine dependence, cigarettes, uncomplicated; R63.0 Anorexia; Z68.20 Body mass index [BMI] 20.0-20.9, adult; R63.4 Abnormal weight loss; H02.403 Unspecified ptosis of bilateral eyelids; G89.4 Chronic pain syndrome; R00.0 Tachycardia, unspecified; I87.1 Compression of vein; R59.0 Localized enlarged lymph nodes; I82.611 Acute embolism and thrombosis of superficial veins of right upper extremity; D63.8 Anemia in other chronic diseases classified elsewhere; A41.9 Sepsis, unspecified organism; Z17.1 Estrogen receptor negative status [ER-]; G93.41 Metabolic encephalopathy; Z66 Do not resuscitate
CPT/HCPCS: 36415; 36600; 70450-TC; 70470-TC; 70491-TC; 71010-TC; 71020-TC; 71250-TC; 71260-TC; 71275-TC; 74020-TC; 74177-TC; 76536-TC; 76705-TC; 76942; 76942-TC; 80048; 80053; 80061; 80307; 81003; 82042; 82140; 82150; 82438; 82550; 82607; 82728; 82746; 82803; 82945; 83540; 83550; 83615; 83721; 83735; 83880; 84100; 84157; 84311; 84439; 84443; 84478; 84484; 85025; 85027; 85610; 85651; 85730; 86140; 86480; 86593; 86850; 86900; 86901; 87040; 87070; 87075; 87086; 87102; 87116; 87205; 87206; 87210; 87389; 87899; 88108; 88305-TC; 88341-TC; 89051; 93005; 93010; 93306-TC; 93970-TC; 93971; 94660; 97116-GP; 97161-GP; 99285-25; J1644